=== PATIENT | female | born 1950 | race Caucasian/White ===

== ENCOUNTER 2022-05-14 13:38 | Emergency (ER) | payer MEDICARE, OTHER, SELFPAY ==
[2022-05-14 13:56] VITALS: BP 120/75; PULSE 98; RESP 18; TEMP 36.3; O2SAT 98; BMI 35.0
[2022-05-14 14:30] VITALS: BP 133/72; PULSE 81; RESP 16; O2SAT 99
[2022-05-14] MEDS: 0.9 % SODIUM CHLORIDE 1000 ml 1,000 ML IV (14:35)
--- NOTE | 2022-05-14 14:38 | ED.ARRPALP ---
HPI - Arrhythmia/Palpitations General Chief Complaint: Arrhythmia/Palpitations Stated Complaint: Possible A-Fib Time Seen by Provider: 05/14/22 14:11 History of Present Illness HPI narrative: 72-year-old woman presenting with concern of atrial fibrillation. Does have a known history of PVCs treated way back with atenolol which resulted in significant bradycardia so it was discontinued. She has been maintained on diltiazem and a month ago changed hydrochlorothiazide dosing to b.i.d.. Was feeling pretty well yesterday and this morning around 630 woke feeling generally unwell. Noted from her cellphone monitor that she was in atrial fibrillation. She has been over the course of the day been pushing fluids. Has already taken double her usual dose of diltiazem, now at 60 mg dosed twice today. She did feel woozy in the sense that if she would have turned around too fast she might have fallen down as one of the symptoms earlier this morning. No chest pain or shortness of breath. No fever, no cough or cold symptoms. She has been traveling from [facility] to visit her daughter and would have thought she was a little dehydrated though again pushing fluids today. She is not experiencing any nausea. No UTI symptoms. She is quite clear that was not in atrial fibrillation yesterday. Is a retired [employer] Related Data Home Medications Medication Instructions Recorded Confirmed blood sugar diagnostic (FreeStyle 05/14/22 05/14/22 Lite Strips) cyanocobalamin (vitamin B-12) mcg 05/14/22 1,000 mcg/mL injection solution diltiazem HCl 60 mg tablet 30 mg .Q12 05/14/22 dulaglutide 1.5 mg/0.5 mL mg subcut 05/14/22 subcutaneous pen injector (Trulicity) dulaglutide 3 mg/0.5 mL mg subcut 05/14/22 subcutaneous pen injector (Trulicity) insulin glargine 100 unit/mL unit subcut 05/14/22 subcutaneous solution (Lantus U-100 Insulin) insulin lispro 100 unit/mL subcut 05/14/22 subcutaneous pen (Humalog KwikPen (U-100) Insulin) insulin syringe-needle U-100 1 mL 05/14/22 05/14/22 30 gauge x 1/2 (BD Insulin Syringe Ultra-Fine) losartan 100 mg tablet mg 05/14/22 oxybutynin chloride 5 mg tablet mg 05/14/22 pravastatin 10 mg tablet mg 05/14/22 Previous Rx's Medication Instructions Recorded apixaban 5 mg tablet (Eliquis) 5 mg PO BID #60 tabs 05/14/22 potassium chloride 20 mEq 20 meq PO DAILY #30 tabs 05/14/22 tablet,extended release Allergies Allergy/AdvReac Type Severity Reaction Status Date / Time clarithromycin Allergy Verified 05/14/22 14:01 erythromycin base Allergy Verified 05/14/22 14:01 hydrocodone Allergy Verified 05/14/22 14:01 lisinopril Allergy Verified 05/14/22 14:01 Sulfa (Sulfonamide Allergy Verified 05/14/22 14:01 Antibiotics) Review of Systems Status of ROS: Reports: 10 or more systems reviewed and unremarkable except as noted in History and below Exam Narrative: Exam Narrative: Pleasant. Talkative. Breathing easily. Cranial nerves 2-12 intact. No apparent JVD. Lungs appear to be clear. Cardiovascular with irregularly irregular rhythm, regular to a little elevated rate, maybe a trace systolic murmur. Abdomen is soft and nontender. Overweight. Extremities are without edema. She is moving all extremities without difficulty. Well perfused. Const: Vital Signs, click to edit/add: Vital Signs - 24 hr 05/14/22 13:56 05/14/22 14:30 05/14/22 15:00 Temperature 97.3 F L Pulse Rate [Right Pulse Oximeter] 98 81 77 Respiratory Rate 18 16 14 Blood Pressure [Ri ght Upper Arm] 120/75 133/72 112/60 Pulse Oximetry 98 99 99 Oxygen Delivery Me thod Room Air Room Air Room Air 05/14/22 16:00 05/14/22 16:30 Temperature Pulse Rate [Right Pulse Oximeter] 70 73 Respiratory Rate 16 16 Blood Pressure [Ri ght Upper Arm] 114/51 L 108/53 L Pulse Oximetry 99 99 Oxygen Delivery Me thod Room Air Room Air Documenting provider has reviewed patient's vital signs: yes Course Vital Signs Vital signs: Initial Vital Signs Temperature 97.3 F L 05/14/22 13:56 Temperature Source Temporal Artery Scan 05/14/22 13:56 Pulse Rate 98 05/14/22 13:56 Respiratory Rate 18 05/14/22 13:56 Blood Pressure 120/75 05/14/22 13:56 Blood Pressure Mean 90 05/14/22 13:56 Blood Pressure Position Sitting 05/14/22 13:56 Pulse Oximetry 98 05/14/22 13:56 Oxygen Delivery Method 05/14/22 13:56 Vital Signs Temperature 97.3 F L 05/14/22 13:56 Pulse Rate 98 05/14/22 13:56 Respiratory Rate 18 05/14/22 13:56 Blood Pressure 120/75 05/14/22 13:56 Pulse Oximetry 98 05/14/22 13:56 Oxygen Delivery Method 05/14/22 13:56 Temperature 97.3 F L 05/14/22 13:56 Pulse Rate 73 05/14/22 16:30 Respiratory Rate 16 05/14/22 16:30 Blood Pressure 108/53 L 05/14/22 16:30 Pulse Oximetry 99 05/14/22 16:30 Oxygen Delivery Method 05/14/22 16:30 MDM - Arrhythmia/Palpitations MDM Narrative Medical decision making narrative: Will be placing IV and fluids. Labs pending. I would anticipate cardioversion. Do not need rate control at this time. Labs returned notable for potassium low at 3 and low-normal magnesium. Did give 50 mEq of potassium Moving to his cardioversion pending call to Anesthesia for potential assistance Ms. Crane spontaneously converted into normal sinus. She had been up ambulating to the bathroom and noted that she felt much better. I did place a call to Cardiology at [facility] in [facility]. Hoping to arrange next step in cares or any further recommendations. Understandably they are referencing Jovany scoring. However Jovany Vasc 2 scoring would suggest that Ms. Crane should be fully anticoagulated. I do discuss this with Ms. Crane and her daughter. They would like to proceed with this and cardiology followup. Prescribing Eliquis and potassium on discharge. Given dose of Eliquis prior to departure. Medical Records Attestation: I reviewed the patient's medical records. Lab Data Attestation: I reviewed the patient's lab results. Labs: Lab Results 05/14/22 05/14/22 05/14/22 Range/Units 14:50 14:50 14:50 WBC 13.88 H (4.50-11.00) K/uL RBC 4.78 (4.00-5.20) m/uL Hgb 13.1 (12.0-16.0) gm/dL Hct 40.5 (33.0-51.0) % MCV 85 (80-100) fL MCH 27 (26-34) pg MCHC 32 (32-36) gm/dL RDW Coeff of Woody 13.9 (11.5-15.5) % Plt Count 325 (140-440) K/uL Neut % (Auto) 67.2 (42.0-72.0) % Lymph % (Auto) 24.1 (20-44) % [place] % (Auto) 7.2 (0.0-11.0) % Eos % (Auto) 1.2 (0.0-7.0) % Baso % (Auto) 0.1 (0.0-3.0) % Neut # (Auto) 9.30 H (1.7-7.0) K/uL Lymph # (Auto) 3.30 H (0.90-2.90) K/uL [place] # (Auto) 1.00 H (0.00-0.90) K/UL Eos # (Auto) 0.20 (0.00-0.50) K/uL Baso # (Auto) 0.00 (0.00-0.30) K/uL Abs Immat Gran (auto) 0.00 (0.00-0.30) K/uL Imm/Tot Granulo (auto) 0.2 % Sodium 133 L (135-149) mmol/L Potassium 3.0 L (3.6-5.1) mmol/L Chloride 98 (96-114) mmol/L Carbon Dioxide 28 (20-32) mmol/L BUN 23 (7-30) mg/dL Creatinine 0.8 (0.5-1.5) mg/dL Estimated Creat Clear 43.91 Estimated GFR 78 ml/min Glucose 92 (60-115) mg/dL Calcium 10.4 (8.4-10.6) mg/dL Magnesium 1.9 (1.5-2.6) mg/dL C-Reactive Protein 1.7 H (0.5-1.0) mg/dL NT-Pro-B Natriuret Pep 128 H (0-125) PG/mL TSH 0.894 (0.270-4.20) uIU/mL ECG Data Attestation: I personally reviewed and interpreted this ECG as follows: (1. Atrial fibrillation rate of 84 2. Spontaneous conversion into normal sinus rhythm rate of 71 no ischemic changes appreciated ) Discharge Plan Discharge Clinical Impression: Paroxysmal atrial fibrillation, Hypokalemia Patient Disposition: Home w/ Parent or Adult Condition: Improved Additional Instructions: Continue to stay well hydrated. A little heart pumping exercise daily does a body good. I do not think I have heard or seen anything at least as far as your heart is concerned, for you to restrict your physical activity. My concern would be your steadiness otherwise. Please schedule follow-up within the next 2 weeks to recheck labs and I would also schedule follow-up with Cardiology as soon as possible to reestablish cares. Supplementation for low magnesium is often about 400 mg BID but you're technically not low; I leave this up to you. Prescriptions: New Eliquis 5 mg tablet 5 mg PO BID Qty: 60 2RF potassium chloride 20 mEq tablet extended release 20 meq PO DAILY Qty: 30 0RF No Action (DME) FreeStyle Lite Strips Strip MISCELLANEOUS cyanocobalamin (vitamin B-12) 1,000 mcg/mL solution diltiazem HCl 60 mg tablet 30 mg .Q12 insulin glargine [Lantus U-100 Insulin] 100 unit/mL solution SUBCUT pravastatin 10 mg tablet oxybutynin chloride 5 mg tablet (DME) insulin syringe-needle U-100 [BD Insulin Syringe Ultra-Fine] 1 mL 30 gauge x 1/2 syringe MISCELLANEOUS losartan 100 mg tablet insulin lispro [Humalog KwikPen Insulin] 100 unit/mL insulin pen SUBCUT Trulicity 1.5 mg/0.5 mL pen injector SUBCUT Trulicity 3 mg/0.5 mL pen injector SUBCUT Follow Up/Referrals: Linda Rehman MD [Staff Physician] - Stand Alone Forms: [employer] Info Instructions
[2022-05-14 15:00] VITALS: BP 112/60; PULSE 77; RESP 14; O2SAT 99
[2022-05-14 15:04] LABS: Basophils Percent Auto 0.1 % (0.0-3.0); Eosinophils Percent Auto 1.2 % (0.0-7.0); Hematocrit 40.5 % (33.0-51.0); Hemoglobin* 13.1 gm/dL (12.0-16.0); Immature Granulocytes Pct Auto 0.2 %; Lymphocytes Percent Auto 24.1 % (20-44); Mean Corpuscular HGB Conc 32 gm/dL (32-36); Mean Corpuscular Hemoglobin 27 pg (26-34); Mean Corpuscular Volume 85 fL (80-100); Monocytes Percent Auto 7.2 % (0.0-11.0); Neutrophils Percent Auto 67.2 % (42.0-72.0); Platelet Count* 325 K/uL (140-440); RDW Coefficient of Variation % 13.9 % (11.5-15.5); Red Blood Count 4.78 m/uL (4.00-5.20); White Blood Count* 13.88 K/uL (4.50-11.00)
[2022-05-14 15:10] LABS: Slide Review Reflex No
[2022-05-14 15:25] LABS: Chloride* 98 mmol/L (96-114); Sodium* 133 mmol/L (135-149)
--- OUTSIDE RECORDS SUMMARY | 2022-05-14 15:25 | XMS_ITS | Clinical Summary ---
:1950 Author Organization [facility] Address [address] [place] [address] Care Team Providers Name Role Phone Unavailable Primary Care Provider Unavailable Source Comments Patient records contain information from all sites at [facility]. For routine questions regarding patient records, call [phone] during business hours, M-F 8:00 AM - 5:00 PM Central Time. Record requests for emergency care only can be directed to [phone] at any time.[facility] Allergies Active Allergy Reactions Severity Noted Date Comments Adhesive Tape-Silicones Other (see comments) 7 Redness Aspirin, Buffered GI intolerance 01/25/2017Jan 2 022, Patient says th ey are on low-dose aspirin, taking with food. Clarithromycin Other (see comments) 01/04/2014 Metal Taste in the mouth Erythromycin Other (see comments) 01/04/2014 Metal t aste in mouth Hydrocodone Nausea Only 01/04/2014 Lisinopril Rash 01/04/2014 lip swelling Sulfa (Sulfonamide Other (see comments) 01/04/2014 F ever Antibiotics) Bottoms of feet get hard Medications Medication Sig Dispensed Refills Start Date End Date Status ALBUTEROL SULFATE INHL Inhale 2 puffs 0 12/05/2015 Active as needed. SOB diphenhydrAMINE Take 1 capsule 0 10/05/2016 Active (BENADRYL) 25 mg capsule by mouth at bedtime as needed. insomnia cyanocobalamin Inject 1,000 mcg 0 10/06/2016 Active (for_VITAMIN B12) 1,000 under the skin mcg/mL injection every 30 (thirty) days. Acceptable range for needle size is 25 to 27 gauge and 1/2 to 5/8 long dilTIAZem (for_CARDIZEM) Take 1 tablet by 0 10/08/19 17 Active 30 mg tablet mouth 2 (two) times a day. pediatric Chew 1 tablet 2 0 10/06/2016 Act sherry raedhtysftra-whrj-qtqeeln (two) times a s (FLINTSTONES COMPLETE) day. chewable tablet fluticasone propionate Inhale 2 0 10/05/2016 Active (FLOVENT HFA) 110 Inhalers as mcg/actuation inhaler needed. hydroCHLOROthiazide Take 25 mg by 0 05/24/2017 Active (for_MICROZIDE) 12.5 mg mouth 2 (two) capsule times a day. insulin glargine (LANTUS) Inject 56 Units 0 05/24/20 17 Active 100 unit/mL injection under the skin at bedtime. sennosides-docusate Take 2 tablets 0 10/06/2016 Active sodium (SENOKOT-S) 8.6-50 by mouth at mg per tablet bedtime as needed. cholecalciferol (VITAMIN Take 1 tablet by 0 10/07/19 17 Active D3) 50 mcg (2,000 Unit) mouth daily. tablet ascorbic acid, vitamin C, Take 1 tablet by 0 016 Active (VITAMIN C) 1,000 mg mouth daily. tablet seasonal oxybutynin (DITROPAN) 5 Take 1 tablet by 0 7 Active mg tablet mouth 4 (four) times a day. nystatin (MYCOSTATIN) as needed. 0 04/18/2018 Active 100,000 unit/gram cream valsartan (DIOVAN) 160 mg Take 160 mg by 0 Active tablet mouth daily. FREESTYLE LITE STRIPS 2 test 2 (two) 100 strip 11 02/20/2019 Active strips times a day. Test twice daily Comfort EZ Pen [place] 29 0 12/13/2021 Active gauge x 1/2 needle Jardiance 25 mg tablet 25 mg daily. 0 12/25/2021 Active Trulicity 3 mg/0.5 mL 0 12/25/2021 Active injection aspirin 81 mg capsule Take 1 tablet by 0 Active mouth daily. pravastatin (PRAVACHOL) Take 80 mg by 0 Active 80 mg tablet mouth at bedtime. 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 Surgery Bariatr ic Status Post; Bypass Gastric Geovanna En Y Status Post; Body Mass Index 36.0 To 36.9 Adult 03/08/2022 Clinical Admitting/Central Pre-visit Intake Communication Scheduling 02/12/2022 Clinical Admitting/Central Pre-visit Intake Communication Scheduling from Last 3 Months Immunizations Name Administration Dates Next Due H1N1 Inj 05/06/2009 HZV (ZOSTAVAX) 11/10/2010 Influenza (IM) Preservative Free 04/01/2014, 04/04/2013, 06/2011, 06/22/2011, 04/29/2010, 03/19/2009 Influenza Split 05/27/2016 Influenza, Seasonal, Injectable 05/02/2006, 05/06/2005, 11/0 08/2003 PCV13 10/16/2015 PPSV23 02/08/2020 (Deferred: Other), 10/24/2006 RZV (SHINGRIX) 02/08/2020 (Deferred: Other) Td (Adult), adsorbed 10/22/1996 Td Preservative Free (TENIVAC, 10/27/2015 DECAVAC) Tdap 11/25/2006 influenza high dose (65 years or 06/03/2016, 05/27/2016, 09/2014 older) (PF) influenza vaccine quad 04/18/2017 (FLUZONE/FLUARIX) (6 months and older)(PF) Family History Medical History Relation Name Comments Gestational diabetes Daughter Irene Allen Alcohol abuse Father Navid Michelle Arthritis Father Navid Michelle Coronary artery disease Father Navid Michelle Diabetes Father Navid Michelle Hypertension Father Navid Michelle Sleep apnea Father Navid Michelle Pancreatic cancer Father's Brother Alec Michelle Breast cancer Father's Sister Kristyn Garcia Alcohol abuse Mother Radha Michelle Arthritis Mother Radha Michelle Coronary artery disease Mother Radha Michelle Dementia Mother Radha Michelle Diabetes Mother Radha Michelle Hypertension Mother Radha Michelle Kidney disease Mother Radha Michelle Hypertension Son Anibal Crane Sleep apnea Son Anibal Crane Ovarian cancer Neg Hx Relation Name Status Comments Daughter Irene Allen Father Navid Michelle Father's Brother Alec Michelle Father's Sister Kristyn Garcia Mother Radha Michelle Son Anibal Crane Social History Tobacco Use Types Packs/Day Years Used Date Smoking Tobacco: Never Smokeless Tobacco: Never Tobacco Cessation: Counseling Given: Not Answered Alcohol Use Standard Drinks/Week Comments Yes 1 (1 standard drink = 0.6 oz pure alcoho l) Alcohol Habits Answer Date Recorded How often do you have a drink containing alcohol? Monthly or less 02/08/2020 How many drinks containing alcohol do you have on a 1 or 2 02/08/2020 typical day when you are drinking? How often do you have six or more drinks on one Never 02/08/2020 occasion? Social Isolation Answer Date Recorded In a typical week, how many times do you talk on the Once a week 02/08/2020 phone with family, friends, or neighbors? How often do you get together with friends or Not asked relatives? How often do you attend yarsani or mosque services? Patien t refused 02/08/2020 Do you belong to any clubs or organizations such as No 02/08/2020 yarsani groups, unions, fraternal or athletic groups, or school groups? How often do you attend meetings of the clubs or Never 02/08/2020 organizations you belong to? Are you now , , , , 02/08/2020 never or living with a partner? Physical Activity Answer Date Recorded On average, how many days per week do you engage in moderate 3 days 02/08/2020 to strenuous exercise (like walking fast, running, jogging, dancing, swimming, biking, or other activities that cause a light or heavy sweat)? On average, how many minutes do you engage in exercise at No t asked this level? Stress Answer Date Recorded Do you feel stress - tense, restless, nervous, or Only a lit tle 02/08/2020 anxious, or unable to sleep at night because your mind is troubled all the time - these days? Financial Resource Strain Answer Date Recorded How hard is it for you to pay for the very basics like Not h luciana at all 02/08/2020 food, housing, medical care, and heating? Food Insecurity Answer Date Recorded Within the past 12 months, you worried that your food would Not asked run out before you got money to buy more. Within the past 12 months, the food you bought just didn't N ever true 02/08/2020 last and you didn't have money to get more. Transportation Needs Answer Date Recorded In the past 12 months, has lack of transportation kept you f rom No 02/08/2020 medical appointments or from getting medications? In the past 12 months, has lack of transportation kept you f rom No 02/08/2020 meetings, work, or getting things needed for daily living? Education Answer Date Recorded What is the highest level of school Associate degree: elio lomax, 02/08/2020 you have completed or the highest technical, or vocational p joaquin degree you have received? Sex Assigned at Date Recorded Not on file Last Filed Vital Signs Vital Sign Reading Time Taken Comments Blood Pressure 126/55 03/09/2022 9:35 AM average CDT Pulse 69 03/09/2022 9:35 AM CDT Temperature - - Respiratory Rate 18 10/07/2016 12:04 Value from Blued rtplus. PM CDT Oxygen Saturation - - Inhaled Oxygen - - Concentration Weight 94.8 kg (208 lb 15.9 03/09/2022 9:35 AM oz) CDT Height 161.3 cm (5' 3.5) 03/09/2022 9:35 AM CDT Body Mass Index 36.44 03/09/2022 9:35 AM CDT Plan of Treatment Health Maintenance Due Date Last Done Comments Bone Density Scan (Osteoporosis 1950 Screen) CT Colonography 1950 Cologuard 1950 Diabetic Office Visit with Foot 1950 Exam Dilated Eye Exam 1950 FIT 1950 Hepatitis C Screening 1950 COVID-19 Vaccine (#1) 1950 Hepatitis B Vaccines (1 of 3 - 2010 Risk 3-dose series) Zoster Vaccines (2 of 3) 01/05/2011 11/10/2010 Pneumococcal vaccine (65+ years) 10/15/2016 10/16/2015, (3 - PPSV23 if available, else PCV20) Diabetes Education 12/21/2016 12/22/2015 Potassium Level 10/06/2017 10/06/2016 Sodium Level 10/06/2017 10/06/2016 Urine Albumin 04/11/2020 04/11/2019 Mammogram 02/04/2021 02/05/2020, 01/30/2020, 12/21/2018, Additional history exists Colonoscopy 06/27/2021 06/27/2011 (Performed elsewhere) Colorectal Cancer Screening 06/27/2021 Depression Screening (Annual 06/27/2021 PHQ-2) Fall Risk Screen (Annual) 06/27/2021 Influenza Vaccine (#1) 2022 05/01/2019, 04/17/2018, 04/18/2017, Additional history exists Hemoglobin A1C 08/13/2022 02/10/2022, 11/26/2020, 11/26/2019, Additional history exists Creatinine Level 02/10/2023 02/10/2022, 11/26/2020, 11/26/2019, Additional history exists Office Visit for Blood Pressure 03/09/2023 03/09/2022 Check / Re-check DTaP,Tdap,and Td Vaccines (3 - Td 10/26/2025 10/27/2015, , or Tdap) 10/22/1996 Lipid (Cholesterol) Screening 02/10/2027 02/10/2022, 2020, 11/26/2019, Additional history exists Medical Devices Implanted Type Area Stave Jointer Device Shelf Model / Identifier Expiration Serial / Date Lot Breast Other Breast Left: Other Breast Conversions - Default Historical Implant Device Mesh or Abdomen Implanted: 09/29/2016 (Quantity not on file) Patch Description: Body Location - Abdominal. Device Status Text - MeshPatch. Insurance Payer Benefit Plan Subscriber ID Effective Phone Address Typ e / Group Dates MEDICARE MEDICARE A [id number] 2015-Pres [address] [place] [address] FOR FOR [id number] 2017-Prese [phone] [address] [facility] [address] [address] [place] [address]
--- OUTSIDE RECORDS SUMMARY | 2022-05-14 15:25 | XMS_ITS | Encounter Summary ---
:1950 Author Organization [facility] Address [address] [place] [address] Care Team Providers Name Role Phone Unavailable Primary Care Provider Unavailable Encounter Details Date Type Department Care Team Description 11/19/2020 Hospital Encounter Department of Valentin Blank Laboratory Medicine Libby Ny APRN, En Y S tatus [place] in [place], C.N.PWing, D.N.PWing [place] [address] [facility] [address] [place] [phone] Social History Tobacco Use Types Packs/Day Years Used Date Smoking Tobacco: Never Smokeless Tobacco: Never Alcohol Use Standard Drinks/Week Comments Yes 1 [...] asked relatives? How often do you attend synagogue or cheondoism services? Patien t refused 02/08/2020 Do you belong to any clubs or organizations such as No 02/08/2020 synagogue groups, unions, fraternal or athletic groups, or [...] Assigned at Date Recorded Not on file documented as of this encounter Medications at Time of Discharge Medication Sig Dispensed Refills Start Date End Date ALBUTEROL SULFATE INHL Inhale 2 puffs as 0 2015 needed. SOB ascorbic acid, vitamin C, Take 1 tablet by 0 12/25 (VITAMIN C) 1,000 mg tablet mouth daily. seasonal cholecalciferol (VITAMIN Take 1 tablet by 0 10/06 D3) 50 mcg (2,000 Unit) mouth daily. tablet cyanocobalamin (for_VITAMIN Inject 1,000 mcg 0 B12) 1,000 mcg/mL injection under the skin every 30 (thirty) days. Acceptable range for needle size is 25 to 27 gauge and 1/2 to 5/8 long dilTIAZem (for_CARDIZEM) 30 Take 1 tablet by 0 mg tablet mouth 2 (two) times a day. diphenhydrAMINE (BENADRYL) Take 1 capsule by 0 25 mg capsule mouth at bedtime as needed. insomnia fluticasone propionate Inhale 2 Inhalers 0 2016 (FLOVENT HFA) 110 as needed. mcg/actuation inhaler FREESTYLE LITE STRIPS 2 test 2 (two) 100 strip 11 02/20/2019 strips times a day. Test twice daily hydroCHLOROthiazide Take 25 mg by 0 05/24/2017 (for_MICROZIDE) 12.5 mg mouth 2 (two) capsule times a day. insulin glargine (LANTUS) Inject 56 Units 0 05/24 100 unit/mL injection under the skin at bedtime. nystatin (MYCOSTATIN) as needed. 0 04/18/2018 100,000 unit/gram cream oxybutynin (DITROPAN) 5 mg Take 1 tablet by 0 11/2016 tablet mouth 4 (four) times a day. pediatric Chew 1 tablet 2 0 10/06/2016 wsenhwhaasnl-dyyj-hgpzihbr (two) times a (FLINTSTONES COMPLETE) day. chewable tablet sennosides-docusate sodium Take 2 tablets by 0 (SENOKOT-S) 8.6-50 mg per mouth at bedtime tablet as needed. valsartan (DIOVAN) 160 mg Take 160 mg by 0 tablet mouth daily. acetaminophen (for_TYLENOL) Take 2 tablets by 0 0 10/06/2016 11/26/2020 500 mg tablet mouth as needed. pain. Do not exceed 4gm per day. metFORMIN (GLUCOPHAGE) 500 Take 2 tablets 180 tablet 3 06/1311/26/2020 mg tablet (1,000 mg total) by mouth 2 (two) times a day with meals. pravastatin (for_PRAVACHOL) Take 1 tablet by 0 11/26/2020 80 mg tablet mouth at bedtime. documented as of this encounter Plan of Treatment Not on filedocumented as of this encounter Procedures Procedure Name Priority Date/Time Associated Diagnosis Comme nts SUPERSATURATION, Routine 11/25/2020 6:00 AM Bypass Gastric Rou x Results for this 24H, U CDT En Y Status Post procedure a re in the results section. documented in this encounter Results (ABNORMAL) Supersaturation, 24 Hr, Urine (11/25/2020 6:00 AM CDT) P athologist Signature Sodium, 24 HR, 232 22 - 328 11/26/2020 DTL U mmol/24 h 9:06 AM CDT Potassium, 24 52 16 - 105 11/26/2020 DTL HR, U mmol/24 h 9:06 AM CDT Calcium, 24 HR, 82 <200 mg/24 11/26/2020 DTL U h 9:06 AM CDT Magnesium, 24 137 51 - 269 11/26/2020 DTL HR, U mg/24 h 9:06 AM CDT Chloride, 24 200 <287 11/26/2020 DTL HR, U mmol/24 h 9:06 AM CDT Phosphorus, 24 1340 226 - 1797 11/26/2020 DTL HR, U mg/24 h 9:06 AM CDT Sulfate Urine 20 7 - 47 11/26/2020 SIVAN mmol/24 h 3:06 PM CDT Comment: ----ADDITIONAL INFORMATION---- This test was developed and its performa nce characteristics determined by [facility] in a manner co nsistent with CLIA requirements. This test has not bee n cleared or approved by the U.S. Food and Drug Admin istration. Citrate Excretion, U 438 mg/24 h 11/26/2020 10:05 AM CDT DTL Comment: ----REFERENCE VALUE---- Reference values have not been established for patients who are >60 years of age. ----ADDITIONAL INFORMATION---- This test was developed and its performa nce characteristics determined by [facility] in a manner co nsistent with CLIA requirements. This test has not bee n cleared or approved by the U.S. Food and Drug Admin istration. Oxalate, U (mmol/24 h) 0.22 0.11 - 0.46 mmol/24 h 11/26 12:50 PM CDT DTL Comment: ----ADDITIONAL INFORMATION---- This test was developed and its performa nce characteristics determined by [facility] in a manner co nsistent with CLIA requirements. This test has not bee n cleared or approved by the U.S. Food and Drug Admin istration. Oxalate, mg/24 h 19.4 9.7 - 40.5 mg/24 h 11/26/2020 12: 50 PM CDT DTL pH, 24 HR, U 5.0 4.5 - 8.0 11/26/2020 9:43 AM CDT DTL Uric Acid, 24 HR, U 738 250 - 750 mg/24 h 11/26/2020 9 :06 AM CDT DTL Creatinine, 24 HR, U 1258 603 - 1783 mg/24 h 11/26/2020 9:06 AM CDT DTL Osmolality, 24 HR, U 407 150 - 1150 mOsm/kg 11/26/2020 9:43 AM CDT DTL Ammonium, 24 HR, U 48 15 - 56 mmol/24 h 11/26/2020 11 :42 AM CDT DTL Comment: ----ADDITIONAL INFORMATION---- This test has been modified from the man ufacturer's instructions. Its performance characteri stics were determined by [facility] in a manner co nsistent with CLIA requirements. This test has not bee n cleared or approved by the U.S. Food and Drug Admin istration. Urea Nitrogen, 24 HR, U 13.5 7.0 - 42.0 g/24 h 11/27/19 21 9:06 AM CDT DTL Protein Catabolic Rate, 24 109 56 - 125 g/24 h 021 9:06 AM CDT DTL HR, U Height (cm) CANCELED cm 11/26/2020 8:34 AM CDT SIVAN Comment: REVISED RESULTS Weight (kg) CANCELED kg 11/26/2020 8:34 AM CDT SIVAN Comment: REVISED RESULTS Patient Surface Area SEE COMMENT 11/26/2020 8:34 A M CDT SIVAN Comment: REVISED RESULTS Not required for adults. ----PREVIOUSLY REPORTED ---- 2.12, Flagged as: Normal (Reported 11/26/2020 08:34) Calcium Oxalate -0.44 Reference Mean= 11/27/2020 11:21 D TL Crystal 1.59 DG AM CDT Brushite Crystal -4.01 Reference Mean= 11/27/2020 11:21 DTL -0.11 DG AM CDT Hydroxyapatite Crystal -2.05 Reference Mean= 11/27/2020 11:21 DTL 3.62 DG AM CDT Uric Acid Crystal 3.69 (H) Reference Mean= 11/27/2020 11:21 DTL 0.89 DG AM CDT Sodium Urate Crystal -0.18 Reference Mean= 11/27/2020 11 :21 DTL 1.76 DG AM CDT Collection Duration 24 h 11/27/2020 11:21 DTL AM CDT Volume 2735 mL 11/27/2020 11:21 DTL AM CDT Interpretation The DG is related to supersa turation. DG is negative for undersaturated 11/27/2020 11:21 DTL solutions, zero for solutions at the solubility produc t, and positive for AM CDT saturated solutions. Any value greater than the Reference Mean is considered a ri sk for the respective crystal type formation. In general, a higher calculated SS means the risk for formin g that type of stone is increased. A positive DG value indicates that the u rine is supersaturated for that crystal type. Specimen Anatomical Collection Method Collection Time Receive d Time (Source) Location / / Volume Laterality Urine (Urine, 24 11/25/2020 6:00 AM 11/26 8:01 Hours) CDT AM CDT Narrative This result has an attachment that is no t available. Libby Blank APRN C.N.P., D.N.P. LAB URINE ORDER APOLINAR Performing Organization Address City/State/ZIP Code Phon e Number [facility] - [address] [place], [place] [address] [facility] [place] [address] [facility] [address] [place] [address] [facility] [address] documented in this encounter Visit Diagnoses Diagnosis Bypass Gastric Geovanna En Y Status Post documented in this encounter
--- OUTSIDE RECORDS SUMMARY | 2022-05-14 15:25 | XMS_ITS | Encounter Summary ---
:1950 Author Organization [facility] Address [address] [place] [id number] Care Team Providers Name Role Phone Unavailable Primary Care Provider Unavailable Reason for Visit Appointment Request (Routine) - Closed Specialty Diagnoses / Procedures Referred By Contact Refer red To Contact Diagnoses Hypertension Essential Primary Diabetes Mellitus Type 2 (HCC) Obesity Body Mass Index 30-39.9 Adult Ted Ortega APRN, C.N.P., D.N.P. [address] [place] [address] Referral ID Status Reason Start Date Expiration Date Visits Requ ested Visits Authorized [id number] Closed 09/29/2020 09/29/2021 1 1 Encounter Details Date Type Department Care Team Description 12/03/2020 Clinical Support Department of Ted Ortega Last En Y Status Post (Primary Dx); Nutrition in [place], Hypertension Es sential Primary; [place], [place] C.N.P., D.N.P. Diabetes Mellitus Type 2 (HCC) [facility] [address] [place] [address] [phone] Social History Tobacco Use Types Packs/Day Years [...] asked relatives? How often do you attend yarsanism or hoahaoism services? Patien t refused 02/08/2020 Do you belong to any clubs or organizations such as No 02/08/2020 yarsanism groups, unions, fraDishable or athletic groups, or school groups? How [...] highest level of school Associate degree: elio lomax 02/08/2020 you have completed or the highest technical, or vocational [facility] degree you have received? Sex Assigned at Date Recorded Not on file documented as of this encounter Progress Notes Althea Sharma M.Ed., TITUS FRANCISCO - 12/03/2020 8:00 AM CDT Patient presents for greater than 1 year status post bariatric surgery/procedure nutrition group visit. Consult conducted via real-time audio/video technology by Althea Sharma M.Ed., TITUS FRANCISCO in [facility] to the patient in patient home. Patient will be able to identify the nutritional guidelines recommended for greater than 1 year status post bariatric surgery/procedure and adopt the habits that are needed for improved health and maintenance of weight loss. The objectives of this class are as follows: -Review healthy dietary guidelines -Consume a variety of healthy foods -Limit sugar/sweets -Consume recommended fluids -Drink and eat slowly -Eat on a regular schedule -Take the recommended supplements Patient assessment: Meals: 2-3 meals and 1-2 snacks Breakfast: 1/2 bagel or cottage cheese with fruit or nepalese yogurt with granola or oatmeal Lunch: cheese or sausage or vegetables Supper: meat and vegetable Snack: Protein shake GI Symptoms: none Fluids: 64 or more ounces from water, protein shake, fairlife milk Protein: 60-80 grams from cottage cheese, nepalese yogurt, milk, eggs, lean meats and protein shake Physical Activity: stationary bike, walking (4-5,000 steps/day) Goals: Gradual weight loss and Blood Glucose control Addressed patient directed diet related questions on a variety of topics including portion control, snacking, hunger, and self-monitoring. Follow up per protocol. Patient Census: 3 Total Group Time: 45 minutes Individual time: 25 minutes Ted Ortega APRN, C.N.P., D.N.P. - 12/03/2020 8:00 AM CDT SUBJECTIVE REASON FOR VISIT This is a brief interim post-bariatric surgery visit. Today's visit was completed via telephone call from provider's office to patient's home due to the COVID 19 pandemic. Patient consented to this service. She is being seen today for an interim follow-up visit after undergoing a last-en-Y gastric bypass by Dr. Hickey on 10/05/16. She was just recently seen by my colleague Libby Blank APRN, CNP individually last week and today reports for the group portion of follow up care. New new concerns today. She still notes fullness with her eating patterns, and is uncomfortable whenapproaching 1.5 cups at a time. In the past has done food tracking, but in the past couple weeks she was traveling quite a bit so has gotten off track with this, which will certainly help. The following portions of the patient's history were reviewed and updated as appropriate: allergies,labs, current medications, family history, medical history, social history, surgical history, and problem list. OBJECTIVE CURRENT MEDICATIONS Current Outpatient Medications Medication Sig Dispense Refill ??? ALBUTEROL SULFATE INHL Inhale 2 puffs as needed. SOB ??? ascorbic acid, vitamin C, (vitamin C) 1,000 mg tablet Take 1 tablet by mouth 2 (two) times a day. seasonal ??? cholecalciferol (VITAMIN D3) 2,000 Unit tablet Take 1 tablet by mouth daily. ??? cyanocobalamin (for_VITAMIN B12) 1,000 mcg/mL injection Inject 1,000 mcg under the skin every 30(thirty) days. Acceptable range for needle size is 25 to 27 gauge and 1/2 to 5/8 long ??? dilTIAZem (for_CARDIZEM) 30 mg tablet Take 1 tablet by mouth 2 (two) times a day. ??? diphenhydrAMINE (BENADRYL) 25 mg capsule Take 1 capsule by mouth at bedtime as needed. insomnia ??? fluticasone (FLOVENT HFA) 110 mcg/actuation inhaler Inhale 2 Inhalers as needed. ??? FREESTYLE LITE STRIPS strips 2 test 2 (two) times a day. Test twice daily 100 strip 11 ??? hydroCHLOROthiazide (for_MICROZIDE) 12.5 mg capsule Take 1 capsule by mouth daily. ??? insulin glargine (LANTUS U-100 INSULIN) 100 unit/mL injection Inject 56 Units under the skin at bedtime. ??? nystatin (MYCOSTATIN) 100,000 unit/gram cream as needed. ??? oxybutynin (DITROPAN) 5 mg tablet Take 1 tablet by mouth 2 (two) times a day. ??? pediatric vgwpeadnkele-hhws-ntfpghqq (flintstones complete) chewable tablet Chew 1 tablet 2 (two) times a day. ??? sennosides-docusate sodium (SENNA WITH DOCUSATE SODIUM) 8.6-50 mg per tablet Take 2 tablets by mouth at bedtime as needed. ??? valsartan (DIOVAN) 160 mg tablet Take 160 mg by mouth daily. No current facility-administered medications for this visit. ALLERGIES Allergies Allergen Reactions ??? Adhesive Tape-Silicones Other (see comments) Redness ??? Aspirin, Buffered GI intolerance ??? Clarithromycin Other (see comments) Metal Taste in the mouth ??? Erythromycin Other (see comments) unknown ??? Hydrocodone Nausea Only ??? Lisinopril Rash lip swelling ??? Sulfa (Sulfonamide Antibiotics) Other (see comments) Fever Bottoms of feet get hard PAST MEDICAL HISTORY Past Medical History: Diagnosis Date ??? Asthma NOS ??? Blood Transfusion No Diagnosis ??? Cataract ??? Diabetes Mellitus NOS ??? Hyperlipidemia ??? Hypertension NOS ??? Liver Disease ??? Other Injury Of Unspecified Body Region ??? Sleep Apnea PAST SURGICAL HISTORY Past Surgical History: Procedure Laterality Date ??? BREAST BIOPSY Left 1988 ??? CARPAL TUNNEL RELEASE Bilateral ??? SECTION x2 ??? EXPLORATORY LAPAROTOMY inserted mesh ??? HYSTERECTOMY ABDOMINAL WITH SALPINGO - OOPHORECTOMY ??? KNEE SURGERY Left meniscus ??? LAPAROSCOPIC ASSISTED - GASTRIC BYPASS N/A 10/05/2016 Laparoscopic assisted - Gastric bypass ??? ROTATOR CUFF REPAIR Right ??? SEPTOPLASTY ??? SINUS SURGERY ??? TENDON REPAIR tibia ??? TONSILLECTOMY ??? TRIGGER FINGER RELEASE SOCIAL HISTORY Social History Socioeconomic History ??? Marital status: Spouse name: Not on file ??? Number of children: Not on file ??? Years of education: Not on file ??? Highest education level: Associate degree: occupational, technical, or vocational program Occupational History ??? Not on file Tobacco Use ??? Smoking status: Never Smoker ??? Smokeless tobacco: Never Used Substance and Sexual Activity ??? Alcohol use: Yes Alcohol/week: 1.0 standard drinks Types: 1 Cans of beer per week ??? Drug use: No ??? Sexual activity: Yes Partners: Male Other Topics Concern ??? Not on file Social History Narrative ??? Not on file Social Determinants of Health Financial Resource Strain: Low Risk ??? Difficulty of Paying Living Expenses: Not hard at all Food Insecurity: Unknown ??? Worried About Running Out of Food in the Last Year: Not on file ??? Ran Out of Food in the Last Year: Never true Transportation Needs: No Transportation Needs ??? Lack of Transportation (Medical): No ??? Lack of Transportation (Non-Medical): No Physical Activity: Unknown ??? Days of Exercise per Week: 3 days ??? Minutes of Exercise per Session: Not on file Stress: No Stress Concern Present ??? Feeling of Stress : Only a little Social Connections: Unknown ??? Frequency of Communication with Friends and Family: Once a week ??? Frequency of Social Gatherings with Friends and Family: Not on file ??? Attends Zoroastrianism Services: Patient refused ??? Active Member of Clubs or Organizations: No ??? Attends Club or Organization Meetings: Never ??? Marital Status: Intimate Partner Violence: ??? Fear of Current or Ex-Partner: ??? Emotionally Abused: ??? Physically Abused: ??? Sexually Abused: VITAL SIGNS There were no vitals filed for this visit. ASSESSMENT / PLAN #1 Bypass Gastric Last En Y Status Post #2 Hypertension Essential Primary #3 Diabetes Mellitus Type 2 (HCC) Other orders - Nutrition - Group bariatric education visit (clinic) In the future, she is planning to touch base with our dietitians more regularly to help manage dietary habits and routines. Will plan to keep food cut up in her refrigerator to make snacking more healthy overall. She continues to get around 4-5k steps per day, noting some do not get counted. She does quilting and needlework which unfortunately involve sitting she notes. She should follow lifelong with a Primary Care Provider for chronic disease management, acute needs,and annual physicals, as well as the [facility] annually [facility]. Labs and 24 hour urine collection prior to next visit have been previously ordered, and she can follow up as previously planned last visit. She can contact us for additional appointments if needs arise in the interim. I personally spent a total of 22 minutes in gct-bqrs-ts-face time performing review of the medical record, care coordination, documentation, and discussion with the patient as described above. Navya Godoy M.A., Therese.Cassidy. - 12/03/2020 8:00 AM CDT CHIEF COMPLAINT/PURPOSE OF VISIT Clinical Health Psychology Patient attended a 60-minute health and behavior 1 year or greater post- bariatric surgery group visit. Group session conducted via real-time audio/video technology by Navya Godoy M.A., Gay in [facility] to the patient in patient's home. IMPRESSION/REPORT/PLAN Patient attended a 12-month post-bariatric surgery group today. There were 3 group members and one semiconductor processing group leader in attendance. We discussed topics relevant to post-bariatric lifestyle including, but not limited to weight loss maintenance, weight regain, sticking with it, mood, stress management, social support, body image, nutrition, physical activity, and alcohol use. Options to attend a bariatric support group or the Back on Track program were discussed. Mrs. Crane discussed weight regain in the context of behavioral drift and stress eating. She reports that increased structure and support is helpful, and has resumed keeping a food log. She shared that attending the Back on Track support group was helpful, and feels confident that she can continue tomake small behavioral changes to address behavioral drift. She discussed challenges in social eatingsituations. DIAGNOSES #1 Status Post bariatric Surgery BILLING Margin Code: HBGP Total Time: 30 minutes documented in this encounter Plan of Treatment Not on filedocumented as of this encounter Visit Diagnoses Diagnosis Bypass Gastric Last En Y Status Post - P rimary Hypertension Essential Primary Diabetes Mellitus Type 2 (HCC) documented in this encounter
--- OUTSIDE RECORDS SUMMARY | 2022-05-14 15:25 | XMS_ITS | Encounter Summary ---
:1950 Author Organization [facility] Address [address] [place] [address] Care Team Providers Name Role Phone Unavailable Primary Care Provider Unavailable Reason for Visit Reason Comments Abdominal Pain Encounter Details Date Type Department Care Team Description 11/15/2021 - Emergency [facility] Abdominal Pain (Primary 11/17/[address] [place]x) [place] [address] [facility] [phone] Social History Tobacco Use Types Packs/Day Years [...] asked relatives? How often do you attend rastafarian or nondenominational services? Patien t refused 02/08/2020 Do you belong to any clubs or organizations such as No 02/08/2020 rastafarian groups, unions, fraternal or athletic groups, or [...] mg tablet mouth daily. seasonal cholecalciferol (VITAMIN D3) Take 1 tablet by 0 0 10/06/2016 50 mcg (2,000 Unit) tablet mouth daily. cyanocobalamin (for_VITAMIN Inject 1,000 mcg 0 B12) [...] as needed. mcg/actuation inhaler FREESTYLE LITE STRIPS strips 2 test 2 (two) 100 strip 11 times a day. Test twice daily hydroCHLOROthiazide Take 25 mg by mouth 0 017 (for_MICROZIDE) 12.5 mg 2 (two) times a capsule day. insulin glargine (LANTUS) Inject 56 Units 0 05/24 100 unit/mL injection under the skin at bedtime. nystatin (MYCOSTATIN) as needed. 0 04/18/2018 100,000 unit/gram cream oxybutynin (DITROPAN) 5 mg Take 1 tablet by 0 11/2016 tablet mouth 4 (four) times a day. pediatric Chew 1 tablet 2 0 10/06/2016 jcufafcwsomv-bdki-bgxtncsa (two) times a day. (FLINTSTONES COMPLETE) chewable tablet sennosides-docusate sodium Take 2 tablets by 0 (SENOKOT-S) 8.6-50 mg per mouth at bedtime as tablet needed. valsartan (DIOVAN) 160 mg Take 160 mg by 0 tablet mouth daily. documented as of this encounter Plan of Treatment Not on filedocumented as of this encounter Visit Diagnoses Diagnosis Abdominal Pain - Primary documented in this encounter
--- OUTSIDE RECORDS SUMMARY | 2022-05-14 15:25 | XMS_ITS | Encounter Summary ---
:1950 Author Organization [facility] Address [address] [place] [address] Care Team Providers Name Role Phone Unavailable Primary Care Provider Unavailable Reason for Visit Reason Comments Pre-visit Intake Encounter Details Date Type Department Care Team Description 02/12/2022 Clinical Communication Visit Review in Pr e-visit Intake [place], [place] [address] [place], [place] [address] Social History Tobacco Use Types Packs/Day Years [...] asked relatives? How often do you attend presybeterian or congregational services? Patien t refused 02/08/2020 Do you belong to any clubs or organizations such as No 02/08/2020 presybeterian groups, unions, fraternal or athletic groups, or [...] completed or the highest technical, or vocational josé nuñez degree you have received? Sex Assigned at Date Recorded Not on file documented as of this encounter Plan of Treatment Not on filedocumented as of this encounter Visit Diagnoses Not on filedocumented in this encounter
--- OUTSIDE RECORDS SUMMARY | 2022-05-14 15:25 | XMS_ITS | Encounter Summary ---
:1950 Author Organization [facility] Address [address] [place] [address] Care Team Providers Name Role Phone Unavailable Primary Care Provider Unavailable Encounter Details Date Type Department Care Team Description 02/10/2022 Hospital Encounter Department of [place], Surgery Bariatric Status Post; Laboratory Medicine Libby Ny APRN, Diabet es Mellitus Type 2 (HCC); in Naima Fowler.N.P., D.N.P. Hyperlipidemia [place] [address] [facility] [address] [place] [phone] Social History Tobacco Use Types Packs/Day Years [...] asked relatives? How often do you attend protestant or jew services? Patien t refused 02/08/2020 Do you belong to any clubs or organizations such as No 02/08/2020 protestant groups, unions, fraternal or athletic groups, or [...] 50 mcg (2,000 Unit) tablet mouth daily. Comfort EZ Pen [place] 29 0 12/13/2021 gauge x 1/2 needle cyanocobalamin (for_VITAMIN Inject 1,000 mcg 0 B12) [...] unit/mL injection under the skin at bedtime. Jardiance 25 mg tablet 25 mg daily. 0 12/25/2021 nystatin (MYCOSTATIN) as needed. 0 04/18/2018 100,000 unit/gram cream oxybutynin (DITROPAN) 5 mg Take 1 tablet by 0 11/2016 tablet mouth 4 (four) times a day. pediatric Chew 1 tablet 2 0 10/06/2016 zzhgpqpuvvfc-tdys-[id number] (two) times a day. (FLINTSTONES COMPLETE) chewable tablet sennosides-docusate sodium Take 2 tablets by 0 (SENOKOT-S) 8.6-50 mg per mouth at bedtime as tablet needed. Trulicity 3 mg/0.5 mL 0 12/25/2021 injection valsartan (DIOVAN) 160 mg Take 160 mg by 0 tablet mouth daily. documented as of this encounter Plan of Treatment Not on filedocumented as of this encounter Procedures Procedure Name Priority Date/Time Associated Comments Diagnosis LIPID PANEL, S Routine 02/10/2022 7:05 Surgery Bariatric Resul ts for this AM CDT Status Post procedure are in Diabetes Mellitus the result s Type 2 (HCC) section. Hyperlipidemia BONE ALKALINE Routine 02/10/2022 7:05 Surgery Bariatric Result s for this PHOSPHATASE, S AM CDT Status Post procedure are in Diabetes Mellitus the result s Type 2 (HCC) section. 25-HYDROXYVITAMIN D2 AND Routine 02/10/2022 7:05 Surgery Baria tric Results for this D3, S AM CDT Status Post procedure are in Diabetes Mellitus the result s Type 2 (HCC) section. CBC WITHOUT Routine 02/10/2022 7:05 Surgery Bariatric Results for this DIFFERENTIAL, B AM CDT Status Post procedure are in Diabetes Mellitus the result s Type 2 (HCC) section. ASPARTATE Routine 02/10/2022 7:05 Surgery Bariatric Results for this AMINOTRANSFERASE (AST), AM CDT Status P ost procedure are in S/P Diabetes Mellitus the result s Type 2 (HCC) section. HEMOGLOBIN A1C, B Routine 02/10/2022 7:05 Surgery Bariatric Re sults for this AM CDT Status Post procedure are in Diabetes Mellitus the result s Type 2 (HCC) section. GLUCOSE, FASTING, S/P Routine 02/10/2022 7:05 Surgery Bariatri c Results for this AM CDT Status Post procedure are in Diabetes Mellitus the result s Type 2 (HCC) section. FERRITIN, S Routine 02/10/2022 7:05 Surgery Bariatric Results for this AM CDT Status Post procedure are in Diabetes Mellitus the result s Type 2 (HCC) section. CREATININE WITH EGFR, Routine 02/10/2022 7:05 Surgery Bariatri c Results for this S/P AM CDT Status Post procedure are in Diabetes Mellitus the result s Type 2 (HCC) section. CALCIUM, TOT, S/P Routine 02/10/2022 7:05 Surgery Bariatric Re sults for this AM CDT Status Post procedure are in Diabetes Mellitus the result s Type 2 (HCC) section. ALBUMIN, S/P Routine 02/10/2022 7:05 Surgery Bariatric Results for this AM CDT Status Post procedure are in Diabetes Mellitus the result s Type 2 (HCC) section. documented in this encounter Results (ABNORMAL) Lipid Panel (02/10/2022 7:05 AM CDT) P athologist Signature Triglycerides 149 mg/dL 02/10/2022 [facility] 8:20 AM CDT Comment: ----REFERENCE VALUE---- Normal: <150 mg/dL Borderline High: 150-199 mg/dL High: 200-499 mg/dL Very High: > or =500 mg/dL Cholesterol, Total 115 mg/dL 02/10/2022 8:20 AM CD T [facility] Comment: ----REFERENCE VALUE---- Desirable: < 200 mg/dL Borderline High: 200 - 239 mg/dL High: > or = 240 mg/dL Cholesterol, LDL, Calculated 48 mg/dL 02/10/2022 8:20 AM CDT [facility] Comment: ----REFERENCE VALUE---- Desirable: <100 mg/dL Above Desirable: 100-129 mg/dL Borderline High: 130-159 mg/dL High: 160-189 mg/dL Very High: >=190 mg/dL ----ADDITIONAL INFORMATION---- LDL cholesterol calculated using the Hernandez/NIH equation. Cholesterol, HDL 41 (L) >=50 mg/dL 02/10/2022 8:20 AM CDT [facility] Cholesterol, Non-HDL, Calculated 74 mg/dL 8:20 AM CDT [facility] Comment: ----REFERENCE VALUE---- Desirable: <130 mg/dL Above Desirable: 130-159 mg/dL Borderline High: 160-189 mg/dL High: 190-219 mg/dL Very High: > or =220 mg/dL Fasting (8 HR or more) Yes 02/10/2022 7:22 A M CDT [facility] Specimen Anatomical Collection Method Collection Time Receive d Time (Source) Location / / Volume Laterality Blood (Blood, 02/10/2022 7:05 AM 02/11/20 7:22 Venous) CDT AM CDT Libby Blank APRN, C.N.P., D.N.P. LAB BLOOD ADD-O N Performing Organization Address City/State/ZIP Code Phon e Number [facility]- [address] [place] [address] [place] [address] System in [place] [address] (ABNORMAL) Hemoglobin A1c (02/10/2022 7:05 AM CDT) P athologist Signature Hemoglobin A1c, 7.5 (H) 4.2 - 5.6 02/10/2022 [facility] B % 8:15 AM CDT Comment: Hemoglobin A1c values greater than or eq ual to 6.5 percent are diagnostic for diabetes mellitus. ?? Diagnosis should be confirmed by repeat testing. ??In diabet ic patients, HbA1c goals should be discussed with healthcar e provider. Specimen Anatomical Collection Method Collection Time Receive d Time (Source) Location / / Volume Laterality Blood (Blood, 02/10/2022 7:05 AM 02/11/20 7:22 Venous) CDT AM CDT Libby Blank APRN, C.N.P., D.N.P. LAB BLOOD ADD-O N Performing Organization Address City/State/ZIP Code Phon e Number [facility]- [address] [place] [address] [facility] [place] [address] System in [place] [address] CBC without Differential (02/10/2022 7:05 AM CDT) athologist Signature Hemoglobin 12.4 11.6 - 02/10/2022 [facility] 15.0 g/dL 7:26 AM CDT Hematocrit 39.6 35.5 - 02/10/2022 [facility] 44.9 % 7:26 AM CDT Erythrocytes 4.53 3.92 - 02/10/2022 [facility] 5.13 7:26 AM CDT x10(12)/L MCV 87.4 78.2 - 02/10/2022 [facility] 97.9 fL 7:26 AM CDT RBC Distrib Width 14.6 12.2 - 02/10/2022 [facility] 16.1 % 7:26 AM CDT Platelet Count 293 157 - 371 02/10/2022 [facility] x10(9)/L 7:26 AM CDT Leukocytes 8.7 3.4 - 9.6 02/10/2022 [facility] x10(9)/L 7:26 AM CDT Specimen Anatomical Collection Method Collection Time Receive d Time (Source) Location / / Volume Laterality Blood (Blood, 02/10/2022 7:05 AM 02/11/20 7:22 Venous) CDT AM CDT Naima Pizarro APRN.N.P., D.N.P. LAB BLOOD ADD-O N Performing Organization Address City/[facility]/ZIP Code Phon e Number [facility]- [address] [place] [address] [place] [address] System in [place] [address] Creatinine with Estimated GFR (02/10/2022 7:05 AM CDT) athologist Signature Creatinine 0.85 0.59 - 02/10/2022 [place] 1.04 mg/dL 8:20 AM CDT eGFR-Black/Afric 80 >=60 02/10/2022 [facility] an Thai mL/min/BSA 8:20 AM CDT Comment: ----ADDITIONAL INFORMATION---- Estimated GFR calculated using the 2009 CKD_EPI creatinine equation. eGFR Non-Black/ 69 >=60 mL/min/BSA 8:20 AM CDT [facility] Comment: ----ADDITIONAL INFORMATION---- Estimated GFR calculated using the 2009 CKD_EPI creatinine equation. Specimen Anatomical Collection Method Collection Time Receive d Time (Source) Location / / Volume Laterality Blood (Blood, 02/10/2022 7:05 AM 02/11/20 7:22 Venous) CDT AM CDT Naima Pizarro APRN.N.P., D.N.P. LAB BLOOD ADD-O N Performing Organization Address City/State/ZIP Code Phon e Number [facility]- [address] [place] [address] [facility] [place] [address] System in [place] [address] Ferritin (02/10/2022 7:05 AM CDT) athologist Signature Ferritin, S 18 11 - 328 02/10/2022 [facility] mcg/L 8:47 AM CDT Comment: Biotin has been identified by the mena remy as a potential interfering substance. Higher concentrations of biotin may be found in multivitamins, shelley ir/nail supplements, and workout supplements. If the result d oes not match clinical observations, repeat testing af ter patient refrains from the use of supplements for at least 12 hours. Specimen Anatomical Collection Method Collection Time Receive d Time (Source) Location / / Volume Laterality Blood (Blood, 02/10/2022 7:05 AM 02/11/20 7:22 Venous) CDT AM CDT Amaury Pizarro APRNN.Cassidy., D.N.P. LAB BLOOD ADD-O N Performing Organization Address City/[facility]/ZIP Code Phon e Number [facility]- [address] [facility] [place] [address] [place] [address] System in [place] [address] Glucose, Fasting (02/10/2022 7:05 AM CDT) P athologist Signature Glucose, P 94 70 - 100 02/10/2022 [facility] mg/dL 8:23 AM CDT Last Intake 11 hr 02/10/2022 [facility] 7:22 AM CDT Specimen Anatomical Collection Method Collection Time Receive d Time (Source) Location / / Volume Laterality Blood (Blood, 02/10/2022 7:05 AM 02/11/20 7:22 Venous) CDT AM CDT Naima Pizarro APRN.N.P., D.N.P. LAB BLOOD NON A DD-ON Performing Organization Address City/[facility]/ZIP Code Phon e Number [facility]- [address] [place] [address] [place] [address] System in [place] [address] Calcium, Total (02/10/2022 7:05 AM CDT) P athologist Signature Calcium, Total, 9.9 8.8 - 10.2 02/10/2022 [place] P mg/dL 8:20 AM CDT Specimen Anatomical Collection Method Collection Time Receive d Time (Source) Location / / Volume Laterality Blood (Blood, 02/10/2022 7:05 AM 08/17/20 22 7:22 Venous) CDT AM CDT Amaury Pizarro APRNN.Elizabeth, D.N.P. LAB BLOOD ADD-O N Performing Organization Address City/State/ZIP Code Phon e Number [facility]- [address] [place] [address] [place] [address] System in [place] [address] Bone Alkaline Phosphatase (02/10/2022 7:05 AM CDT) P athologist Signature Bone Alkaline 13 mcg/L 02/11/2022 [facility] Phosphatase, S 9:17 AM CDT Comment: ----REFERENCE VALUE---- <=14 (Premenopausal) <=22 (Postmenopausal) ----ADDITIONAL INFORMATION---- Liver-derived alkaline phosphatase (ALP) increases apparent measured bone alkaline phosphatase (BAP) in this assay by 2.5 mcg/L to 5.8 mcg/L for every 100 U/L of liver ALP. ??Accordingl y, serum specimens with significant elevations of liver ALP acti vity may yield artificially elevated results in the BAP assay. Specimen Anatomical Collection Method Collection Time Receive d Time (Source) Location / / Volume Laterality Blood (Blood, 02/10/2022 7:05 AM 02/12/20 8:26 Venous) CDT AM CDT Amaury Pizarro APRNN.PWing, D.N.P. LAB BLOOD ADD-O N Performing Organization Address City/State/ZIP Code Phon e Number [facility] [address] [place] [address] [place], [place] [address] [address] Laboratory Medicine and Pathology [address] [place] AST (Aspartate Aminotransferase) (02/10/2022 7:05 AM CDT) Patholo gist Method Time Signature Aspartate 19 8 - 43 02/10/2022 [facility] Aminotransferase U/L 8:20 AM CDT (AST), P Specimen Anatomical Collection Method Collection Time Receive d Time (Source) Location / / Volume Laterality Blood (Blood, 02/10/2022 7:05 AM 02/11/20 7:22 Venous) CDT AM CDT Naima Pizarro APRN.N.P., D.N.P. LAB BLOOD ADD-O N Performing Organization Address City/[facility]/ZIP Code Phon e Number [facility]- [address] [place] [address] [place] [address] System [address] Albumin (02/10/2022 7:05 AM CDT) athologist Signature Albumin, P 3.9 3.5 - 5.0 02/10/2022 [facility] g/dL 8:20 AM CDT Specimen Anatomical Collection Method Collection Time Receive d Time (Source) Location / / Volume Laterality Blood (Blood, 02/10/2022 7:05 AM 02/11/20 7:22 Venous) CDT AM CDT Naima Pizarro APRN.N.P., D.N.P. LAB BLOOD ADD-O N Performing Organization Address City/[facility]/ZIP Code Phon e Number [facility]- [address] [facility] [place] [address] [place] [address] [address] 25-Hydroxyvitamin D2 and D3 (02/10/2022 7:05 AM CDT) athologist Signature 25-Hydroxy D2 <4.0 ng/mL 02/18/2022 [facility] 1:19 AM CDT 25-Hydroxy D3 40 ng/mL 02/18/2022 [facility] 1:19 AM CDT 25-Hydroxy D 40 ng/mL 02/18/2022 [facility] Total 1:19 AM CDT Comment: ----REFERENCE VALUE---- 25-HYDROXY D TOTAL (D2+D3) Optimum level s in the healthy population are 20-50, patients with bone disease may benefit from higher levels within this r eddie. ----ADDITIONAL INFORMATION---- This test was developed and its performa nce characteristics determined by [facility] in a manner consistent with CLIA requirements. This test has not been cleared or approved by the [place] d and Drug Administration. Specimen Anatomical Collection Method Collection Time Receive d Time (Source) Location / / Volume Laterality Blood (Blood, 02/10/2022 7:05 AM 02/12/20 7:19 Venous) CDT AM CDT Libby Blank APRN C.N.P., D.N.P. LAB BLOOD ADD-O N Performing Organization Address City/State/ZIP Code Phon e Number [facility] [address] [place] [address] [facility] [place] [address] Laboratory Medicine and Pathology [address] [place] documented in this encounter Visit Diagnoses Diagnosis Surgery Bariatric Status Post Diabetes Mellitus Type 2 (HCC) Hyperlipidemia documented in this encounter
--- OUTSIDE RECORDS SUMMARY | 2022-05-14 15:25 | XMS_ITS | Encounter Summary ---
:1950 Author Organization [facility] Address [address] [place] [address] Care Team Providers Name Role Phone Unavailable Primary Care Provider Unavailable Reason for Referral Specialty Diagnoses / Procedures Referred By Contact Refer red To Contact Belia Bacon P. A.-C. [facility] [address] [place] [phone] Referral ID Status Reason Start Date Expiration Date Visits Requ ested Visits Authorized Scheduling Instructions Care Home Post Surgery Group Reason for Visit Outpatient (Routine) - Closed Specialty Diagnoses / Procedures Referred By Contact Refer silke To Contact Endocrinology Libby Blank APRN, [facility] C.N.P., D.N.P. [address] [place] [phone] Referral ID Status Reason Start Date Expiration Date Visits Requ ested Visits Authorized [id number] Closed 11/26/2020 11/26/2021 1 1 Encounter Details Date Type Department Care Team Description 03/09/2022 Office Visit Division of Belia Bacon Diabetes M ellitus Type 2 (HCC) (Primary Dx); Endocrinology in [place] Surgery Bariatric Status Post; [place], [place] [address] [facility] Bypass Gastric Geovanna En Y Status Post; [address] [place] [address] Body Mass Index 36.0 To 36.9 [place] [phone] Social History Tobacco Use Types Packs/Day Years [...] asked relatives? How often do you attend buddhist or lutheran services? Patien t refused 02/08/2020 Do you belong to any clubs or organizations such as No 02/08/2020 buddhist groups, unions, fraternal or athletic groups, or [...] on file documented as of this encounter Last Filed Vital Signs Vital Sign Reading Time Taken Comments Blood Pressure 126/55 03/09/2022 9:35 AM CDT average Pulse 69 03/09/2022 9:35 AM CDT Temperature - - Respiratory Rate - - Oxygen Saturation - - Inhaled Oxygen Concentration - - Weight 94.8 kg (208 lb 15.9 oz) 03/09/2022 9:35 AM CDT Height 161.3 cm (5' 3.5) 03/09/2022 9:35 AM CDT Body Mass Index 36.44 03/09/2022 9:35 AM CDT documented in this encounter Progress Notes Belia Bacon P.A.-C. 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 HISTORY OF PRESENT ILLNESS She is being seen today for a long chain quiller tender follow-up visit after undergoing a laparoscopic Geovanna-en-Y gastric bypass by Dr. Martín Hickey on 10/05/16. WEIGHT HISTORY Baseline weight in nutrition clinic: 117.2 kg Weight at time of bariatric surgery: 118.8 kg Weight one year post-bariatric surgery: 94.5 kg Weight at last post-bariatric surgery visit: 99.1 kg Weight today: 94.8 kg Responses from our post bariatric surgery questionnaire are below, which include pertinent review ofsystems, dietary habits and physical activity patterns: Karla reports that she has been doing well in the interval. Her local pathology specialist, who is managing her diabetes, placed her on Trulicity and Jardiance which has resulted in much better glycemiccontrol with her A1c coming in at 7.5%. This is the best glycemic control she has had since she had her weight darius from bariatric surgery. She reports having lost 20 lbs on this medication regimen. She states that she feels really good and that carb counting has been beneficial in weight control. Also note she was suffering from acute cholecystitis in the interval and underwent a laparoscopic gallbladder removal which has resulted in reduction of GI symptoms to include bloating, abdominal pain. The following portions of the patient's history were reviewed and updated as appropriate: visit questionnaire, allergies, labs, current medications, family history, medical history, social history, surgical history, and problem list. OBJECTIVE VITAL SIGNS Vitals: 03/09/22 0935 BP: 126/55 Pulse: 69 Height: 161.3 cm Weight: 94.8 kg ASSESSMENT / PLAN #1 Diabetes Mellitus Type 2 (HCC) #2 Surgery Bariatric Status Post #3 Bypass Gastric Geovanna En Y Status Post #4 Body Mass Index 36.0 To 36.9 Adult Other orders - Endocrinology office visit (clinic) - Nutrition - Group bariatric education visit (clinic); Future; Expected date: 03/09/2023 - 25-Hydroxyvitamin D2 and D3; Future; Expected date: 03/09/2023 - Albumin; Future; Expected date: 03/09/2023 - AST (Aspartate Aminotransferase); Future; Expected date: 03/09/2023 - Bone Alkaline Phosphatase; Future; Expected date: 03/09/2023 - Calcium, Total; Future; Expected date: 03/09/2023 - Glucose, Fasting; Future; Expected date: 03/09/2023 - Ferritin; Future; Expected date: 03/09/2023 - Creatinine with Estimated GFR; Future; Expected date: 03/09/2023 - CBC without Differential; Future; Expected date: 03/09/2023 - Hemoglobin A1c; Future; Expected date: 03/09/2023 - Lipid Panel; Future; Expected date: 03/09/2023 - Supersaturation, 24 Hr, Urine; Future; Expected date: 03/09/2023 LABS and MEDICATIONS I reviewed the labs with her today. She should make the following medication changes: Multivitamin: one multivitamin twice daily Calcium: no extra calcium supplementation. Vitamin D: 2,000 international units vitamin D3 daily. Vitamin B12: 1000 mcg injection monthly. Iron: Vitron- C 1 tablet 1 time daily. Labs and 24 hour urine collection prior to next visit mail in PHYSICAL ACTIVITY PLAN Lacking on that, sewing in shed. Will work on that in the interval DIETARY MODIFICATION PLAN Smaller portions, no bread, counting carbs so noted reduction with counting. Protein shakes twice a day with [employer]life. Meat with meals using behaviors to avoid grazing. Details will be discussed with our dietitian to review post-bariatric surgery dietary recommendations, including: daily calorie guidelines; healthy dietary and lifestyle choices; common post-surgical nutrition problems; weight plateaus; and the importance of keeping food intake and weight records. She should follow lifelong with a Primary Care Provider for chronic disease management, acute needs,and annual physicals, as well as the [facility] annually long chain quiller tender. At present, I would advise follow-up in approximately one year. She can contact us for additional appointments if needs arise in the interim. documented in this encounter Plan of Treatment Scheduled Orders Name Type Priority Associated Diagnoses Order S chedule 25-Hydroxyvitamin D2 and Lab Routine Diabetes Mellitu s Type 2 Expected: 03/09/2023 D3 ([facility]) (Approximate), Surgery Bariatric Status Exp ires: 06/08/2023 Post Bypass Gastric Geovanna En Y Status Post Body Mass Index 36.0 To 36.9 Adult Albumin Lab Routine Diabetes Mellitus Type 2 Exp ected: 03/09/2023 ([facility]) (Approximate), Surgery Bariatric Status Exp ires: 06/08/2023 Post Bypass Gastric Geovanna En Y Status Post AST (Aspartate Lab Routine Diabetes Mellitus Type 2 E xpected: 03/09/2023 Aminotransferase) ([facility]) (Approximate), Surgery Bariatric Status Exp ires: 06/08/2023 Post Bypass Gastric Geovanna En Y Status Post Bone Alkaline Phosphatase Lab Routine Diabetes Mellit us Type 2 Expected: 03/09/2023 ([facility]) (Approximate), Surgery Bariatric Status Exp ires: 06/08/2023 Post Bypass Gastric Geovanna En Y Status Post Calcium, Total Lab Routine Diabetes Mellitus Type 2 E xpected: 03/09/2023 ([facility]) (Approximate), Surgery Bariatric Status Exp ires: 06/08/2023 Post Bypass Gastric Geovanna En Y Status Post Glucose, Fasting Lab Routine Diabetes Mellitus Type 2 Expected: 03/09/2023 ([facility]) (Approximate), Surgery Bariatric Status Exp ires: 06/08/2023 Post Bypass Gastric Geovanna En Y Status Post Ferritin Lab Routine Diabetes Mellitus Type 2 Exp ected: 03/09/2023 ([facility]) (Approximate), Surgery Bariatric Status Exp ires: 06/08/2023 Post Bypass Gastric Geovanna En Y Status Post Creatinine with Estimated Lab Routine Diabetes Mellit us Type 2 Expected: 03/09/2023 GFR ([facility]) (Approximate), Surgery Bariatric Status Exp ires: 06/08/2023 Post Bypass Gastric Geovanna En Y Status Post CBC without Differential Lab Routine Diabetes Mellitu s Type 2 Expected: 03/09/2023 ([facility]) (Approximate), Surgery Bariatric Status Exp ires: 06/08/2023 Post Bypass Gastric Geovanna En Y Status Post Hemoglobin A1c Lab Routine Diabetes Mellitus Type 2 E xpected: 03/09/2023 ([facility]) (Approximate), Surgery Bariatric Status Exp ires: 06/08/2023 Post Bypass Gastric Geovanna En Y Status Post Lipid Panel Lab Routine Diabetes Mellitus Type 2 Exp ected: 03/09/2023 ([facility]) (Approximate), Surgery Bariatric Status Exp ires: 06/08/2023 Post Bypass Gastric Geovanna En Y Status Post Supersaturation, 24 Hr, Lab Routine Diabetes Mellitus Type 2 Expected: 03/09/2023 Urine ([facility]) (Approximate), Surgery Bariatric Status Exp ires: 06/08/2023 Post Bypass Gastric Geovanna En Y Status Post Scheduled Referrals Name Type Priority Associated Diagnoses Order S [facility] Nutrition - Group Outpatient Referral Routine Diabetes Mellitu s Expected: bariatric education Type 2 ([facility]) 03/09/2023 visit (clinic) Surgery Bariatric (Approxi mate), Status Post Expires: Bypass Gastric Geovanna 06/08/20 23 En Y Status Post documented as of this encounter Visit Diagnoses Diagnosis Diabetes Mellitus Type 2 ([facility]) - Primary Surgery Bariatric Status Post Bypass Gastric Geovanna En Y Status Post Body Mass Index 36.0 To 36.9 Adult documented in this encounter
--- OUTSIDE RECORDS SUMMARY | 2022-05-14 15:25 | XMS_ITS | Encounter Summary ---
:1950 Author Organization [facility] Address [address] [place] [address] Care Team Providers Name Role Phone Unavailable Primary Care Provider Unavailable Reason for Visit Reason Comments Follow-up Encounter Details Date Type Department Care Team Description 05/23/2020 Clinical Communication Division of Ted Ortega [facility] Endocrinology in [place], [place] C.N.P., D.N.P. [address] [facility] [place] [address] [place] [address] [place], [place] [phone] Social History Tobacco Use Types Packs/Day Years [...] asked relatives? How often do you attend rastafari or anglican services? Patien t refused 02/08/2020 Do you belong to any clubs or organizations such as No 02/08/2020 rastafari groups, unions, fraternal or athletic groups, or [...] on file documented as of this encounter Miscellaneous Notes Telephone Encounter - Denisse Barnhart - 05/23/2020 4:16 PM CST Otto info- patient has not responded to attempts to contact to schedule. ~KYLE 05/02/20 Left , 04/07/20 Letter/kyle// RN HOSPICE documented in this encounter Plan of Treatment Not on filedocumented as of this encounter Visit Diagnoses Not on filedocumented in this encounter
--- OUTSIDE RECORDS SUMMARY | 2022-05-14 15:25 | XMS_ITS | Encounter Summary ---
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 Obesity Body Mass Index 30-39.9 [facility], in [address] [place] [address] [address] [facility] [address] [place], [place] [phone] (Work) [phone] Social History Tobacco Use Types Packs/Day Years [...] asked relatives? How often do you attend nondenominational or mandaen services? Patien t refused 02/08/2020 Do you belong to any clubs or organizations such as No 02/08/2020 nondenominational groups, unions, fraternal or athletic groups, or [...] pediatric Chew 1 tablet 2 0 10/06/2016 iefvxdamtwmc-mcvq-tserqxhl (two) times a (FLINTSTONES COMPLETE) day. chewable [...] as of this encounter Visit Diagnoses Diagnosis Hypertension Essential Primary Diabetes Mellitus Type 2 (HCC) Obesity Body Mass Index 30-39.9 Adult documented in this encounter
--- OUTSIDE RECORDS SUMMARY | 2022-05-14 15:25 | XMS_ITS | Clinical Summary ---
:1950 Author Organization [facility] [place] [address] Care Team Providers Name Role Phone Pcp, No Primary Care Provider Unavailable Allergies Active Allergy Reactions Severity Noted Date Comments Aspirin, Buffered GI Upset 01/25/2017 Other reac tion(s): GI intolerance Clarithromycin Other - Describe In 01/04/2014 Metal Taste in the Comment Field mouth Hydrocodone Nausea Only 01/04/2014 Lisinopril *Unknown 01/25/2017 Lips swell Sulfa (Sulfonamide Fever 01/25/2017 Antibiotics) Medications Medication Sig Dispensed Refills Start Date End Date Status PROAIR HFA 90 0 12/02/2016 Activ e mcg/actuation inhaler diltiazem (CARDIZEM) 60 0 11/30/2016 Active mg tablet oxybutynin (DITROPAN) 5 0 11/30/2016 Active mg tablet pravastatin (PRAVACHOL) 0 12/02/2016 Active 80 mg tablet FREESTYLE LITE STRIPS 0 01/17/2017 Active strip cyanocobalamin (VITAMIN 0 12/02/2016 Active B12) 1,000 mcg/mL injection hydroCHLOROthiazide 12.5 0 03/31/2017 Active mg capsule valsartan (DIOVAN) 160 Take 1 tablet by 0 07/06/2017 Active mg tablet mouth once daily. insulin glargine Inject 10 mL 0 07/06/2017 Ac tive (LANTUS) 100 unit/mL subcutaneous injection before bedtime. acetaminophen (TYLENOL Take 2 tablets by 0 7 Active EXTRA STRGTH) 500 mg mouth. tablet diphenhydrAMINE Take 1 capsule by 0 10/05/2016 Active (BENADRYL) 25 mg capsule mouth. losartan (COZAAR) 100 mg Take 100 mg by 0 01/22/2018 Active tablet mouth once daily. HYDROmorphone (DILAUDID) 0 04/25/2018 Active 2 mg tablet nystatin (MYCOSTATIN) 0 04/18/2018 Active cream predniSONE (DELTASONE) Take 2 tabs once 11 tablet 0 07/27/2018 Active 20 mg tabletIndications: daily for 3 days Pain of foot, then 1 tabs once unspecified laterality daily for 3 days then 1/2 tab once daily for 4 days. 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 Diabetes mellitus, type 2 04/26/2016 Obstructive sleep apnea syndrome 02/24/2016 Psychological factors affecting medical condition 12/26 Asthma 01/12/2016 Primary hypertension 01/12/2016 Obesity with body mass index 30 or greater 12/05/2015 Immunizations Name Administration Dates Next Due Influenza A (H1N1), Inactivated (Age 1105/06/2009 >=3 Years) Influenza, High-dose Inactivated 04/17/2018, 06/03/2016, 06/2015, 05/30/2015 Influenza, IIV3 (Age 6-35 mos) 04/01/2014, 04/04/2013, 04/27, 06/22/2011, 04/29/2010, 03/19/2009 Influenza, IIV3 (Age >=3 years) 05/02/2006, 05/06/2005, 1108/2003 Influenza, IIV4 04/11/2020, 05/01/2019, 04/18/2017 Pneumococcal Poly,23-Valent 02/08/2020 (Deferred: Patient Re fused), (Pneumovax) 10/24/2006 Pneumococcal conj 13-Valent (Prevnar 10/16/2015 13) Td (Age >=7 Years) 10/22/1996 Td, Preservative Free (age >= 7 10/27/2015 Years) Tdap 11/25/2006 Zoster (Zostavax-ZVL, live) 11/10/2010 Zoster, Unspecified Formulation 02/08/2020 (Deferred: Patien t Refused) Family History Medical History Relation Name Comments Alcoholism Father Arthritis Father Coronary artery disease Father Diabetes Father Hyperlipidemia Father Hypertension Father Alcoholism Mother Arthritis Mother Coronary artery disease Mother Dementia Mother Diabetes Mother Hyperlipidemia Mother Hypertension Mother Relation Name Status Comments Father Mother Social History Tobacco Use Types Packs/Day Years Used Date Never Smoker Smokeless Tobacco: Never Used Tobacco Cessation: Counseling Given: Yes Alcohol Use Standard Drinks/Week Comments No 0 (1 standard drink = 0.6 oz pure alcoho l) Sex Assigned at Date Recorded Not on file Obstetrics History Last Filed Vital Signs Vital Sign Reading Time Taken Comments Blood Pressure 160/78 11/16/2021 12:12 AM CDT Pulse 71 11/16/2021 12:12 AM CDT Temperature 36.9 ??C (98.4 ??F) 11/15/2021 10:12 PM CDT Respiratory Rate 18 11/15/2021 10:12 PM CDT Oxygen Saturation 98% 11/16/2021 12:12 AM CDT Inhaled Oxygen Concentration - - Weight 97.5 kg (215 lb) 11/15/2021 10:12 PM CDT Height 162.6 cm (5' 4) 11/15/2021 10:12 PM CDT Body Mass Index 36.9 11/15/2021 10:12 PM CDT Plan of Treatment Health Maintenance Due Date Last Done Comments COVID-19 vaccine series (#1) 1950 Depression screening for age 12+ 1962 Hepatitis C screening for age 1004/12/1968 18-79 Colonoscopy through age 75 1995 Lipids for age 45-75 1995 Mammogram for age 45-75 1995 Zoster (shingles) series for age 0701/05/2011 11/10/2010 50+ (2 of 3) DEXA/DXA scan for age 65+ 2015 Medicare Wellness for age 65+ 2015 Pneumococcal series for age 65+ 10/15/2016 10/16/2015, 09/27 (#3) BMI (ht and wt on same day) for 07/13/2018 07/13/2017 age 18+ Influenza for age 65+ 02/25/2022 04/11/2020, 05/01/2019, 04/17/2018, Additional history exists Tetanus booster 10/26/2025 10/27/2015, 11/25/2006, 10/22/1996 Tdap Completed 11/25/2006 Results Not on filefrom Last 3 Months Insurance Payer Benefit Plan / Subscriber ID Effective Dates Phone Addre ss Type Group MEDICARE PART B MEDICARE PART B [id number] 2015-Rosana ATTN: CLAIMS - HB USE ONLY HB ONLY t [address] [place] [address] MEDICARE - PB MEDICARE PB [id number] 2015-Rosana ATT N: CLAIMS USE ONLY ONLY t [address] [place] [address] FOR [id number] 2015-Rosana [address] [place] [address] Care Teams Refrigeration Tech Relationship Specialty Start Date End Date Pcp, No PCP - General 11/15/21 .
--- OUTSIDE RECORDS SUMMARY | 2022-05-14 15:25 | XMS_ITS | Encounter Summary ---
:1950 Author Organization [facility] Address [address] [place] [address] Care Team Providers Name Role Phone Unavailable Primary Care Provider Unavailable Encounter Details Date Type Department Care Team Description 06/13/2020 Orders Only Division of Endocrinology in [place], [place], [place] CUTTER DOWN, C.N.P., D.N.P. [address] [facility] [address] [place] [address] [place], [place] [phone] (Wo rk) Social History Tobacco Use Types Packs/Day Years [...] asked relatives? How often do you attend worship or church services? Patien t refused 02/08/2020 Do you belong to any clubs or organizations such as No 02/08/2020 worship groups, unions, fraternal or athletic groups, or [...] or the highest technical, or vocational p lorneram degree you have received? Sex Assigned at Date Recorded Not on file documented as of this encounter Plan of Treatment Not on filedocumented as of this encounter Visit Diagnoses Not on filedocumented in this encounter
--- OUTSIDE RECORDS SUMMARY | 2022-05-14 15:25 | XMS_ITS | Encounter Summary ---
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 Obesity Body Mass Index 30-39.9 [facility], in [address] [place] [address] [address] [facility] [address] [place], [place] [phone] (Work) [phone] Social History Tobacco Use Types Packs/Day Years [...] asked relatives? How often do you attend mandaeism or jain services? Patien t refused 02/08/2020 Do you belong to any clubs or organizations such as No 02/08/2020 mandaeism groups, unions, fraternal or athletic groups, or [...] pediatric Chew 1 tablet 2 0 10/06/2016 zqyflpzizdxk-xtxk-dqaqtfpb (two) times a day. (FLINTSTONES COMPLETE) chewable [...] Associated Comments Diagnosis LIPID PANEL, S Routine 11/26/2020 7:25 Diabetes Mellitus Resul ts for this AM CDT Type 2 (HCC) procedure are in Hypertension the results Essential Primar y section. Obesity Body Mass Index 30-39.9 Adult BONE ALKALINE Routine 11/26/2020 7:25 Diabetes Mellitus Result s for this PHOSPHATASE, S AM CDT Type 2 (HCC) procedure are in Hypertension the results Essential Primar y section. Obesity Body Mass Index 30-39.9 Adult 25-HYDROXYVITAMIN D2 AND Routine 11/26/2020 7:25 Diabetes Araceli itus Results for this D3, S AM CDT Type 2 (HCC) procedure are in Hypertension the results Essential Primar y section. Obesity Body Mass Index 30-39.9 Adult CBC WITHOUT Routine 11/26/2020 7:25 Diabetes Mellitus Results for this DIFFERENTIAL, B AM CDT Type 2 (HCC) procedure are in Hypertension the results Essential Primar y section. Obesity Body Mass Index 30-39.9 Adult ASPARTATE Routine 11/26/2020 7:25 Diabetes Mellitus Results for this AMINOTRANSFERASE (AST), AM CDT Type 2 ( HCC) procedure are in S/P Hypertension the results Essential Primar y section. Obesity Body Mass Index 30-39.9 Adult HEMOGLOBIN A1C, B Routine 11/26/2020 7:25 Diabetes Mellitus Re sults for this AM CDT Type 2 (HCC) procedure are in Hypertension the results Essential Primar y section. Obesity Body Mass Index 30-39.9 Adult GLUCOSE, FASTING, S/P Routine 11/26/2020 7:25 Diabetes Mellitu s Results for this AM CDT Type 2 (HCC) procedure are in Hypertension the results Essential Primar y section. Obesity Body Mass Index 30-39.9 Adult FERRITIN, S Routine 11/26/2020 7:25 Diabetes Mellitus Results for this AM CDT Type 2 (HCC) procedure are in Hypertension the results Essential Primar y section. Obesity Body Mass Index 30-39.9 Adult CREATININE WITH EGFR, Routine 11/26/2020 7:25 Diabetes Mellitu s Results for this S/P AM CDT Type 2 (HCC) procedure are in Hypertension the results Essential Primar y section. Obesity Body Mass Index 30-39.9 Adult CALCIUM, TOT, S/P Routine 11/26/2020 7:25 Diabetes Mellitus Re sults for this AM CDT Type 2 (HCC) procedure are in Hypertension the results Essential Primar y section. Obesity Body Mass Index 30-39.9 Adult ALBUMIN, S/P Routine 11/26/2020 7:25 Diabetes Mellitus Results for this AM CDT Type 2 (HCC) procedure are in Hypertension the results Essential Primar y section. Obesity Body Mass Index 30-39.9 Adult documented in this encounter Results (ABNORMAL) Lipid Panel (11/26/2020 7:25 AM CDT) athologist Signature Cholesterol, 178 mg/dL 11/26/2020 DTL Total 8:30 AM CDT Comment: ----REFERENCE VALUE---- Desirable: < 200 Borderline high: 200 - 239 High: > or = 240 Triglycerides 154 (H) mg/dL 11/26/2020 8:30 AM CDT DTL Comment: ----REFERENCE VALUE---- Normal: <150 Borderline high: 150-199 High: 200-499 Very high: > or =500 Cholesterol, HDL, S 45 (L) >=50 mg/dL 11/26/2020 8:30 AM CDT DTL Calculated LDL 102 mg/dL 11/26/2020 8:30 AM CDT DT L Comment: ----REFERENCE VALUE---- Desirable: <100 Above Desirable: 100-129 Borderline high: 130-159 High: 160-189 Very high: > or =190 Cholesterol, Non-HDL, Calculated 133 mg/dL 021 8:30 AM CDT DTL Comment: ----REFERENCE VALUE---- Desirable: <130 Above Desirable: 130-159 Borderline high: 160-189 High: 190-219 Very high: > or =220 Specimen Anatomical Collection Method Collection Time Receive d Time (Source) Location / / Volume Laterality Blood (Blood, 11/26/2020 7:25 AM 11/27/19 7:51 Venous) CDT AM CDT Ted Ortega APRN, C.N.P., D.N.P. LAB BLOOD ADD-ON Performing Organization Address City/State/ZIP Code Phon e Number [facility] - [address] [place], [place] [address] [facility] [place] [address] Laboratories-[facility] [address] 25-Hydroxyvitamin D2 and D3 (11/26/2020 7:25 AM CDT) athologist Signature 25-Hydroxy D2 <4.0 ng/mL 11/28/2020 [facility] 10:53 AM CDT 25-Hydroxy D3 35 ng/mL 11/28/2020 [facility] 10:53 AM CDT 25-Hydroxy D 35 ng/mL 11/28/2020 [facility] Total 10:53 AM CDT Comment: ----REFERENCE VALUE---- 25-HYDROXY D TOTAL (D2+D3) Optimum level s in the healthy population are 20-50, patients with bone disease may benefit from higher levels within this r eddie. ----ADDITIONAL INFORMATION---- This test was developed and its performa nce characteristics determined by [facility] in a manner consistent with CLIA requirements. This test has not been cleared or approved by the [place] d and Drug Administration. Specimen Anatomical Collection Method Collection Time Receive d Time (Source) Location / / Volume Laterality Blood (Blood, 11/26/2020 7:25 AM 11/27/19 Venous) CDT 11:06 AM CDT Naima Lopez APRN.N.P., D.N.P. LAB BLOOD ADD-ON Performing Organization Address City/[facility] Code Phon e Number [facility] [address] [place], [place] [address] [facility] [place] [address] Laboratory Medicine and Pathology [address] [place] Albumin (11/26/2020 7:25 AM CDT) P athologist Signature Albumin, S 4.2 3.5 - 5.0 11/26/2020 DTL g/dL 8:30 AM CDT Specimen Anatomical Collection Method Collection Time Receive d Time (Source) Location / / Volume Laterality Blood (Blood, 11/26/2020 7:25 AM 11/27/19 7:51 Venous) CDT AM CDT Naima Lopez APRN.N.P., D.N.P. LAB BLOOD ADD-ON Performing Organization Address City/[facility] Code Phon e Number [facility] - [address] [place], [place] [address] [facility] [place] [address] [facility] [address] AST (Aspartate Aminotransferase) (11/26/2020 7:25 AM CDT) Patholo gist Method Time Signature Aspartate 21 8 - 43 11/26/2020 DTL Aminotransferase U/L 8:30 AM CDT (AST), S Specimen Anatomical Collection Method Collection Time Receive d Time (Source) Location / / Volume Laterality Blood (Blood, 11/26/2020 7:25 AM 11/27/19 7:51 Venous) CDT AM CDT Ted Ortega APRN, C.N.P., Benjamin.N.P. LAB BLOOD ADD-ON Performing Organization Address City/[facility] Code Phon e Number [facility] - [address] [place], [place] [address] [facility] [place] [address] [facility] [address] Bone Alkaline Phosphatase (11/26/2020 7:25 AM CDT) athologist Signature Bone Alkaline 11 mcg/L 11/26/2020 [facility] Phosphatase, S 11:37 AM CDT Comment: ----REFERENCE VALUE---- <=14 (Premenopausal) <=22 (Postmenopausal) Specimen Anatomical Collection Method Collection Time Receive d Time (Source) Location / / Volume Laterality Blood (Blood, 11/26/2020 7:25 AM 11/27/19 Venous) CDT 10:51 AM CDT Ted Ortega APRN, C.N.P., D.N.P. LAB BLOOD ADD-ON Performing Organization Address City/[facility] Code Phon e Number [facility] [address] [place], [place] [address] [facility] [place] [address] Laboratory Medicine and Pathology [address] [place] Calcium, Total (11/26/2020 7:25 AM CDT) athologist Signature Calcium, Total, 10.0 8.8 - 10.2 11/26/2020 DTL S mg/dL 8:30 AM CDT Specimen Anatomical Collection Method Collection Time Receive d Time (Source) Location / / Volume Laterality Blood (Blood, 11/26/2020 7:25 AM 11/27/19 7:51 Venous) CDT AM CDT Ted Ortega APRN, C.N.P., Benjamin.N.P. LAB BLOOD ADD-ON Performing Organization Address City/State/[facility] Phon e Number [facility] - [address] (ABNORMAL) Glucose, Fasting (11/26/2020 7:25 AM CDT) athologist Signature Glucose, P 159 (H) 70 - 100 11/26/2020 DTL mg/dL 8:31 AM CDT Last Intake 13 hr 11/26/2020 DTL 7:51 AM CDT Specimen Anatomical Collection Method Collection Time Receive d Time (Source) Location / / Volume Laterality Blood (Blood, 11/26/2020 7:25 AM 11/27/19 7:51 Venous) CDT AM CDT Naima Lopez APRN.N.P., D.N.P. LAB BLOOD NON ADD -ON Performing Organization Address City/[facility] Phon e Number [facility] - [address] [place], [place] [address] [place] [address] Ferritin (11/26/2020 7:25 AM CDT) athologist [facility] Ferritin, S 16 11 - 307 11/26/2020 DTL mcg/L 9:01 AM CDT Specimen Anatomical Collection Method Collection Time Receive d Time (Source) Location / / Volume Laterality Blood (Blood, 11/26/2020 7:25 AM 11/27/19 7:52 Venous) CDT AM CDT Ted Ortega APRN, Naima.N.P., D.N.P. LAB BLOOD ADD-ON Performing Organization Address City/[facility]/ZIP [facility] Phon e Number [facility] - 200 [place], [place] [address] [place] [address] Creatinine with Estimated GFR (11/26/2020 7:25 AM CDT) athologist Signature Creatinine 0.83 0.59 - 11/26/2020 DTL 1.04 mg/dL 8:30 AM CDT eGFR-Non 72 >=60 11/26/2020 DTL Black/ mL/min/BSA 8:30 AM CDT [place] African Comment: ----ADDITIONAL INFORMATION---- Estimated GFR calculated using the 2009 CKD_EPI creatinine equation. eGFR-Black/ 83 >=60 mL/min/BSA 2020 8:30 AM CDT DTL Comment: ----ADDITIONAL INFORMATION---- Estimated GFR calculated using the 2009 CKD_EPI creatinine equation. Specimen Anatomical Collection Method Collection Time Receive d Time (Source) Location / / Volume Laterality Blood (Blood, 11/26/2020 7:25 AM 11/27/19 7:51 Venous) CDT AM CDT Ted Ortega APRN, C.N.P., D.N.P. LAB BLOOD ADD-ON Performing Organization Address City/State/[facility] Code Phon e Number [facility] - [address] [place] [address] [facility] [place] [address] [facility] 200 [facility] (ABNORMAL) CBC without Differential (11/26/2020 7:25 AM CDT) [facility] gist Method Time Signature Hemoglobin 11.4 (L) 11.6 - 11/26/2020 DTL 15.0 g/dL 8:10 AM CDT Hematocrit 37.1 35.5 - 11/26/2020 DTL 44.9 % 8:10 AM CDT Erythrocytes 4.12 3.92 - 11/26/2020 DTL 5.13 8:10 AM CDT x10(12)/L MCV 90.0 78.2 - 11/26/2020 DTL 97.9 fL 8:10 AM CDT RBC Distrib Width 14.2 12.2 - 11/26/2020 DTL 16.1 % 8:10 AM CDT Platelet Count 284 157 - 371 11/26/2020 DTL x10(9)/L 8:10 AM CDT Leukocytes 8.0 3.4 - 9.6 11/26/2020 DTL x10(9)/L 8:10 AM CDT Specimen Anatomical Collection Method Collection Time Receive d Time (Source) Location / / Volume Laterality Blood (Blood, 11/26/2020 7:25 AM 11/27/19 7:51 Venous) CDT AM CDT Amaury Lopez APRNNBandar., D.N.P. LAB BLOOD ADD-ON Performing Organization Address City/[facility] Code Phon e Number [facility] - [address] [place], [place] [address] [place] [address] [facility] [address] [facility] (ABNORMAL) Hemoglobin A1c (11/26/2020 7:25 AM CDT) P athologist Signature Hemoglobin A1c, 8.4 (H) 4.0 - 5.6 11/26/2020 DT B % 8:22 AM CDT Comment: Hemoglobin A1c values greater than or eq ual to 6.5 percent are diagnostic for diabetes mellitus. ?? Diagnosis should be confirmed by repeat testing. ??In diabet ic patients, HbA1c goals should be discussed with healthcar e provider. Specimen Anatomical Collection Method Collection Time Receive d Time (Source) Location / / Volume Laterality Blood (Blood, 11/26/2020 7:25 AM 11/27/19 7:51 Venous) CDT AM CDT Ted Ortega APRN, C.N.P., D.N.P. LAB BLOOD ADD-ON Performing Organization Address City/State/[facility] Code Phon e Number [facility] - 200 [place], [place] [address] [place] [address] [facility] 200 [facility] documented in this encounter Visit Diagnoses Diagnosis Diabetes Mellitus Type 2 (HCC) Hypertension Essential Primary Obesity Body Mass Index 30-39.9 Adult documented in this encounter
--- OUTSIDE RECORDS SUMMARY | 2022-05-14 15:25 | XMS_ITS | Encounter Summary ---
:1950 Author Organization [facility] Address [address] [place] [address] Care Team Providers Name Role Phone Unavailable Primary Care Provider Unavailable Encounter Details Date Type Department Care Team Description 11/28/2020 Clinical Communication Division of Abhay, Endocrinology in [place] C.N.P., D.N.P. [address] [facility] [address] [place] [address] [place], [place] [phone] Social History Tobacco Use Types Packs/Day Years [...] asked relatives? How often do you attend restorationism or church services? Patien t refused 02/08/2020 Do you belong to any clubs or organizations such as No 02/08/2020 restorationism groups, unions, fraternal or athletic groups, or [...]
--- OUTSIDE RECORDS SUMMARY | 2022-05-14 15:25 | XMS_ITS | Encounter Summary ---
:1950 Author Organization [facility] Address [address] [place] [address] Care Team Providers Name Role Phone Unavailable Primary Care Provider Unavailable Encounter Details Date Type Department Care Team Description 02/14/2020 Virtual Visit Division of General Aleksandra Maurer, Krystal Breast Status Post (Primary Dx); Internal Medicine in M.D. Obesity Body Mass Index 30-39.9 Adult [place], [place] [address] [facility] [address] [place] [phone] [phone] Social History Tobacco Use Types Packs/Day Years [...] asked relatives? How often do you attend religious or hoahaoism services? Patien t refused 02/08/2020 Do you belong to any clubs or organizations such as No 02/08/2020 religious groups, unions, fraternal or athletic groups, or [...] documented as of this encounter Progress Notes Aleksandra Maurer M.D. - 02/14/2020 4:00 PM CDT I called Mrs. Crane and informed her about the results of her mammogram which were benign. Furthermore there were concordant according to the radiologist. I discussed with her the following recommendations. She stated she is doing well since the biopsy and is not having pain, and she expressed appreciation for the care of the team and the phone call. Diagnoses: #1 Benign left breast biopsy, pathology showed hyalinized fibroadenoma with calcifications, no further workup needed #2 Obesity Body Mass Index 30-39.9 Adult Summary of Recommendations: --annual screening 3D mammogram (due for next one January 2021) --pursue good lifestyle habits, including limiting alcohol, regular exercise, and working toward a healthy weight as beneficial for breast health and reducing risk of breast cancer --due for next clinical breast exam by a provider and evaluation January 2021 --continue breast self-awareness, seek prompt evaluation is any concerning breast symptoms or changes This represents a non-face to face care episode. I personally spent 7-8 minutes reviewing Mrs. Crane's records and engaged in a phone conversation with her. This is in conjunction with a [id number] visit between myself and the patient which took place February 08, 2020. documented in this encounter Plan of Treatment Not on filedocumented as of this encounter Visit Diagnoses Diagnosis Biopsy Breast Status Post - Primary Obesity Body Mass Index 30-39.9 Adult documented in this encounter
--- OUTSIDE RECORDS SUMMARY | 2022-05-14 15:25 | XMS_ITS | Encounter Summary ---
:1950 Author Organization [facility] Address [address] [place] [address] Care Team Providers Name Role Phone Unavailable Primary Care Provider Unavailable Reason for Visit Reason Comments Pre-visit Intake Encounter Details Date Type Department Care Team Description 03/08/2022 Clinical Communication Visit Review in Pr e-visit Intake [place], [place] [address] [place], [place] [id number] Social History Tobacco Use Types Packs/Day Years [...] asked relatives? How often do you attend sabianism or congregational services? Patien t refused 02/08/2020 Do you belong to any clubs or organizations such as No 02/08/2020 sabianism groups, unions, fraternal or athletic groups, or [...]
--- OUTSIDE RECORDS SUMMARY | 2022-05-14 15:25 | XMS_ITS | Encounter Summary ---
:1950 Author Organization [facility] Address [address] [place] [address] Care Team Providers Name Role Phone Unavailable Primary Care Provider Unavailable Reason for Referral Outpatient (Routine) - Closed Specialty Diagnoses / Procedures Referred By Contact Refer red To Contact Endocrinology Libby [place] APRN, [place] C.N.P., D.N.P. [address] [place] [address] Referral ID Status Reason Start Date Expiration Date Visits Requ ested Visits Authorized [id number] Closed 11/26/2020 11/26/2021 1 1 Reason for Visit Outpatient (Routine) - Closed Specialty Diagnoses / Procedures Referred By Contact Refer red To Contact Endocrinology Ted Ortega APRN, [place] C.N.P., D.N.P. [address] [place] [address] Referral ID Status Reason Start Date Expiration Date Visits Requ ested Visits Authorized [id number] Closed 12/27/2019 12/26/2020 1 1 Encounter Details Date Type Department Care Team Description 11/26/2020 Office Visit Division of [facility] ic Status Post (Primary Dx); Endocrinology in [place] APRN, Diabetes Mellitus Type 2 (HCC); [place], [place] C.N.P., D.N.P. Hyperlipidemia [address] [facility] [address] [place] [phone] Social History Tobacco Use Types Packs/Day Years [...] asked relatives? How often do you attend mormonism or congregation services? Patien t refused 02/08/2020 Do you belong to any clubs or organizations such as No 02/08/2020 mormonism groups, unions, fraternal or athletic groups, or [...] Sign Reading Time Taken Comments Blood Pressure 143/72 11/26/2020 1:53 PM CDT Pulse 74 11/26/2020 1:53 PM CDT Temperature - - Respiratory Rate - - Oxygen Saturation - - Inhaled Oxygen Concentration - - Weight 101 kg (222 lb 0.1 oz) 11/26/2020 1:53 PM CDT Height 161 cm (5' 3.39) 11/26/2020 1:53 PM CDT Body Mass Index 38.85 11/26/2020 1:53 PM CDT documented in this encounter Progress Notes Libby Blank APRN, C.N.P., D.N.P. 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 being seen today for a intermediate follow-up visit after undergoing a laparoscopic Geovanna-en-Y gastric bypass by Dr. Martín Hickey on 10/05/16.?? Patient was last seen by Ted Ortega APRN CARTOGRAPHY PROFESSOR. Patient concerns today related to bariatric surgery: She has had a very challenging year with a breast biopsy, lost of a dog, lose of 2 cousins, and gallbladder surgery as well. She notes that she is aware that she is a stress eater which has been an issue in the past year. Weight history: Baseline weight in nutrition clinic: 117.2 kg Weight at time of bariatric surgery: 118.8 kg Weight one year post-bariatric surgery: 94.5 kg Weight at last post-bariatric surgery visit: 99.1 kg Weight today: 101 Total weight loss since surgery: 17.8 kg Current Diet: Regular diet, 3 meals and 1 snacks. Has minimized snacking in the evening. Proteins - meats, eggs, protein shakes if she doesn't feel she is getting enough protein with other foods. She is trying to do more vegetarian meals when she is at home. Notes that she has been in [place] for the last month which means more restaurant eating as she is in a camp. Alcohol use: None. Patient understands that no alcohol consumption is recommended after bariatric surgery Presence of GI symptoms: None. Exercise / Activity program: She has been walking about 3 times a week. She has a recumbent bike at home as well but isn't using it regularly. She has resistance bands but isn't using these either. Pre-existing weight-related medical co-morbidities: Sleep apnea: No GERD: had reflux prior to surgery, but symptoms have resolved since surgery Dyslipidemia: No Hypertension: No Diabetes: Yes- Insulin Lantus Insulin 56 units at bedtime and Humalog 1:5 ratio with meals. Stopped Metformin when she started Humalog. Blood sugars when she is taking her insulin are in the low 100 mg/dl range. Genitourinary: Positive for incontinence and urgency. The following systems were negative: Constitutional, Skin, Eyes, ENT, CV, Respiratory, GI, Hematologic, Musculoskeletal, Neuro, Psych ASSESSMENT / PLAN #1 Diabetes Mellitus Type 2 (HCC) #2 Hypertension Essential Primary #3 Obesity Body Mass Index 30-39.9 Adult #4 Bypass Gastric Geovanna En Y Status Post Mrs. Crane has had some difficulty in the last year with weight gain and staying on track with dietary/exercise recommendations after bariatric surgery. She recognizes where she struggles and is readyto work on making changes. We did discuss considering going back on GLP 1 agonist for support of her diabetes however she is comfortable being on the MDI program therefore no changes were made today. She would like to use the Mosso system in the future and will have her primary prescribe this. Would recommend the Mosso 14 day for her given that this would provide her the manolo on the phone rather than having a 2nd device as she often forgets her meter when she goes out places. Recommendations for lifestyle interventions: Encouraged her to exercise at least 150 minutes per week utilizing a variety of methods such as recumbent bike, YouTube videos, resistance bands and walking. Encouraged her to follow 60 g of protein and 64 oz of fluids daily and plenty of fruits and vegetables. LABS and MEDICATIONS I reviewed the labs with her today. Based on the labs and history, she should make the following medication changes: Multivitamin: one multivitamin twice daily Calcium: no extra calcium supplementation as urine value is supersaturated. Vitamin D: 2000 international units vitamin D3 daily. Vitamin B12: 1000 mcg injection monthly. Iron: Vitron- C 1 tablet 1 time daily. Recommend labs and 24 hour urine collection prior to next visit. Discussed with patient the importance of follow-up with the [facility] lifelong.The patient was provided with my contact information. Recommend follow up in 1 year. I personally spent over half of a total 36 minutes in counseling and discussion with the patient andcoordination of care as described above. documented in this encounter Plan of Treatment Scheduled Referrals Name Type Priority Associated Order Schedule Diagnoses Endocrinology office Outpatient Referral Routine Expected: visit (clinic) 11/26/2021 (Approximate), Expires: 11/27/2023 documented as of this encounter Results (ABNORMAL) Lipid Panel (02/10/2022 [...] Organization Address City/State/ZIP Code Phon e Number [facility] [address] [place] [address] [place] [address] System in [place] [facility] (ABNORMAL) Hemoglobin A1c (02/10/2022 7:05 AM CDT) [...] Organization Address City/State/ZIP Code Phon e Number [facility]- [address] [place] [address] [place] [address] System in [place] [address] CBC without Differential (02/10/2022 7:05 AM [...] Organization Address City/State/ZIP Code Phon e Number [facility]- [address] [place] [address] [place] [address] System in [place] [address] Creatinine with Estimated GFR (02/10/2022 7:05 AM CDT) P athologist Signature Creatinine 0.85 0.59 - 02/10/2022 [place] 1.04 mg/dL 8:20 AM CDT eGFR-Black/Afric 80 >=60 02/10/2022 [place] an Peruvian mL/min/BSA 8:20 AM CDT Comment: ----ADDITIONAL INFORMATION---- [...] LAB BLOOD ADD-O N Performing Organization Address [facility] Phon e Number [facility]- [address] [place] [address] [place] [address] System in [place] [address] Ferritin (02/10/2022 7:05 AM CDT) [...] LAB BLOOD ADD-O N Performing Organization Address City/[facility] Code Phon e Number [facility]- [address] [place] [address] [facility] [place] [address] System in [place] [address] Glucose, Fasting (02/10/2022 7:05 AM CDT) athologist Signature Glucose, P 94 70 - 100 02/10/2022 [place] mg/dL 8:23 AM CDT Last Intake 11 hr 02/10/2022 [place] 7:22 AM CDT Specimen Anatomical Collection Method Collection Time Receive d Time (Source) Location / / Volume Laterality Blood (Blood, 02/10/2022 7:05 AM 02/11/20 7:22 Venous) CDT AM CDT Libby Blank APRN, C.N.P., D.N.P. LAB BLOOD NON A DD-ON Performing Organization Address City/State/ZIP Code Phon e Number [facility]- [address] [place] [address] [place] [address] System in [place] [address] Calcium, Total (02/10/2022 7:05 AM CDT) athologist [facility] Calcium, Total, 9.9 8.8 - 10.2 02/10/2022 [facility] P mg/dL 8:20 AM CDT Specimen Anatomical Collection Method Collection Time Receive d Time (Source) Location / / Volume Laterality Blood (Blood, 02/10/2022 7:05 AM 02/11/20 7:22 Venous) CDT AM CDT Libby Blank APRN, C.N.P., D.N.P. LAB BLOOD ADD-O N Performing Organization Address City/State/ZIP Code Phon e Number [facility]- [address] [place] [address] [facility] [facility] [place] [address] System in [place] [address] Bone Alkaline Phosphatase (02/10/2022 7:05 AM CDT) athologist Signature Bone Alkaline 13 mcg/L 02/11/2022 [facility] Phosphatase, S 9:17 AM CDT Comment: [...] AM 02/12/20 8:26 Venous) CDT AM CDT Libby Blank APRN, Naima.N.P., D.N.P. LAB BLOOD ADD-O N Performing Organization Address City/[facility]/ZIP Code Phon e Number [facility] [address] [place], [place] [address] [place] [address] [place] [address] Laboratory Medicine and Pathology [address] [place] AST (Aspartate Aminotransferase) (02/10/2022 7:05 AM CDT) Patholo gist Method Time Signature Aspartate 19 8 - 43 02/10/2022 [place] Aminotransferase U/L 8:20 AM CDT (AST), P Specimen Anatomical Collection Method Collection Time Receive d Time (Source) Location / / Volume Laterality Blood (Blood, 02/10/2022 7:05 AM 02/11/20 7:22 Venous) CDT AM CDT Libby Blank APRN, Naima.N.P., D.N.P. LAB BLOOD ADD-O N Performing Organization Address City/State/ZIP Code Phon e Number [facility]- [address] [place] [address] [place] [address] System in [place] [address] Albumin (02/10/2022 7:05 AM CDT) P athologist Signature Albumin, P 3.9 3.5 - 5.0 02/10/2022 [place] g/dL 8:20 AM CDT Specimen Anatomical Collection Method Collection Time Receive d Time (Source) Location / / Volume Laterality Blood (Blood, 02/10/2022 7:05 AM 02/11/20 7:22 Venous) CDT AM CDT Naima Pizarro APRN.N.PWing, D.N.P. LAB BLOOD ADD-O N Performing Organization Address City/[facility]/ZIP Code Phon e Number [facility]- [address] [place] [address] [place] [address] System in [place] [address] 25-Hydroxyvitamin D2 and D3 (02/10/2022 7:05 AM CDT) athologist Signature 25-Hydroxy D2 <4.0 ng/mL 02/18/2022 [facility] 1:19 AM CDT 25-Hydroxy D3 40 ng/mL 02/18/2022 [facility] 1:19 AM CDT 25-Hydroxy D 40 ng/mL 02/18/2022 [facility] Total 1:19 AM CDT Comment: ----REFERENCE VALUE---- 25-HYDROXY D TOTAL (D2+D3) Optimum level s in the healthy population are 20-50, patients with bone disease may benefit from higher levels within this r eddie. ----ADDITIONAL INFORMATION---- This test was developed and its performa nce characteristics determined by [facility] in a manner consistent with CLIA requirements. This test has not been cleared or approved by the [place] d and Drug Administration. Specimen Anatomical Collection Method Collection Time Receive d Time (Source) Location / / Volume Laterality Blood (Blood, 02/10/2022 7:05 AM 02/12/20 7:19 Venous) CDT AM CDT Naima Pizarro APRN.N.P., D.N.P. LAB BLOOD ADD-O N Performing Organization Address City/State/ZIP Code Phon e Number [facility] [address] [place], [place] [address] [place] [address] [place] [address] Laboratory Medicine and Pathology [address] [place] documented in this encounter Visit Diagnoses Diagnosis Surgery Bariatric Status Post - Primary Diabetes Mellitus Type 2 (HCC) Hyperlipidemia documented in this encounter
--- OUTSIDE RECORDS SUMMARY | 2022-05-14 15:25 | XMS_ITS | Encounter Summary ---
:1950 Author Organization [facility] Address [address] [place] [address] Care Team Providers Name Role Phone Unavailable Primary Care Provider Unavailable Reason for Visit Reason Comments Follow-up Encounter Details Date Type Department Care Team Description 05/23/2020 Clinical Communication Division of Ted Ortega [facility] Endocrinology in [place], [place] C.N.P., D.N.P. [address] [facility] [address] [place] [address] [place], [place] [phone] Social History Tobacco Use Types Packs/Day Years [...] asked relatives? How often do you attend voodoo or jain services? Patien t refused 02/08/2020 Do you belong to any clubs or organizations such as No 02/08/2020 voodoo groups, unions, fraternal or athletic groups, or [...] Miscellaneous Notes Telephone Encounter - Denisse Barnhart Jona - 05/23/2020 4:17 PM CST This notice is to inform you that patient has not contacted the Appointment Office to schedule theirreturn visit as ordered. Two contact attempts have been made with no response. At this time, the appointment request has been finalized. Should the patient contact us, we will restart the appointment process. ~KYLE 05/02/20 Left , 04/07/20 Letter/jh// GRADER documented in this encounter Plan of Treatment Not on filedocumented as of this encounter Visit Diagnoses Not on filedocumented in this encounter
--- OUTSIDE RECORDS SUMMARY | 2022-05-14 15:25 | XMS_ITS | Encounter Summary ---
:1950 Author Organization [facility] Address [address] [place] [address] Care Team Providers Name Role Phone Unavailable Primary Care Provider Unavailable Encounter Details Date Type Department Care Team Description 09/26/2020 Orders Only Division of Endocrinology in [place], [place], [place] MACHINE PAINT MIXER, C.N.P., D.N.P. [address] [facility] [address] [place] [address] [place], [place] [phone] (Wo rk) Social History Tobacco Use Types [...] asked relatives? How often do you attend scientology or bahai services? Iqra keller 02/08/2020 Do you belong to any clubs or organizations such as No 02/08/2020 scientology groups, unions, fraternal or athletic groups, or [...]
--- OUTSIDE RECORDS SUMMARY | 2022-05-14 15:26 | XMS_ITS | Encounter Summary ---
:1950 Author Organization [facility] Address [address] [place] [address] Care Team Providers Name Role Phone Unavailable Primary Care Provider Unavailable Reason for Referral Outpatient (Routine) - Closed Specialty Diagnoses / Procedures Referred By Contact Refer red To Contact Diagnoses Abnormal Mammogram Calcification Breast Aleksandra Maurer M.D. [facility] Procedures BI Breast Biopsy Left with Stereotactic Guidance [address] [place], [place] [phone] Referral ID Status Reason Start Date Expiration Date Visits Requ ested Visits Authorized [id number] Closed 02/08/2020 02/07/2021 1 1 Reason for Visit Outpatient (Routine) - Closed Specialty Diagnoses / Procedures Referred By Contact Refer red To Contact Diagnoses Abnormal Mammogram Calcification Breast Aleksandra Maurer M.D. [facility] Procedures BI Breast Biopsy Left with Stereotactic Guidance [address] [place], [place] [address] Referral ID Status Reason Start Date Expiration Date Visits Requ ested Visits Authorized [id number] Closed 02/08/2020 02/07/2021 1 1 Encounter Details Date Type Department Care Team Description 02/12/2020 Hospital Encounter Department of Aleksandra Maurer Abnorma l Mammogram; Radiology in M.DWing Calcification Breast [place], [place] [address] [facility] [address] [place] [id number] Social History Tobacco Use Types Packs/Day Years [...] asked relatives? How often do you attend mu-ism or baptist services? Patien t refused 02/08/2020 Do you belong to any clubs or organizations such as No 02/08/2020 mu-ism groups, unions, fraternal or athletic groups, or [...] pediatric Chew 1 tablet 2 0 10/06/2016 bursvdikszrc-uydt-dxpskkua (two) times a (FLINTSTONES COMPLETE) day. chewable tablet sennosides-docusate sodium Take 2 tablets by 0 (SENOKOT-S) 8.6-50 mg per mouth at bedtime tablet as needed. valsartan (DIOVAN) 160 mg Take 160 mg by 0 tablet mouth daily. blood-glucose meter kit Test daily twice 1 each 0 201802/20/2020 daily acetaminophen (for_TYLENOL) Take 2 tablets by 0 0 10/06/2016 11/26/2020 500 mg tablet mouth as needed. pain. Do not exceed 4gm per day. metFORMIN (GLUCOPHAGE) 500 Take 1 tablet 360 tablet 4 201806/13/2020 mg tablet (500 mg total) by mouth as directed. 1 tab daily, increase weekly. 1 tab 2x/ day then 2 tabs AM and 1 PM then 2 tabs twice daily pravastatin (for_PRAVACHOL) Take 1 tablet by 0 11/26/2020 80 mg tablet mouth at bedtime. documented as of this encounter Plan of Treatment Not on filedocumented as of this encounter Procedures Procedure Name Priority Date/Time Associated Comments Diagnosis BI BREAST BIOPSY RAD - Routine 02/12/2020 8:51 Abnormal Results for this LEFT WITH (most inpatients AM CDT Mammogram procedure are in STEREOTACTIC and all Calcification the results GUIDANCE outpatients) Breast section. SURGICAL PATHOLOGY Routine 02/12/2020 8:45 Abnormal Result s for this AM CDT Mammogram procedure are in Calcification the results Breast section. documented in this encounter Results BI Breast Biopsy Left with Stereotactic Guidance (02/12/2020 8:51 AM CDT) Anatomical Region Laterality Modality Breast, Breast Imaging RST LOS, Breast Imaging ARZ LOS, [place] st Left Mammography Imaging FLA LOS Specimen (Source) Anatomical Collection Method Collection Time Re ceived Time Location / / Volume Laterality 02/12/2020 9:21 AM CDT Addenda Addendum by Chery Merritt M.D., Ph.D. on 02/13/2020 12:56 PM CDT ADDENDUM: ??AMENDMENT TO ADD PATHOLOGY A ND CONCORDANCE RESULTS. ??PLEASE SEE SEPARATE PATHOLOGY REPORT FOR COMPLETE I NFORMATION. PATHOLOGY: ??Hyalinized fibroadenoma wit h calcifications. ?? CATEGORY: ??Benign RAD-PATH CONCORDANCE: ??Yes. ACR COMPLICATIONS: ??None. NOTIFICATION: ??N/A RECOMMENDATION: ??Annual Screening Mammo gram ASSESSMENT: ??8: Pathology Benign. Impressions 02/12/2020 9:35 AM CDT Successful image-guided needle biopsy. When final pathology results are available a revised report will be i ssued which will include radiologic/pathologic concordance and re commendations. ??Please be aware that in discordant cases, surgical consultation may be recommended even with a benign pathology result. RECOMMENDATION: ??Waiting for Pathology ASSESSMENT: ??7: Waiting for Pathology. EP Narrative 02/12/2020 9:35 AM CDT EXAM: ??BI BREAST BIOPSY LEFT WITH STEREOTACTIC GUIDANCE INDICATION: ??Suspicious left breast rekha cifications. LESION/LOCATION: ??Lower inner left [address] st middle depth. The patient underwent single site biopsy . ?? LESION SIZE (mm): ??11 MEASUREMENT MODALITY: ??Mammogram IMAGING PRESENTATION: ??Calcifications MODE OF DETECTION: ??Mammogram TECHNIQUE: ??Stereotactic guided needle biopsy. Local anesthesia, 1% lidocaine. BIOPSY DEVICE: ??9g vacuum-assisted ??ne edle. NUMBER OF PASSES: ??12 SPECIMEN RADIOGRAPH: ??Multiple represen tative calcifications in specimen. MARKING CLIP: ??Tophat-shaped clip. POST-PROCEDURE DIGITAL IMAGING: ??Please see associated mammogram report. CALCIFICATIONS REMOVED: ??50-89% COMPLICATIONS: ??None. CONSENT: ??Patient seen, evaluated, and history reviewed. Discussed risks, benefits, alternatives for procedure, an d obtained informed consent. ??Patient understands information and questions an swered. Immediately prior to starting the procedure, in the presence of the as sisting personnel, procedural pause was conducted to verify correct patient iden tity and verification of procedure to be performed, and as applicable, correct si de and site, correct patient position, availability of implants, special equipm ent, or special requirements, and all image and specimen identification data. The roles and responsibilities of care team members, residents, and fellows chidi e discussed. The medication list was reviewed and there are no changes to cur rent medications. PATIENT EDUCATION: ??Provided by a care preanalytics team lead. Ready to learn, no apparent learning barriers were identified. Post- procedure care explained; patient expressed understanding of the content. Procedure Note Chery Merritt M.D., Ph.D. - 01/25 EXAM: BI BREAST BIOPSY LEFT WITH STEREOT ACTIC GUIDANCE INDICATION: Suspicious left breast calci fications. LESION/LOCATION: Lower inner left breast middle depth. The patient underwent single site biopsy . LESION SIZE (mm): 11 MEASUREMENT MODALITY: Mammogram IMAGING PRESENTATION: Calcifications MODE OF DETECTION: Mammogram TECHNIQUE: Stereotactic guided needle bi opsy. Local anesthesia, 1% lidocaine. BIOPSY DEVICE: 9g vacuum-assisted needle . NUMBER OF PASSES: 12 SPECIMEN RADIOGRAPH: Multiple representa tive calcifications in specimen. MARKING CLIP: Tophat-shaped clip. POST-PROCEDURE DIGITAL IMAGING: Please s ee associated mammogram report. CALCIFICATIONS REMOVED: 50-89% COMPLICATIONS: None. CONSENT: Patient seen, evaluated, and hi story reviewed. Discussed risks, benefits, alternatives for procedure, an d obtained informed consent. Patient understands information and questions an swered. Immediately prior to starting the procedure, in the presence of the as sisting personnel, procedural pause was conducted to verify correct patient iden tity and verification of procedure to be performed, and as applicable, correct si de and site, correct patient position, availability of implants, special equipm ent, or special requirements, and all image and specimen identification data. The roles and responsibilities of care team members, residents, and fellows wer e discussed. The medication list was reviewed and there are no changes to cur rent medications. PATIENT EDUCATION: Provided by a care te am member. Ready to learn, no apparent learning barriers were identified. Post- procedure care explained; patient expressed understanding of the content. IMPRESSION: Successful image-guided needle biopsy. W luz maria final pathology results are available a revised report will be i ssued which will include radiologic/pathologic concordance and re commendations. Please be aware that in discordant cases, surgical consultation may be recommended even with a benign pathology result. RECOMMENDATION: Waiting for Pathology ASSESSMENT: 7: Waiting for Pathology. EP Aleksandra Maurer M.D. IMG BI PROCEDURES Surgical Pathology (02/12/2020 8:45 AM CDT) Component Value Ref Test Analysis Performed At [facility] gist Range Method Time Signature 02/13/2020 DTL 12:39 PM CDT Participated in Patricia Dunham 02/13/2020 DTL the [place], 12:39 PM Interpretation Jackie-Pathology CDT Resident Report Richard Dick M.D. [phone] DTL electronically I verify that I have examined all relevant slides/ma terials 12:39 PM signed by for the specimen(s) and rendered or confirmed the diagnosis. CDT Gross Description Received in formalin labeled with the patient's n cresencio, 02/13/2020 DTL medical record number, and breast, left is a generic 12:39 PM cassette labeled CALCS containing six ramirez-yellow CDT fibroadipose calc tissue cores and multiple fragments, ranging from minute-3.0 cm in length. ??The calc specimens are submitted entirely as follows: A1-A3: ??Two cores in each cassette A4-A6: ??Eight fragments in each cassette Additionally, received in the same container are six ramirez-yellow fibroadipose non-calc tissue cores and multiple fragments, ranging from minute-3.3 cm in length. ??The non-calc specimens are submitted entirely as follows: A7-A9: ??Two cores in each cassette A10-A11: ??Eight fragments in each cassette A12-A14: Ten fragments in each cassette Grossed by LMB. Interpretation FINAL DIAGNOSIS 02/13/2020 DTL A. ?? 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 CDT DISCLAIMER This is an image-guided biopsy. ??The pathologic findings should be correlated with radiologic and clinical findings prior to management decisions. Specimen (Source) Anatomical Collection Method Collection Time Re ceived Time Location / / Volume Laterality Biopsy (Breast, 02/12/2020 8:09 AM Left) CDT Narrative This result has an attachment that is no t available. Aleksandra Maurer M.D. LAB SURG PATH ORDERABLES Performing Organization Address City/State/ZIP Code Phon e Number [facility] - [address] [place], [place] [address] [place] [address] [facility] [address] documented in this encounter Visit Diagnoses Diagnosis Abnormal Mammogram Calcification Breast documented in this encounter Administered Medications Inactive Administered Medications - up to 3 most recent administrations Medication Order MAR Action Action Date Dose Rate Site lidocaine-sodium bicarbonate Given 02/12/2020 10:53 AM CDT 17 mL Chest (buffered) 0.9%-8.4% injection infiltration, Code/trauma/sedation medication, Starting on Tue02/12/20 at 1053 documented in this encounter
--- OUTSIDE RECORDS SUMMARY | 2022-05-14 15:26 | XMS_ITS | Encounter Summary ---
:1950 Author Organization [facility] Address [address] [place] [address] Care Team Providers Name Role Phone Unavailable Primary Care Provider Unavailable Encounter Details Date Type Department Care Team Description 02/20/2019 Hospital Encounter Department of Abhay, Diabetes Mellitus Type 2 (HCC); Laboratory Medicine Libby Ny APRN, Obesit y Body Mass Index 30-39.9 Adult and Pathology, C.N.P., D.N.P. [facility] in [address] [place], [place] [address] [facility] [address] [place], [place] [phone] (Work) [phone] Social History Tobacco Use Types Packs/Day Years Used Date Smoking Tobacco: Never Smokeless Tobacco: Never Alcohol Habits Answer Date Recorded How often [...] asked relatives? How often do you attend mosque or church services? Patien t refused 02/08/2020 Do you belong to any clubs or organizations such as No 02/08/2020 mosque groups, unions, fraternal or athletic groups, or [...] or getting things needed for daily living? Sex Assigned at Date Recorded Not on [...] pediatric Chew 1 tablet 2 0 10/06/2016 qjxquuntrxzd-xpce-txapicrg (two) times a (FLINTSTONES COMPLETE) day. chewable [...] Procedure Name Priority Date/Time Associated Comments Diagnosis HEMOGLOBIN A1C, B Routine 02/20/2019 8:28 AM Diabetes Mellitus Results for this CDT Type 2 (HCC) procedure are in Obesity Body Mass the result s Index 30-39.9 Adult section. GLUCOSE, FASTING, Routine 02/20/2019 8:28 AM Diabetes Mellitus Results for this S/P CDT Type 2 (HCC) procedure are in Obesity Body Mass the result s Index 30-39.9 Adult section. CREATININE WITH Routine 02/20/2019 8:28 AM Diabetes Mellitus R esults for this EGFR, S/P CDT Type 2 (HCC) procedure are in Obesity Body Mass the result s Index 30-39.9 Adult section. documented in this encounter Results (ABNORMAL) Glucose, Fasting (02/20/2019 8:28 AM CDT) athologist Signature Glucose, P 115 (H) 70 - 100 02/20/2019 mg/dL 10:11 AM CDT Last Intake 12 hr 02/20/2019 8:51 AM CDT Specimen Anatomical Collection Method Collection Time Receive d Time (Source) Location / / Volume Laterality Blood (Blood, 02/20/2019 8:28 AM 02/21/20 19 8:51 Venous) CDT AM CDT Libby Blank APRN, C.N.P., D.N.P. LAB BLOOD NON A DD-ON Performing Organization Address City/State/ZIP Code Phon e Number [facility] - [address] [place], [place] [address] [facility] Creatinine with Estimated GFR (02/20/2019 8:28 AM CDT) athologist Signature Creatinine 0.78 0.59 - 02/20/2019 1.04 mg/dL 9:38 AM CDT eGFR-Non 78 >=60 02/20/2019 Black/ mL/min/BSA 9:38 AM CDT Bhutanese Comment: ----ADDITIONAL INFORMATION---- Estimated GFR calculated using the 2009 CKD_EPI creatinine equation. eGFR-Black/ >90 >=60 mL/min/BSA 2018 9:38 AM CDT Comment: ----ADDITIONAL INFORMATION---- Estimated GFR calculated using the 2009 CKD_EPI creatinine equation. Specimen Anatomical Collection Method Collection Time Receive d Time (Source) Location / / Volume Laterality Blood (Blood, 02/20/2019 8:28 AM 02/21/20 19 8:50 Venous) CDT AM CDT Libby Blank APRN, C.N.P., D.N.P. LAB BLOOD ADD-O N Performing Organization Address [facility] Phon e Number [facility] - [address] (ABNORMAL) Hemoglobin A1c (02/20/2019 8:28 AM CDT) P athologist Signature Hemoglobin A1c, 8.7 (H) 4.0 - 5.6 02/20/2019 B % 9:34 AM CDT Comment: Hemoglobin A1c values greater than or eq ual to 6.5 percent are diagnostic for diabetes mellitus. ?? Diagnosis should be confirmed by repeat testing. ??In diabet ic patients, HbA1c goals should be discussed with healthcar e provider. Specimen Anatomical Collection Method Collection Time Receive d Time (Source) Location / / Volume Laterality Blood (Blood, 02/20/2019 8:28 AM 02/21/20 19 8:50 Venous) CDT AM CDT Naima Pizarro APRN.N.Cassidy., D.N.P. LAB BLOOD ADD-O N Performing Organization Address City/State/ZIP Code Phon e Number [facility] - [address] documented in this encounter Visit Diagnoses Diagnosis Diabetes Mellitus Type 2 (HCC) Obesity Body Mass Index 30-39.9 Adult documented in this encounter
--- OUTSIDE RECORDS SUMMARY | 2022-05-14 15:26 | XMS_ITS | Encounter Summary ---
:[address] [facility] Address [address] [place] [address] Care Team Providers Name Role Phone Unavailable Primary Care Provider Unavailable Encounter Details Date Type Department Care Team Description 04/09/2019 Hospital Encounter Department of Abhay, Diabetes Mellitus Laboratory Medicine Libby Ny APRN, Type 2 (HCC) and Pathology, [facility]N.P., [facility] [address] [place] [address] [place] [address] [place], [place] [phone] (Work) [phone] Social History Tobacco Use Types Packs/Day Years [...] asked relatives? How often do you attend restorationist or adventist services? Patien t refused 02/08/2020 Do you belong to any clubs or organizations such as No 02/08/2020 restorationist groups, unions, fraternal or athletic groups, or [...] pediatric Chew 1 tablet 2 0 10/06/2016 govzvdkxjinj-yotc-xxescqca (two) times a (FLINTSTONES COMPLETE) day. chewable [...] Diagnoses Diagnosis Diabetes Mellitus Type 2 (HCC) documented in this encounter
--- OUTSIDE RECORDS SUMMARY | 2022-05-14 15:26 | XMS_ITS | Encounter Summary ---
:1950 Author Organization [facility] Address [address] [place] [address] Care Team Providers Name Role Phone Unavailable Primary Care Provider Unavailable Encounter Details Date Type Department Care Team Description 04/11/2019 Hospital Encounter Department of Abhay, Diabetes Mellitus Laboratory Medicine Libby Ny APRN, Type 2 (HCC) in [place] C.N.PWing, D.N.PWing [place] [address] [address] [facility] [address] [place] [address] [phone] Social History Tobacco Use Types Packs/Day Years [...] asked relatives? How often do you attend congregational or denominational services? Patien t refused 02/08/2020 Do you belong to any clubs or organizations such as No 02/08/2020 congregational groups, unions, fraternal or athletic groups, or [...] pediatric Chew 1 tablet 2 0 10/06/2016 ndcnkqztdbvs-glyx-vhsjhbsg (two) times a (FLINTSTONES COMPLETE) day. chewable [...] Associated Comments Diagnosis HEMOGLOBIN A1C, B Routine 04/11/2019 8:41 AM Diabetes Mellitus Results for this CDT Type 2 (HCC) procedure are i n the results section. GLUCOSE, FASTING, Routine 04/11/2019 8:41 AM Diabetes Mellitus Results for this S/P CDT Type 2 (HCC) procedure are i n the results section. documented in this encounter Results (ABNORMAL) Hemoglobin A1c (04/11/2019 8:41 AM CDT) athologist Signature Hemoglobin A1c, 8.8 (H) 4.2 - 5.6 04/11/2019 [place] B % 9:42 AM CDT Comment: Hemoglobin A1c values greater than or eq ual to 6.5 percent are diagnostic for diabetes mellitus. ?? Diagnosis should be confirmed by repeat testing. ??In diabet ic patients, HbA1c goals should be discussed with healthcar e provider. Specimen Anatomical Collection Method Collection Time Receive d Time (Source) Location / / Volume Laterality Blood (Blood, 04/11/2019 8:41 AM 04/11/20 9:00 Venous) CDT AM CDT Libby Blank APRN, C.N.P., D.N.P. LAB BLOOD ADD-O N Performing Organization Address City/[facility]/ZIP Code Phon e Number [facility]- [address] [place] [address] [place] [address] System in [place] [address] Glucose, Fasting (04/11/2019 8:41 AM CDT) athologist Signature Glucose, P 96 70 - 100 04/11/2019 [place] mg/dL 9:49 AM CDT Last Intake 13 hr 04/11/2019 [place] 9:00 AM CDT Specimen Anatomical Collection Method Collection Time Receive d Time (Source) Location / / Volume Laterality Blood (Blood, 04/11/2019 8:41 AM 04/11/20 9:00 Venous) CDT AM CDT Libby Blank APRN, C.N.P., D.N.P. LAB BLOOD NON A DD-ON Performing Organization Address City/State/ZIP Code Phon e Number [facility]- [address] [place] [address] [facility] [place] [address] System in [place] [address] documented in this encounter Visit Diagnoses Diagnosis Diabetes Mellitus Type 2 (HCC) documented in this encounter
--- OUTSIDE RECORDS SUMMARY | 2022-05-14 15:26 | XMS_ITS | Encounter Summary ---
:1950 Author Organization [facility] Address [address] [place] [address] Care Team Providers Name Role Phone Unavailable Primary Care Provider Unavailable Encounter Details Date Type Department Care Team Description 04/09/2019 Clinical Communication Division of Abhay, Endocrinology in [place] C.N.P., D.N.P. [address] [facility] [address] [place] [address] [place], [place] [phone] Social History Tobacco Use Types Packs/Day Years [...] How often do you attend mosque or yazdanism services? Patien t refused 02/08/2020 Do you [...] Notes Telephone Encounter - Denisse Barnhart - 04/09/2019 2:23 PM CDT Can you order the labs also. That order was used by the mail in kit request. ~JH Telephone Encounter - Libby Blank APRN, C.N.P., D.N.P. - 04/09/2019 12:25 PM CDT Yes please schedule glucose and hba1c now. And I added microalbumin. And I will touch base with her. Libby Telephone Encounter - Bronwyn Denisse R - 04/09/2019 11:53 AM CDT 04/09/19 /I&D updated/// Injewelskvictor m to: Sravani Blank S: Caller/Dept - Patient Phone # - [phone] B: Message- Patient was scheduled to see you 04/23 and rescheduled to 06/15 as she will be closing on a winter home in [place] and leaving this week to do that. She is asking if you want any labs now to do them in [place] 04/11. She said she didn't get her mail in kit. A: Please advise if OK and if you will be sending any orders. R: Please route to [facility]: P RST END Scheduling Thank you, Denisse , [phone], [facility] PAC Office documented in this encounter Plan of Treatment Not on filedocumented as of this encounter Results (ABNORMAL) Hemoglobin A1c (04/11/2019 [...] Laterality Blood (Blood, 04/11/2019 8:41 AM 04/11/20 19 9:00 Venous) CDT AM CDT Libby Balnk APRN, C.N.P., D.N.P. LAB BLOOD ADD-O N Performing Organization Address City/State/ZIP Code Phon e Number [facility]- [address] [place] [address] [facility] [place] [address] System in [place] [address] Glucose, Fasting (04/11/2019 8:41 AM CDT) P athologist Signature Glucose, P 96 70 - 100 04/11/2019 [place] mg/dL 9:49 AM CDT Last Intake 13 hr 04/11/2019 [place] 9:00 AM CDT Specimen Anatomical Collection Method Collection Time Receive d Time (Source) Location / / Volume Laterality Blood (Blood, 04/11/2019 8:41 AM 04/11/20 19 9:00 Venous) CDT AM CDT Libby Blank APRN, C.N.P., D.N.P. LAB BLOOD NON A DD-ON Performing Organization Address City/State/ZIP Code Phon e Number [facility]- [address] [place] [address] [facility] [place] [address] System in [place] [address] [facility] documented in this encounter Visit Diagnoses Diagnosis Diabetes Mellitus Type 2 (HCC) - Primary documented in this encounter
--- OUTSIDE RECORDS SUMMARY | 2022-05-14 15:26 | XMS_ITS | Encounter Summary ---
:1950 Author Organization [facility] Address [address] [place] [address] Care Team Providers Name Role Phone Unavailable Primary Care Provider Unavailable Reason for Referral Outpatient (Routine) - Closed Specialty Diagnoses / Procedures Referred By Contact Refer red To Contact Diagnoses Biopsy Breast Status Post Breast Examination Abnormal Aleksandra Maurer M.D. [facility] Procedures BI Breast Diagnostic Left Post Procedure [address] [place], [place] [address] Referral ID Status Reason Start Date Expiration Date Visits Requ ested Visits Authorized [id number] Closed 02/11/2020 02/10/2021 1 1 Reason for Visit Outpatient (Routine) - Closed Specialty Diagnoses / Procedures Referred By Contact Refer red To Contact Diagnoses Biopsy Breast Status Post Breast Examination Abnormal Aleksandra Maurer M.D. [facility] Procedures BI Breast Diagnostic Left Post Procedure [address] [place] [address] Referral ID Status Reason Start Date Expiration Date Visits Requ ested Visits Authorized [id number] Closed 02/11/2020 02/10/2021 1 1 Encounter Details Date Type Department Care Team Description 02/12/2020 Hospital Encounter Department of Aleksandra Maurer, Biopsy Breast Status Post; Radiology in M.D. Breast Examination Abnormal [place], [place] [address] [facility] [address] [place] [phone] Social History Tobacco Use Types Packs/Day Years [...] asked relatives? How often do you attend samaritan or orthodoxy services? Patien t refused 02/08/2020 Do you belong to any clubs or organizations such as No 02/08/2020 samaritan groups, unions, fraternal or athletic groups, or [...] pediatric Chew 1 tablet 2 0 10/06/2016 [id number] (two) times a (FLINTSTONES COMPLETE) day. chewable [...] Priority Date/Time Associated Comments Diagnosis BI BREAST RAD - Routine 02/12/2020 9:14 Biopsy Breast Results fo r this DIAGNOSTIC LEFT (most inpatients AM CDT Status Post procedure are in POST PROCEDURE and all Breast Examination the [facility] ults outpatients) Abnormal section. documented in this encounter Results BI Breast Diagnostic Left Post Procedure (02/12/2020 9:14 AM CDT) Anatomical Region Laterality Modality Breast, Breast Imaging RST LOS, Breast Imaging ARZ LOS, [address] st Left Mammography Imaging FLA LOS Specimen (Source) Anatomical Collection Method Collection Time Re ceived Time Location / / Volume Laterality 02/12/2020 9:24 AM CDT Impressions 02/12/2020 9:38 AM CDT The biopsy clip is slightly displaced medially by 2.0 cm. RECOMMENDATION: ??Please See Recent Biop sy Report ASSESSMENT: ??12: Post Procedure Mammogr ams for Marker Placement Narrative 02/12/2020 9:38 AM CDT EXAM: ??BI BREAST DIAGNOSTIC LEFT POST PROCEDURE INDICATION: ??Post procedure mammogram COMPARISON: ??Prior exam(s) were availab le and reviewed for comparison. DENSITY: ??a. The breast(s) are almost e ntirely fatty. FINDINGS: ??Interval placement of a top hat shaped post biopsy clip in the lower inner left breast middle depth, which shelley s migrated approximately 2.0 cm posteromedial to the biopsy site. There are residual calcifications along the lateral margin of the biopsy site. Procedure Note Chery Merritt M.D., Ph.D. - 01/25 EXAM: BI BREAST DIAGNOSTIC LEFT POST PRO CEDURE INDICATION: Post procedure mammogram COMPARISON: Prior exam(s) were available and reviewed for comparison. DENSITY: a. The breast(s) are almost ent irely fatty. FINDINGS: Interval placement of a top shelley t shaped post biopsy clip in the lower inner left breast middle depth, which shelley s migrated approximately 2.0 cm posteromedial to the biopsy site. There are residual calcifications along the lateral margin of the biopsy site. IMPRESSION: The biopsy clip is slightly displaced me dially by 2.0 cm. RECOMMENDATION: Please See Recent Biopsy Report ASSESSMENT: 12: Post Procedure Mammogram s for Marker Placement Aleksandra MANLEY BI PROCEDURES documented in this encounter Visit Diagnoses Diagnosis Biopsy Breast Status Post Breast Examination Abnormal documented in this encounter
--- OUTSIDE RECORDS SUMMARY | 2022-05-14 15:26 | XMS_ITS | Encounter Summary ---
:1950 Author Organization [facility] Address [address] [place] [address] Care Team Providers Name Role Phone Unavailable Primary Care Provider Unavailable Encounter Details Date Type Department Care Team Description 02/05/2020 Clinical Communication Breast Diagnostic Aleksandra Maurer, Clinic in [facility] [address] [facility] [address] [place] [phone] Social History Tobacco Use Types Packs/Day Years [...] asked relatives? How often do you attend yazdanism or buddhist services? Patien t refused 02/08/2020 Do you belong to any clubs or organizations such as No 02/08/2020 yazdanism groups, unions, fraternal or athletic groups, or [...] this encounter Miscellaneous Notes Telephone Encounter - Aleksandra Maurer M.D. - 02/05/2020 6:45 PM CDT Noted. Telephone Encounter - Heena Ruby - 02/05/2020 2:55 PM CDT Received outside material from [facility] and [facility] and scanned into patient chart for your review. Images pushed and viewable in [id number]. Appointment 02/07 B[facility] NEW. documented in this encounter Plan of Treatment Not on filedocumented as of this encounter Visit Diagnoses Not on filedocumented in this encounter
--- OUTSIDE RECORDS SUMMARY | 2022-05-14 15:26 | XMS_ITS | Encounter Summary ---
:1950 Author Organization [facility] Address [address] [place] [address] Care Team Providers Name Role Phone Unavailable Primary Care Provider Unavailable Encounter Details Date Type Department Care Team Description 02/20/2019 Orders Only Division of Endocrinology in [facility] luann Carlee Therese [place], [place] [address] [place] [address] Social History Tobacco Use Types Packs/Day Years [...] How often do you attend sabianism or druze services? Patien t refused 02/08/2020 Do you [...]
--- OUTSIDE RECORDS SUMMARY | 2022-05-14 15:26 | XMS_ITS | Encounter Summary ---
:1950 Author Organization [facility] Address [address] [place] [address] Care Team Providers Name Role Phone Unavailable Primary Care Provider Unavailable Encounter Details Date Type Department Care Team Description 04/11/2019 Hospital Encounter Department of Abhay, Diabetes Mellitus Laboratory Medicine Libby Ny APRN, Type 2 (HCC) in [place] C.N.PWing, D.N.PWing [place] [address] [address] [facility] [address] [place] [phone] Social History Tobacco Use Types Packs/Day Years [...] asked relatives? How often do you attend religion or congregation services? Patien t refused 02/08/2020 Do you belong to any clubs or organizations such as No 02/08/2020 religion groups, unions, fraternal or athletic groups, or [...] pediatric Chew 1 tablet 2 0 10/06/2016 aqkvchmyuefu-wbdd-rpzthzwq (two) times a (FLINTSTONES COMPLETE) day. chewable [...] Name Priority Date/Time Associated Diagnosis Comme nts ALBUMIN, RANDOM, U Routine 04/11/2019 8:42 AM Diabetes Mellitu s Results for this CDT Type 2 (HCC) procedure are i n the results section. documented in this encounter Results Microalbumin, Random, Urine (04/11/2019 8:42 AM CDT) P athologist Signature Microalbumin <7.0 mg/L 04/11/2019 OWAT 10:42 AM CDT Creatinine 101 mg/dL 04/11/2019 OWAT 10:42 AM CDT Albumin/Creatinin <7 <25 mg/g 04/11/2019 OWAT e Ratio 10:42 AM CDT Comment: This ratio may not correspond with the r eference range because one or both of the values used t o calculate the ratio was above or below the quantificat ion limits. Specimen Anatomical Collection Method Collection Time Receive d Time (Source) Location / / Volume Laterality Urine (Urine, 04/11/2019 8:42 AM 04/11/20 8:47 Clean Catch) CDT AM CDT Libby Blank APRN, C.N.P., D.N.P. LAB URINE ORDER APOLINAR Performing Organization Address City/State/ZIP Code Phon e Number [facility] [address] [place] [address] [place] [address] System in [place] [address] documented in this encounter Visit Diagnoses Diagnosis Diabetes Mellitus Type 2 (HCC) documented in this encounter
--- OUTSIDE RECORDS SUMMARY | 2022-05-14 15:26 | XMS_ITS | Encounter Summary ---
:1950 Author Organization [facility] Address [address] [place] [address] Care Team Providers Name Role Phone Unavailable Primary Care Provider Unavailable Encounter Details Date Type Department Care Team Description 10/26/2019 Hospital Encounter Department of Jurgensen, Gastric Bypass Status Post; Laboratory Medicine Libby Ny APRN, Diabet es Mellitus Type 2 (HCC); and Pathology, C.N.P., D.N.P. Obesity Body Mass Index 30-39.9 [facility], in [address] [place], [place] [address] [facility] [address] [place], [place] [phone] (Work) [phone] Social History Tobacco Use Types Packs/Day Years [...] How often do you attend religious or scientology services? Iqra keller 02/08/2020 Do you belong [...] pediatric Chew 1 tablet 2 0 10/06/2016 [id number]-rbwu-[id number] (two) times a (FLINTSTONES COMPLETE) day. chewable [...] Name Priority Date/Time Associated Diagnosis Comme nts CALCIUM, 24 HR, U Routine 11/26/2019 6:00 AM Gastric Bypass Re sults for this CDT Status Post procedure are in Diabetes Mellitus the result s Type 2 (HCC) section. Obesity Body Mass Index 30-39.9 Adult documented in this encounter Results Calcium, 24 Hour, Urine (11/26/2019 6:00 AM CDT) P athologist Signature Calcium, 24 HR, 42 <200 mg/24 11/26/2019 SIVAN U h 11:01 AM CDT Comment: ----ADDITIONAL INFORMATION---- This test has been modified from the man ufacturer's instructions. Its performance characteri stics were determined by [facility] in a manner co nsistent with CLIA requirements. This test has not bee n cleared or approved by the U.S. Food and Drug Admin istration. Collection Duration 24 h 11/26/2019 8:09 AM C DT SIVAN Urine Volume 2103 mL 11/26/2019 8:09 AM CDT SIVAN Calcium Concentration 2 mg/dL 11/26/2019 11:01 A M CDT SIVAN Specimen Anatomical Collection Method Collection Time Receive d Time (Source) Location / / Volume Laterality Urine (Urine, 24 11/26/2019 6:00 AM 11/25 8:08 Hours) CDT AM CDT Resulting Agency Comment Mailed In Specimen Libby Blank APRN, C.N.P., D.N.P. LAB URINE ORDER APOLINAR Performing Organization Address City/State/ZIP Code Phon e Number [facility] - [address] [place], [place] [address] [facility] [place] [address] [facility] [address] documented in this encounter Visit Diagnoses Diagnosis Gastric Bypass Status Post Diabetes Mellitus Type 2 (HCC) Obesity Body Mass Index 30-39.9 Adult documented in this encounter
--- OUTSIDE RECORDS SUMMARY | 2022-05-14 15:26 | XMS_ITS | Encounter Summary ---
:1950 Author Organization [facility] Address [address] [place] [address] Care Team Providers Name Role Phone Unavailable Primary Care Provider Unavailable Reason for Referral Outpatient (Routine) - Closed Specialty Diagnoses / Procedures Referred By Contact Refer red To Contact Endocrinology Diagnoses Diabetes Mellitus Type 2 (HCC) Libby Blank [facility] [place] C.N.PWing, D.N.P. [address] [place] [phone] Referral ID Status Reason Start Date Expiration Date Visits Requ ested Visits Authorized [id number] Closed 02/20/2019 02/20/2020 1 1 Reason for Visit Reason Comments Follow-up Outpatient (Routine) - Closed Specialty Diagnoses / Procedures Referred By Contact Refer red To Contact Endocrinology Libby Blank APRN [facility] C.N.P., D.N.P. [address] [place] [phone] Referral ID Status Reason Start Date Expiration Date Visits Requ ested Visits Authorized [id number] Closed 11/22/2018 11/22/2019 1 1 Encounter Details Date Type Department Care Team Description 02/20/2019 Office Visit Division of Libby Blank [place] [facility] in [place] C.N.PWing, Type 2 (HCC) (Primary [place], [place] D.N.P. Dx) [address] [place] [address] 200 [place] [address] [place], [place] [phone] Social History Tobacco Use Types Packs/Day Years [...] asked relatives? How often do you attend taoist or synagogue services? Patien t refused 02/08/2020 Do you belong to any clubs or organizations such as No 02/08/2020 taoist groups, unions, fraternal or athletic groups, or [...] Sign Reading Time Taken Comments Blood Pressure 152/64 02/20/2019 2:54 PM CDT Pulse 69 02/20/2019 2:54 PM CDT Temperature - - Respiratory Rate - - Oxygen Saturation - - Inhaled Oxygen Concentration - - Weight 99.1 kg (218 lb 7.6 oz) 02/20/2019 2:54 PM CDT Height 160.8 cm (5' 3.31) 02/20/2019 2:54 PM CDT Body Mass Index 38.33 02/20/2019 2:54 PM CDT documented in this encounter Progress Notes Libby Blank APRN, C.N.P., D.N.P. - 02/20/2019 3:00 PM CDT Assessment Reason for Visit: Type diabetes management Patient Karla Craen is a female 68 y.o. being seen today for type 2 diabetes follow up. She also underwent bariatric surgery and is working on weight loss after regaining weight. She has struggled with diabetes management in the last three months due to selling her home, upcoming move, caring for grandchildren. She notes that the [employer] class has helped with weight loss but now she needs to focus her efforts on her diabetes management. Weight history: Baseline weight in [facility]: 117.2 kg Weight at time of bariatric surgery: 118.8 kg Weight three months ago at annual follow up: 100 kg (darius weight 91.2 kg) Weight today: 91.1 kg Total weight loss since surgery: 0.9 kg Current Diet: Regular diet, 3 meals and 2 snacks daily. Alcohol use: None. Patient understands that no alcohol consumption is recommended after bariatric surgery Presence of GI symptoms: Occasional food blockage if not chewing well. Dumping syndrome very occasional. Exercise / Activity program: Limited due to her foot surgery but she has had a lot of improvement recently and is increasing her activity slowly. Pre-existing weight-related medical co-morbidities:COMORBIDITIES: Sleep apnea: No GERD: had reflux prior to surgery, but symptoms have resolved since surgery Dyslipidemia: No Hypertension: No Diabetes: Yes- Insulin REVIEW OF SYSTEMS ASSESSMENT / PLAN #1 Surgery Bariatric Status Post #2 Type 2 Diabetes Mrs. Crane has struggled with her blood glucose control in the three months. She has had multiple stressors which have impacted her but she also recognizes that she needs to be in control of her bloodglucose values, food choices and blood glucose monitoring. We will resume Metformin in addition to her current Lantus dose of 56 units daily for the next threemonths. She will start focusing on twice daily monitoring as well as improving her food choices (cooking at home more, carbohydrate intake, ect). She also plans to be more active now that her foot is fully recovered which will also help with blood glucose control. She will send her blood glucose values in one month to me for review once she gets her online account set up. Discussed with patient the importance of follow-up with the [facility] lifelong.The patient was provided with my contact information. Recommend follow up in 3 months for diabetes management. documented in this encounter Plan of Treatment Scheduled Referrals Name Type Priority Associated Order Schedule Diagnoses Endocrinology office Outpatient Referral Routine Diabetes Araceli itus Expected: visit (clinic) Type 2 (HCC) 04/23/2019 (Approximate), Expires: 02/20/2022 documented as of this encounter Visit Diagnoses Diagnosis Diabetes Mellitus Type 2 (HCC) - Primary documented in this encounter
--- OUTSIDE RECORDS SUMMARY | 2022-05-14 15:26 | XMS_ITS | Encounter Summary ---
:1950 Author Organization [facility] Address [address] [place] [address] Care Team Providers Name Role Phone Unavailable Primary Care Provider Unavailable Encounter Details Date Type Department Care Team Description 02/08/2020 Ancillary Procedure Department of Aleksandra Maurer Abnorm al Mammogram Radiology in [place], [place] [address] [facility] [address] [place] [phone] Social History Tobacco Use Types Packs/Day Years [...] asked relatives? How often do you attend islam or worship services? Patien t refused 02/08/2020 Do you belong to any clubs or organizations such as No 02/08/2020 islam groups, unions, fraternal or athletic groups, or [...] Procedure Name Priority Date/Time Associated Comments Diagnosis INTERPRETATION OF RAD - Routine 02/08/2020 2:19 Abnormal Result s for OUTSIDE BREAST (most inpatients PM CDT Mammogram this proc edure IMAGING and all are in the outpatients) results section. documented in this encounter Results Interpretation of Outside Breast Imaging (02/08/2020 2:19 PM CDT) Anatomical Region Laterality Modality Breast, Breast Imaging RST LOS, Breast Imaging ARZ LOS, [place] st N/A Mammography Imaging FLA LOS, Other Specimen (Source) Anatomical Collection Method Collection Time Re ceived Time Location / / Volume Laterality 02/08/2020 2:49 PM CDT Impressions 02/08/2020 3:06 PM CDT Stereotactic biopsy of the indeterminate calcifications in the left breast is recommended. Findings and tonny mmendations were discussed with Dr. Maurer who will schedule the biopsy. Narrative 02/08/2020 3:06 PM CDT EXAM: ??INTERPRETATION OF OUTSIDE BREAST IMAGING HISTORY/INDICATION: ??Abnormal outside s creening mammogram. DENSITY: ??a. The breast(s) are almost e ntirely fatty. FINDINGS: ??Outside bilateral 2-D/3-D ma mmogram without IV contrast dated 01/30/2020. Comparison is made to older ou tside mammograms dated 12/21/2018, 07/05/2017 and 05/06/2016. In the lower me dial left breast middle depth there is a group of calcifications which are new si nce 2018. Remainder of the left breast is negative. No suspicious masses, calci fications or distortion in the right breast. Diagnostic left breast mammogram views w ithout IV contrast dated 02/05/2020 obtained to further evaluate the calcifi cations noted on the screening mammogram of 01/30/2020. The calcifications have a p leomorphic morphology and are over an area of 9 x 11 mm. Procedure Note Latasha Ruth M.D. - 02/08/2020For matting of this note might be different from the original. EXAM: INTERPRETATION OF OUTSIDE BREAST I MAGING HISTORY/INDICATION: Abnormal outside scr eening mammogram. DENSITY: a. The breast(s) are almost ent irely fatty. FINDINGS: Outside bilateral 2-D/3-D mamm ogram without IV contrast dated 01/30/2020. Comparison is made to older ou tside mammograms dated 12/21/2018, 07/05/2017 and 05/06/2016. In the lower me dial left breast middle depth there is a group of calcifications which are new si nce 2018. Remainder of the left breast is negative. No suspicious masses, calci fications or distortion in the right breast. Diagnostic left breast mammogram views w ithout IV contrast dated 02/05/2020 obtained to further evaluate the calcifi cations noted on the screening mammogram of 01/30/2020. The calcifications have a p leomorphic morphology and are over an area of 9 x 11 mm. IMPRESSION: Stereotactic biopsy of the indeterminate calcifications in the left breast is recommended. Findings and tonny mmendations were discussed with Dr. Maurer who will schedule the biopsy. Aleksandra MANLEY BI PROCEDURES documented in this encounter Visit Diagnoses Diagnosis Abnormal Mammogram documented in this encounter
--- OUTSIDE RECORDS SUMMARY | 2022-05-14 15:26 | XMS_ITS | Encounter Summary ---
:1950 Author Organization [facility] Address [address] [place] [address] Care Team Providers Name Role Phone Unavailable Primary Care Provider Unavailable Reason for Referral Outpatient (Routine) - Closed Specialty Diagnoses / Procedures Referred By Contact Refer red To Contact Endocrinology Ted Ortega APRN, [place] C.N.PWing, D.N.P. [address] [place] [address] [phone] Referral ID Status Reason Start Date Expiration Date Visits Requ ested Visits Authorized [id number] Closed 12/27/2019 12/26/2020 1 1 ppointment Request (Routine) - Closed Specialty Diagnoses / Procedures Referred By Contact Refer red To Contact Diagnoses Hypertension Essential Primary Diabetes Mellitus Type 2 (HCC) Obesity Body Mass Index 30-39.9 Adult Ted Ortega APRN, C.N.P., D.N.P. [address] [place] [address] [phone] Referral ID Status Reason Start Date Expiration Date Visits Requ ested Visits Authorized [id number] Closed 09/29/2020 09/29/2021 1 1 Reason for Visit Outpatient (Routine) - Closed Specialty Diagnoses / Procedures Referred By Contact Refer red To Contact Ted Ortega APRN, C.N.P., [facility] D.N.P. [address] [place] [address] Referral ID Status Reason Start Date Expiration Date Visits Requ ested Visits Authorized [id number] Closed 11/27/2019 11/26/2020 1 1 Encounter Details Date Type Department Care Team Description 12/27/2019 Virtual Visit Division of Ted Ortega Diabetes Landy litus Type 2 (HCC) (Primary Dx); Endocrinology in [place], Hypertensio n Essential Primary; [place], [place] C.N.P., D.N.P. Obesity Body Mass Index 30-39.9 Adult; [address] [facility] 200 [facility] Bypass Gastric [place] [address] [place], [place] [phone] Social History Tobacco Use Types Packs/Day Years [...] How often do you attend restorationist or gnosticism services? Patien t refused 02/08/2020 Do you [...] documented as of this encounter Progress Notes Ted Ortega, [place], C.N.P., D.N.P. 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 She also follows with us for diabetes management. Today's visit was completed via telephone call due to COVID 19 stay at home orders being in place. 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 Martín Hickey on 10/05/16. She was most recently seen for bariatric surgery-related care on 06/15/19 by Libby Blank APRN, MIKE. She has also been involved with our [employer] program. She is mainly focusing on purchasing food that she needs instead of food she desires. WEIGHT HISTORY Baseline weight in nutrition clinic: 117.2 kg Weight at time of bariatric surgery: 118.8 kg Weight one year post-bariatric surgery: 94.5 kg Weight at last post-bariatric surgery visit: 98.4 kg Weight today, self reported: 99.1 kg She is taking metformin XR 1000 mg twice daily. Also takes 56 units of Lantus at bedtime, sometime will take a little bit less if running. Blood sugars in the AMs have been 75-100 mg/dL. Later in the day are 150s, higher is she has a dessert, even up to 400 mg/dL. No report of low blood sugars. In the past, she has attempted glyburide but got low blood sugars while on this. PERTINENT REVIEW OF SYSTEMS Gastrointestinal symptoms include: Nausea: Denies Vomiting: Occasionally Reflux: Denies Diarrhea: Occasionally Food Blockage: Occasionally Abdominal Pain: Denies Dumping Syndrome: Denies Constipation: Denies Gas and Bloating: Denies Reasons for gastrointestinal symptoms: not chewing thoroughly enough and metformin CURRENT DIET Diet focuses on vegetables, protein, and oatmeal in the mornings. She states she has been continuing to put some mild effort into her daily diet, but notes she could improve on her dietary indiscretions. Fluid intake is greater than 10 cups per day and urine output is adequate. ALCOHOL USE 2-3 drinks of alcohol on special occasions, and the patient reports no issues with tolerance, dependence, or exaggerated effects. The patient is aware we recommend no alcohol use after bariatric surgery. EXERCISE/ACTIVITY PROGRAM Walks for about 1/2 hour total each day, can't do more due to foot pain. 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 PREEXISTING WEIGHT-RELATED MEDICAL COMORBIDITIES Sleep apnea: No GERD: had reflux prior to surgery, but symptoms have resolved since surgery Dyslipidemia: No Hypertension: No Diabetes: Yes- Insulin and Metformin The following portions of the patient's history were reviewed and updated as appropriate: allergies,labs, current medications, family history, medical history, social history, surgical history, and problem list. OBJECTIVE CURRENT MEDICATIONS Current Outpatient Medications Medication Sig Dispense Refill ??? acetaminophen (for_TYLENOL) 500 mg tablet Take 2 tablets by mouth as needed. pain. Do not [id number] per day. ??? ALBUTEROL SULFATE INHL Inhale 2 puffs as needed. SOB ??? ascorbic acid, vitamin C, (vitamin C) 1,000 mg tablet Take 1 tablet by mouth as needed. seasonal ??? blood-glucose meter kit Test daily twice daily 1 each 0 ??? cholecalciferol (VITAMIN D3) 2,000 Unit tablet [...] Units under the skin at bedtime. ??? metFORMIN (GLUCOPHAGE) 500 mg tablet Take 1 tablet (500 mg total) by mouth as directed. 1 tab daily, increase weekly. 1 tab 2x/ day then 2 tabs AM and 1 PM then 2 tabs twice daily 360 tablet 4 ??? nystatin (MYCOSTATIN) 100,000 unit/gram cream as needed. ??? oxybutynin (DITROPAN) 5 mg tablet Take 1 tablet by mouth 2 (two) times a day. ??? pediatric dmskzyuvbhji-yscr-grgwmbqo (flintstones complete) chewable tablet Chew 1 tablet 2 (two) times a day. ??? pravastatin (for_PRAVACHOL) 80 mg tablet Take 1 tablet by mouth at bedtime. ??? sennosides-docusate sodium (SENNA WITH DOCUSATE SODIUM) [...] of feet get hard PAST MEDICAL HISTORY History reviewed. No pertinent past medical history. PAST SURGICAL HISTORY Past Surgical History: Procedure Laterality Date ??? LAPAROSCOPIC ASSISTED - GASTRIC BYPASS N/A 10/05/2016 Laparoscopic assisted - Gastric bypass SOCIAL HISTORY Social History Socioeconomic History ??? Marital status: Spouse name: Not on file ??? Number of children: Not on file ??? Years of education: Not on file ??? Highest education level: Not on file Occupational History ??? Not on file Social Needs ??? Financial resource strain: Not on file ??? Food insecurity Worry: Not on file Inability: Not on file ??? Transportation needs Medical: Not on file Non-medical: Not on file Tobacco Use ??? Smoking status: Never Smoker ??? Smokeless tobacco: Never Used Substance and Sexual Activity ??? Alcohol use: Not on file ??? Drug use: Not on file ??? Sexual activity: Not on file Lifestyle ??? Physical activity Days per week: Not on file Minutes per session: Not on file ??? Stress: Not on file Relationships ??? Social connections Talks on phone: Not on file Gets together: Not on file Attends gnosticism service: Not on file Active member of club or organization: Not on file Attends meetings of clubs or organizations: Not on file Relationship status: Not on file ??? Intimate partner violence Fear of current or ex partner: Not on file Emotionally abused: Not on file Physically abused: Not on file Forced sexual activity: Not on file Other Topics Concern ??? Not on file Social History Narrative ??? Not on file VITAL SIGNS There were no vitals filed for this visit. ASSESSMENT / PLAN #1 Diabetes Mellitus Type 2 (HCC) #2 Hypertension Essential Primary #3 Obesity Body Mass Index 30-39.9 Adult #4 Bypass Gastric Geovanna En Y Status Post Other orders - NonF2F phone visit - 25-Hydroxyvitamin D2 and D3; Future; Expected date: 12/26/2020 - Albumin; Future; Expected date: 12/26/2020 - AST (Aspartate Aminotransferase); Future; Expected date: 12/26/2020 - Bone Alkaline Phosphatase; Future; Expected date: 12/26/2020 - Calcium, Total; Future; Expected date: 12/26/2020 - Glucose, Fasting; Future; Expected date: 12/26/2020 - Ferritin; Future; Expected date: 12/26/2020 - Creatinine with Estimated GFR; Future; Expected date: 12/26/2020 - CBC without Differential; Future; Expected date: 12/26/2020 - Hemoglobin A1c; Future; Expected date: 12/26/2020 - Lipid Panel; Future; Expected date: 12/26/2020 - Nutrition - Group bariatric education visit (clinic); Future; Expected date: 12/26/2020 - Supersaturation Profile, 24 Hour, Urine; Future; Expected date: 12/26/2020 - Endocrinology office visit (clinic); Future; Expected date: 06/28/2020 LABS and MEDICATIONS I reviewed the labs with her today. She should make the following medication changes: Multivitamin: one multivitamin twice daily Calcium: no extra calcium supplementation at this time, but could benefit from supplemental based onurin collection. However, blood calcium still high normal. This is being managed outside of [facility].' Vitamin D: 2000 IU vitamin D3 daily. Vitamin B12: 1000 mcg injection monthly. Iron: no extra iron supplementation, apart from iron present in multivitamins. Labs and 24 hour urine collection prior to next visit will be mailed to her home and brought to a lab with results faxed back to us. Discussed the option to change metformin to an alternative therapy for daytime blood sugars, which Ithink is her main source of hyperglycemia. She is having abdominal symptoms with metformin but she would like to stay on it regardless. No need for surgical intervention for abdominal symptoms at this time. PHYSICAL ACTIVITY PLAN Foot pain is slowly subsiding as she has had issues since surgery 2 years ago. She hopes to slowly increase her step count each day in the upcoming year. She has a sewing room in her outdoor shed and has to walk there a few times each day. DIETARY MODIFICATION PLAN She is overall doing well with the post- bariatric surgery diet. She is still working on figuring out when she gets abdominal symptoms- sometimes is from metformin, sometimes is from eating too quicklyor not chewing thoroughly enough. Briefly reviewed post-bariatric surgery dietary recommendations, including: daily calorie guidelines; healthy dietary and lifestyle choices; common post- surgical nutrition problems; weight plateaus; and the importance of keeping food intake and weight records. Discussed the importance of follow-up with the [facility] as well as lifelong with a primary health care provider for chronic disease management. At present, I would advise follow-up in approximately 6 months with Libby for regular follow up. She can contact us for additional appointments if needs arise in the interim. I personally spent a total of 44 minutes in qbh-sjsp-ha-face time performing a review of the record and/or discussion with the patient/caregiver as described above. documented in this encounter Plan of Treatment Scheduled Referrals Name Type Priority Associated Diagnoses Order S chedule Nutrition - Group Outpatient Routine Hypertension Expected: bariatric education Referral Essential Pr imary 12/26/2020 visit (clinic) Diabetes Mellitus (Approxi mate), Type 2 (HCC) Expires: Obesity Body Mass 12/26/2022 Index 30-39.9 Adult Endocrinology office Outpatient Routine Expecte d: visit (clinic) Referral 06/28/2020 (Approximate), Expires: 12/26/2022 documented as of this encounter Visit Diagnoses Diagnosis Diabetes Mellitus Type 2 (HCC) - Primary Hypertension Essential Primary Obesity Body Mass Index 30-39.9 Adult Bypass Gastric Geovanna En Y Status Post documented in this encounter
--- OUTSIDE RECORDS SUMMARY | 2022-05-14 15:26 | XMS_ITS | Encounter Summary ---
:1950 Author Organization [facility] Address [address] [place] [address] Care Team Providers Name Role Phone Unavailable Primary Care Provider Unavailable Reason for Visit Reason Comments COVID Nurse Line Encounter Details Date Type Department Care Team Description 02/05/2020 Clinical Communication Breast Diagnostic Aleksandra Maurer COVID Nurse Line Clinic in [facility] [address] [facility] [address] [place] [phone] Social History Tobacco Use Types Packs/Day Years [...] asked relatives? How often do you attend jew or evangelical services? Patien t refused 02/08/2020 Do you belong to any clubs or organizations such as No 02/08/2020 jew groups, unions, fraternal or athletic groups, or [...] this encounter Miscellaneous Notes Telephone Encounter - Rachelle Montanez - 02/05/2020 11:28 AM CDT ([facility] and [facility] locations only: If the patient is not having symptoms and is requesting COVID-19 Nasal Swab testing only, use the process listed in the COVID-19 Patient Requesting COVID PCR Test OTG COVID-19 [place] Patient Requesting COVID PCR Test). In the past 30 days have you had a swab for COVID that tested positive? no Route reply to: Scheduling Contact Number: documented in this encounter Plan of Treatment Not on filedocumented as of this encounter Visit Diagnoses Not on filedocumented in this encounter
--- OUTSIDE RECORDS SUMMARY | 2022-05-14 15:26 | XMS_ITS | Encounter Summary ---
:1950 Author Organization [facility] Address [address] [place] [address] Care Team Providers Name Role Phone Unavailable Primary Care Provider Unavailable Encounter Details Date Type Department Care Team Description 02/11/2020 Clinical Communication Breast Diagnostic Aleksandra Maurer, Clinic in [facility] [address] [facility] [address] [place] [phone] Social History Tobacco Use Types Packs/Day Years [...] How often do you attend presybeterian or taoism services? Patisandrine t refused 02/08/2020 Do you belong to [...] Telephone Encounter - Aleksandra Maurer M.D. - 02/11/2020 4:09 PM CDT Yes, phone return on Tuesday should be fine. Please let the patient know she will be called or Tuesday with results once available. (Plan will be to move the phone return to if available early, Thanks.) Telephone Encounter - Aleah Madrid - 02/11/2020 8:02 AM CDT Pt is scheduled for biopsy on 02/11. Do you want a rtn with results... phone rtn? documented in this encounter Plan of Treatment Not on filedocumented as of this encounter Visit Diagnoses Not on filedocumented in this encounter
--- OUTSIDE RECORDS SUMMARY | 2022-05-14 15:26 | XMS_ITS | Encounter Summary ---
:1950 Author Organization [facility] Address [address] [place] [address] Care Team Providers Name Role Phone Unavailable Primary Care Provider Unavailable Encounter Details Date Type Department Care Team Description 04/09/2019 Hospital Encounter Department of Abhay, Diabetes Mellitus Laboratory Medicine Libby Ny APRN, Type 2 (HCC) and Pathology, C.N.P., D.N.PFormerly [facility] in [address] [place] [address] [place] [phone] [place], [place] [phone] (Work) [phone] Social History Tobacco Use Types Packs/Day Years [...] How often do you attend worship or synagogue services? Patien t refused 02/08/2020 [...] pediatric Chew 1 tablet 2 0 10/06/2016 [id number]-[id number] (two) times a ([employer]) day. chewable [...]
--- OUTSIDE RECORDS SUMMARY | 2022-05-14 15:26 | XMS_ITS | Encounter Summary ---
:1950 Author Organization [facility] Address [address] [place] [id number] Care Team Providers Name Role Phone Unavailable Primary Care Provider Unavailable Encounter Details Date Type Department Care Team Description 11/26/2019 Hospital Encounter Department of [place], Gastric Bypass Status Post; Laboratory Medicine Libby Ny APRN, Diabet es Mellitus Type 2 (HCC); and Pathology, C.N.P., D.N.P. Obesity Body Mass Index 30-39.9 [facility], in [address] [place], [place] [address] [facility] [address] [place], [place] [phone] (Work) [phone] Social History Tobacco Use Types Packs/Day Years [...] asked relatives? How often do you attend hindu or oriental orthodox services? Iqra keller 02/08/2020 Do you belong to any clubs or organizations such as No 02/08/2020 hindu groups, unions, fraternal or athletic groups, or [...] pediatric Chew 1 tablet 2 0 10/06/2016 [id number] (two) times a (FLINTSTONES COMPLETE) day. chewable [...] Associated Comments Diagnosis LIPID PANEL, S Routine 11/26/2019 7:38 Gastric Bypass Results for this AM CDT Status Post procedure are in Diabetes Mellitus the result s Type 2 (HCC) section. Obesity Body Mass Index 30-39.9 Adult BONE ALKALINE Routine 11/26/2019 7:38 Gastric Bypass Results f or this PHOSPHATASE, S AM CDT Status Post procedure are in Diabetes Mellitus the result s Type 2 (HCC) section. Obesity Body Mass Index 30-39.9 Adult CBC WITHOUT Routine 11/26/2019 7:38 Gastric Bypass Results fo r this DIFFERENTIAL, B AM CDT Status Post procedure are in Diabetes Mellitus the result s Type 2 (HCC) section. Obesity Body Mass Index 30-39.9 Adult ASPARTATE Routine 11/26/2019 7:38 Gastric Bypass Results fo r this AMINOTRANSFERASE (AST), AM CDT Status P ost procedure are in S/P Diabetes Mellitus the result s Type 2 (HCC) section. Obesity Body Mass Index 30-39.9 Adult HEMOGLOBIN A1C, B Routine 11/26/2019 7:38 Gastric Bypass Resul ts for this AM CDT Status Post procedure are in Diabetes Mellitus the result s Type 2 (HCC) section. Obesity Body Mass Index 30-39.9 Adult GLUCOSE, FASTING, S/P Routine 11/26/2019 7:38 Gastric Bypass R esults for this AM CDT Status Post procedure are in Diabetes Mellitus the result s Type 2 (HCC) section. Obesity Body Mass Index 30-39.9 Adult FERRITIN, S Routine 11/26/2019 7:38 Gastric Bypass Results fo r this AM CDT Status Post procedure are in Diabetes Mellitus the result s Type 2 (HCC) section. Obesity Body Mass Index 30-39.9 Adult CREATININE WITH EGFR, Routine 11/26/2019 7:38 Gastric Bypass R esults for this S/P AM CDT Status Post procedure are in Diabetes Mellitus the result s Type 2 (HCC) section. Obesity Body Mass Index 30-39.9 Adult CALCIUM, TOT, S/P Routine 11/26/2019 7:38 Gastric Bypass Resul ts for this AM CDT Status Post procedure are in Diabetes Mellitus the result s Type 2 (HCC) section. Obesity Body Mass Index 30-39.9 Adult ALBUMIN, S/P Routine 11/26/2019 7:38 Gastric Bypass Results fo r this AM CDT Status Post procedure are in Diabetes Mellitus the result s Type 2 (HCC) section. Obesity Body Mass Index 30-39.9 Adult documented in this encounter Results Albumin (11/26/2019 7:38 AM CDT) athologist Signature Albumin, S 4.3 3.5 - 5.0 11/26/2019 DTL g/dL 9:30 AM CDT Specimen Anatomical Collection Method Collection Time Receive d Time (Source) Location / / Volume Laterality Blood (Blood, 11/26/2019 7:38 AM 11/26/19 20 9:12 Venous) CDT AM CDT Libby Blank APRN, C.N.P., D.N.P. LAB BLOOD ADD-O N Performing Organization Address [facility] Phon e Number [facility] - [address] AST (Aspartate Aminotransferase) (11/26/2019 7:38 AM CDT) [facility] gist Method Time Signature Aspartate 18 8 - 43 11/26/2019 DTL Aminotransferase U/L 9:30 AM CDT (AST), S Specimen Anatomical Collection Method Collection Time Receive d Time (Source) Location / / Volume Laterality Blood (Blood, 11/26/2019 7:38 AM 11/26/19 20 9:12 Venous) CDT AM CDT Libby Blank APRN, C.N.P., D.N.P. LAB BLOOD ADD-O N Performing Organization Address City/[facility] Phon e Number [facility] - [address] Bone Alkaline Phosphatase (11/26/2019 7:38 AM CDT) athologist Signature Bone Alkaline 11 mcg/L 11/26/2019 SDSC Phosphatase, S 2:18 PM CDT Comment: ----REFERENCE VALUE---- <=14 (Premenopausal) <=22 (Postmenopausal) Specimen Anatomical Collection Method Collection Time Receive d Time (Source) Location / / Volume Laterality Blood (Blood, 11/26/2019 7:38 AM 11/26/19 20 Venous) CDT 12:15 PM CDT Libby Blank APRN, C.N.P., Benjamin.N.P. LAB BLOOD ADD-O N Performing Organization Address City/[facility]/ZIP Code Phon e Number [facility] [address] [place], [place] [address] [facility] [place] [address] Laboratory Medicine and Pathology [address] [place] Calcium, Total (11/26/2019 7:38 AM CDT) P athologist Signature Calcium, Total, 10.1 8.8 - 10.2 11/26/2019 DTL S mg/dL 9:30 AM CDT Specimen Anatomical Collection Method Collection Time Receive d Time (Source) Location / / Volume Laterality Blood (Blood, 11/26/2019 7:38 AM 11/26/19 20 9:12 Venous) CDT AM CDT Libby Blank APRN, AmauryN.P., D.N.P. LAB BLOOD ADD-O N Performing Organization Address City/[facility] Phon e Number [facility] - [address] [place] [phone] [facility] [place] [address] Laboratories-[facility] 200 [facility] (ABNORMAL) CBC without Differential (11/26/2019 7:38 AM CDT) Patholo gist Method Time Signature Hemoglobin 12.2 11.6 - 11/26/2019 DTL 15.0 g/dL 8:31 AM CDT Hematocrit 38.6 35.5 - 11/26/2019 DTL 44.9 % 8:31 AM CDT Erythrocytes 4.29 3.92 - 11/26/2019 DTL 5.13 8:31 AM CDT x10(12)/L MCV 90.0 78.2 - 11/26/2019 DTL 97.9 fL 8:31 AM CDT RBC Distrib Width 14.0 12.2 - 11/26/2019 DTL 16.1 % 8:31 AM CDT Platelet Count 268 157 - 371 11/26/2019 DTL x10(9)/L 8:31 AM CDT Leukocytes 9.8 (H) 3.4 - 9.6 11/26/2019 DTL x10(9)/L 8:31 AM CDT Specimen Anatomical Collection Method Collection Time Receive d Time (Source) Location / / Volume Laterality Blood (Blood, 11/26/2019 7:38 AM 11/26/19 20 8:22 Venous) CDT AM CDT Libby Blank APRN, C.N.P., D.N.P. LAB BLOOD ADD-O N Performing Organization Address City/State/ZIP Code Phon e Number [facility] - 200 [place], [place] [address] [facility] [place] [address] Laboratories-[facility] 200 [facility] (ABNORMAL) Lipid Panel (11/26/2019 7:38 AM CDT) P athologist Signature Cholesterol, 138 mg/dL 11/26/2019 DTL Total 9:30 AM CDT Comment: ----REFERENCE VALUE---- Desirable: < 200 Borderline high: 200 - 239 High: > or = 240 Triglycerides 119 mg/dL 11/26/2019 9:30 AM CDT DTL Comment: ----REFERENCE VALUE---- Normal: <150 Borderline high: 150-199 High: 200-499 Very high: > or =500 Cholesterol, HDL, S 43 (L) >=50 mg/dL 11/26/2019 9:30 AM CDT DTL Calculated LDL 71 mg/dL 11/26/2019 9:30 AM CDT DT L Comment: ----REFERENCE VALUE---- Desirable: <100 Above Desirable: 100-129 Borderline high: 130-159 High: 160-189 Very high: > or =190 Cholesterol, Non-HDL, Calculated 95 mg/dL 020 9:30 AM CDT DTL Comment: ----REFERENCE VALUE---- Desirable: <130 Above Desirable: 130-159 Borderline high: 160-189 High: 190-219 Very high: > or =220 Specimen Anatomical Collection Method Collection Time Receive d Time (Source) Location / / Volume Laterality Blood (Blood, 11/26/2019 7:38 AM 11/26/19 20 9:12 Venous) CDT AM CDT Amaury Pizarro APRNN.P., D.N.P. LAB BLOOD ADD-O N Performing Organization Address City/[facility]/ZIP Code Phon e Number [facility] - [address] (ABNORMAL) Hemoglobin A1c (11/26/2019 7:38 AM CDT) athologist Signature Hemoglobin A1c, 7.6 (H) 4.0 - 5.6 11/26/2019 DTL B % 8:44 AM CDT Comment: Hemoglobin A1c values greater than or eq ual to 6.5 percent are diagnostic for diabetes mellitus. ?? Diagnosis should be confirmed by repeat testing. ??In diabet ic patients, HbA1c goals should be discussed with healthcar e provider. Specimen Anatomical Collection Method Collection Time Receive d Time (Source) Location / / Volume Laterality Blood (Blood, 11/26/2019 7:38 AM 11/26/19 20 8:22 Venous) CDT AM CDT Naima Pizarro APRN.N.P., D.N.P. LAB BLOOD ADD-O N Performing Organization Address City/[facility]/ZIP Code Phon e Number [facility] - [address] Glucose, Fasting (11/26/2019 7:38 AM CDT) athologist Signature Glucose, P 97 70 - 100 11/26/2019 DTL mg/dL 9:17 AM CDT Last Intake 14 hr 11/26/2019 DTL 9:03 AM CDT Specimen Anatomical Collection Method Collection Time Receive d Time (Source) Location / / Volume Laterality Blood (Blood, 11/26/2019 7:38 AM 11/26/19 20 9:03 Venous) CDT AM CDT Naima Pizarro APRN.N.P., D.N.P. LAB BLOOD NON A DD-ON Performing Organization Address City/[facility]/ZIP Code Phon e Number [facility] - [address] [place] 200 [facility] Ferritin (11/26/2019 7:38 AM CDT) athologist Signature Ferritin, S 30 11 - 307 11/26/2019 DTL mcg/L 9:49 AM CDT Specimen Anatomical Collection Method Collection Time Receive d Time (Source) Location / / Volume Laterality Blood (Blood, 11/26/2019 7:38 AM 11/26/19 9:04 Venous) CDT AM CDT Naima Pizarro APRN.N.P., D.N.P. LAB BLOOD ADD-O N Performing Organization Address City/[facility] Phon e Number [facility] [address] Creatinine with Estimated GFR (11/26/2019 7:38 AM CDT) athologist Signature Creatinine 0.80 0.59 - 11/26/2019 DTL 1.04 mg/dL 9:30 AM CDT eGFR-Non 75 >=60 11/26/2019 DTL Black/ mL/min/BSA 9:30 AM CDT Slovenian Comment: ----ADDITIONAL INFORMATION---- Estimated GFR calculated using the 2009 CKD_EPI creatinine equation. eGFR-Black/ 87 >=60 mL/min/BSA 2019 9:30 AM CDT DTL Comment: ----ADDITIONAL INFORMATION---- Estimated GFR calculated using the 2009 CKD_EPI creatinine equation. Specimen Anatomical Collection Method Collection Time Receive d Time (Source) Location / / Volume Laterality Blood (Blood, 11/26/2019 7:38 AM 11/26/19 20 9:12 Venous) CDT AM CDT Libby Blank APRN, Naima.N.P., D.N.P. LAB BLOOD ADD-O N Performing Organization Address City/State/[facility] Code Phon e Number [facility] - [address] [place], [place] [address] [facility] [address] documented in this encounter Visit Diagnoses Diagnosis Gastric Bypass Status Post Diabetes Mellitus Type 2 (HCC) Obesity Body Mass Index 30-39.9 Adult documented in this encounter
--- OUTSIDE RECORDS SUMMARY | 2022-05-14 15:26 | XMS_ITS | Encounter Summary ---
:1950 Author Organization [facility] Address [address] [place] [address] Care Team Providers Name Role Phone Unavailable Primary Care Provider Unavailable Reason for Referral Outpatient (Routine) - Closed Specialty Diagnoses / Procedures Referred By Contact Refer red To Contact Diagnoses Abnormal Mammogram Calcification Breast Aleksandra Maurer M.D. [facility] Procedures BI Breast Biopsy Left with Stereotactic Guidance [place], [place] [phone] Referral ID Status Reason Start Date Expiration Date Visits Requ ested Visits Authorized [id number] Closed 02/08/2020 02/07/2021 1 1 Reason for Visit Reason Comments Consult Appointment Request (Routine) - Closed Specialty Diagnoses / Procedures Referred By Contact Refer red To Contact Breast Clinic Diagnoses Mass Breast Linda Rehman M.D. [address] [place] [address] Referral ID Status Reason Start Date Expiration Date Visits Requ ested Visits Authorized [id number] Closed 02/05/2020 02/04/2021 1 1 Encounter Details Date Type Department Care Team Description 02/08/2020 Comprehensive Visit Breast Diagnostic Aleksandra Maurer Ab normal Mammogram (Primary Dx); Clinic in [place] Obesity Body Mass Index 30-39.9 Adult; [place], [facility] [address] [facility] Calcification Breast [place], [place] [address] [facility] [address] [place], [place] [phone] (Work) [phone] Social History Tobacco Use Types Packs/Day Years [...] asked relatives? How often do you attend bahai or sikh services? Patien t refused 02/08/2020 Do you belong to any clubs or organizations such as No 02/08/2020 bahai groups, unions, fraternal or athletic groups, or [...] Sign Reading Time Taken Comments Blood Pressure 134/69 02/08/2020 1:04 PM CDT Pulse 71 02/08/2020 1:04 PM CDT Temperature - - Respiratory Rate - - Oxygen Saturation - - Inhaled Oxygen Concentration - - Weight 100 kg (220 lb 12.7 oz) 02/08/2020 1:04 PM CDT Height 163.5 cm (5' 4.37) 02/08/2020 1:04 PM CDT Body Mass Index 37.46 02/08/2020 1:04 PM CDT documented in this encounter Consult Notes Aleksandra Maurer M.D. - 02/08/2020 1:30 PM CDT SUBJECTIVE Referring Provider: Linda Rehman M.D. CHIEF COMPLAINT / REASON FOR VISIT Abnormal breast imaging HISTORY OF PRESENT ILLNESS Ms. Crane is a very pleasant 69 y.o. year old woman who presents today for further evaluation and recommendations in regards to recent abnormal breast imaging. Mrs. Crane indicates that she has always had some intermittent right breast tenderness and the right nipple tends to be sensitive, but this is been going on for years and is not new and has not changed. Otherwise she does not have significant other areas of breast pain, and denies any masses, lumps, or nodules that she has noted. She is not having any nipple discharge and has not noted skin changes over the breast. She has a remote history of a benign breast biopsy. It seems at one point she also had a cyst in the left breast that started to drain internally and she had the packet and that was located more near her breast bone. She wonders if this could have anything to do with the changes or theradiology findings. Mrs. Crane when in her screening mammogram and an area of concern was noted in the left breast. Diagnostic imaging was completed and a mammogram guided biopsy was recommended. The patient indicates that this is the first year that she got a screening mammogram with 3D so she is wondering if she actually needs a biopsy and there is a concerning area or if it might be some feature of the fact that she got a 3D mammogram this time. Mrs. Crane indicates a fairly recent history of gastric bypass about three years ago. She initiallylost 60 lb and has gained back about 15. She has been thinking she needs to refocus on eating healthy and exercise. Her paternal aunt had breast cancer. BREAST CANCER RISK PROFILE Number of pregnancies: 2 Number of live births: 2 Number of miscarriages or abortions or tubal pregnancies: 0 Age of first child: 28 Breast fed children? Yes, < one year Age of menstruation: 13 Current menstrual periods: 42 Hysterectomy? Yes, endometriosis, yes both ovaries were removed control? Yes, but not currently, 3-5 years, some before 1974 History of menopause hormone therapy: Yes, but not currently, 3-5 years History of fertility medications: No History of PATTY exposure in utero: no Breast pain? no History of needle or surgical breast biopsy: Yes, one biopsy Previous breast diagnoses: Normal breast biopsy between the ages of 26 and 35 Previous breast surgeries: no History of chest wall radiation: no History of smoking: no History of secondhand smoke: Yes, 11 years or more, not currently Number of alcoholic beverages per week: Monthly or less, 1-2 drinks Exercise 30 min or more for at least three days per week? no Current weight: 220 lb Weight one year ago: 218 lb Height: 5 ft 4 in Race: White Adopted: no See below for family history. FAMILY HISTORY Family History Problem Relation Age of Onset ??? Alcohol abuse Mother ??? Kidney disease Mother ??? Diabetes Mother ??? Hypertension Mother ??? Dementia Mother ??? Coronary artery disease Mother ??? Arthritis Mother ??? Alcohol abuse Father ??? Diabetes Father ??? Hypertension Father ??? Coronary artery disease Father ??? Arthritis Father ??? Sleep apnea Father ??? Hypertension Son ??? Sleep apnea Son ??? Gestational diabetes Daughter ??? Breast cancer Father's Sister ??? Pancreatic cancer Father's Brother ??? Ovarian cancer Neg Hx The following portions of the patient's history were reviewed and updated as appropriate: allergies,past surgical history, past medical history, social history, current medications, and problem list. REVIEW OF SYSTEMS See HPI for pertinent positives and negatives. OBJECTIVE PHYSICAL EXAM BP 134/69 (BP Location: Left arm, Patient Position: Sitting, Cuff Size: Large) Pulse 71 Ht 163.5cm Wt 100 kg BMI 37.46 kg/m?? Constitutional: She appears well. No distress. Pulmonary/Chest: No respiratory distress. Breathing comfortably. Wearing a mask. Breast/Skin: Breasts are symmetrical. No overlying skin changes such as rashes, dimpling, or puckering noted. Nipples everted bilaterally without nipple discharge. Some fibroglandular lobular tissue palpable bilaterally without discrete masses, lumps, or nodules noted. Lymphadenopathy: No supraclavicular or cervical lymphadenopathy. No axillary lymphadenopathy. Psychiatric: She has a normal mood and affect. Neuro: Alert, answering questions appropriately, ambulating without difficulty. ASSESSMENT / PLAN #1 Abnormal Mammogram #2 Obesity Body Mass Index 30-39.9 Adult We reviewed that the outside images have been uploaded into our system and we have asked our radiologist to provide their interpretation of the outside imaging. We discussed the possible radiologic recommendations with this kind of finding, including no furtherworkup needed, additional imaging needed, follow-up with additional imaging in the future such as six months from now, verses biopsy. We discussed that the finding may have been identified this here because of the 3D but either way it needs to be investigated. I doubt that this has anything to do withher prior history of a left cyst. I do not feel anything concerning on the patient's breast exam today. We discussed that given the fact that it is a Tuesday afternoon it is unlikely we will be able to get any additional testing done this afternoon. Initially I requested that the patient wait in the lobby as the radiologist was actively working on reading her images, but after half an hour the report was not available so I indicated to the patient that I would call her with the results and hopefully we would get her next step taking care of next week. In the meantime, I did encourage the patient to work on healthy eating and exercising more. She already limit alcohol which is beneficial for her overall health, her weight, and her breast health. Depending on the results of her workup, I will plan on seeing the patient back in person if needed. PATIENT EDUCATION Ready to learn, no apparent learning barriers were identified; learning preferences include listening. Explained diagnosis and treatment plan; patient expressed understanding of the content. Total visit time greater than 30 minutes, with over 50% spent counseling with the patient and coordination of care activities described above. documented in this encounter Miscellaneous Notes Addendum Note - Aleksandra Maurer M.D. - 02/08/2020 1:30 PM CDT Addended by: ALEKSANDRA MAURER on: 02/08/2020 06:04 PM Modules accepted: Orders documented in this encounter Plan of Treatment Not on filedocumented as of this encounter Results BI Breast Biopsy Left with Stereotactic Guidance (02/12/2020 8:51 AM CDT) Anatomical Region Laterality Modality Breast, Breast Imaging [facility] LOS, Breast Imaging [facility], [address] [address] Left Mammography Imaging [facility] LOS Specimen [...] medications. PATIENT EDUCATION: ??Provided by a care paper steamer. Ready to learn, no apparent learning barriers [...] care team members, residents, and fellows chidi de jesus discussed. The medication list was reviewed and [...] EP Aleksandra Maurer M.D. IMG BI PROCEDURES Interpretation of Outside Breast Imaging (02/08/2020 2:19 PM CDT) Anatomical Region Laterality Modality Breast, Breast Imaging [facility] LOS, Breast [facility], [address] N/A Mammography Imaging [facility] LOS, Other [...] of calcifications which are new si nce 2019. Remainder of the left breast is negative. [...] of calcifications which are new si nce 2019. Remainder of the left breast is negative. [...] Maurer who will schedule the biopsy. Aleksandra ARCEG BI PROCEDURES documented in this encounter Visit Diagnoses Diagnosis Abnormal Mammogram - Primary Obesity Body Mass Index 30-39.9 Adult Calcification Breast Abnormal Mammogram Abnormal Mammogram Calcification Breast documented in this encounter
--- OUTSIDE RECORDS SUMMARY | 2022-05-14 15:26 | XMS_ITS | Encounter Summary ---
:1950 Author Organization [facility] Address [address] [place] [address] Care Team Providers Name Role Phone Unavailable Primary Care Provider Unavailable Reason for Visit Reason Comments Follow-up Outpatient (Routine) - Closed Specialty Diagnoses / Procedures Referred By Contact Refer red To Contact Endocrinology Diagnoses Diabetes Mellitus Type 2 (HCC) [facility] [place] D.N.P. [address] [place] [phone] Referral ID Status Reason Start Date Expiration Date Visits Requ ested Visits Authorized [id number] Closed 02/20/2019 02/20/2020 1 1 Encounter Details Date Type Department Care Team Description 06/15/2019 Office [facility] [place], C.N.PWing, Type 2 (HCC) [place], [place] D.N.P. 200 [facility] [address] [place] [phone] [place], [place] [phone] Social History Tobacco Use Types Packs/Day Years [...] How often do you attend protestant or synagogue services? Patien t refused 02/08/2020 [...] Sign Reading Time Taken Comments Blood Pressure 137/62 06/15/2019 7:57 AM RECEPTIONIST SCHEDULER Pulse 59 06/15/2019 7:57 AM RECEPTIONIST SCHEDULER Temperature - - Respiratory Rate - - Oxygen Saturation - - Inhaled Oxygen Concentration - - Weight 98.4 kg (216 lb 14.9 oz) 06/15/2019 7:57 AM RECEPTIONIST SCHEDULER Height 161.1 cm (5' 3.43) 06/15/2019 7:57 AM RECEPTIONIST SCHEDULER Body Mass Index 37.91 06/15/2019 7:57 AM RECEPTIONIST SCHEDULER documented in this encounter Progress Notes Libby Blank APRN, C.N.P., D.N.P. - 06/15/2019 8:00 AM CST Assessment Reason for Visit: Type diabetes management Patient Karla Crane is a female 69 y.o. being seen today for type 2 diabetes follow up. She also underwent bariatric surgery and is working on weight loss after regaining weight. Since her last visit she moved into her new home and is settling into home which she believes will help her stay on track. She notes that the lessons she learned in back on track program have been veryhelpful and she feels she is moving forward into a healthier lifestyle. Diabetes Blood glucose values have been running 70-120 mg/dL in the mornings with some hypoglycemia overnightbetween 55-64 mg/dL. She has been taking 50 units of Lantus daily and stopped her Metformin over [address] scan and has not resumed use yet due to concern about diarrhea with Metformin use. She notes that Metformin if more than 500 mg daily usually causes diarrhea but is willing to try it again if needed. Weight history: Baseline weight in [facility] Clinic: 117.2 kg Weight at time of bariatric surgery: 118.8 kg Weight three months ago at annual follow up: 99.1 kg Weight today: 98.4 kg Total weight loss since surgery: 20.4 kg Current Diet: Regular diet, 3 meals and 2 snacks daily. She is starting to work on making better choices. Noting that her eating habits are already much better than they were in the past. Notes that snacking is an issue for her but she is hopeful that once she gets her sewing moved out to a shed away from the home this will no longer be a concern. She also notes that she is snacking at bedtime somedays to avoid hypoglycemia. Alcohol use: None. Patient understands that no alcohol consumption is recommended after bariatric surgery Exercise / Activity program: She has been busy with moving into a new home and now plans to walk allwinter (now that she is living in a warmer climate). Pre-existing weight-related medical co-morbidities:COMORBIDITIES: Sleep apnea: No GERD: had reflux prior to surgery, but symptoms have resolved since surgery Dyslipidemia: No Hypertension: No Diabetes: Yes- Insulin REVIEW OF SYSTEMS ASSESSMENT / PLAN #1 Surgery Bariatric Status Post #2 Type 2 Diabetes Mrs. Crane has been working on improving dietary habits and blood glucose control. We have made progress from an HbA1c of 8.8% to 8.1%. Recommended continuation of Lantus 50 units and adding [id number] mg back in. She will focus the next three months on lifestyle changes and if possible add an ryan tional 500 mg of Metformin for a total of 1000 mg daily. Discussed use of a GLP- 1 in the future if we are not able to gain control in the next six months which she was willing to consider. Encouraged her to focus on walking, decreasing snacking and tracking overall calories, carbohydrates and protein intake. No changes made to her dietary supplements today. Discussed with patient the importance of follow-up with the [facility] lifelong.The patient was provided with my contact information. Recommend follow up in 6 months for s/p bariatric surgery visit and diabetes management. PTIONIST SCHEDULER documented in this encounter Plan of Treatment Not on filedocumented as of this encounter Visit Diagnoses Diagnosis Diabetes Mellitus Type 2 (HCC) documented in this encounter
--- OUTSIDE RECORDS SUMMARY | 2022-05-14 15:27 | XMS_ITS | Encounter Summary ---
:1950 Author Organization [facility] Address [address] [place] [address] Care Team Providers Name Role Phone Unavailable Primary Care Provider Unavailable Encounter Details Date Type Department Care Team Description 08/09/2016 Hospital Encounter HX NO MAPPING Social History Tobacco Use Types Packs/Day Years Used Date Smoking Tobacco: Never Alcohol Habits Answer Date Recorded [...] asked relatives? How often do you attend congregation or pentecostal services? Patien t refused 02/08/2020 Do you belong to any clubs or organizations such as No 02/08/2020 congregation groups, unions, fraternal or athletic groups, or [...] acid, vitamin C, Take 1 tablet by mouth 0 01/08/2016 (VITAMIN C) 1,000 mg daily. seasonal tablet documented as of this encounter Plan of Treatment Not on filedocumented as of this encounter Visit Diagnoses Not on filedocumented in this encounter
--- OUTSIDE RECORDS SUMMARY | 2022-05-14 15:27 | XMS_ITS | Encounter Summary ---
:1950 Author Organization [facility] Address [address] [place] [address] Care Team Providers Name Role Phone Unavailable [...] asked relatives? How often do you attend anabaptist or anabaptist services? Patien t refused 02/08/2020 Do you belong to any clubs or organizations such as No 02/08/2020 anabaptist groups, unions, fraternal or athletic groups, or [...]
--- OUTSIDE RECORDS SUMMARY | 2022-05-14 15:27 | XMS_ITS | Encounter Summary ---
:1950 Author Organization [facility] Address [address] [place] [address] Care Team Providers Name Role Phone Unavailable Primary Care Provider Unavailable Reason for Referral Outpatient (Routine) - Closed Specialty Diagnoses / Procedures Referred By Contact Refer red To Contact Endocrinology Libby Blank APRN, [facility] C.N.P., D.N.P. [address] [place] [phone] Referral ID Status Reason Start Date Expiration Date Visits Requ ested Visits Authorized [id number] Closed 11/22/2018 11/22/2019 1 1 Reason for Visit Reason Comments Other Bariatric surgery s/p Encounter Details Date Type Department Care Team Description 11/22/2018 Clinical Support Department of Eduardo Lo APRN, C.N.P. [address] [place] [address] [phone] Diabetes Mellitus Type 2 (HCC) (Primary Dx); Nutrition in Libby Blank APRN C.N.PWing, D.N.P. [address] [place] [address] [phone] Surgery Bariatric Status Post; Marvin, Obesity Body Ma ss Index 30-39.9 Adult [place] [address] [place] [phone] Social History Tobacco Use Types Packs/Day Years [...] asked relatives? How often do you attend judaism or sabianism services? Patien t refused 02/08/2020 Do you belong to any clubs or organizations such as No 02/08/2020 judaism groups, unions, fraternal or athletic groups, or [...] Sign Reading Time Taken Comments Blood Pressure 140/64 11/22/2018 7:23 AM CDT Pulse 64 11/22/2018 7:23 AM CDT Temperature - - Respiratory Rate - - Oxygen Saturation - - Inhaled Oxygen Concentration - - Weight 100 kg (220 lb 7.4 oz) 11/22/2018 7:23 AM CDT Height 161.2 cm (5' 3.47) 11/22/2018 7:23 AM CDT Body Mass Index 38.48 11/22/2018 7:23 AM CDT documented in this encounter Progress Notes Heather Mckeon, MARYAM, LD - 11/22/2018 8:00 AM CDT Patient presents for greater than 1 year status post bariatric surgery/procedure nutrition group visit. Patient will be able to identify the [...] -Take the recommended supplements Patient assessment: Meals: 3 meals and 3 snacks. Shares that portions get larger as the day goes on. Snack choices: cheese or sausage (sometimes with crackers) or almonds, though admits snacks are more from habit than a need. GI Symptoms: N/A Fluids: 6-8 cups per day. Nothing with calories or carbonation. Protein: FairLife milk, meat, eggs, protein powder drinks when needed Physical Activity: limited due to foot surgery March 2018. Likes to swim and knows she needs to domore walking. Goals: Evening snack planned and portioned and eat at table versus in front of tv (string cheese, measured nuts, or fruit). Walk, bike, or swim 3 days per week for 20 minutes at a time. Addressed patient directed diet related questions on a variety of topics including portion control, snacking, hunger, and self-monitoring. Follow up per protocol. Patient Census: 4. Total Group Time: 60 minutes Libby Blank APRN, C.N.P., D.N.P. - 11/22/2018 8:00 AM CDT Assessment Reason for Visit: [facility] s/p post-bariatric surgery visit Patient Karla Crane is a female 68 y.o. being seen today for a fpc follow-up visit after undergoing a laproscopic last-en-Y gastric bypass Patient was last seen by Irene Lo APRN, CNP. Patient has attended group based nutrition and physical education classes: Yes Patient concerns related to bariatric surgery: She is struggling with weight regain and blood glucose management. Recognizes several areas of improvement she can make. Weight history: Baseline weight in Nutrition Clinic: 117.2 kg Weight at time of bariatric surgery: 118.8 kg Weight at approximately 1 year ago: 94.5 kg (darius weight 91.2 kg) Weight today: 100 kg Total weight loss since surgery: 18.8 kg Current Diet: Regular diet, 3 meals and 2 snacks daily. Consumes 6-8 cups of fluids daily (coffee, water, and diet juice). She also drinks to 2 cups of fairlife milk daily. Protein sources include meat, egg, and protein powder. She admits to eating more carbohydrates in the last year. Alcohol use: None. Patient understands that no alcohol consumption is recommended after bariatric surgery Presence of GI symptoms: Occasional food blockage if not chewing well. Dumping syndrome very occasional. Exercise / Activity program: Getting back into walking - foot surgery in March 2018 limited her activity. She recently purchased a bike. Pre-existing weight-related medical co-morbidities:COMORBIDITIES: Sleep apnea: No GERD: had reflux prior to surgery, but symptoms have resolved since surgery Dyslipidemia: No Hypertension: No Diabetes: Yes- Insulin REVIEW OF SYSTEMS ASSESSMENT / PLAN #1 Surgery Bariatric Status Post #2 Type 2 Diabetes Overall patient is doing well, she has been gaining weight in the last few years. She is ready to get back on track. She also wants to get back on track with her diabetes. Assessment for complications: None Recommendations for lifestyle interventions: She will start tracking calories (1200 daily). She willstart exercising (walking, biking or swimming) 150 minutes per week. Recommendations for supplementation regimen: Twice daily multivitamins, monthly Vitamin B12, and daily Vitamin D. Reviewed labs from 11/09/18, all within normal limits with the exception of HbA1c of 8.1%. She will continue to take Lantus 56 units once daily and implement lifestyle changes for the next three months to improve her HbA1c. If this does not come close to or within goal, will add additional agent. May consider Victoza in the future if needed. She will start documenting blood glucose values twice daily. Discussed with patient the importance of follow-up with the [facility] lifelong.The patient was provided with my contact information. Recommend follow up in 3 months for diabetes management. Navya Godoy M.A., L.P. - 11/22/2018 8:00 AM CDT CHIEF COMPLAINT/PURPOSE OF VISIT Clinical Health Psychology Patient attended a 30-minute health and behavior 2 years or greater post- bariatric surgery group visit. IMPRESSION/REPORT/PLAN Patient attended a 2 years or greater post-bariatric surgery group today. There were 4 group membersand one group activities aide in attendance. We discussed topics relevant to post-bariatric lifestyle including, but not limited to weight loss maintenance, weight regain, sticking with it, mood, stress management, social support, body image, self-talk, problem solving barriers to physical activity, and alcohol use. Options to attend a bariatric support group or the Back on Track program were discussed. The patient is 2 years status post bariatric surgery. She discussed challenges to establishing a consistent and dependable physical activity routine. She states she tends to think about food all the time, and has ???no excuse?? or reason not to follow a healthy diet. DIAGNOSES #1 Status Post bariatric Surgery BILLING Margin Code: HBGP Total Time: 30 minutes documented in this encounter Plan of Treatment Scheduled Referrals Name Type Priority Associated Order Schedule Diagnoses Endocrinology office Outpatient Referral Routine Expected: visit (clinic) 02/22/2019 (Approximate), Expires: 11/22/2021 documented as of this encounter Results (ABNORMAL) Glucose, Fasting (02/20/2019 [...] Libby Blank APRN, Naima.N.P., D.N.P. LAB BLOOD NON A DD-ON Performing Organization Address [facility] [place] Phon e Number [facility] - [address] Creatinine with Estimated GFR (02/20/2019 8:28 AM CDT) athologist Signature Creatinine 0.78 0.59 - 02/20/2019 1.04 mg/dL 9:38 AM CDT eGFR-Non 78 >=60 02/20/2019 Black/ mL/min/BSA 9:38 AM CDT [place] Comment: ----ADDITIONAL INFORMATION---- Estimated GFR calculated using [...] LAB BLOOD ADD-O N Performing Organization Address [facility] [place] Phon e Number [facility] - 200 [place] [phone] [facility] (ABNORMAL) Hemoglobin A1c (02/20/2019 8:28 AM CDT) [...] Organization Address City/State/ZIP Code Phon e Number [facility] - [address] [place], [place] [address] [facility] documented in this encounter Visit Diagnoses Diagnosis Diabetes Mellitus Type 2 (HCC) - Primary Surgery Bariatric Status Post Obesity Body Mass Index 30-39.9 Adult documented in this encounter
--- OUTSIDE RECORDS SUMMARY | 2022-05-14 15:27 | XMS_ITS | Encounter Summary ---
:1950 Author Organization [facility] Address [address] [place] [address] Care Team Providers Name Role Phone Unavailable Primary Care Provider Unavailable Encounter Details Date Type Department Care Team Description 11/03/2017 Hospital Encounter Department of Sita Blank Bypass And Anastomosis Status; Laboratory Medicine Libby Ny APRN, Diabet es Mellitus Type 2 Hyperglycemia (HCC) and Pathology, C.N.P., D.N.P. [place], in [address] [place] [phone] [address] [facility] [phone] [place], [place] (Work) [phone] Social History Tobacco Use Types Packs/Day Years [...] asked relatives? How often do you attend baptism or yazdanism services? Patien t refused 02/08/2020 Do you belong to any clubs or organizations such as No 02/08/2020 baptism groups, unions, fraternal or athletic groups, or [...] (FLOVENT HFA) 110 as needed. mcg/actuation inhaler hydroCHLOROthiazide Take 25 mg by 0 05/24/2017 (for_MICROZIDE) 12.5 mg mouth 2 (two) capsule times a day. insulin glargine (LANTUS) Inject 56 Units 0 05/24 100 unit/mL injection under the skin at bedtime. oxybutynin (DITROPAN) 5 mg Take 1 tablet by 0 11/2016 tablet mouth 4 (four) times a day. pediatric Chew 1 tablet 2 0 10/06/2016 kwonzexyocbg-vrho-xusupovc (two) times a day. (FLINTSTONES COMPLETE) chewable tablet sennosides-docusate sodium Take 2 tablets by 0 (SENOKOT-S) 8.6-50 mg per mouth at bedtime tablet as needed. acetaminophen (for_TYLENOL) Take 2 tablets by 0 0 10/06/2016 11/26/2020 500 mg tablet mouth as needed. pain. Do not exceed 4gm per day. calcium carbonate 400 mg Chew 1 tablet 2 0 201611/16/2017 (160 mg calcium) (two) times a day. tablet,chewable oxybutynin Take 1 tablet by 0 09/29/2016 11/17/19 18 (for_DITROPAN-XL) 10 mg 24 mouth daily. hr tablet pravastatin (for_PRAVACHOL) Take 1 tablet by 0 11/26/2020 80 mg tablet mouth at bedtime. valsartan (for_DIOVAN) 320 Take 0.5 tablets 0 11/22/2018 mg tablet by mouth daily. documented as of this encounter Plan of Treatment Not on filedocumented as of this encounter Visit Diagnoses Diagnosis Intestinal Bypass And Anastomosis Status Diabetes Mellitus Type 2 Hyperglycemia ( HCC) documented in this encounter
--- OUTSIDE RECORDS SUMMARY | 2022-05-14 15:27 | XMS_ITS | Encounter Summary ---
:1950 Author Organization [facility] Address [address] [place] [address] Care Team Providers Name Role Phone Unavailable Primary Care Provider Unavailable Encounter Details Date Type Department Care Team Description 09/02/2017 Abstract DATA ABSTRACTION Provider, Historical Social History Tobacco Use Types Packs/Day Years [...] asked relatives? How often do you attend jewish or anabaptist services? Patien t refused 02/08/2020 Do you belong to any clubs or organizations such as No 02/08/2020 jewish groups, unions, fraternal or athletic groups, or [...]
--- OUTSIDE RECORDS SUMMARY | 2022-05-14 15:27 | XMS_ITS | Encounter Summary ---
:1950 Author Organization [facility] Address [address] [place] [address] Care Team Providers Name Role Phone Unavailable Primary Care Provider Unavailable Reason for Referral Specialty Diagnoses / Procedures Referred By Contact Refer red To Contact Irene Lo APRN, [facility] C.N.P. [address] [place] [address] [phone] Referral ID Status Reason Start Date Expiration Date Visits Requ ested Visits Authorized LRY FACER Encounter Details Date Type Department Care Team Description 05/19/2018 Clinical Communication Division of Wally, Endocrinology in Irene Miramontes [place], [place] C.N.P. [address] [place] [address] [address] [place] [phone] Social History Tobacco Use Types Packs/Day Years [...] How often do you attend jewish or church services? Patien t refused 02/08/2020 [...] Telephone Encounter - Denisse Barnhart Jona - 05/19/2018 2:11 PM CST 05/19/18 Phillip Lo. I see your orders from 11/16/17 due 11/16/18 for diet, psych, and labs, Did you want this patient scheduled in the Long group October 2018? Also the labs should be ordered as mail in or [facility] if long group. In the past the patient has done the bloods a week before at 10:00, Mail in ua by patient for day of bloods. ~JH LRY FACER documented in this encounter Plan of Treatment Scheduled Referrals Name Type Priority Associated Diagnoses Order S chedule Nutrition - Group Outpatient Referral Routine Surgery Shailesh kapadia Expected: bariatric education Status Post 11/17/19 19 visit (clinic) (Approximate) , Expires: 05/21/2019 documented as of this encounter Results Calcium, 24 Hour, Urine (11/09/2018 6:30 AM CDT) athologist Signature Calcium, 24 93 <200 mg/24 11/09/2018 [facility] HR, U h 12:22 PM CDT [facility] Comment: ----ADDITIONAL INFORMATION---- This test has been modified from the amy jimenez's instructions. Its performance characteri stics were determined by [facility] in a manner co nsistent with CLIA requirements. This test has not bee n cleared or approved by the U.S. Food and Drug Admin istration. Collection Duration 24 h 11/09/2018 8:38 AM C DT [facility] PUS Urine Volume 2326 mL 11/09/2018 8:38 AM CDT [facility] PUS Calcium Concentration 4 mg/dL 11/09/2018 12:22 P M CDT [facility] PUS Specimen Anatomical Collection Method Collection Time Receive d Time (Source) Location / / Volume Laterality Urine (Urine, 24 11/09/2018 6:30 AM 11/09 8:37 Hours) CDT AM CDT Resulting Agency Comment Mailed In Specimen Amaury Segovia APRNN.P. LAB URINE ORDERABL ES Performing Organization Address City/State/ZIP Code Phon e Number [facility] - [address] [place], [place] [address] [facility] documented in this encounter Visit Diagnoses Diagnosis Surgery Bariatric Status Post - Primary Diabetes Mellitus Type 2 (HCC) documented in this encounter
--- OUTSIDE RECORDS SUMMARY | 2022-05-14 15:27 | XMS_ITS | Encounter Summary ---
:1950 Author Organization [facility] Address [address] [place] [address] Care Team Providers Name Role Phone Unavailable Primary Care Provider Unavailable Encounter Details Date Type Department Care Team Description 12/22/2015 Hospital Encounter HX [facility] Vaishali Garrison, R.N. [address] [place] [address] Social History Tobacco Use Types Packs/Day Years Used Date Smoking Tobacco: Never Assessed Alcohol Habits Answer Date Recorded How often [...] How often do you attend judaism or temple services? Iqra keller 02/08/2020 Do you belong [...] Sign Reading Time Taken Comments Blood Pressure - - Pulse - - Temperature - - Respiratory Rate - - Oxygen Saturation - - Inhaled Oxygen Concentration - - Weight - - Height 161 cm (5' 3.39) 12/22/2015 1:32 PM CDT Body Mass Index - - documented in this encounter Medications at Time of Discharge Medication Sig Dispensed Refills Start Date End Date ALBUTEROL SULFATE INHL Inhale 2 puffs as 0 2015 needed. SOB documented as of this encounter Nursing Notes Lorena Garrison - 12/22/2015 2:15 PM CDT Instructional Coordinator Intake (Adult) Instructional Coordinator Intake (Adult) Entered On: 12/22/2015 14:15 CDT Performed On: 12/22/2015 14:15 CDT by LORENA GARRISON hatchery supervisor Program Type : Comprehensive Program Diabetes Referring Provider : HEIDI GARRISON CHB Special needs : None Method Used for DSME : Individual Last Educator Visit Date : 12/22/2015 CDT Diabetes Type : Type 2 19 years and older Ethnicity : White/ Diabetes Onset : 1991 Time Spent With Patient : 30 Minutes LORENA GARRISON RN - 12/22/2015 14:15 CDT Comprehensive Program Evaluation Diabetes Comprehensive Program Eval grid A1C < 7 Weight/weight loss BP < 130/80 Start of diabetes ed. program : 9.8 116.6 130/50 LORENA GARRISON RN - 12/22/2015 14:15 CDT LORENA GARRISON RN - 12/22/2015 14:15 CDT GARRISON LORENA MRN - 12/22/2015 14:15 CDT [facility] Document Id: [id number]!19 Lorena Garrison - 12/22/2015 12:00 AM CDT [id number] CHIEF COMPLAINT/REASON FOR VISIT Referral is completed by Catie for this , 65-year-old with uncontrolled type 2 diabetes on insulin therapy. HISTORY OF PRESENT ILLNESS DATE OF DIAGNOSIS: 1991. CURRENT DIABETES TREATMENT: Diet, exercise, oral and insulin. SELF BLOOD GLUCOSE MONITORING: She does not have a meter or log book with her. She said she is checking 2 times a day and they range from 180 to 230. PHYSICAL ACTIVITY: She describes herself as sedentary but she leads a fairly active lifestyle. PRESENT DIET: General diet. MEDICATIONS Reviewed EMR 12/22/2015. Recommend NovoLog insulin 1 unit per 5 g of carbs at all meals and snacks. PAST MEDICAL/SURGICAL HISTORY Reviewed EMR 12/22/2015. No changes made. 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 MARITAL STATUS: . TOBACCO USE: None. ALCOHOL USE: 1 to 2 mixed drinks 4 times a month. FAMILY HISTORY Diabetes in paternal grandmother, her parents and her siblings. VITAL SIGNS Weight is 116.6 kg. Pulse 65, blood pressure 130/50. DIAGNOSTICS Per patient history her A1c in September 2015 was 9.8%. IMPRESSION/REPORT/PLAN Patient with uncontrolled type 2 diabetes with A1c at 9.8%. She is on Lantus and NovoLog insulin. She is not counting carbs at this time and she states that is what she needs to learn how to do. I did give her printed handouts on carb counting. I reviewed carb counting with her. She calculates to be 1unit per 5 g of carbs. I did recommend that she take insulin with all her meals and snacks. She doesstate that approximately a year ago an gaming cashier had told her to go carb free. She was able todo that for a while but it was not sustainable. I did review with her that this is not recommended diet for a patient with diabetes and that she needs to have some carb intake, we just have to cover it with the proper amount of insulin. When she is over 200 she states that she is taking 30 to 40 unitsof NovoLog insulin. I do feel this is a fairly high dose of NovoLog insulin and that she probably needs more Lantus insulin. However she did not have a log book with her and I do not feel comfortable making a change in her Lantus dose at this time without seeing her blood glucose levels. She is askingabout keeping a food diary. She states this really helps her focus on what she is doing right and wrong in her eating and I did encourage her to do to keep a food diary if this helps her. PLAN OF CARE: 1. Recommend NovoLog insulin 1 unit per 5 g of carbs at all meals and snacks. 2. Requested that she check her blood glucose levels at least 3 times a day fasting, prior to her midday meal and at bedtime. 3. Return in 2 weeks. Total time with the patient was 40 minutes. Greater than 75% of that time was spent in counseling. Lorena Garrison A.P.R.N., B.C.-A.SeanM.,C/aos cc: Forrest Stoen, Ch.B. [address] [address] Electronically Signed By: LORENA GARRISON RN On: 12/23/2015 01:04 PM Source: [facility] MHSDOLBEYNONRADSYS Document Id: [id number] documented in this encounter Miscellaneous Notes Miscellaneous - Lorena Garrison - 12/22/2015 2:14 PM CDT Ambulatory Patient Summary [facility] [address] [place], [place] [id number] Visit Information Name: KARLA CRANE [facility] Number: [id number] Current Date: 12/22/2015 14:14:51 Physicians Attending Provider: LORENA GARRISON RN Primary Care Provider: PCP, KARLA NICHOLAS has been given the following list of follow-up instructions, medication list, and patient education materials: Follow-up Instructions Your Medications Here is a list of your medications. It is important to take your medications as directed. Use a pillbox or chart to help remind you to take your medications. Please let your doctor or nurse know if you have problems taking your medications. Medication/Strength How to Take Indications/Special Instructions/Comments/Notes for Patient Medication Changes/Routing albuterol (albuterol) as needed ascorbic acid (Vitamin C) 2000, once a day aspirin (aspirin 325 mg oral tablet) 1 Tablet(s), Oral, once a day atenolol (atenolol 25 mg oral tablet) 1 Tablet(s), Oral, once a day cholecalciferol (Vitamin D3 2000 intl units oral tablet) 1 Tablet(s), Oral, once a day cranberry (cranberry) once a day diltiazem (diltiazem) fluticasone (Flovent HFA) Inhalation, two times a day hydrochlorothiazide (hydrochlorothiazide) 25 mg, Oral, once a day insulin aspart (NovoLOG FlexPen 100 units/mL subcutaneous solution) 20 units, Subcutaneous, three times a day before meals before eating- / Give within 5-10 minutes before a meal. insulin glargine (Lantus) 68 units, Subcutaneous, once a day metFORMIN (metFORMIN 500 mg oral tablet, extended release) 4 Tablet(s), Oral, once a day omeprazole (PriLOSEC 20 mg oral delayed release capsule) 1 cap, Oral, once a day oxybutynin (oxybutynin 5 mg oral tablet) 1 Tablet(s), Oral, once a day pravastatin (pravastatin) Oral, once a day (at bedtime) spironolactone (spironolactone 25 mg oral tablet) 1 Tablet(s), Oral, once a day valsartan (Diovan) 320, Oral, once a day Stop Taking the Following Medications: Medication list as of 12-22-15 14:14 Attention: If you have any medications at home that are not on this list, DO NOT take them until youcontact your provider for clarification. Give a copy of your medication list to your primary care provider. Update your medication list any time medications or doses are changed and carry your medication list at all times in case of emergency. Electronically Signed By: Signed On: Your Allergies & Intolerances Substance Reaction Symptoms Category Comments lisinopril swelling Drug sulfa drugs fevers Drug Your Problem List Problem Status Onset Comments Diabetes Mellitus Type 2 Uncontrolled Active Your Upcoming Appointments Date Time Location Provider 12/31/2015 13:30 [facility] InternMed [address] 02/02/2016 09:20 [facility] Lab [facility] 02/06/2016 11:25 [facility] Attention: Contact your local Clinic if further appointment detail needed. Consider Using Patient Online Services Patient Online Services is a secure online and Mobile application that lets you: ?? View lab and test results ?? View portions of your medical record including clinical notes, immunizations and discharge summaries ?? Request an appointment or medication refill ?? Review your appointment schedule ?? Send secure messages to your care team Its easy to create an account if you dont have one. Go to [email or web address] and click on Create Your Account. Then, follow the directions to complete the online form. Youll be asked for your [facility] number which you can find at the top of this document. Your Goals/Additional instructions: Source: [facility] POWER[facility]ART Document Id: [id number] Miscellaneous - Lorena Garrison - 12/22/2015 2:14 PM CDT Ambulatory Discharge Medication List [facility] [address] [place] [id number] Visit Information Name: KARLA CRANE [facility] Number: [id number] Visit Date: 12/22/2015 14:14:51 Attending Provider: LORENA GARRISON RN Primary Care Provider: PCP, KARLA NICHOLAS has been given the following list of medications: Your Medications It is important to take your medications as directed. Use a pill box or chart to help remind you to take your medications. Please let your doctor or nurse know if you have problems taking your medications. Medication/Strength How to Take Indications/Special Instructions/Comments/Notes for Patient Medication Changes/Routing albuterol (albuterol) as needed ascorbic acid (Vitamin C) 2000, once a day aspirin (aspirin 325 mg oral tablet) 1 Tablet(s), Oral, once a day atenolol (atenolol 25 mg oral tablet) 1 Tablet(s), Oral, once a day cholecalciferol (Vitamin D3 2000 intl units oral tablet) 1 Tablet(s), Oral, once a day cranberry (cranberry) once a day diltiazem (diltiazem) fluticasone (Flovent HFA) Inhalation, two times a day hydrochlorothiazide (hydrochlorothiazide) 25 mg, Oral, once a day insulin aspart (NovoLOG FlexPen 100 units/mL subcutaneous solution) 20 units, Subcutaneous, three times a day before meals before eating- / Give within 5-10 minutes before a meal. insulin glargine (Lantus) 68 units, Subcutaneous, once a day metFORMIN (metFORMIN 500 mg oral tablet, extended release) 4 Tablet(s), Oral, once a day omeprazole (PriLOSEC 20 mg oral delayed release capsule) 1 cap, Oral, once a day oxybutynin (oxybutynin 5 mg oral tablet) 1 Tablet(s), Oral, once a day pravastatin (pravastatin) Oral, once a day (at bedtime) spironolactone (spironolactone 25 mg oral tablet) 1 Tablet(s), Oral, once a day valsartan (Diovan) 320, Oral, once a day Stop Taking the Following Medications: Medication list as of 12-22-15 14:14 Attention: If you have any medications at home that are not on this list, DO NOT take them until youcontact your provider for clarification. Give a copy of your medication list to your primary care provider. Update your medication list any time medications or doses are changed and carry your medication list at all times in case of emergency. Electronically Signed By: Signed On: Additional Information: Source: [facility] POWERCHART Document Id: [id number] documented in this encounter Plan of Treatment Not on filedocumented as of this encounter Visit Diagnoses Not on filedocumented in this encounter
--- OUTSIDE RECORDS SUMMARY | 2022-05-14 15:27 | XMS_ITS | Encounter Summary ---
:1950 Author Organization [facility] Address [address] [place] [address] Care Team Providers Name Role Phone Unavailable Primary Care Provider Unavailable Encounter Details Date Type Department Care Team Description 10/11/2018 Hospital Encounter Department of [facility], Surgery Bariatric Laboratory Medicine Irene Miramontes APRN, [facility], [place], [place] [address] [place] [id number] [place] [address] [place], [place] (Work) [phone] Social History Tobacco Use Types Packs/Day Years [...] asked relatives? How often do you attend cheondoism or sikhism services? Patien t refused 02/08/2020 Do you belong to any clubs or organizations such as No 02/08/2020 cheondoism groups, unions, fraternal or athletic groups, or [...] pediatric Chew 1 tablet 2 0 10/06/2016 kxahyfxnhecb-titk-dwtwgrau (two) times a day. (FLINTSTONES COMPLETE) chewable tablet sennosides-docusate sodium Take 2 tablets by 0 (SENOKOT-S) 8.6-50 mg per mouth at bedtime tablet as needed. acetaminophen (for_TYLENOL) Take 2 tablets by 0 0 10/06/2016 11/26/2020 500 mg tablet mouth as needed. pain. Do not exceed 4gm per day. pravastatin (for_PRAVACHOL) Take 1 tablet by 0 11/26/2020 80 mg tablet mouth at bedtime. valsartan (for_DIOVAN) 320 Take 0.5 tablets 0 11/22/2018 mg tablet by mouth daily. documented as of this encounter Plan of Treatment Not on filedocumented as of this encounter Procedures Procedure Name Priority Date/Time Associated Diagnosis Comme nts CALCIUM, 24 HR, U Routine 11/09/2018 6:30 AM Surgery Bariatric Results for this CDT Status Post procedure are i n the results section. documented in this encounter Results Calcium, 24 Hour, Urine (11/09/2018 6:30 AM CDT) P athologist Signature Calcium, 24 93 <200 mg/24 11/09/2018 [facility] HR, U h 12:22 PM CDT [facility] Comment: ----ADDITIONAL INFORMATION---- This test has been modified from the man ufacturer's instructions. Its performance characteri stics were determined by [facility] in a manner co nsistent with CLIA requirements. This test has not bee n cleared or approved by the U.S. Food and Drug Admin istration. Collection Duration 24 h 11/09/2018 8:38 AM C DT [facility] Urine Volume 2326 mL 11/09/2018 8:38 AM CDT [facility] Calcium Concentration 4 mg/dL 11/09/2018 12:22 P M CDT [facility] Specimen Anatomical Collection Method Collection Time Receive d Time (Source) Location / / Volume Laterality Urine (Urine, 24 11/09/2018 6:30 AM 11/09 8:37 Hours) CDT AM CDT Resulting Agency Comment Mailed In Specimen Irene Lo APRN C.N.P. LAB URINE ORDERABL ES Performing Organization Address City/State/ZIP Code Phon e Number [facility] - [address] [place], [place] [address] [facility] documented in this encounter Visit Diagnoses Diagnosis Surgery Bariatric Status Post documented in this encounter
--- OUTSIDE RECORDS SUMMARY | 2022-05-14 15:27 | XMS_ITS | Encounter Summary ---
:1950 Author Organization [facility] Address [address] [place] [address] Care Team Providers Name Role Phone Unavailable Primary Care Provider Unavailable Encounter Details Date Type Department Care Team Description 09/20/2017 Hospital Encounter HX NO MAPPING Social History [...] How often do you attend anabaptist or advent services? Patien t refused 02/08/2020 Do you [...] pediatric Chew 1 tablet 2 0 10/06/2016 tvdkzpreihbo-yeht-ovmjenoz (two) times a day. (FLINTSTONES COMPLETE) chewable [...]
--- OUTSIDE RECORDS SUMMARY | 2022-05-14 15:27 | XMS_ITS | Encounter Summary ---
:1950 Author Organization [facility] Address [address] [place] [address] Care Team Providers Name Role Phone Unavailable Primary Care Provider Unavailable Encounter Details Date Type Department Care Team Description 10/05/2016 - 10/07/2016 Hospital Encounter HX RST MARLY 2C Social History Tobacco Use Types Packs/Day Years [...] How often do you attend yazdanism or alevism services? Patien t refused 02/08/2020 Do you [...] Sign Reading Time Taken Comments Blood Pressure 112/45 10/07/2016 12:06 NIBP - Value fr om PM CDT Chart[facility]. Pulse 53 10/07/2016 12:06 Value from [facility] tplus. PM CDT Temperature - - Respiratory Rate 18 10/07/2016 12:04 Value from [facility] rtplus. PM CDT Oxygen Saturation - - Inhaled Oxygen - - Concentration Weight 119 kg (262 lb 2 oz) 10/06/2016 11:11 Vital s ign result AM CDT from CD. Height 164 cm (5' 4.57) 10/06/2016 11:11 Vital sign result AM CDT from CDM. Body Mass Index 44.21 10/06/2016 11:11 AM CDT documented in this encounter Medications at Time of Discharge Medication Sig Dispensed Refills Start Date End Date ALBUTEROL SULFATE INHL Inhale 2 puffs as 0 2015 needed. SOB ascorbic acid, vitamin C, Take 1 tablet by 0 12/25 (VITAMIN C) 1,000 mg mouth daily. tablet seasonal cholecalciferol (VITAMIN Take 1 tablet by 0 10/06 D3) 50 mcg (2,000 Unit) mouth daily. tablet cyanocobalamin Inject 1,000 mcg 0 10/06/2016 (for_VITAMIN B12) 1,000 under the skin every mcg/mL injection 30 (thirty) days. Acceptable range for needle size is 25 to 27 gauge and 1/2 to 5/8 long dilTIAZem (for_CARDIZEM) Take 1 tablet by 0 10/07 30 mg tablet mouth 2 (two) times a day. diphenhydrAMINE Take 1 capsule by 0 10/05/2016 (BENADRYL) 25 mg capsule mouth at bedtime as needed. insomnia fluticasone propionate Inhale 2 Inhalers as 0 04/2017 (FLOVENT HFA) 110 needed. mcg/actuation inhaler pediatric Chew 1 tablet 2 0 10/06/2016 rdwkitjdhmts-ilck-xiqqtae (two) times a day. s (FLINTSTONES COMPLETE) chewable tablet sennosides-docusate Take 2 tablets by 0 7 sodium (SENOKOT-S) 8.6-50 mouth at bedtime as mg per tablet needed. acetaminophen Take 2 tablets by 0 10/06/2016 06/0 07/2020 (for_TYLENOL) 500 mg mouth as needed. tablet pain. Do not exceed 4gm per day. oxybutynin Take 1 tablet by 0 09/29/2016 11/17/19 18 (for_DITROPAN-XL) 10 mg mouth daily. 24 hr tablet pravastatin Take 1 tablet by 0 09/29/2016 021 (for_PRAVACHOL) 80 mg mouth at bedtime. tablet documented as of this encounter Plan of Treatment Not on filedocumented as of this encounter Procedures Procedure Name Priority Date/Time Associated Comments Diagnosis GLUCOSE POCT, B Routine 10/07/2016 12:23 Results for this PM CDT procedure are i n the results section. GLUCOSE POCT, B Routine 10/07/2016 6:01 AM Result s for this CDT procedure are i n the results section. GLUCOSE POCT, B Routine 10/06/2016 10:55 Results for this PM CDT procedure are i n the results section. GLUCOSE POCT, B Routine 10/06/2016 5:20 PM Result s for this CDT procedure are i n the results section. GLUCOSE POCT, B Routine 10/06/2016 11:59 Results for this AM CDT procedure are i n the results section. GLUCOSE POCT, B Routine 10/06/2016 5:54 AM Result s for this CDT procedure are i n the results section. ELECTROLYTE (CHEM 4) Routine 10/06/2016 3:11 AM R esults for this PANEL, S/P CDT procedure are i n the results section. CBC WITH Routine 10/06/2016 3:11 AM Results f or this DIFFERENTIAL, B CDT procedure ar e in the results section. GLUCOSE POCT, B Routine 10/05/2016 10:34 Results for this PM CDT procedure are i n the results section. GLUCOSE POCT, B Routine 10/05/2016 7:01 PM Result s for this CDT procedure are i n the results section. GLUCOSE POCT, B Routine 10/05/2016 4:52 PM Result s for this CDT procedure are i n the results section. HXGENERAL PATHOLOGY Routine 10/05/2016 2:24 PM Re sults for this REPORT CDT procedure are i n the results section. GLUCOSE POCT, B Routine 10/05/2016 1:25 PM Result s for this CDT procedure are i n the results section. GLUCOSE POCT, B Routine 10/05/2016 10:38 Results for this AM CDT procedure are i n the results section. GLUCOSE POCT, B Routine 10/05/2016 8:31 AM Result s for this CDT procedure are i n the results section. GLUCOSE POCT, B Routine 10/05/2016 6:30 AM Result s for this CDT procedure are i n the results section. documented in this encounter Results Glucose, POCT (10/07/2016 12:23 PM CDT) [facility] gist Method Time Signature Glucose, 133 70 - 140 [facility] POCT, B MG/DL LABORATORIES - [facility] Sample Site, Capillary [facility] Blood Gas, LABORATORIES - POCT [facility] Last Intake 1-2 hours [facility] - [facility] Specimen Anatomical Collection Method Collection Time Receive d Time (Source) Location / / Volume Laterality 10/07/2016 12:23 10/07/2016 PM CDT 12:23 PM CDT Historical Provider LAB POCT ORDERABLES-MANUAL Performing Organization Address City/State/ZIP Code Phon e Number [facility] LABORATORIES - [address] [facility] [place] [address] [facility] Glucose, POCT (10/07/2016 6:01 AM CDT) [facility] Method Time Signature Last Intake 2-3 hours [facility] Glucose, 112 70 - 140 [facility] POCT, B MG/DL LABORATORIES - [facility] Sample Site, Capillary [facility] Blood Gas, LABORATORIES - POCT [facility] Specimen Anatomical Collection Method Collection Time Receive d Time (Source) Location / / Volume Laterality 10/07/2016 6:01 AM 7 6:01 CDT AM CDT Historical Provider LAB POCT ORDERABLES-MANUAL Performing Organization Address City/State/ZIP Code Phon e Number [facility] [address] [place], [place] [address] [facility] (ABNORMAL) Glucose, POCT (10/06/2016 10:55 PM CDT) [facility] Method Time Signature Glucose, 153 (H) 70 - 140 [facility] POCT, B MG/DL LABORATORIES - [facility] Sample Site, Capillary [facility] Blood Gas, LABORATORIES - POCT [facility] Last Intake 1-2 hours [facility] Specimen Anatomical Collection Method Collection Time Receive d Time (Source) Location / / Volume Laterality 10/06/2016 10:55 10/06/2016 PM CDT 10:55 PM CDT Historical Provider LAB POCT ORDERABLES-MANUAL Performing Organization Address City/State/ZIP Code Phon e Number [facility] - [address] [place], [place] [address] [facility] (ABNORMAL) Glucose, POCT (10/06/2016 5:20 PM CDT) [facility] Method Time Signature Last Intake 2-3 hours [facility] Glucose, 167 (H) 70 - 140 [facility] POCT, B MG/DL LABORATORIES - [facility] Sample Site, Capillary [facility] Blood Gas, LABORATORIES - POCT [facility] Specimen Anatomical Collection Method Collection Time Receive d Time (Source) Location / / Volume Laterality 10/06/2016 5:20 PM 7 5:20 CDT PM CDT Historical Provider LAB POCT ORDERABLES-MANUAL Performing Organization Address City/State/ZIP Code Phon e Number [facility] - [address] [place], [place] [address] [facility] (ABNORMAL) Glucose, POCT (10/06/2016 11:59 AM CDT) [facility] Method Time Signature Glucose, 169 (H) 70 - 140 [facility] POCT, B MG/DL LABORATORIES - [facility] Sample Site, Capillary [facility] Blood Gas, LABORATORIES - POCT [facility] Last Intake 2-3 hours [facility] - [facility] Specimen Anatomical Collection Method Collection Time Receive d Time (Source) Location / / Volume Laterality 10/06/2016 11:59 10/06/2016 AM CDT 11:59 AM CDT Historical Provider LAB POCT ORDERABLES-MANUAL Performing Organization Address City/State/ZIP Code Phon e Number [facility] LABORATORIES - [address] [place], [place] [address] [facility] (ABNORMAL) Glucose, POCT (10/06/2016 5:54 AM CDT) [facility] Method Time Signature Last Intake > 4 hours [facility] - [facility] Glucose, 194 (H) 70 - 140 [facility] POCT, B MG/DL LABORATORIES - [facility] Sample Site, Capillary [facility] Blood Gas, LABORATORIES - POCT [facility] Specimen Anatomical Collection Method Collection Time Receive d Time (Source) Location / / Volume Laterality 10/06/2016 5:54 AM 7 5:54 CDT AM CDT Historical Provider LAB POCT ORDERABLES-MANUAL Performing Organization Address City/State/ZIP Code Phon e Number [facility] LABORATORIES - [address] [place], [place] [address] [facility] (ABNORMAL) CBC with Differential (10/06/2016 3:11 AM CDT) [facility] Method Time Signature Hemoglobin 10.1 (L) 12.0 - [facility] 15.5 G/DL [facility] - [facility] Hematocrit 31.7 (L) 34.9 - [facility] 44.5 % [facility] - [facility] Erythrocytes 3.72 (L) 3.90 - [facility] 5.03 LABORATORIES - X10(12)/L [facility] MCV 85.2 81.6 - [facility] 98.3 [place] RBC Distrib 15.1 11.9 - [facility] Width 15.5 % [facility] - [facility] Platelet Count 232 150 - 450 [facility] X10(9)/L LABORATORIES - [facility] Leukocytes 13.4 (H) 3.5 - [facility] 10.5 LABORATORIES - X10(9)/L [facility] Neutrophils 11.39 (H) 1.70 - [facility] 7.00 LABORATORIES - X10(9)/L [facility] Lymphocytes 1.13 0.90 - [facility] 2.90 LABORATORIES - X10(9)/L [facility] Monocytes 0.87 0.30 - [facility] 0.90 LABORATORIES - X10(9)/L [facility] Eosinophils 0.00 (L) 0.05 - [facility] 0.50 LABORATORIES - X10(9)/L [facility] Basophils 0.01 0.00 - [facility] 0.30 LABORATORIES - X10(9)/L [facility] Specimen Anatomical Collection Method Collection Time Receive d Time (Source) Location / / Volume Laterality 10/06/2016 3:11 AM 7 3:11 CDT AM CDT Historical Provider LAB BLOOD ADD-ON Performing Organization Address City/State/ZIP Code Phon e Number [facility] LABORATORIES - [address] [place], [place] [address] [facility] (ABNORMAL) Electrolyte (Chem 4) Panel (10/06/2016 3:11 AM CDT) [facility] gist Method Time Signature Sodium, S 135 135 - 145 [facility] MMOL/L [place] Potassium, S 4.9 3.6 - 5.2 [facility] MMOL/L [place] Creatinine 0.9 0.6 - 1.1 [facility] MG/DL [place] eGFR >60 >60 [facility] Non-Black/Afric ML/MIN/BS LABORATORIES - Citizen Of [place] A [facility] eGFR-Black/Afri >60 >60 [facility] can Citizen Of [place] ML/MIN/BS LABORATORIES - [facility] BUN (Blood Urea 17 6 - 21 [facility] Nitrogen), S MG/DL [place] Anion Gap 15 7 - 15 [facility] Glucose, S 198 (H) 70 - 140 [facility] MG/DL LABORATORIES - [facility] Chloride, S 97 (L) 98 - 107 [facility] MMOL/L LABORATORIES - [facility] HX Bicarbonate, 23 22 - 29 [facility] P/S MMOL/L LABORATORIES [facility] Specimen Anatomical Collection Method Collection Time Receive d Time (Source) Location / / Volume Laterality 10/06/2016 3:11 AM 7 3:11 CDT AM CDT Historical Provider LAB BLOOD ADD-ON Performing Organization Address City/[facility]/ZIP Code Phon e Number [facility] LABORATORIES - [address] [place], [place] [address] [facility] (ABNORMAL) Glucose, POCT (10/05/2016 10:34 PM CDT) [facility] gist Method Time Signature Glucose, POCT, 233 (H) 70 - 140 [facility] B MG/DL LABORATORIES - [facility] Specimen Anatomical Collection Method Collection Time Receive d Time (Source) Location / / Volume Laterality 10/05/2016 10:34 10/05/2016 PM CDT 10:34 PM CDT Historical Provider LAB POCT ORDERABLES-MANUAL Performing Organization Address City/[facility] Phon e Number [facility] LABORATORIES - [address] [place], [place] [address] [facility] (ABNORMAL) Glucose, POCT (10/05/2016 7:01 PM CDT) [facility] Method Time Signature Glucose, 257 (H) 70 - 140 [facility] POCT, B MG/DL LABORATORIES - [facility] Sample Site, Capillary [facility] Blood Gas, LABORATORIES - POCT [facility] Last Intake > 4 hours [facility] Specimen Anatomical Collection Method Collection Time Receive d Time (Source) Location / / Volume Laterality 10/05/2016 7:01 PM 7 7:01 CDT PM CDT Historical Provider LAB POCT ORDERABLES-MANUAL Performing Organization Address City/[facility] Phon e Number [facility] LABORATORIES - [address] [place], [place] [address] [facility] (ABNORMAL) Glucose, POCT (10/05/2016 4:52 PM CDT) [facility] Method Time Signature Last Intake > 4 hours [facility] Glucose, 247 (H) 70 - 140 [facility] POCT, B MG/DL LABORATORIES - [facility] Sample Site, Capillary [facility] Blood Gas, LABORATORIES - POCT [facility] Specimen Anatomical Collection Method Collection Time Receive d Time (Source) Location / / Volume Laterality 10/05/2016 4:52 PM 7 4:52 CDT PM CDT Historical Provider LAB POCT ORDERABLES-MANUAL Performing Organization Address City/State/ZIP Code Phon e Number [facility] [email or web address] - [address] [place], [place] [address] [facility] Hx general Pathology Report (10/05/2016 2:24 PM CDT) Specimen Anatomical Collection Method Collection Time Receive d Time (Source) Location / / Volume Laterality 10/05/2016 2:24 PM 7 2:24 CDT PM CDT Narrative [facility] - 10/05/2016 2:24 PM CDT ??10/05/2016 General Biopsy ? ([id number]) ??REVISED REPORT (Addendum/Procedure in cluded) ?? Requested By: Martín Hickey M.D. ??[phone] ? SLIDE DISPOSITION: ? DIAGNOSIS: ?? Liver, right lobe, needle biopsy: ?? 1. ??Minimal steatohepatitis with focal zone 3 perisinusoidal fibrosis and mild focal periportal fibr osis (stage 1-2 of 4). ?? 2. ??Single small portal non-caseating granuloma. ??Results of GMS and AFB stain will be issued in an addendum . ??(See comment.) ?? Comment: ??The liver needle biopsy cont ains six portal tracts. ??The portal tracts show mild focal chronic i nflammation and a single focus of small non-caseating granulomas . ??No evidence of florid bile duct lesion is identified. ??The hepati c artery and portal vein branches appear to be intact. ??The stephanie er parenchyma shows mild (approximately 25% of liver parenchyma) macrovesicular steatosis, minimal focal hepatocyte ballooning, fo cus of neutrophilic infiltrate and minute focus of epitheli oid granuloma. ??No Pat bodies are identified. ??Trichrome stai n demonstrates focal zone 3 perisinusoidal fibrosis and mild focal periportal fibrosis. ??No hemosiderosis is present on the iron st ain. ??No cytoplasmic globules are present on the PAS-D stain. ? This is a 66-year-old female with histo ry of type 2 diabetes, hypertension and obesity with BMI 44. ? The liver biopsy shows minimal steatohe patitis with focal zone 3 perisinusoidal fibrosis and mild focal periportal fibrosis. ?? Distinction between alcoholic versus no n-alcoholic steatohepatitis due to metabolic disorders or adverse d rug reaction requires clinical correlation. ??The possible et iology for the single portal non-caseating granuloma present on this biopsy includes adverse drug reaction, infection, and less likely sa rcoidosis or primary biliary cirrhosis. ??Clinical correlation is re quired. ? 10/06/2016 12:38 Interpreted by: Nathnaiel Su M.D., Ph.D. [phone] Report electronically signed by Nathaniel Su M.D., Ph.D. Transcribed by: alt 10/06/2016 12:19:09 ?ADDENDUM: GMS and AFB stains are negative for michelle roorganisms. ? Transcribed by: ??alt ??10/07/2016 16:09 :15 ? Signed by Tono Su M.D., Ph.D. 09/25 16:50:48 ? TISSUE DESCRIPTION: [id number] A1 ?A. ??Received in formalin label ed with the patient's name and and la beled as right lobe liver is a ramirez-red soft tissue core, 1.9 cm i n length. ??The specimen is bisected and submitted entirely in valeriy ette A1. ? Part A: ??Right lobe Liver Routine Biop sy ?1 Rt lobe liver Bx ?? LB1 Pathologist ? Procedure Note 09/17/2017 10/05/2016 General Biopsy ([id number]) REVISED REPORT (Addendum/Procedure incl uded) Requested By: Martín Hickey M.D. 02-02 025 SLIDE DISPOSITION: DIAGNOSIS: Liver, right lobe, needle biopsy: 1. Minimal steatohepatitis with focal z one 3 perisinusoidal fibrosis and mild focal periportal fibr osis (stage 1-2 of 4). 2. Single small portal non-caseating gr anuloma. Results of GMS and AFB stain will be issued in an addendum . (See comment.) Comment: The liver needle biopsy contai ns six portal tracts. The portal tracts show mild focal chronic i nflammation and a single focus of small non-caseating granulomas . No evidence of florid bile duct lesion is identified. The hepatic artery and portal vein branches appear to be intact. The liver parenchyma shows mild (approximately 25% of liver parenchyma) macrovesicular steatosis, minimal focal hepatocyte ballooning, fo cus of neutrophilic infiltrate and minute focus of epitheli oid granuloma. No Pat bodies are identified. Trichrome stain demonstrates focal zone 3 perisinusoidal fibrosis and mild focal periportal fibrosis. No hemosiderosis is present on the iron st ain. No cytoplasmic globules are present on the PAS-D stain. This is a 66-year-old female with histo ry of type 2 diabetes, hypertension and obesity with BMI 44. The liver biopsy shows minimal steatohe patitis with focal zone 3 perisinusoidal fibrosis and mild focal periportal fibrosis. Distinction between alcoholic versus no n-alcoholic steatohepatitis due to metabolic disorders or adverse d rug reaction requires clinical correlation. The possible etio logy for the single portal non-caseating granuloma present on this biopsy includes adverse drug reaction, infection, and less likely sa rcoidosis or primary biliary cirrhosis. Clinical correlation is requ ired. 10/06/2016 12:38 Interpreted by: Nathaniel Su M.D., Ph.D. [phone] Report electronically signed by Nathaniel Su M.D., Ph.D. Transcribed by: sravani 10/06/2016 12:19:09 ADDENDUM: GMS and AFB stains are negative for michelle roorganisms. Transcribed by: sravani 10/07/2016 16:09:15 Signed by Tono Su M.D., Ph.D. 09/25 16:50:48 TISSUE DESCRIPTION: [id number] A1 A. Received in formalin labeled with th e patient's name and and la beled as right lobe liver is a ramirez-red soft tissue core, 1.9 cm i n length. The specimen is bisected and submitted entirely in valeriy ette A1. Part A: Right lobe Liver Routine Biopsy 1 Rt lobe liver Bx LB1 Pathologist Martín Hickey M.D. LAB PATHOLOGY/CYTOLOGY ORDER APOLINAR Performing Organization Address City/[facility]/ZIP [facility] Phon e Number [facility] LABORATORIES - [address] (ABNORMAL) Glucose, POCT (10/05/2016 1:25 PM CDT) [facility] Method Time Signature Glucose, 291 (H) 70 - 140 [facility] POCT, B MG/DL LABORATORIES - [facility] Sample Site, Capillary [facility] Blood Gas, LABORATORIES - POCT [facility] Specimen Anatomical Collection Method Collection Time Receive d Time (Source) Location / / Volume Laterality 10/05/2016 1:25 PM 7 1:25 CDT PM CDT Historical Provider LAB POCT ORDERABLES-MANUAL Performing Organization Address City/[facility] Phon e Number [facility] LABORATORIES - [address] [place] [address] [facility] (ABNORMAL) Glucose, POCT (10/05/2016 10:38 AM CDT) [facility] Method Time Signature Glucose, 235 (H) 70 - 140 [facility] POCT, B MG/DL LABORATORIES - [facility] Sample Site, Capillary [facility] Blood Gas, LABORATORIES - POCT [facility] Specimen Anatomical Collection Method Collection Time Receive d Time (Source) Location / / Volume Laterality 10/05/2016 10:38 10/05/2016 AM CDT 10:38 AM CDT Siva Winston M.D. LAB POCT ORDERABLES-MANUAL Performing Organization Address City/[facility] Phon e Number [facility] LABORATORIES - [address] [place] [address] [facility] (ABNORMAL) Glucose, POCT (10/05/2016 8:31 AM CDT) [facility] Method Time Signature Glucose, 142 (H) 70 - 140 [facility] POCT, B MG/DL LABORATORIES - [facility] Sample Site, Capillary [facility] Blood Gas, LABORATORIES - POCT [facility] Specimen Anatomical Collection Method Collection Time Receive d Time (Source) Location / / Volume Laterality 10/05/2016 8:31 AM 7 8:31 CDT AM CDT Siva Winston M.D. LAB POCT ORDERABLES-MANUAL Performing Organization Address City/[facility]/ZIP Code Phon e Number [facility] LABORATORIES - [address] [place] [address] [facility] (ABNORMAL) Glucose, POCT (10/05/2016 6:30 AM CDT) [facility] gist Method Time Signature Glucose, 152 (H) 70 - 140 [facility] POCT, B MG/DL LABORATORIES - [facility] Sample Site, Capillary [facility] Blood Gas, LABORATORIES - POCT [facility] Specimen Anatomical Collection Method Collection Time Receive d Time (Source) Location / / Volume Laterality 10/05/2016 6:30 AM 7 6:30 CDT AM CDT Historical Provider LAB POCT ORDERABLES-MANUAL Performing Organization Address City/State/ZIP Code Phon e Number [facility] - [address] [phone] [facility] documented in this encounter Visit Diagnoses Not on filedocumented in this encounter
--- OUTSIDE RECORDS SUMMARY | 2022-05-14 15:27 | XMS_ITS | Encounter Summary ---
:1950 Author Organization [facility] Address [address] [place] [id number] Care Team Providers Name Role Phone Unavailable Primary Care Provider Unavailable Reason for Referral Behavioral Health (Routine) - Closed Specialty Diagnoses / Procedures Referred By Contact Refer red To Contact Psychiatry / Diagnoses Diabetes Mellitus Type 2 Hyperglycemia (HCC) Intestinal Bypass And Anastomosis Status [facility] Psychiatry and SANJAY, C.N.P., Psychology D.N.P. [address] [place] [phone] Referral ID Status Reason Start Date Expiration Date Visits Requ ested Visits Authorized [id number] Closed 10/13/2017 04/11/2018 1 1 Encounter Details Date Type Department Care Team Description 10/13/2017 Orders Only Division of Patrick Blank Type 2 Hyperglycemia (HCC); Endocrinology in [place] APRN, Intestina l Bypass And Anastomosis Status [place], [place] C.N.P., D.N.P. [address] [facility] [address] [place] [address] [place], [place] [phone] Social History Tobacco Use Types Packs/Day Years [...] do you attend scientology or bahai services? Patien t refused 02/08/2020 Do you belong to any clubs or organizations such as No 02/08/2020 scientology groups, Andre Phillipes, [employer] or athletic groups, or school groups? How [...] as of this encounter Plan of Treatment Scheduled Referrals Name Type Priority Associated Diagnoses Order S chedule Psychiatry and Outpatient Referral Routine Diabetes Mellitus T ype Expected: Psychology - 2 Hyperglycemia (HCC) 11/16/2017 Obesity consult Intestinal Bypass And (Ap proximate), (clinic) Anastomosis Status Expires: 10/13/2020 documented as of this encounter Results (ABNORMAL) Glucose, Fasting (11/09/2017 10:17 AM CDT) athologist Signature Glucose, P 120 (H) 70 - 100 11/09/2017 [facility] mg/dL 11:36 AM CDT LABORATORIES - [facility] Last Intake 16 hr 11/09/2017 [facility] 10:39 AM CDT [facility] Specimen Anatomical Collection Method Collection Time Receive d Time (Source) Location / / Volume Laterality Blood 11/09/2017 10:17 11/09/2017 AM CDT 10:39 AM CDT Libby Blank APRN, Naima.N.P., D.N.P. LAB BLOOD NON A DD-ON Performing Organization Address City/[facility]/ZIP [facility] [place] [place] Phon e Number [facility] [address] [phone] [facility] Bone Alkaline Phosphatase (11/09/2017 10:16 AM CDT) athologist Signature Bone Alkaline 16 mcg/L 11/09/2017 [facility] Phosphatase, S 3:46 PM CDT [facility] Comment: ----REFERENCE VALUE---- <=14 (Premenopausal) <=22 (Postmenopausal) Specimen Anatomical Collection Method Collection Time Receive d Time (Source) Location / / Volume Laterality Blood 11/09/2017 10:16 11/09/2017 2:47 AM CDT PM CDT [facility] Blank APRN, C.N.P., D.N.P. LAB BLOOD ADD-O N Performing Organization Address City/[facility]/ZIP [facility] [place] [place] Phon e Number [facility] [address] [phone] 05 [facility] (ABNORMAL) Vitamin B12 Assay (11/09/2017 10:16 AM CDT) [facility] gist Method Time Signature Vitamin B12 >1400 (H) 180 - 914 11/09/2017 [facility] Assay, S ng/L 11:56 AM CDT [facility] Specimen Anatomical Collection Method Collection Time Receive d Time (Source) Location / / Volume Laterality Blood 11/09/2017 10:16 11/09/2017 AM CDT 10:39 AM CDT Libby Blank APRN, C.N.P., D.N.P. LAB BLOOD ADD-O N Performing Organization Address City/[facility]/ZIP Code Phon e Number [facility]IES - [address] [place], [place] [address] [facility] Lipid Panel (11/09/2017 10:16 AM CDT) P athologist Signature Cholesterol, 140 mg/dL 11/09/2017 [facility] Total 11:24 AM CDT [facility] Comment: ----REFERENCE VALUE---- Desirable: < 200 Borderline high: 200 - 239 High: > or = 240 Triglycerides 146 mg/dL 11/09/2017 11:24 AM CDT [facility] Comment: ----REFERENCE VALUE---- Normal: <150 Borderline high: 150-199 High: 200-499 Very high: > or =500 Cholesterol, HDL, S 53 >=50 mg/dL 11/09/2017 11:[address] [facility] Calculated LDL 58 mg/dL 11/09/2017 11:24 AM CDT [facility] Comment: ----REFERENCE VALUE---- Desirable: <100 Above Desirable: 100-129 Borderline high: 130-159 High: 160-189 Very high: > or =190 Cholesterol, Non-HDL, 87 mg/dL 11/09/2017 11: 24 AM CDT [facility] Comment: ----REFERENCE VALUE---- Desirable: <130 Above Desirable: 130-159 Borderline high: 160-189 High: 190-219 Very high: > or =220 Specimen Anatomical Collection Method Collection Time Receive d Time (Source) Location / / Volume Laterality Blood 11/09/2017 10:16 11/09/2017 AM CDT 10:39 AM CDT Libby Blank APRN, C.N.P., D.N.P. LAB BLOOD ADD-O N Performing Organization Address City/[facility]/ZIP Code Phon e Number [facility]IES - [address] [address] [facility] (ABNORMAL) Hemoglobin A1c (11/09/2017 10:16 AM CDT) Patholo gist Method Time Signature Hemoglobin A1c, 8.3 (H) 4.0 - 5.6 11/09/2017 [facility] B % 11:14 AM CDT [facility]ATORIES - [facility] Comment: Hemoglobin A1c values greater than or eq ual to 6.5 percent are diagnostic for diabetes mellitus. ?? Diagnosis should be confirmed by repeat testing. ??In diabet ic patients, HbA1c goals should be discussed with healthcar e provider. Specimen Anatomical Collection Method Collection Time Receive d Time (Source) Location / / Volume Laterality Blood 11/09/2017 10:16 11/09/2017 AM CDT 10:39 AM CDT [facility] Blank APRN, Naima.N.P., D.N.P. LAB BLOOD ADD-O N Performing Organization Address City/State/ZIP Code Phon e Number [facility]IES - [address] [address] [facility] Ferritin (11/09/2017 10:16 AM CDT) P athologist Signature Ferritin, S 31 11 - 307 11/09/2017 [facility] mcg/L 11:51 AM CDT [facility]ATOR[facility] - [facility] Specimen Anatomical Collection Method Collection Time Receive d Time (Source) Location / / Volume Laterality Blood 11/09/2017 10:16 11/09/2017 AM CDT 10:39 AM CDT [facility]by Blank APRN, C.N.P., D.N.P. LAB BLOOD ADD-O N Performing Organization Address City/State/ZIP Code Phon e Number [facility]IES - [address] Creatinine with Estimated GFR (MDRD) (11/09/2017 10:16 AM CDT) Analysis Performed At Patho logist Time Signature Creatinine 0.79 0.59 - 11/09/2017 [facility] 1.04 mg/dL 11:24 AM CDT LABORATORIES - [facility] eGFR-Non 78 >=60 11/09/2017 [facility] Black/ mL/min/BSA 11:24 AM CDT LABORATORIES - [facility] Comment: ----ADDITIONAL INFORMATION---- Estimated GFR calculated using the 2009 CKD_EPI creatinine equation. eGFR-Black/ 90 >=60 mL/min/BSA 11/09/2017 11:2 4 [facility] [place]i AM CDT LABORATORIES [facility] Comment: ----ADDITIONAL INFORMATION---- Estimated GFR calculated using the 2009 CKD_EPI creatinine equation. Specimen Anatomical Collection Method Collection Time Receive d Time (Source) Location / / Volume Laterality Blood 11/09/2017 10:16 11/09/2017 AM CDT 10:39 AM CDT [facility]by lBank APRN, C.N.P., D.N.P. LAB BLOOD ADD-O N Performing Organization Address City/State/ZIP Code Phon e Number [facility]ATORIES - [address] [address] [facility] CBC without Differential (11/09/2017 10:16 AM CDT) [facility] gist Method Time Signature Hemoglobin 12.3 11.6 - 11/09/2017 [facility] 15.0 g/dL 10:46 AM CDT LABORATORIES [facility] Hematocrit 37.3 35.5 - 11/09/2017 [facility] 44.9 % 10:46 AM CDT LABORATORIES [facility] Erythrocytes 4.28 3.92 - 11/09/2017 [facility] 5.13 10:46 AM CDT LABORATORIES - x10(12)/L [facility] MCV 87.1 78.2 - 11/09/2017 [facility] 97.9 fL 10:46 AM CDT [facility] RBC Distrib Width 13.8 12.2 - 11/09/2017 [facility] 16.1 % 10:46 AM CDT LABORATORIES [facility] Platelet Count 225 157 - 371 11/09/2017 [facility] x10(9)/L 10:46 AM CDT LABORATORIES - [facility] Leukocytes 9.2 3.4 - 9.6 11/09/2017 [facility] x10(9)/L 10:46 AM CDT [facility] Specimen Anatomical Collection Method Collection Time Receive d Time (Source) Location / / Volume Laterality Blood 11/09/2017 10:16 11/09/2017 AM CDT 10:39 AM CDT [facility]by Blank APRN, C.N.P., D.N.P. LAB BLOOD ADD-O N Performing Organization Address City/[facility]/ZIP Code Phon e Number [facility] LABORATORIES - [address] [address] [facility] Calcium, Total (11/09/2017 10:16 AM CDT) P athologist Signature Calcium, 10.1 8.8 - 10.2 11/09/2017 [facility] Total, S mg/dL 11:24 AM CDT LABORATORIES - [facility] Specimen Anatomical Collection Method Collection Time Receive d Time (Source) Location / / Volume Laterality Blood 11/09/2017 10:16 11/09/2017 AM CDT 10:39 AM CDT Naima Pizarro APRN.N.P., D.N.P. LAB BLOOD ADD-O N Performing Organization Address City/[facility]/ZIP Code Phon e Number [facility] [address] [address] [facility] Bilirubin, Total (11/09/2017 10:16 AM CDT) P athologist Signature Bilirubin, 0.4 <=1.2 11/09/2017 [facility] Total, S mg/dL 11:24 AM CDT LABORATORIES - [facility] Specimen Anatomical Collection Method Collection Time Receive d Time (Source) Location / / Volume Laterality Blood 11/09/2017 10:16 11/09/2017 AM CDT 10:39 AM CDT [facility]by Blank APRN, Naima.N.P., D.N.P. LAB BLOOD ADD-O N Performing Organization Address City/[facility]/ZIP Code Phon e Number [facility]IES [address] [address] [facility] AST (Aspartate Aminotransferase) (11/09/2017 10:16 AM CDT) Patholo gist Method Time Signature Aspartate 23 8 - 43 11/09/2017 [facility] Aminotransferase U/L 11:24 AM LABORATORIES - (AST), S CDT [facility] Specimen Anatomical Collection Method Collection Time Receive d Time (Source) Location / / Volume Laterality Blood 11/09/2017 10:16 11/09/2017 AM CDT 10:39 AM CDT Libby Blank APRN, C.N.P., D.N.P. LAB BLOOD ADD-O N Performing Organization Address City/[facility]/ZIP [facility] [place] [place] Phon e Number [facility]ATORIES - [address] [address] [facility] Albumin (11/09/2017 10:16 AM CDT) athologist Signature Albumin, S 4.0 3.5 - 5.0 11/09/2017 [facility] g/dL 11:24 AM CDT [facility] Specimen Anatomical Collection Method Collection Time Receive d Time (Source) Location / / Volume Laterality Blood 11/09/2017 10:16 11/09/2017 AM CDT 10:39 AM CDT Amaury Pizarro APRNNCarrie, Benjamin.N.P. LAB BLOOD ADD-O N Performing Organization Address [facility] Code Phon e Number [facility] LAB[facility]ATORIES - [address] [address] [facility] 25-Hydroxyvitamin D2 and D3 (11/09/2017 10:16 AM CDT) athologist Signature 25-Hydroxy D2 <4.0 ng/mL 11/10/2017 [facility] 10:[address] [facility] 25-Hydroxy D3 40 ng/mL 11/10/2017 [facility] 10:[address] [facility] 25-Hydroxy D 40 ng/mL 11/10/2017 [facility] Total 10:36 AM CDT [facility] Comment: ----REFERENCE VALUE---- 25-HYDROXY D TOTAL (D2+D3) Optimum level s in the healthy population are 20-50, patients with bone disease may benefit from higher levels within this r eddie. ----ADDITIONAL INFORMATION---- This test was developed and its performa nce characteristics determined by [facility] in a manner consistent with CLIA requirements. This test has not been cleared or approved by the [place] d and Drug Administration. Specimen Anatomical Collection Method Collection Time Receive d Time (Source) Location / / Volume Laterality Blood 11/09/2017 10:16 11/09/2017 1:35 AM CDT PM CDT Amaury Pizarro APRNN.PWing, Benjamin.N.P. LAB BLOOD ADD-O N Performing Organization Address City/State/ZIP Code Phon e Number [facility] [address] [place] [phone] [facility] documented in this encounter Visit Diagnoses Diagnosis Diabetes Mellitus Type 2 Hyperglycemia ( HCC) Intestinal Bypass And Anastomosis Status documented in this encounter
--- OUTSIDE RECORDS SUMMARY | 2022-05-14 15:27 | XMS_ITS | Encounter Summary ---
:1950 Author Organization [facility] Address [address] [place] [address] Care Team Providers Name Role Phone Unavailable Primary Care Provider Unavailable Encounter Details Date Type Department Care Team Description 11/09/2017 Hospital Encounter Department of Diabetes Mellitus Type 2 Hyperglycemia (HCC); Laboratory Medicine Intestin al Bypass And Anastomosis Status and Pathology, [facility] in [place], [place] [address] [place] [address] Social History Tobacco Use Types Packs/Day Years [...] How often do you attend voodoo or anabaptist services? Patien t refused 02/08/2020 [...] pediatric Chew 1 tablet 2 0 10/06/2016 [id number] (two) times a day. ([employer] COMPLETE) chewable [...] Name Priority Date/Time Associated Diagnosis Comme nts GLUCOSE, FASTING, S/P Routine 11/09/2017 10:17 Diabetes Mellit us Results for this AM CDT Type 2 Hyperglycemia procedu re are in (HCC) the results Intestinal Bypass section. And Anastomosis Status LIPID PANEL, S Routine 11/09/2017 10:16 Intestinal Bypass Resu lts for this AM CDT And Anastomosis procedure ar e in Status the results Diabetes Mellitus section. Type 2 Hyperglycemia (HCC) BONE ALKALINE Routine 11/09/2017 10:16 Intestinal Bypass Resul ts for this PHOSPHATASE, S AM CDT And Anastomosis procedure are in Status the results Diabetes Mellitus section. Type 2 Hyperglycemia (HCC) 25-HYDROXYVITAMIN D2 AND Routine 11/09/2017 10:16 Diabetes Landy litus Results for this D3, S AM CDT Type 2 Hyperglycemia procedu re are in (HCC) the results Intestinal Bypass section. And Anastomosis Status CBC WITHOUT Routine 11/09/2017 10:16 Intestinal Bypass Result s for this DIFFERENTIAL, B AM CDT And Anastomosis procedure are in Status the results Diabetes Mellitus section. Type 2 Hyperglycemia (HCC) ASPARTATE Routine 11/09/2017 10:16 Diabetes Mellitus Result s for this AMINOTRANSFERASE (AST), AM CDT Type 2 Hyperglyce aysha procedure are in S/P (HCC) the results Intestinal Bypass section. And Anastomosis Status HEMOGLOBIN A1C, B Routine 11/09/2017 10:16 Diabetes Mellitus R esults for this AM CDT Type 2 Hyperglycemia procedu re are in (HCC) the results Intestinal Bypass section. And Anastomosis Status FERRITIN, S Routine 11/09/2017 10:16 Diabetes Mellitus Result s for this AM CDT Type 2 Hyperglycemia procedu re are in (HCC) the results Intestinal Bypass section. And Anastomosis Status VITAMIN B12 ASSAY, S Routine 11/09/2017 10:16 Diabetes Mellitu s Results for this AM CDT Type 2 Hyperglycemia procedu re are in (HCC) the results Intestinal Bypass section. And Anastomosis Status CREATININE WITH EGFR, Routine 11/09/2017 10:16 Diabetes Mellit us Results for this S/P AM CDT Type 2 Hyperglycemia procedu re are in (HCC) the results Intestinal Bypass section. And Anastomosis Status CALCIUM, TOT, S/P Routine 11/09/2017 10:16 Diabetes Mellitus R esults for this AM CDT Type 2 Hyperglycemia procedu re are in (HCC) the results Intestinal Bypass section. And Anastomosis Status BILIRUBIN, TOT, S/P Routine 11/09/2017 10:16 Diabetes Mellitus Results for this AM CDT Type 2 Hyperglycemia procedu re are in (HCC) the results Intestinal Bypass section. And Anastomosis Status ALBUMIN, S/P Routine 11/09/2017 10:16 Diabetes Mellitus Result s for this AM CDT Type 2 Hyperglycemia procedu re are in (HCC) the results Intestinal Bypass section. And Anastomosis Status documented in this encounter Results (ABNORMAL) Glucose, Fasting (11/09/2017 10:17 AM CDT) P athologist Signature Glucose, P 120 (H) 70 - 100 11/09/2017 [facility] mg/dL 11:36 AM CDT [facility] Last Intake 16 hr 11/09/2017 [facility] 10:39 AM CDT [facility] Specimen Anatomical Collection Method Collection Time Receive d Time (Source) Location / / Volume Laterality Blood 11/09/2017 10:17 11/09/2017 AM CDT 10:39 AM CDT Libby Blank APRN, Naima.N.P., D.N.P. LAB BLOOD NON A DD-ON Performing Organization Address City/[facility] Phon e Number [facility] [address] [place], [place] [address] [facility] Bone Alkaline Phosphatase (11/09/2017 10:16 AM CDT) athologist Signature Bone Alkaline 16 mcg/L 11/09/2017 [facility] Phosphatase, S 3:46 PM CDT [facility] Comment: ----REFERENCE VALUE---- <=14 (Premenopausal) <=22 (Postmenopausal) Specimen Anatomical Collection Method Collection Time Receive d Time (Source) Location / / Volume Laterality Blood 11/09/2017 10:16 11/09/2017 2:47 AM CDT PM CDT Libby Blank APRN, C.N.P., D.N.P. LAB BLOOD ADD-O N Performing Organization Address City/[facility]/ZIP [facility] Phon e Number [facility] [address] [place], [place] [address] [facility] (ABNORMAL) Vitamin B12 Assay (11/09/2017 10:16 AM CDT) Patholo gist Method Time Signature Vitamin B12 >1400 (H) 180 - 914 11/09/2017 [facility] Assay, S ng/L 11:56 AM CDT [facility] Specimen Anatomical Collection Method Collection Time Receive d Time (Source) Location / / Volume Laterality Blood 11/09/2017 10:16 11/09/2017 AM CDT 10:39 AM CDT Libby Blank APRN, C.N.P., D.N.P. LAB BLOOD ADD-O N Performing Organization Address City/[facility]/ZIP Code Phon e Number [facility] LABORATORIES - [address] [place], [place] [address] [facility] Lipid Panel (11/09/2017 10:16 AM CDT) P athologist Signature Cholesterol, 140 mg/dL 11/09/2017 [facility] Total 11:24 AM CDT [facility] Comment: ----REFERENCE VALUE---- Desirable: < 200 Borderline high: 200 - 239 High: > or = 240 Triglycerides 146 mg/dL 11/09/2017 11:24 AM CDT [place] [facility] Comment: ----REFERENCE VALUE---- Normal: <150 Borderline high: 150-199 High: 200-499 Very high: > or =500 Cholesterol, HDL, S 53 >=50 mg/dL 11/09/2017 11:[address] [facility] P[facility] Calculated LDL 58 mg/dL 11/09/2017 11:24 AM CDT [facility] Comment: ----REFERENCE VALUE---- Desirable: <100 Above Desirable: 100-129 Borderline high: 130-159 High: 160-189 Very high: > or =190 Cholesterol, Non-HDL, 87 mg/dL 11/09/2017 11: 24 AM CDT [facility] Comment: ----REFERENCE VALUE---- Desirable: <130 Above Desirable: 130-159 Borderline high: 160-189 High: 190-219 Very high: > or =220 Specimen Anatomical Collection Method Collection Time Receive d Time (Source) Location / / Volume Laterality Blood 11/09/2017 10:16 11/09/2017 AM CDT 10:39 AM CDT Libby Blank APRN C.N.P., D.N.P. LAB BLOOD ADD-O N Performing Organization Address City/State/[facility] Code Phon e Number [facility] LAB[facility]ATORIES - [address] [place], [place] [address] [facility] (ABNORMAL) Hemoglobin A1c (11/09/2017 10:16 AM CDT) Patholo gist Method Time Signature Hemoglobin A1c, 8.3 (H) 4.0 - 5.6 11/09/2017 [facility] B % 11:14 AM CDT LABORATORIES [facility] Comment: Hemoglobin A1c values greater than or [...] LAB BLOOD ADD-O N Performing Organization Address City/[facility]/ZIP Code Phon e Number [facility] LABORATORIES - [address] [place] [phone] [facility] Ferritin (11/09/2017 10:16 AM CDT) P athologist Signature Ferritin, S 31 11 - 307 11/09/2017 [facility] mcg/L 11:51 AM CDT LABORATORIES [facility] Specimen Anatomical Collection Method Collection Time Receive d Time (Source) Location / / Volume Laterality Blood 11/09/2017 10:16 11/09/2017 AM CDT 10:39 AM CDT Libby Blank APRN, Naima.N.P., D.N.P. LAB BLOOD ADD-O N Performing Organization Address City/[facility] Code Phon e Number [facility] LAB[facility]ATORIES - [address] Creatinine with Estimated GFR (MDRD) (11/09/2017 10:16 AM CDT) Analysis Performed At Patho logist Time Signature Creatinine 0.79 0.59 - 11/09/2017 [facility] 1.04 mg/dL 11:24 AM CDT LABORATORIES [facility] eGFR-Non 78 >=60 11/09/2017 [facility] Black/ mL/min/BSA 11:24 AM CDT LABORATORIES [facility] Comment: ----ADDITIONAL INFORMATION---- Estimated GFR calculated using the 2009 CKD_EPI creatinine equation. eGFR-Black/ 90 >=60 mL/min/BSA 11/09/2017 11:[address] [facility] Somali AM CDT LABORATORIES [facility] Comment: ----ADDITIONAL INFORMATION---- Estimated GFR calculated using the 2009 CKD_EPI creatinine equation. Specimen Anatomical Collection Method Collection Time Receive d Time (Source) Location / / Volume Laterality Blood 11/09/2017 10:16 11/09/2017 AM CDT 10:39 AM CDT Naima Pizarro APRN.N.P., D.N.P. LAB BLOOD ADD-O N Performing Organization Address City/[facility] Phon e Number [facility] LABORATORIES - [address] [place], [place] [address] [facility] CBC without Differential (11/09/2017 10:16 AM CDT) Patholo gist Method Time Signature Hemoglobin 12.3 11.6 - 11/09/2017 [facility] 15.0 g/dL 10:46 AM CDT LABORATORIES [facility] Hematocrit 37.3 35.5 - 11/09/2017 [facility] 44.9 % 10:46 AM CDT [facility] Erythrocytes 4.28 3.92 - 11/09/2017 [facility] 5.13 10:46 AM CDT LABORATORIES - x10(12)/L [facility] MCV 87.1 78.2 - 11/09/2017 [facility] 97.9 fL 10:46 AM CDT [facility] RBC Distrib Width 13.8 12.2 - 11/09/2017 [facility] 16.1 % 10:46 AM CDT [facility] Platelet Count 225 157 - 371 11/09/2017 [facility] x10(9)/L 10:46 AM CDT [facility] - [facility] Leukocytes 9.2 3.4 - 9.6 11/09/2017 [facility] x10(9)/L 10:46 AM CDT LABORATORIES [facility] Specimen Anatomical Collection Method Collection Time Receive d Time (Source) Location / / Volume Laterality Blood 11/09/2017 10:16 11/09/2017 AM CDT 10:39 AM CDT Libby Blank APRN, Naima.N.P., D.N.P. LAB BLOOD ADD-O N Performing Organization Address City/[facility] Code Phon e Number [facility] LABORATORIES - [address] [place], [place] [address] [facility] Calcium, Total (11/09/2017 10:16 AM CDT) P athologist Signature Calcium, 10.1 8.8 - 10.2 11/09/2017 [facility] Total, S mg/dL 11:24 AM CDT LABORATORIES - [facility] Specimen Anatomical Collection Method Collection Time Receive d Time (Source) Location / / Volume Laterality Blood 11/09/2017 10:16 11/09/2017 AM CDT 10:39 AM CDT Naima Pizarro APRN.N.P., D.N.P. LAB BLOOD ADD-O N Performing Organization Address City/[facility]/ZIP Code Phon e Number [facility] LABORATORIES - [address] [place] [phone] [facility] Bilirubin, Total (11/09/2017 10:16 AM CDT) athologist Signature Bilirubin, 0.4 <=1.2 11/09/2017 [facility] Total, S mg/dL 11:24 AM CDT LABORATORIES - [facility] Specimen Anatomical Collection Method Collection Time Receive d Time (Source) Location / / Volume Laterality Blood 11/09/2017 10:16 11/09/2017 AM CDT 10:39 AM CDT Naima Pizarro APRN.N.P., D.N.P. LAB BLOOD ADD-O N Performing Organization Address City/[facility]/ZIP Code Phon e Number [facility] LABORATORIES - [address] AST (Aspartate Aminotransferase) (11/09/2017 10:16 AM CDT) [facility] gist Method Time Signature Aspartate 23 8 - 43 11/09/2017 [facility] Aminotransferase U/L 11:24 AM LABORATORIES - (AST), S CDT [facility] Specimen Anatomical Collection Method Collection Time Receive d Time (Source) Location / / Volume Laterality Blood 11/09/2017 10:16 11/09/2017 AM CDT 10:39 AM CDT Libby Blank APRN, C.N.P., D.N.P. LAB BLOOD ADD-O N Performing Organization Address City/[facility]/ZIP Code Phon e Number [facility] LABORATORIES - [address] [place] [phone] [facility] Albumin (11/09/2017 10:16 AM CDT) P athologist Signature Albumin, S 4.0 3.5 - 5.0 11/09/2017 [facility] g/dL 11:24 AM CDT [facility] Specimen Anatomical Collection Method Collection Time Receive d Time (Source) Location / / Volume Laterality Blood 11/09/2017 10:16 11/09/2017 AM CDT 10:39 AM CDT Naima Pizarro APRN.N.P., D.N.P. LAB BLOOD ADD-O N Performing Organization Address City/[facility] Code Phon e Number [facility] - [address] [place] [phone] [facility] 25-Hydroxyvitamin D2 and D3 (11/09/2017 10:16 AM CDT) P athologist Signature 25-Hydroxy D2 <4.0 ng/mL 11/10/2017 [facility] 10:36 AM CDT [facility] 25-Hydroxy D3 40 ng/mL 11/10/2017 [facility] 10:36 AM CDT [facility] 25-Hydroxy D 40 ng/mL 11/10/2017 [facility] Total 10:36 AM CDT [facility] Comment: ----REFERENCE VALUE---- 25-HYDROXY D TOTAL (D2+D3) Optimum level s in the healthy population are 20-50, patients with bone disease may benefit from higher levels within this r eddie. ----ADDITIONAL INFORMATION---- This test was developed and its performa nce characteristics determined by [facility] in a manner consistent with CLIA requirements. This test has not been cleared or approved by the [place] d and Drug Administration. Specimen Anatomical Collection Method Collection Time Receive d Time (Source) Location / / Volume Laterality Blood 11/09/2017 10:16 11/09/2017 1:35 AM CDT PM CDT Naima Pizarro APRN.N.P., D.N.P. LAB BLOOD ADD-O N Performing Organization Address City/State/[facility] Code Phon e Number [facility] [address] [place] [phone] [facility] documented in this encounter Visit Diagnoses Diagnosis Diabetes Mellitus Type 2 Hyperglycemia ( HCC) Intestinal Bypass And Anastomosis Status documented in this encounter
--- OUTSIDE RECORDS SUMMARY | 2022-05-14 15:27 | XMS_ITS | Encounter Summary ---
:1950 Author Organization [facility] Address [address] [place] [id number] Care Team Providers Name Role Phone Unavailable Primary Care Provider Unavailable Reason for Visit Reason Comments Obesity 12 month post Bariatric Outpatient (Routine) - Closed Specialty Diagnoses / Procedures Referred By Referred To Contact Contact Reproductive Diagnoses Bypass Gastric Geovanna En Y Status Post Diabetes Mellitus Type 2 Hyperglycemia (HCC) Libby Blank [facility] Endocrinology and ASANJAY, C.N.P., Infertility / D.N.P. Endocrinology [address] [place] [phone] Referral ID Status Reason Start Date Expiration Date Visits Requ ested Visits Authorized [id number] Closed 10/15/2017 04/13/2018 1 1 Encounter Details Date Type Department Care Team Description 11/16/2017 Clinical Support Department of Odalis Blank APRN, C.N.P., D.N.P. [address] [place] [phone] Bypass Gastric Geovanna En Y Status Post (Pr imary Dx); [facility] [address] [place] [phone] Diabetes Mellitus Type 2 Hyperglycemia ( HCC); [facility] Diabetes [facility] Drug Or Chemical Induced Without Complication (HCC) ; [place] Diabetes Mellitus Drug Or Ch emical Induced With Hyperglycemia (HCC) [address] [place] [phone] Social History Tobacco Use Types Packs/Day Years [...] How often do you attend anabaptist or samaritan services? Patien t refused 02/08/2020 Do you [...] Sign Reading Time Taken Comments Blood Pressure 102/56 11/16/2017 7:39 AM CDT Pulse 67 11/16/2017 7:39 AM CDT Temperature - - Respiratory Rate - - Oxygen Saturation - - Inhaled Oxygen Concentration - - Weight 94.5 kg (208 lb 5.4 oz) 11/16/2017 7:39 AM CDT Height 161.1 cm (5' 3.43) 11/16/2017 7:39 AM CDT Body Mass Index 36.41 11/16/2017 7:39 AM CDT documented in this encounter Progress Notes Heather Mckeon, MARYAM, LD - 11/16/2017 8:00 AM CDT Patient referred for 1 year status post bariatric surgery nutrition group visit. Patient will be able to identify the nutritional guidelines recommended for 1 year status post bariatric surgery and adopt the habits that are needed for improved health and maintenance of weight loss. The objectives of this class are as follows: -Review healthy dietary guidelines including the following: -Consume a variety of healthy foods -Limit sugar/sweets -Consume recommended fluids -Drink and eat slowly -Eat on a regular schedule -Take the recommended supplements -Discuss weight changes -Identify strategies for preventing weight regain -Reinforce healthy lifestyle including self-monitoring dietary and exercise habits Patient assessment: Meals: 3 meals a day and may snack on almonds or veggies or fruit. Reports that if she has too heavya carb meal she will feel sick to her stomach (example she shared was Raisin bran cereal). Also notes tough meats don't go well or raw veggies. Able to eat meats if moist and if veggies are steamed. Reports this winter she was noticing weight regain and started tracking ans saw she was consuming 1500 calories per day. GI Symptoms: Shares she will get dumping if consumes something to concentrated in sugar. Fluids: Finds she does well most days unless she is very busy. Trying to carry fluids with her at all times. Decaf coffee, water, sugar free popsicles, Fairlife Milk. Reports she likes her beverages very cold. Protein: Makes her own protein shake with Fairlife milk and protein powder (twice a day for 30 gramseach time). Chicken, eggs, cheese. Physical Activity: Reports that she has sore ankles by the end of the day but she needs to follow-upto get more assistance with this. Still stays active with gardening and being active around the [facility]. Goals: Plans to follow-up on her foot to help her increase her level of activity. Continue to track her intake aiming for 1200 calories a day. Follow up per bariatric surgery protocol. Patient Census: 6. Total Group Time: 60 minutes Irene Lo APRN, C.N.P. - 11/16/2017 8:00 AM CDT CHIEF COMPLAINT This is a 1 year post-bariatric surgery visit HISTORY OF PRESENT ILLNESS Karla Crane is a 67 y.o. female being seen today for a follow-up visit after undergoing a laparoscopic Geovanna-en-Y gastric bypass by Dr. Martín Hickey on 10/05/16. Karla Crane has attended group based nutrition and physical education classes: Yes Current patient concerns: None. Weight history: Baseline weight in nutrition clinic: 117.2 kg. Weight at time of bariatric surgery: 118.8 kg. Weight at approximately three months post-bariatric surgery: 96.5 kg. Weight at approximately six months post-bariatric surgery: 91.2 kg. Weight at approximately 1 year post-bariatric surgery (today): 94.5 kg Current Diet: Regular diet, consumes 3 meals per day. She does not snack. Protein sources include protein supplements, meat, and milk. She consumes 8 cups of fluid per day consisting of water and milk. Alcohol use: Very rare. She reports consuming 2 small glasses of wine within the past year. She is aware the recommendation of no alcohol use post bariatric surgery. Presence of GI symptoms: She occasionally experiences vomiting, diarrhea, food blockage, abdominal pain, dumping syndrome, constipation, and gas or bloating. She reports that symptoms are dependent on her diet but overall doesquite well. She denies nausea and acid reflux. Exercise / Activity program: Exercises as often as she tends but activity is limited given issues with her foot. She tries to exercise for 30 min most days of the week in 15 min sessions. She typically walks or Gardens. Pre-existing weight-related medical co-morbidities: GERD Hypertension Diabetes Mellitus, Type 2 REVIEW OF SYSTEMS Pertinent items are noted in HPI; all other review of systems was negative. ASSESSMENT / PLAN Laboratory values: Fasting glucose 120, bilirubin 0.4, total cholesterol 140, total vitamin-D 40, vitamin B12 >1400, bone alk-phos 16, 24 hr urine calcium 65, total urine volume 2179 mL. Lab Results Component Value Date HGB 12.3 11/09/2017 FERRITIN 31 11/09/2017 ALBUMIN 4.0 11/09/2017 AST 23 11/09/2017 CREATININE 0.79 11/09/2017 GLUCOSE 133 10/07/2016 HGBA1C 8.3 (H) 11/09/2017 TRIG 146 11/09/2017 HDL 53 11/09/2017 LDLCALC 58 11/09/2017 CALCIUM 10.1 11/09/2017 #1 Status post laparoscopic Geovanna-en-Y gastric bypass, September 2016 #2 Diabetes mellitus type 2, uncontrolled, A1c 8.3%, on insulin therapy Mrs. Crane is to be congratulated on her 53 lb weight loss since bariatric surgery. She reports that her weight has been stable since February 2017. I reviewed the laboratory work obtained for today's visit with her. All labs are satisfactory besides for an elevated A1c 8.3% and a low urine calcium level at 65. She notes that she has been working closely with her local primary care provider in regard to diabetes management. Her Lantus insulin was increased to 50 units at bedtime approximately 3 months ago. She will continue to work with her primary care provider for dose adjustment and diabetes management. The 24 hr urine calcium level is low at65. The serum calcium level is normal at 10.1. She does not take a calcium supplement as she reportsthat the serum calcium level is always on the higher end of normal. She obtains some calcium throughher diet and plans to increase dietary calcium by 1 more serving per day to help improve this lab value. She will continue with a twice daily multivitamin, daily vitamin-D supplement, and a monthly [id number] injection. At present I recommend follow-up in 1 year with laboratory work. Patient attended group based nutrition and physical education class. Discussed the importance of follow-up with the [facility] initially and then lifelong with a primary health careprovider. The patient was provided with my contact information. documented in this encounter Plan of Treatment Not on filedocumented as of this encounter Results (ABNORMAL) Lipid Panel (11/09/2018 8:30 AM CDT) P athologist Signature Cholesterol, 156 mg/dL 11/09/2018 [facility] Total 9:34 AM CDT [facility] Comment: ----REFERENCE VALUE---- Desirable: < 200 Borderline high: 200 - 239 High: > or = 240 Triglycerides 175 (H) mg/dL 11/09/2018 9:34 AM CDT [facility] Comment: ----REFERENCE VALUE---- Normal: <150 Borderline high: 150-199 High: 200-499 Very high: > or =500 Cholesterol, HDL, S 62 >=50 mg/dL 11/09/2018 9:34 AM CDT [facility] Calculated LDL 59 mg/dL 11/09/2018 9:34 AM CDT [facility] Comment: ----REFERENCE VALUE---- Desirable: <100 Above Desirable: 100-129 Borderline high: 130-159 High: 160-189 Very high: > or =190 Cholesterol, Non-HDL, 94 mg/dL 11/09/2018 9:34 AM CDT [facility] Comment: ----REFERENCE VALUE---- Desirable: <130 Above Desirable: 130-159 Borderline high: 160-189 High: 190-219 Very high: > or =220 Specimen Anatomical Collection Method Collection Time Receive d Time (Source) Location / / Volume Laterality Blood (Blood, 11/09/2018 8:30 AM 11/10/19 8:50 Venous) CDT AM CDT Irene Lo APRN, C.N.P. LAB BLOOD ADD-ON Performing Organization Address City/State/ZIP Code Phon e Number [facility]IES - [address] [place], [place] [address] [facility] (ABNORMAL) Hemoglobin A1c (11/09/2018 8:30 AM CDT) [facility] gist Method Time Signature Hemoglobin A1c, 8.1 (H) 4.0 - 5.6 11/09/2018 [facility] B % 9:34 AM CDT [facility] Comment: Hemoglobin A1c values greater than or eq ual to 6.5 percent are diagnostic for diabetes mellitus. ?? Diagnosis should be confirmed by repeat testing. ??In diabet ic patients, HbA1c goals should be discussed with healthcar e provider. Specimen Anatomical Collection Method Collection Time Receive d Time (Source) Location / / Volume Laterality Blood (Blood, 11/09/2018 8:30 AM 11/10/19 19 8:51 Venous) CDT AM CDT Irene Lo APRN, C.N.P. LAB BLOOD ADD-ON Performing Organization Address City/[facility]/ZIP Code Phon e Number [facility] - [address] [place] [address] [facility] Glucose, Fasting (11/09/2018 8:30 AM CDT) P athologist Signature Glucose, P 94 70 - 100 11/09/2018 [facility] mg/dL 9:32 AM CDT [facility] Last Intake 15 hr 11/09/2018 [facility] 8:50 AM CDT [facility] Specimen Anatomical Collection Method Collection Time Receive d Time (Source) Location / / Volume Laterality Blood (Blood, 11/09/2018 8:30 AM 11/10/19 19 8:50 Venous) CDT AM CDT Irene Lo APRN, C.N.P. LAB BLOOD NON ADD- ON Performing Organization Address City/[facility]/ZIP Code Phon e Number [facility]IES - [address] [place] [address] [facility] Ferritin (11/09/2018 8:30 AM CDT) P athologist Signature Ferritin, S 23 11 - 307 11/09/2018 [facility] mcg/L 10:14 AM CDT [facility] Specimen Anatomical Collection Method Collection Time Receive d Time (Source) Location / / Volume Laterality Blood (Blood, 11/09/2018 8:30 AM 11/10/19 19 8:50 Venous) CDT AM CDT Amaury Segovia APRNNWingP. LAB BLOOD ADD-ON Performing Organization Address City/[facility] Code Phon e Number [facility] - [address] [place], [place] [address] [facility] Creatinine with Estimated GFR (11/09/2018 8:30 AM CDT) Analysis Performed At [facility] logist Time Signature Creatinine 0.85 0.59 - 11/09/2018 [facility] 1.04 mg/dL 9:34 AM CDT LABORATORIES - [facility] eGFR-Non 71 >=60 11/09/2018 [facility] Black/ mL/min/BSA 9:34 AM CDT LABORATORIES - [facility] Comment: ----ADDITIONAL INFORMATION---- Estimated GFR calculated using the 2009 CKD_EPI creatinine equation. eGFR-Black/ 81 >=60 mL/min/BSA 11/09/2018 9:34 [facility] Finnish CDT [facility] Comment: ----ADDITIONAL INFORMATION---- Estimated GFR calculated using the 2009 CKD_EPI creatinine equation. Specimen Anatomical Collection Method Collection Time Receive d Time (Source) Location / / Volume Laterality Blood (Blood, 11/09/2018 8:30 AM 11/10/19 19 8:50 Venous) CDT AM CDT Amaury Segovia APRNN.P. LAB BLOOD ADD-ON Performing Organization Address City/[facility] Code Phon e Number [facility]IES - [address] [place], [place] [address] [facility] (ABNORMAL) CBC without Differential (11/09/2018 8:30 AM CDT) [facility] gist Method Time Signature Hemoglobin 12.8 11.6 - 11/09/2018 [facility] 15.0 g/dL 9:09 AM CDT LABORATORIES - [facility] Hematocrit 39.8 35.5 - 11/09/2018 [facility] 44.9 % 9:09 AM CDT LABORATORIES - [facility] Erythrocytes 4.46 3.92 - 11/09/2018 [facility] 5.13 9:09 AM CDT LABORATORIES - x10(12)/L [facility] MCV 89.2 78.2 - 11/09/2018 [facility] 97.9 fL 9:09 AM CDT [facility] RBC Distrib 14.0 12.2 - 11/09/2018 [facility] Width 16.1 % 9:09 AM CDT [facility] Platelet Count 261 157 - 371 11/09/2018 [facility] x10(9)/L 9:09 AM CDT [facility] Leukocytes 12.2 (H) 3.4 - 9.6 11/09/2018 [facility] x10(9)/L 9:09 AM CDT [facility] Specimen Anatomical Collection Method Collection Time Receive d Time (Source) Location / / Volume Laterality Blood (Blood, 11/09/2018 8:30 AM 11/10/19 19 8:51 Venous) CDT AM CDT Irene Lo APRN, Naima.N.P. LAB BLOOD ADD-ON Performing Organization Address City/[facility] Phon e Number [facility] - [address] [place] [phone] [facility] Calcium, Total (11/09/2018 8:30 AM CDT) P athologist Signature Calcium, 10.2 8.8 - 10.2 11/09/2018 [facility] Total, S mg/dL 9:34 AM CDT [facility] Specimen Anatomical Collection Method Collection Time Receive d Time (Source) Location / / Volume Laterality Blood (Blood, 11/09/2018 8:30 AM 11/10/19 19 8:50 Venous) CDT AM CDT Irene Lo APRN, C.N.P. LAB BLOOD ADD-ON Performing Organization Address City/State/[facility] Code Phon e Number [facility]IES - [address] [place], [place] [address] [facility] Bone Alkaline Phosphatase (11/09/2018 8:30 AM CDT) P athologist Signature Bone Alkaline 16 mcg/L 11/09/2018 [facility] Phosphatase, S 1:33 PM CDT [facility] Comment: ----REFERENCE VALUE---- <=14 (Premenopausal) <=22 (Postmenopausal) Specimen Anatomical Collection Method Collection Time Receive d Time (Source) Location / / Volume Laterality Blood (Blood, 11/09/2018 8:30 AM 11/10/19 19 Venous) CDT 12:37 PM CDT Amaury Segovia APRNNWingPWing LAB BLOOD ADD-ON Performing Organization Address City/[facility]/ZIP Code Phon e Number [facility] [address] [place] [address], [place] [address] [facility] AST (Aspartate Aminotransferase) (11/09/2018 8:30 AM CDT) Patholo gist Method Time Signature Aspartate 15 8 - 43 11/09/2018 [facility] Aminotransferase U/L 9:34 AM CDT LABORATORIE S - (AST), S [facility] Specimen Anatomical Collection Method Collection Time Receive d Time (Source) Location / / Volume Laterality Blood (Blood, 11/09/2018 8:30 AM 11/10/19 19 8:50 Venous) CDT AM CDT Amaury Segovia APRNN.P. LAB BLOOD ADD-ON Performing Organization Address City/[facility]/ZIP Code Phon e Number [facility]IES - [address] [place] [phone] [facility] Albumin (11/09/2018 8:30 AM CDT) P athologist Signature Albumin, S 4.1 3.5 - 5.0 11/09/2018 [facility] g/dL 9:34 AM CDT LABORATORIES - [facility] Specimen Anatomical Collection Method Collection Time Receive d Time (Source) Location / / Volume Laterality Blood (Blood, 11/09/2018 8:30 AM 11/10/19 19 8:50 Venous) CDT AM CDT Irene Lo APRN, Naima.N.P. LAB BLOOD ADD-ON Performing Organization Address City/State/ZIP Code Phon e Number [facility] - [address] [place], [place] [address] [facility] 25-Hydroxyvitamin D2 and D3 (11/09/2018 8:30 AM CDT) P athologist Signature 25-Hydroxy D2 <4.0 ng/mL 11/13/2018 [facility] 2:31 PM CDT [facility] 25-Hydroxy D3 33 ng/mL 11/13/2018 [facility] 2:31 PM CDT [facility] 25-Hydroxy D 33 ng/mL 11/13/2018 [facility] Total 2:31 PM CDT [facility] Comment: ----REFERENCE VALUE---- 25-HYDROXY D TOTAL (D2+D3) Optimum level s in the healthy population are 20-50, patients with bone disease may benefit from higher levels within this r eddie. ----ADDITIONAL INFORMATION---- This test was developed and its performa nce characteristics determined by [facility] in a manner consistent with CLIA requirements. This test has not been cleared or approved by the [place] d and Drug Administration. Specimen Anatomical Collection Method Collection Time Receive d Time (Source) Location / / Volume Laterality Blood (Blood, 11/09/2018 8:30 AM 11/10/19 19 Venous) CDT 12:32 PM CDT Irene Lo APRN C.N.P. LAB BLOOD ADD-ON Performing Organization Address City/State/ZIP Code Phon e Number [facility] [address] [place] [phone] [facility] documented in this encounter Visit Diagnoses Diagnosis Bypass Gastric Geovanna En Y Status Post - P rimary Diabetes Mellitus Type 2 Hyperglycemia ( HCC) Diabetes Mellitus Drug Or Chemical Induc ed Without Complication (HCC) Diabetes Mellitus Drug Or Chemical Induc ed With Hyperglycemia (HCC) documented in this encounter
--- OUTSIDE RECORDS SUMMARY | 2022-05-14 15:27 | XMS_ITS | Encounter Summary ---
:1950 Author Organization [facility] Address [address] [place] [id number] Care Team Providers Name Role Phone Unavailable Primary Care Provider Unavailable Encounter Details Date Type Department Care Team Description 11/09/2018 Hospital Encounter Department of Vanderboom, Valentin G stephanie Geovanna En Y Status [place]; Laboratory Irene Miramontes, Diabetes Mellit us Drug Or Chemical Induced Without Complication (HCC) ; Medicine and PACKAGE COLLECTOR, C.N.P. Diabetes Mellitus Drug Or Chemical Induc ed With Hyperglycemia (HCC) ; Pathology, [address] Diabetes Mellitus Type 2 Hyperglycemia ( HCC) [facility], in [place] [id number] [place] [phone] [place] [address] (Work) [place], [place] [phone] (Fax) [phone] Social History Tobacco Use Types Packs/Day Years [...] asked relatives? How often do you attend zoroastrianism or sikh services? Patien t refused 02/08/2020 Do you belong to any clubs or organizations such as No 02/08/2020 zoroastrianism groups, unions, fraternal or athletic groups, or [...] pediatric Chew 1 tablet 2 0 10/06/2016 yosiiimzskjo-lyzf-igazjqxf (two) times a day. (FLINTSTONES COMPLETE) chewable [...] Name Priority Date/Time Associated Diagnosis Comme nts LIPID PANEL, S Routine 11/09/2018 8:30 Diabetes Mellitus Resul ts for this AM CDT Drug Or Chemical procedure a re in Induced With the results Hyperglycemia (H CC) section. Bypass Gastric Geovanna En Y Status [place] BONE ALKALINE Routine 11/09/2018 8:30 Bypass Gastric Geovanna Resu lts for this PHOSPHATASE, S AM CDT En Y Status [place] procedure are in the results section. 25-HYDROXYVITAMIN D2 AND Routine 11/09/2018 8:30 Bypass Gastri c Geovanna Results for this D3, S AM CDT En Y Status [place] procedure a re in the results section. CBC WITHOUT Routine 11/09/2018 8:30 Diabetes Mellitus Results for this DIFFERENTIAL, B AM CDT Drug Or Chemical procedur e are in Induced Without the results Complication (HC C) section. Bypass Gastric Geovanna En Y Status [place] ASPARTATE Routine 11/09/2018 8:30 Bypass Gastric Geovanna Resul ts for this AMINOTRANSFERASE (AST), AM CDT En Y Status [place] procedure are in S/P the results section. HEMOGLOBIN A1C, B Routine 11/09/2018 8:30 Bypass Gastric Geovanna Results for this AM CDT En Y Status [place] procedure are in Diabetes Mellitus the result s Type 2 Hyperglycemia section . (HCC) GLUCOSE, FASTING, S/P Routine 11/09/2018 8:30 Bypass Gastric R oux Results for this AM CDT En Y Status [place] procedure are in Diabetes Mellitus the result s Type 2 Hyperglycemia section . (HCC) FERRITIN, S Routine 11/09/2018 8:30 Diabetes Mellitus Results for this AM CDT Drug Or Chemical procedure a re in Induced With the results Hyperglycemia (H CC) section. Bypass Gastric Geovanna En Y Status [place] CREATININE WITH EGFR, Routine 11/09/2018 8:30 Bypass Gastric R oux Results for this S/P AM CDT En Y Status [place] procedure a re in the results section. CALCIUM, TOT, S/P Routine 11/09/2018 8:30 Bypass Gastric Geovanna Results for this AM CDT En Y Status [place] procedure a re in the results section. ALBUMIN, S/P Routine 11/09/2018 8:30 Bypass Gastric Geovanna Resul ts for this AM CDT En Y Status [place] procedure a re in the results section. documented in this encounter Results (ABNORMAL) Lipid Panel (11/09/2018 8:30 AM CDT) athologist Signature Cholesterol, 156 mg/dL 11/09/2018 [facility] Total 9:34 AM CDT LABORATORIES - [facility] Comment: ----REFERENCE VALUE---- Desirable: < 200 Borderline high: 200 - 239 High: > or = 240 Triglycerides 175 (H) mg/dL 11/09/2018 9:34 AM CDT [facility] Comment: ----REFERENCE VALUE---- Normal: <150 Borderline high: 150-199 High: 200-499 Very high: > or =500 Cholesterol, HDL, S 62 >=50 mg/dL 11/09/2018 9:34 AM CDT [facility] Calculated LDL 59 mg/dL 11/09/2018 9:34 AM CDT [facility] Comment: ----REFERENCE VALUE---- Desirable: <100 Above Desirable: 100-129 Borderline high: 130-159 High: 160-189 Very high: > or =190 Cholesterol, Non-HDL, 94 mg/dL 11/09/2018 9:34 AM CDT [facility] Comment: ----REFERENCE VALUE---- Desirable: <130 Above Desirable: 130-159 Borderline high: 160-189 High: 190-219 Very high: > or =220 Specimen Anatomical Collection Method Collection Time Receive d Time (Source) Location / / Volume Laterality Blood (Blood, 11/09/2018 8:30 AM 11/10/19 19 8:50 Venous) CDT AM CDT Amaury Segovia APRNNWingPWing LAB BLOOD ADD-ON Performing Organization Address City/State/ZIP Code Phon e Number [facility] - [address] [place], [place] [address] [facility] (ABNORMAL) Hemoglobin A1c (11/09/2018 8:30 AM CDT) [facility] gist Method Time Signature Hemoglobin A1c, 8.1 (H) 4.0 - 5.6 11/09/2018 [facility] B % 9:34 AM CDT [facility] Comment: Hemoglobin A1c values greater than [...] 11/10/19 19 8:51 Venous) CDT AM CDT Amaury Segovia APRNNWingPWing LAB BLOOD ADD-ON Performing Organization Address City/[facility]/ZIP Code Phon e Number [facility] - [address] [place] [address] [facility] Glucose, Fasting (11/09/2018 8:30 AM CDT) P athologist Signature Glucose, P 94 70 - 100 11/09/2018 [facility] mg/dL 9:32 AM CDT LABORATORIES [facility] Last Intake 15 hr 11/09/2018 [facility] 8:50 AM CDT [facility] Specimen Anatomical Collection Method Collection Time Receive d Time (Source) Location / / Volume Laterality Blood (Blood, 11/09/2018 8:30 AM 11/10/19 19 8:50 Venous) CDT AM CDT Amaury Segovia APRNN.P. LAB BLOOD NON ADD- ON Performing Organization Address City/[facility]/ZIP Code Phon e Number [facility] - [address] [place] [address] [facility] Ferritin (11/09/2018 8:30 AM CDT) P athologist Signature Ferritin, S 23 11 - 307 11/09/2018 [facility] mcg/L 10:14 AM CDT [facility] Specimen Anatomical Collection Method Collection Time Receive d Time (Source) Location / / Volume Laterality Blood (Blood, 11/09/2018 8:30 AM 11/10/19 19 8:50 Venous) CDT AM CDT Amaury Segovia APRNN.P. LAB BLOOD ADD-ON Performing Organization Address City/[facility]/ZIP Code Phon e Number [facility] - [address] [place] [address] [facility] Creatinine with Estimated GFR (11/09/2018 8:30 AM CDT) Analysis Performed At Patho logist Time Signature Creatinine 0.85 0.59 - 11/09/2018 [facility] 1.04 mg/dL 9:34 AM CDT LAB[facility]ATORIES [facility] eGFR-Non 71 >=60 11/09/2018 [facility] Black/ mL/min/BSA 9:34 AM CDT LABORATORIES - [facility] Comment: ----ADDITIONAL INFORMATION---- Estimated GFR calculated using the 2009 CKD_EPI creatinine equation. eGFR-Black/ 81 >=60 mL/min/BSA 11/09/2018 9:34 [facility] Brazilian AM CDT LABORATORIES [facility] Comment: ----ADDITIONAL INFORMATION---- Estimated GFR calculated using the 2009 CKD_EPI creatinine equation. Specimen Anatomical Collection Method Collection Time Receive d Time (Source) Location / / Volume Laterality Blood (Blood, 11/09/2018 8:30 AM 11/10/19 19 8:50 Venous) CDT AM CDT Irene Lo APRN C.N.P. LAB BLOOD ADD-ON Performing Organization Address City/State/ZIP Code Phon e Number [facility] - [address] [place], [place] [address] [facility] (ABNORMAL) CBC without Differential (11/09/2018 8:30 AM CDT) [facility] gist Method Time Signature Hemoglobin 12.8 11.6 - 11/09/2018 [facility] 15.0 g/dL 9:09 AM CDT [employer] [facility] Hematocrit 39.8 35.5 - 11/09/2018 [facility] 44.9 % 9:09 AM CDT [facility] Erythrocytes 4.46 3.92 - 11/09/2018 [facility] 5.13 9:09 AM CDT LABORATORIES - x10(12)/L [facility] MCV 89.2 78.2 - 11/09/2018 [facility] 97.9 fL 9:09 AM CDT [facility] RBC Distrib 14.0 12.2 - 11/09/2018 [facility] Width 16.1 % 9:09 AM CDT [facility] Platelet Count 261 157 - 371 11/09/2018 [facility] x10(9)/L 9:09 AM CDT [employer] [facility] Leukocytes 12.2 (H) 3.4 - 9.6 11/09/2018 [facility] x10(9)/L 9:09 AM CDT [facility] Specimen Anatomical Collection Method Collection Time Receive d Time (Source) Location / / Volume Laterality Blood (Blood, 11/09/2018 8:30 AM 11/10/19 19 8:51 Venous) CDT AM CDT Irene Lo APRN C.N.P. LAB BLOOD ADD-ON Performing Organization Address City/[facility]/ZIP Code Phon e Number [facility] - [address] [place], [place] [address] [facility] Calcium, Total (11/09/2018 8:30 AM CDT) athologist Signature Calcium, 10.2 8.8 - 10.2 11/09/2018 [facility] Total, S mg/dL 9:34 AM CDT LABORATORIES - [facility] Specimen Anatomical Collection Method Collection Time Receive d Time (Source) Location / / Volume Laterality Blood (Blood, 11/09/2018 8:30 AM 11/10/19 19 8:50 Venous) CDT AM CDT Irene Lo APRN, C.N.P. LAB BLOOD ADD-ON Performing Organization Address City/[facility]/ZIP Code Phon e Number [facility] - [address] [place] [address] [facility] Bone Alkaline Phosphatase (11/09/2018 8:30 AM CDT) athologist Signature Bone Alkaline 16 mcg/L 11/09/2018 [facility] Phosphatase, S 1:33 PM CDT [facility] Comment: ----REFERENCE VALUE---- <=14 (Premenopausal) <=22 (Postmenopausal) Specimen Anatomical Collection Method Collection Time Receive d Time (Source) Location / / Volume Laterality Blood (Blood, 11/09/2018 8:30 AM 11/10/19 19 Venous) CDT 12:37 PM CDT Amaury Segovia APRNNWingPWing LAB BLOOD ADD-ON Performing Organization Address City/[facility]/ZIP Code Phon e Number [facility] [address] [place] [address] [facility] AST (Aspartate Aminotransferase) (11/09/2018 8:30 AM CDT) Patholo gist Method Time Signature Aspartate 15 8 - 43 11/09/2018 [facility] Aminotransferase U/L 9:34 AM CDT LABORATORIE S - (AST), S [facility] Specimen Anatomical Collection Method Collection Time Receive d Time (Source) Location / / Volume Laterality Blood (Blood, 11/09/2018 8:30 AM 11/10/19 19 8:50 Venous) CDT AM CDT Naima Segovia APRN.N.P. LAB BLOOD ADD-ON Performing Organization Address City/[facility] Phon e Number [facility] - [address] [place], [place] [address] [facility] Albumin (11/09/2018 8:30 AM CDT) athologist Signature Albumin, S 4.1 3.5 - 5.0 11/09/2018 [facility] g/dL 9:34 AM CDT LAB[facility]ATORIES [facility] Specimen Anatomical Collection Method Collection Time Receive d Time (Source) Location / / Volume Laterality Blood (Blood, 11/09/2018 8:30 AM 11/10/19 8:50 Venous) CDT AM CDT Naima Segovia APRN.N.P. LAB BLOOD ADD-ON Performing Organization Address [facility] Phon e Number [facility] - [address] [place], [place] [address] [facility] 25-Hydroxyvitamin D2 and D3 (11/09/2018 8:30 AM CDT) athologist Signature 25-Hydroxy D2 <4.0 ng/mL 11/13/2018 [facility] 2:[address] [facility] 25-Hydroxy D3 33 ng/mL 11/13/2018 [facility] 2:31 PM CDT [facility] 25-Hydroxy D 33 ng/mL 11/13/2018 [facility] Total 2:31 PM CDT [facility] Comment: ----REFERENCE VALUE---- 25-HYDROXY D TOTAL (D2+D3) Optimum level s in the healthy population are 20-50, patients with bone disease may benefit from higher levels within this r eddie. ----ADDITIONAL INFORMATION---- This test was developed and its performa nce characteristics determined by [facility] in a manner consistent with CLIA requirements. This test has not been cleared or approved by the [place] d and Drug Administration. Specimen Anatomical Collection Method Collection Time Receive d Time (Source) Location / / Volume Laterality Blood (Blood, 11/09/2018 8:30 AM 11/10/19 19 Venous) CDT 12:32 PM CDT Naima Segovia APRN.N.P. LAB BLOOD ADD-ON Performing Organization Address City/State/ZIP Code Phon e Number [facility] [address] [place], [place] [address] [facility] documented in this encounter Visit Diagnoses Diagnosis Bypass Gastric Geovanna En Y Status [place] Diabetes Mellitus Drug Or Chemical Induc ed Without Complication (HCC) Diabetes Mellitus Drug Or Chemical Induc ed With Hyperglycemia (HCC) Diabetes Mellitus Type 2 Hyperglycemia ( HCC) documented in this encounter
--- OUTSIDE RECORDS SUMMARY | 2022-05-14 15:27 | XMS_ITS | Encounter Summary ---
:1950 Author Organization [facility] Address [address] [place] [address] Care Team Providers Name Role Phone Unavailable Primary Care Provider Unavailable Encounter Details Date Type Department Care Team Description 02/06/2016 Hospital Encounter HX [facility] Heidi Santana M.B., B.Ch. [address] [place] [address] (Wo rk) Social History Tobacco Use Types [...] asked relatives? How often do you attend alevism or confucianism services? Patien t refused 02/08/2020 Do you belong to any clubs or organizations such as No 02/08/2020 alevism groups, unions, fraternal or athletic groups, or [...] Sign Reading Time Taken Comments Blood Pressure 136/62 02/06/2016 11:38 AM CDT Pulse 60 02/06/2016 11:38 AM CDT Temperature - - Respiratory Rate - - Oxygen Saturation - - Inhaled Oxygen Concentration - - Weight 113 kg (250 lb 3.6 oz) 02/06/2016 11:38 AM CDT Height 161 cm (5' 3.39) 02/06/2016 11:38 AM CDT Body Mass Index 43.79 02/06/2016 11:38 AM CDT documented in this encounter Medications at Time of Discharge Medication Sig Dispensed Refills Start Date End Date ALBUTEROL SULFATE INHL Inhale 2 puffs as 0 2015 needed. SOB ascorbic acid, vitamin C, Take 1 tablet by mouth 0 01/08/2016 (VITAMIN C) 1,000 mg daily. seasonal tablet documented as of this encounter Progress Notes Heidi Spaulding M.B., Ch.B. - 02/06/2016 11:14 AM CDT ENDOSVOS IMPRESSION/REPORT/PLAN 1. Type 2 diabetes, uncontrolled. 2. Hypertension. 3. Dyslipidemia. 4. Class III obesity. 5. Abnormal overnight oximetry test. Mrs. Crane returns today. At our last visit, I had referred her to our [facility] in [place] and she saw Dr. Martínez mid-December. She had a very good experience and will be planning to undergo the gastric sleeve hopefully towards the end of the year. She continues to go to the 12-week psychology course and is enjoying this thoroughly. From a diabetes management standpoint, she started togain weight on NovoLog again and so Dr. Martínez switched her to Victoza 1.8 mg daily and discontinuedthe NovoLog.. She continues on metformin 2000 mg daily as well as Lantus 70 units daily. Her A1c hasreduced from 9.8% to 8.7%. She continues to have some struggles with her diet and loses motivation. S he is quite sedentary due to some low back pain. She is checking her glucose once in the morning andthis ranges between 115 and 130 mg/dL most days; however, can increase up to 200 mg/dL. She has tried to reduce eating at night and reduce the caloric intake of her meals the night before. We also ordered an overnight oximetry which was abnormal and she will be seeing Sleep Medicine soon. She is planning to see Dr. Martínez again in 2 months at which time, she can have another A1c. At thispoint, I would recommend ongoing efforts to improve her diet and this will likely improve her A1c significantly. Considering her recent medication changes, we will leave her on the current regimen for now but I would recommend that she intermittently check through the day so that we can get a sense ofher glucose readings other than morning time only. I will be on maternity leave when she sees Dr. Martínez; however, if Dr. Martínez would like me to follow up with her subsequently I would be happy to seeher again. Forrest Stone, Ch.BWing/robby Electronically Signed By: HEIDI SPAULDING [facility] On: 02/13/2016 09:59 AM Source: [facility] [id number] Document Id: [id number] documented in this encounter Miscellaneous Notes Miscellaneous - Subhash Murray L.PWingNWing - 02/06/2016 11:38 AM CDT Adult Arabic Linguist Intake/History Adult Arabic Linguist Intake/History Entered On: 02/06/2016 11:40 CDT Performed On: 02/06/2016 11:38 CDT by SUBHASH MURRAY Intake Peripheral Pulse Rate : 60 /min Systolic Blood Pressure : 136 mmHg Diastolic Blood Pressure : 62 mmHg NIBP Mean : 87 mmHg BP Location : Right upper extremity Blood Pressure Cuff Size : Large SUBHASH MURRAY - 02/06/2016 11:40 CDT Chief Complaint : DM 2 Height : 161 cm(Converted to: 5 ft 3 inch(es), 63 inch(es)) Actual Weight : 113.5 kg(Converted to: 250 lb 4 oz) Weight Source : Standing scale Dosing Weight Clinic : 113.5 kg Clinic BSA : 2.25 Body Mass Index : 43.79 kg/m2 SUBHASH MURRAY - 02/06/2016 11:38 CDT General Info Information Given By : Patient Languages : Northern Irish Is Patient Female and 13-50 no hysterectomy : SUBHASH Orozco - 02/06/2016 11:38 CDT Subjective Pain Symptoms : SUBHASH Orozco - 02/06/2016 11:38 CDT Dependent Habits Exposure to Tobacco Smoke : Other: never Smoking Status : Never smoker Tobacco 2A : No Tobacco Use/Currently Using : No Tobacco Use/Last 30 Days : No Tobacco Use/Last 12 months : SUBHASH Orozco - 02/06/2016 11:38 CDT Source: [facility] POWERCHART Document Id: [id number] CDT!8 Telephone Encounter - Kemal Jhaveri L.P.N. - 12/15/2015 2:57 PM CDT *Phone Message From: KEMAL JHAVERI LPN ( Endocrinology Nurse) Sent: 12/15/2015 14:57:16 CDT Subject: *Phone Message Caller is: ( ) Patient ( ) Mother ( ) Father ( ) Spouse ( ) Daughter ( ) Son ( ) Pharmacy ( ) Other: Physician: Patient MRN #: Reason for Call: Message: Left message for pt to call back regarding Metformin prescription that needs to be signed by Dr. Spaulding and mailed to her. Dr. Cox is out of the office for a month and wondering ifthis can wait until she gets back. Pt's primary is not here. Advice/Action: Source used: ( ) Verbalizes understanding of instructions ( ) Instructed to call back if symptoms worsen or do not resolve ( ) Refused to see provider ( ) Appointment Scheduled ( ) OK to leave message on voice mail ( ) Patient told to expect return call: ( ) today ( ) tomorrow ( ) next work day ( ) Patient's email ( ) Patient told physician out of office, will call upon return call on ( ) ( ) Patient told physician out of office, routed to other physician ( ) Other ( ) Call back telephone number ( ) Call back cell phone number ( ) Source: [facility] POWERCHART Document Id: [id number] Electronically signed by Conversion, [facility] Media Marketing Manager [id number] at 11/21/2016 3:12 AM CDT documented in this encounter Plan of Treatment Not on filedocumented as of this encounter Visit Diagnoses Not on filedocumented in this encounter Additional Health Concerns Assessment Noted Time PHQ-9 Depression Total Score: 2 01/19/2016 2:42 PM CDT documented as of this encounter
--- OUTSIDE RECORDS SUMMARY | 2022-05-14 15:27 | XMS_ITS | Encounter Summary ---
:1950 Author Organization [facility] Address [address] [place] [address] Care Team Providers Name Role Phone Unavailable Primary Care Provider Unavailable Encounter Details Date Type Department Care Team Description 02/02/2016 Hospital Encounter HX [facility] Kevin Haddad M.B., B.Ch. [address] [place], [place] [phone] (Wo rk) Social History Tobacco Use Types [...] How often do you attend religion or hoahaoism services? Patien t refused 02/08/2020 [...] - - Height 161 cm (5' 3.39) 02/02/2016 9:34 AM CDT Body Mass Index - - documented [...] Name Priority Date/Time Associated Diagnosis Comme nts HEMOGLOBIN A1C, B Routine 02/02/2016 9:51 AM Resu lts for this CDT procedure are i n the results section. documented in this encounter Results (ABNORMAL) Hemoglobin A1c (02/02/2016 9:51 AM CDT) P athologist Signature Hemoglobin A1c, 8.7 (H) <=5.6 A1C POWERCHART B Specimen (Source) Anatomical Collection Method Collection Time Re ceived Time Location / / Volume Laterality Blood 02/02/2016 9:51 AM CDT Heidi Clayton, B.Ch. LAB BLOOD ADD-ON Performing Organization Address City/State/ZIP Code Phon e Number POWERCHART documented in this encounter Visit Diagnoses Not on filedocumented in this encounter Additional Health Concerns Assessment Noted Time PHQ-9 Depression Total Score: 2 01/19/2016 2:42 PM CDT documented as of this encounter
[2022-05-14 15:28] LABS: Blood Urea Nitrogen* 23 mg/dL (7-30); Carbon Dioxide* 28 mmol/L (20-32); Creatinine* 0.8 mg/dL (0.5-1.5); Est. Creatinine Clearance* 43.91; Estimated Glomerular Filt Rate 78 ml/min
--- OUTSIDE RECORDS SUMMARY | 2022-05-14 15:28 | XMS_ITS | Continuity of Care Document ---
:1950 Author Organization [facility] Address [address] [place] [address]- Care Team Providers Name Role Phone Oneyda Duran DO Primary Care Physician Encounter 04/03/21 - 04/04/[address] [address]- Encounter Diagnosis Body mass index [BMI] 38.0-38.9, adult (Discharge Diagnosis) - 04/03/21 Diabetes mellitus type 2 in obese (Discharge Diagnosis) - 04/03/21 Obesity, unspecified (Discharge Diagnosis) - 04/03/21 Elevated transaminase level (Discharge Diagnosis) - 04/03/21 Essential hypertension (Discharge Diagnosis) - 04/03/21 Intermittent asthma without complication (Discharge Diagnosis) - 04/03/21 Nonalcoholic fatty liver disease without nonalcoholic steatohepatitis (SANTIAGO) (Discharge Diagnosis) - 04/03/21 Attending Physician: Oneyda Duran DO Allergies, Adverse Reactions, Alerts Substance Reaction Severity Status sulfa drugs Active erythromycin Active lisinopril Active acetaminophen-hydrocodone Active Assessment and Plan Future AppointmentsAppointment Date:09/28/2021 07:30:00 AM Scheduled Provider: Location:[facility] Appointment Type:Lab Appointment Date:10/02/2021 11:00:00 AM Scheduled Provider:Oneyda Duran DO Location:[facility] Appointment Type:Established Patient Future Scheduled TestsRadiologyUS Kidney Bilateral 07/22/20US Abdomen Limited w Liver Elastography 07/22/20 Immunizations Given and Recorded Vaccine Date Status Refusal Reason influenza virus vaccine 04/11/20 Recorded Td - tetanus-diphtheria toxoids 10/27/15 Recorded Prevnar 13 pneumococcal 13-valent 10/16/15 Recorded Zoster Vaccine Live 5/17/11 Recorded Tdap-ADULT/ADOL tetanus/diphth/pertuss,a 11/25/06 Recorde d Pneumovax 23 pneumococcal 23-valent 10/24/06 Recorded Medications aspirin 81 mg oral tablet, chewable 81 mg = 1 tab, By mouth, Daily, Refill(s) 0, CHEW TAB Start Date: 09/24/20 Status: OrderedBD SYR UF 1ML 10'S 816172 30G 1/2 BD SYR UF 1ML 10'S 085602 30G 1/2, See Instructions, USE 1 DAILY DIRECTED, # 200 EA, Refills(s) 3, Route to Pharmacy Electronically, Pharmacy: [facility], USE 1 DAILY DIRECTED,100.91, 12/17/20 7:31:00 CDT, kg, Weight Start Date: 01/08/21 Status: Orderedcomfort pen needle 12MM 100 29G 1/2 comfort pen needle 12MM 100 29G 1/2, See Instructions, Comfort Pen Needle 12MM 100 29G 1/2 use to inject insulin TID-QID daily DX E11.9, # 400 EA, Refills(s) 3, Route to Pharmacy Electronically, Pharmacy: [facility], Comfort Pen Nee... Start Date: 04/03/21 Status: Orderedcranberry Refill(s) 0 Start Date: 07/22/20 Status: Orderedcyanocobalamin 1000 mcg/mL injectable solution 1,000 mcg = 1 mL, IM, QMonth, # 3 mL, Refill(s) 3, Pharmacy: [facility], [id number], INJ, 1 mL IM QMonth, 100.91, 12/17/20 7:31:00 CDT, kg, Weight Start Date: 01/16/21 Status: OrdereddilTIAZem 60 mg oral tablet 30 mg = 0.5 tab, By mouth, BID, # 90 tab, Refill(s) 1, Pharmacy: [facility], [id number], TAB, 0.5 tab By mouth BID, 100.91, 12/17/20 7:31:00 CDT, kg, Weight Start Date: 04/03/21 Status: OrderedFlovent HFA 110 mcg/inh inhalation aerosol 2 puff, Inhalation, BID, # 12 g, Refill(s) 0 Start Date: 07/22/20 Status: Orderedfreestyle lite strips 100s freestyle lite strips 100s, See Instructions, use to check blood sugar 5 times/day DX E11.9, # 450 EA, Refills(s) 3, Route to Pharmacy Electronically, Pharmacy: [facility], 10/28/20 3:41pm THIS IS A CHANGE FROM THE ONE SENT EARLIER. P... Start Date: 10/28/20 Status: OrderedHumaLOG KwikPen 100 units/mL injectable solution See Instructions, INJECT 15 UNITS UNDER THE SKIN WITH MEALS , MAY INCREASE DOSE AT DIRECTION OF PHYSICIAN UP TO 30 UNITS, # 15 EA, Refill(s) 1, Pharmacy: [facility], [id number], Instructions Replace Require... Start Date: 04/03/21 Status: OrderedhydroCHLOROthiazide 25 mg oral tablet 25 mg = 1 tab, By mouth, BID, # 180 tab, Refill(s) 1, Pharmacy: [facility], [id number], 1 tab By mouth BID,x90 Days, 100.91, 12/17/20 7:31:00 CDT, kg, Weight Start Date: 04/03/21 Stop Date: 09/30/21 Status: OrderedLanTUS 100 units/mL subcutaneous solution See Instructions, 56 units SubQ Daily, Refill(s) 0, Instructions Replace Required Details Start Date: 07/22/20 Status: Orderedlosartan 100 mg oral tablet 100 mg = 1 tab, By mouth, Daily, # 90 tab, Refill(s) 0 Start Date: 07/22/20 Status: OrderedMiraLax 17 = g, By mouth, Daily, Refill(s) 0 Start Date: 07/22/20 Status: Orderedoxybutynin 5 mg oral tablet = 1 tab, By mouth, TID, # 270 tab, Refill(s) 3, Pharmacy: [facility], [id number], 1 tab By mouth TID, 100.91, 12/17/20 7:31:00 CDT, kg, Weight Start Date: 03/20/21 Status: Orderedpen needles to go with Humalog kwikPen pen needles to go with Humalog kwikPen, See Instructions, use to inject insulin TID DX E11.9, # 270 EA, Refills(s) 1, Route to Pharmacy Electronically, Pharmacy: [facility], RX for humalog kwikpen sent earlier today 07/23/20, use to... Start Date: 07/23/20 Status: OrderedPepcid Refill(s) 0 Start Date: 10/03/20 Status: OrderedProAir HFA 108 (90 mcg base)/inh inhalation aerosol 2 puff, Inhalation, Q4H, for wheezing, # 8.5 g, Refill(s) 0 Start Date: 07/22/20 Status: Orderedsenna 8.6 mg oral tablet 17.2 mg = 2 tab, By mouth, at bedtime, PRN for constipation, # 20 tab, Refill(s) 0 Start Date: 07/22/20 Status: OrderedVitamin C By mouth, Daily, Refill(s) 0 Start Date: 07/22/20 Status: OrderedVitamin D with Minerals oral tablet 1 tab, By mouth, Daily, Refill(s) 0 Start Date: 07/22/20 Status: Ordered Problem List Condition Effective Dates Status Health Status Informant B12 nutritional deficiency(Confirmed) Active diabetes mellitus(Confirmed) Active Elevated transaminase level(Confirmed) Active Essential hypertension(Confirmed) Active Urine incontinence(Confirmed) Active hyperlipidemia(Confirmed) Active hypertension(Confirmed) Active Intermittent asthma without Active complication(Confirmed) Mixed hyperlipidemia(Confirmed) Active Nonalcoholic fatty liver disease Active without nonalcoholic steatohepatitis (SANTIAGO)(Confirmed) Obesity, unspecified(Confirmed) Active OAB (overactive bladder)(Confirmed) Active Drug therapy(Confirmed) Active Left kidney mass(Confirmed) Active Diabetes mellitus type 2 in Active obese(Confirmed) Procedures Procedure Date Related Diagnosis Body Site Status Laparoscopic cholecystectomy 08/05/20 Completed L tibia tendon repair with graft from 06/27/18 Completed small toe tendon rou n y gastric bypass 10/05/16 Compl eted L knee meniscus repair 06/27/14 Compl eted R rotator cuff repair and removal of 06/27/08 Completed bone spurs and tendon repair ventral hernia repair 06/27/92 Comple vanita hysterectomy and bi lateral ophrectomy 06/27/91 Completed turbinet reduction and spetoplasty 06/27/91 Completed L breast bx (negative) 06/27/84 Compl eted c sections x 2 06/27/77 Completed bi lateral carpal tunnel Com pleted tonsilectomy Completed triger finger repairs L middle and R Completed thumb Vital Signs Most recent to oldest [Reference Range]: 1 Blood Pressure 135/72 (04/03/21 11:08 AM) Height (inches) (Clinical) 64 in (04/03/21 11:08 AM) Weight (kg) (Clinical) 102.27 kg (04/03/21 11:08 AM) BMI (Clinical) 38.6 kg/m2 (04/03/21 11:08 AM) Social History Social History Type Response Smoking Status Never smoker; 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 No entered on: 04/03/21 Sex Female
--- OUTSIDE RECORDS SUMMARY | 2022-05-14 15:28 | XMS_ITS | Continuity of Care Document ---
:1950 Author Organization [facility] Address [address] [place] [address]- Care Team Providers Name Role Phone Oneyda Duran DO Primary Care Physician Encounter 08/27/20 - 08/29/20 [facility] [address] [place] [address]- Attending Physician: Rigoberto Benedict MD Allergies, Adverse Reactions, Alerts Substance Reaction Severity Status sulfa drugs Active erythromycin Active lisinopril Active acetaminophen-hydrocodone Active Assessment and Plan Future AppointmentsAppointment Date:10/14/2020 01:00:00 PM Scheduled Provider: Location:[facility] Appointment Type:Lab Appointment Date:10/21/2020 09:00:00 AM Scheduled Provider:Oneyda Duran DO Location:[facility] Appointment Type:Established Patient Future Scheduled TestsLaboratoryHgb A1C 10/22/20RadiologyUS Kidney Bilateral 07/22/20US Abdomen Limited w Liver Elastography 07/22/20 Immunizations Given and Recorded Vaccine Date Status Refusal Reason influenza virus vaccine 04/11/20 Recorded Td - tetanus-diphtheria toxoids 10/27/15 Recorded Prevnar 13 pneumococcal 13-valent 10/16/15 Recorded Zoster Vaccine Live 11/10/10 Recorded Tdap-ADULT/ADOL tetanus/diphth/pertuss,a 11/25/06 Recorde d Pneumovax 23 pneumococcal 23-valent 10/24/06 Recorded Medications cranberry Refill(s) 0 Start Date: 07/22/20 Status: Orderedcyanocobalamin 1000 mcg/mL injectable solution 1,000 mcg = 1 mL, IM, QMonth, # 10 mL, Refill(s) 0 Start Date: 07/22/20 Status: OrdereddilTIAZem 60 mg oral tablet 60 mg = 1 tab, By mouth, BID, Refill(s) 0 Start Date: 07/22/20 Status: OrderedFlovent HFA 110 mcg/inh inhalation aerosol 2 puff, Inhalation, BID, # 12 g, Refill(s) 0 Start Date: 07/22/20 Status: OrderedHumaLOG KwikPen 100 units/mL injectable solution 3 Units, SubQ, with meals, may increase dose at direction of physician, # 3 mL, Refill(s) 0, Pharmacy: [id number], [id number], Novolog may be substituted for insurance reasons or cost. prison RX sent to ma... Start Date: 07/23/20 Status: OrderedhydroCHLOROthiazide 12.5 mg oral tablet 12.5 mg = 1 tab, By mouth, Daily, # 90 tab, Refill(s) 0 Start Date: 07/22/20 Status: OrderedLanTUS 100 units/mL subcutaneous solution See Instructions, 50 units SubQ Daily, Refill(s) 0, Instructions Replace Required Details Start Date: 07/22/20 Status: Orderedlosartan 100 mg oral tablet 100 mg = 1 tab, By mouth, Daily, # 90 tab, Refill(s) 0 Start Date: 07/22/20 Status: OrderedMiraLax 17 = g, By mouth, Daily, Refill(s) 0 Start Date: 07/22/20 Status: Orderedoxybutynin 5 mg oral tablet 5 mg = 1 tab, By mouth, TID, # 90 tab, Refill(s) 0, Pharmacy: [facility], [id number], TAB, fill at client request, 1 tab By mouth TID,x30 Days, 64, 218:30:00 SEWER HEAD, in, 101.36, 07/22/20 8:30:00 SEWER HEAD, kg... Start Date: 07/22/20 Stop Date: 08/21/20 Status: Orderedpen needles to go with Humalog kwikPen pen needles to go with Humalog kwikPen, See Instructions, use to inject insulin TID DX E11.9, # 270 EA, Refills(s) 1, Route to Pharmacy Electronically, Pharmacy: [facility], RX for humalog ezio sent earlier today 07/23/20, use to... Start Date: 07/23/20 Status: OrderedPercocet 5/325 oral tablet 1 tab, By mouth, Q4H, PRN Pain Moderate, 20 tab, 0, 0, Substitution Permitted, [facility] [place], 64, Height, 07/22/20 8:30:00 SEWER HEAD, in, 99, Weight, 08/05/20 5:15:00 SEWER HEAD, kg Start Date: 08/05/20 Status: Orderedpravastatin 80 mg oral tablet 80 mg = 1 tab, By mouth, Daily, # 90 tab, Refill(s) 0 Start Date: 07/22/20 Status: OrderedProAir HFA 108 (90 mcg base)/inh [...] Health Status Informant B12 nutritional deficiency(Confirmed) Active Essential hypertension(Confirmed) Active Urine incontinence(Confirmed) Active Intermittent asthma without Active complication(Confirmed) Mixed hyperlipidemia(Confirmed) Active Nonalcoholic fatty liver disease Active without nonalcoholic steatohepatitis (SANTIAGO)(Confirmed) OAB (overactive bladder)(Confirmed) Active Drug therapy(Confirmed) Active [...] Most recent to oldest [Reference Range]: 1 Height (inches) (Clinical) 64 in (08/27/20 9:50 AM) BMI (Clinical) 0 kg/m2 (08/27/20 9:50 AM) Social History Social History Type Response Smoking Status Never smoker; Smokeless 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 No entered on: 07/13/19 Sex Female
--- OUTSIDE RECORDS SUMMARY | 2022-05-14 15:28 | XMS_ITS | Continuity of Care Document ---
:1950 Author Organization [facility] Address [address] [place] [address]- Care Team Providers Name Role Phone Oneyda Duran DO Primary Care Physician Encounter 10/02/21 - 10/03/[address] [address]- Encounter Diagnosis Body mass index [BMI] 38.0-38.9, adult (Discharge Diagnosis) - 10/02/21 Essential hypertension (Discharge Diagnosis) - 10/02/21 Drug therapy (Discharge Diagnosis) - 10/02/21 Type 2 diabetes mellitus with hyperglycemia (Discharge Diagnosis) - 10/02/21 Mixed hyperlipidemia (Discharge Diagnosis) - 10/02/21 Elevated transaminase level (Discharge Diagnosis) - 10/02/21 OAB (overactive bladder) (Discharge Diagnosis) - 10/02/21 Attending Physician: Oneyda Duran DO Allergies, Adverse Reactions, Alerts Substance Reaction Severity Status sulfa drugs Active erythromycin Active acetaminophen-hydrocodone Active lisinopril Active Assessment and Plan Future AppointmentsAppointment Date:01/14/2022 09:00:00 AM Scheduled Provider: Location:[facility] Appointment Type:Lab Appointment Date:01/21/2022 09:00:00 AM Scheduled Provider:Ariela Leigh NP Location:[facility] Appointment Type:Established Patient Appointment Date:01/21/2022 09:15:00 AM Scheduled Provider: Location:[facility] Appointment Type:Diabetic Education (Established) Appointment Date:04/20/2022 09:30:00 AM Scheduled Provider:Alexandrea Cervantes Location:[facility] Appointment Type:Established Patient Future Scheduled TestsLaboratoryHepatic Function Panel 01/01/22Hgb A1C 01/01/22Hgb A1C 10/18/21T3 Free 01/01/22T4 Free 01/01/22TSH 01/01/22Creatinine 01/01/22CMP 10/18/21 Immunizations Given and Recorded Vaccine Date Status Refusal Reason influenza virus vaccine1 05/14/21 Recorded influenza virus vaccine 04/11/20 Recorded influenza virus vaccine 05/21/19 Recorded COVID-19 SARS-CoV-2 mRNA-1273 Moderna 04/21/21 Recorded COVID-19 SARS-CoV-2 mRNA-1273 Moderna 09/05/20 Recorded COVID-19 SARS-CoV-2 mRNA-1273 Moderna 08/08/20 Recorded tetanus-diphth toxoids (Td) adult/adol 10/27/15 Recorded Prevnar 13 pneumococcal 13-valent 10/16/15 Recorded Zoster Vaccine Live 11/10/10 Recorded Tdap-ADULT/ADOL tetanus/diphth/pertuss,a 11/25/06 Recorde d Pneumovax 23 pneumococcal 23-valent 10/24/06 Recorded 1Result Comment: [05/19/2021] High dose Medications aspirin 81 mg oral tablet, chewable 81 mg = 1 tab, By mouth, Daily, Refill(s) 0, CHEW TAB Start Date: 09/24/20 Status: Orderedbaclofen 10 mg oral tablet 10 mg = 1 tab, By mouth, TID, PRN as needed for muscle spasm, # 90 tab, Refill(s) 0, Pharmacy: [facility] #[id number], [id number], 1 tab By mouth TID,PRN:as needed for mus colin spasm, 102.18, 05/29/21 14:00:00 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, kg, Weight Start Date: 05/29/21 Status: Orderedcranberry Refill(s) 0 Start Date: 07/22/20 Status: Orderedcyanocobalamin 1000 mcg/mL injectable solution 1,000 mcg = 1 mL, IM, QMonth, # 3 mL, Refill(s) 3, Pharmacy: [facility], [id number], INJ, 1 mL IM QMonth, 100.91, 12/17/20 7:31:00 CDT, kg, Weight Start Date: 01/16/21 Status: OrdereddilTIAZem 60 mg oral tablet 30 mg = 0.5 tab, By mouth, BID, # 90 tab, Refill(s) 1, Pharmacy: [facility], [id number], TAB, 0.5 tab By mouth BID, 100.91, 12/17/20 7:31:00 CDT, kg, Weight Start Date: 04/03/21 Status: Orderedempagliflozin 25 mg oral tablet 25 mg = 1 tab, By mouth, Daily, Take 1 tab by mouth daily. E11.65, # 90 tab, Refill(s) 3, Pharmacy: [facility], [id number], 1 tab By mouth Daily,Instr:Take 1 tab by mouth daily. E11.65, 101.82, 10/02/21 8:5... Start Date: 10/02/21 Status: OrderedFlovent HFA 110 mcg/inh inhalation aerosol 2 puff, Inhalation, BID, # 12 g, Refill(s) 0 Start Date: 07/22/20 Status: OrderedHumaLOG KwikPen 100 units/mL injectable solution 15 Units, SUBQ, TIDAC (three times a day before meals), Inject 15 units subQ 3xD with meals. Max daily dose 50 units. 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 E11.65, # 300 EA, Refills(s) 11,Route to Pharmacy Electronically, Pharmacy: [facility], For insulin administration 4xD. E11.65, Supply, 101.82, 10/02/21 8:53:00 CD... Start Date: 10/02/21 Status: OrderedLanTUS 100 units/mL subcutaneous solution 56 Units, SUBQ, at bedtime, Inject 56 units subQ at bedtime. Max daily dose 100 units. E11.65, # 30 mL, Refill(s) 11, other, STEVE, 101.82, 10/02/21 8:53:00 CDT, kg, Weight Start Date: 10/02/21 Status: Orderedlosartan 100 mg oral tablet 100 mg = 1 tab, By mouth, Daily, # 90 tab, Refill(s) 0 Start Date: 07/22/20 Status: OrderedMiraLax 17 = g, By mouth, Daily, Refill(s) 0 Start Date: 07/22/20 Status: Orderedoxybutynin 5 mg oral tablet = 1 tab, By mouth, QID, # 360 tab, Refill(s) 3, Pharmacy: [facility], [id number], 1 tab By mouth QID,x90 Days, 101.82, 10/02/21 11:12:00 CDT, kg, Weight Start Date: 10/02/21 Stop Date: 09/27/22 Status: OrderedPepcid Refill(s) 0 Start Date: 10/03/20 Status: Orderedpravastatin 10 mg oral tablet See Instructions, 1 tab By mouth Daily, not sure of dose, # 90 EA, Refill(s) 0, other, Instructions Replace Required Details Start Date: 06/08/21 Status: OrderedProAir HFA 108 (90 mcg base)/inh inhalation aerosol 2 puff, Inhalation, Q4H, for wheezing, # 8.5 g, Refill(s) 0 Start Date: 07/22/20 Status: Orderedsenna 8.6 mg oral tablet 17.2 mg = 2 tab, By mouth, at bedtime, PRN for constipation, # 20 tab, Refill(s) 0 Start Date: 07/22/20 Status: OrderedTrulicity Pen 3 mg/0.5 mL subcutaneous solution 3 mg, SubQ, QW (once a week), Inject 3mg subQ once WEEKLY. E11.65, # 3 EA, Refill(s) 4, Pharmacy: [facility], [id number], 3 mg SUBQ QW (once a week),Instr:Inject 3mg subQ once WEEKLY. E11.65, 101.82, 10/02/... Start Date: 10/02/21 Status: OrderedVitamin C By mouth, Daily, Refill(s) 0 Start Date: 07/22/20 Status: OrderedVitamin D with Minerals oral tablet 1 tab, By mouth, Daily, Refill(s) 0 Start Date: 07/22/20 Status: Ordered Problem List Condition Effective Dates Status Health Status Informant B12 nutritional deficiency(Confirmed) Active diabetes mellitus(Confirmed) Active Essential hypertension(Confirmed) Active Urine incontinence(Confirmed) Active Type 2 diabetes mellitus with Active hyperglycemia(Confirmed) hyperlipidemia(Confirmed) Active hypertension(Confirmed) Active Intermittent asthma without Active complication(Confirmed) Mixed hyperlipidemia(Confirmed) Active Neck pain on left side(Confirmed) Active Nonalcoholic fatty liver disease Active without nonalcoholic steatohepatitis (SANTIAGO)(Confirmed) Obesity, unspecified(Confirmed) Active OAB (overactive bladder)(Confirmed) Active Drug therapy(Confirmed) Active Left kidney mass(Confirmed) Active Procedures Procedure Date Related Diagnosis Body Site [...] to oldest [Reference Range]: 1 Blood Pressure 118/70 (10/02/21 11:08 AM) Height (inches) (Clinical) 64 in (10/02/21 11:08 AM) Weight (kg) (Clinical) 101.82 kg (10/02/21 11:08 AM) BMI (Clinical) 38.4 kg/m2 (10/02/21 11:08 AM) Social History Social History Type Response Smoking Status Never smoker; 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 No entered on: 10/02/21 Sex Female Goals Lose some weight and get it undercontrol. Start Date: 1 End Date: Status:Met Progression:Not Met
--- OUTSIDE RECORDS SUMMARY | 2022-05-14 15:28 | XMS_ITS | Encounter Summary ---
:1950 Author Organization [facility] Address [address] [place] [address] Care Team Providers Name Role Phone Unavailable Primary Care Provider Unavailable Encounter Details Date Type Department Care Team Description 12/05/2015 Hospital Encounter HX [facility] Heidi Santana M.B., B.Ch. [address] [place] [address] (Wo rk) Social History Tobacco Use Types [...] asked relatives? How often do you attend pentecostal or hindu services? Patien t refused 02/08/2020 Do you belong to any clubs or organizations such as No 02/08/2020 pentecostal groups, unions, fraternal or athletic groups, or [...] Sign Reading Time Taken Comments Blood Pressure 120/60 12/05/2015 1:52 PM CDT Pulse 66 12/05/2015 1:52 PM CDT Temperature - - Respiratory Rate - - Oxygen Saturation - - Inhaled Oxygen Concentration - - Weight 114 kg (251 lb 5.2 oz) 12/05/2015 1:52 PM CDT Height 161.4 cm (5' 3.54) 12/05/2015 1:52 PM CDT Body Mass Index 43.76 12/05/2015 1:52 PM CDT documented in this encounter Medications at Time of Discharge Medication Sig Dispensed Refills Start Date End Date ALBUTEROL SULFATE INHL Inhale 2 puffs as 0 2015 needed. SOB documented as of this encounter Consult Notes Heidi Spaulding M.B., Ch.B. - 12/05/2015 1:24 PM CDT ENDOCONOS CHIEF COMPLAINT/REASON FOR VISIT Uncontrolled diabetes. HISTORY OF PRESENT ILLNESS Mrs. 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 She was diagnosed in 1991 at the age of 42. At that time she was having nasal surgery and had poor healing. She was initiated on oral medications and around that time, started Fen-Phen for weight loss and was able to come off her medications completely. Unfortunately she developed subsequent weight gain and eventually began insulin about 18 years ago. In June of 2014 she started to pursue bariatricsurgery, and underwent a fairly strict regimen with psychological counseling as weekly nutrition visits. She also saw an upholstery technician around October of 2014 and eventually was able to lose 30 pounds and reduce her A1c to 6.4%. She was told by the upholstery technician that she could not eat any carbs at all and she feels that this substantially improved her diabetes, but was not sustainable. She restarted eating carbohydrates again and has since noted an increase in her A1c, most recently to 9.8% in September of 2015. This has been associated with an increase in weight again. Her current regimen includes Lantus 68 units in the morning, NovoLog after meals usually only once or 2 times per day ranging between 15 and 30 units at a time and metformin 1 g 2 times daily which she frequently will to forget the second dose. In 2014 she was also on Victoza for some time but with the weight gain, this was discontinued and she was restarted on NovoLog. She only tests about 2 times per day and this will frequently beafter the meal. She will also often only give NovoLog after the meal as her food intake can be quitevariable. She does admit to significant stress eating as well as excessive portions. She eats out about 3 times per night and will snack if it's there. She will have minimal soda but does enjoy herbal ice tea which is unsweetened. Her main meals are 3 times per day. At 7 a.m. usually eggs, phillips, and sausage; lunch with a sandwich, veggie smoothie, or salad; and supper with a meat and vegetable. She feels that her is supportive. She has minimal exercise but feels that she is generally on the go. She retired from her job 6 to 7 years ago and does not currently use a pedometer. COMPLICATIONS EYE: She denies retinopathy. She is due for an eye exam this year. RENAL: She is on an ARB. She had a negative microalbumin screen in 2016. NEUROLOGIC: No tingling. MACROVASCULAR: She has dyslipidemia with a total cholesterol 86, triglycerides, 203 HDL 44, and LDL of 101. She has recently started on pravastatin but is unclear of the dose. She is hypertensive and admits to lower limb edema as well as heart fluttering for which she takes hydrochlorothiazide, spironolactone, diltiazem, and atenolol. She also takes a daily aspirin. She notes previous stress tests being normal. FEET: Denies any foot sores. OTHER COMORBIDITIES: Include reactive bronchitis, gastroesophageal reflux disease and previous rightshoulder surgery for osteoarthritis. She does admit to snoring but has never been checked for obstructive sleep apnea. Denies depression. She has normal liver function. She notes previous thyroid appears to be normal. Denies fatigue. She has never smoked and only occasionally drinks alcohol. PAST MEDICAL/SURGICAL HISTORY 1. Type 2 diabetes. 2. Dyslipidemia. 3. Hypertension. 4. Reactive bronchitis. 5. Gastroesophageal reflux disease. 6. Osteoarthritis of the right shoulder status post surgery. 7. Cardiac PVCs. FAMILY HISTORY Mother of chronic kidney disease. She was hypertensive and diabetic. She also had heart diseasewithout myocardial infarctions. Father had a coronary artery bypass grafting in his 60s. Brother hastype 2 diabetes, and obesity. Sister had PA at a young age, 56. She is a smoker and diabetic. She has 2 children, her son is obese. PHYSICAL EXAMINATION GENERAL: Miss Crane is pleasant in no acute distress. Obese in a non-cushingoid distribution. HEENT: Oropharynx is normal. No supraclavicular fat pads. THYROID: No discrete nodules. LUNGS: Clear to auscultation bilaterally. CARDIOVASCULAR: Regular rate and rhythm. ABDOMEN: Obese, soft, and nontender. No hepatosplenomegaly. EXTREMITIES: No peripheral edema. Foot exam monofilament is intact bilaterally. Vibration sense is intact. IMPRESSION/REPORT/PLAN 1. Type 2 diabetes, uncontrolled. 2. Hypertension, well controlled. 3. Dyslipidemia. 4. Class 3 obesity. 5. Rule out obstructive sleep apnea. Mrs. Crane certainly has the knowledge available to gain control of her diabetes but she admits to losing motivation over the last few years. In addition, she is finding it very difficult to find a consistent diet or lifestyle regimen that will maintain adequate weight loss. She is very interested inmeeting with our weight loss colleagues in [place] and I have scheduled this today. She would liketo consider some medical management before bariatric surgery. She is concerned about healing and some other complications. She is also interested in some of the newer endoscopic procedures. In the inter im, we did discuss ways to improve her diabetes and I have scheduled her to see our client coordinator as well as ict educator. She does have variability in her diet, I asked her if she prefer to dose her NovoLog through carbohydrate counting. She will discuss this further with our client coordinator and make a decision at that point. I do think that she needs to test more, 4 times per day prior to meals. She should write these down in a log book which I provided to her. In addition, she has not been using a correction scale which I think needs to be added as well. I agree that a carbohydrate-free diet is not sustainable and I think we need to focus on portion size and a more balanced diet. She is also forgetting her metformin frequently and I have therefore given her the extended release portion which she can take altogether in the morning. I do think it would be important for her to have her sleep checked and she will pursue this with her physician at home. I will see Mrs. Crane again in 6 weeks. Forrest Stone, Ch.B./robby Electronically Signed By: HEIDI SPAULDING [facility] On: 01/06/2016 10:49 AM Source: [facility] MHSDOLBEYNONRADSYS Document Id: [id number] documented in this encounter Miscellaneous Notes Miscellaneous - Kemal Jhaveri L.P.N. 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 Peripheral Pulse Rate : 66 /min Systolic Blood Pressure : 120 mmHg Diastolic Blood Pressure : 60 mmHg NIBP Mean : 80 mmHg Height : 161.4 cm(Converted to: 5 ft 4 inch(es), 64 inch(es)) Actual Weight : 114 kg(Converted to: 251 lb 5 oz) Dosing Weight Clinic : 114 kg Clinic BSA : 2.26 Body Mass Index : 43.76 kg/m2 KEMAL JHAVERI LPN - 12/05/2015 13:52 CDT General Info Information Given By : Patient Languages : Bengali Is Patient Female and 13-50 no hysterectomy : No KEMAL JHAVERI LPN - 12/05/2015 13:52 CDT Subjective Pain Symptoms : No KEMAL JHAVERI LPN - 12/05/2015 13:52 CDT Dependent Habits Exposure to Tobacco Smoke : Other: never Smoking Status : Never smoker Tobacco 2A : No Tobacco Use/Currently Using : No Tobacco Use/Last 30 Days : No Tobacco Use/Last 12 months : No KEMAL JHAVERI LPN - 12/05/2015 13:52 CDT Source: [facility] [employer] Document Id: [id number] CDT!25 documented in this encounter Plan of Treatment Not on filedocumented as of this encounter Visit Diagnoses Not on filedocumented in this encounter
--- OUTSIDE RECORDS SUMMARY | 2022-05-14 15:28 | XMS_ITS | Continuity of Care Document ---
:1950 Author Organization [facility] Address [address] [address]- Care Team Providers Name Role Phone Oneyda Duran DO Primary Care Physician Encounter 04/20/22 - 04/21/22 [place] [phone] [facility] [address] [place] [address]- Encounter Diagnosis Body mass index [BMI] 35.0-35.9, adult (Discharge Diagnosis) - 04/20/22 Mixed hyperlipidemia (Discharge Diagnosis) - 04/20/22 Essential hypertension (Discharge Diagnosis) - 04/20/22 B12 nutritional deficiency (Discharge Diagnosis) - 04/20/22 Drug therapy (Discharge Diagnosis) - 04/20/22 Type 2 diabetes mellitus with hyperglycemia (Discharge Diagnosis) - 04/20/22 MAYDA (obstructive sleep apnea) (Discharge Diagnosis) - 04/20/22 History of Geovanna-en-Y gastric bypass (Discharge Diagnosis) - 04/20/22 Intermittent asthma without complication (Discharge Diagnosis) - 04/20/22 Left kidney mass (Discharge Diagnosis) - 04/20/22 Encounter for screening for other disorder (Discharge Diagnosis) - 04/20/22 Other specified health status (Discharge Diagnosis) - 04/20/22 Attending Physician: Alexandrea Cervantes Allergies, Adverse Reactions, Alerts Substance Reaction Severity Status sulfa drugs Active erythromycin Active lisinopril Active acetaminophen-hydrocodone Active Assessment and Plan Extracted from: Title: Chronic health labs review Author: Alexandrea Cervantes Date: 04/20/22 B12 nutritional deficiency(Deficiency o f other specified B group vitamins: E53.8) On B12??replacement??since??her Geovanna-en -Y she has gotten back??on it she??was off of it??for about 2 months Body mass index [BMI] 35.0-35.9, adult( Body mass index [BMI] 35.0-35.9, adult: Z68.35) - BMI (Body Mass Index) is an inexpensi ve and easy way to evaluate for weight health. A result less than 18.5 is classified as underweight, a result of 18.6 to 24.9 is classified as normal weight, a re sult of 25 to 30 is classified as overwe ight, and a result of greater than 30 is classified as obese. - Eat a healthy diet with 5 serving of fruits and vegetables and 3 servings of lean protein a day. - Avoid sugary or sweetened drinks. - Get 30 minutes of moderate-intensity aerobic activity for 30 minutes 5 days a week. ?has lost about 60# from max wt Drug therapy(Other custodial (current) drug therapy: Z79.899) stable Essential hypertension(Essential (prima ry) hypertension: I10) Blood pressure 125/71.?? Stable Labs??were done issues [place]??in January. Creatinine??0.85, GFR??80 Remains on diltiazem, hydrochlorothiazi de, losartan.?? Continue current medication ? 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 Followed??she says is been??stable??for number of years.?? Last CT??was??in . Would like??to do the next CT in??2022 Mixed hyperlipidemia(Mixed hyperlipidem ia: E78.2) On pravastatin.?? No myalgias.?? Last l iver enzymes??in January??AST 19??alkaline phosphatase 13 Cholesterol level From [place] LDL 48 MAYDA (obstructive sleep apnea)(Obstructi ve sleep apnea (adult) (pediatric): G47.33) Reports??is not be??followed??on Male originally??provide??the CPAP.?? H e has??not??been using it Type 2 diabetes mellitus with hyperglyc emia(Type 2 diabetes mellitus with hyperglycemia: E11.65) A1c removed [facility]??in January was? ?7.5.?? Remains??on Humalog with??meals??Lantus??Trulicity and Jardiance Follows??with Endocrinology will see th em??in the week Orders: pravastatin, See Instructions, 1 tab By mouth Daily, not sure of dose, # 90 EA, Refill(s) 3, Pharmacy: [facility], [id number], Instructions Replace Required Details, 1 tab By mouth Daily, not sure of dose, 93.82, 04/20/... Flu shot today will see in 6 months before she returns to [place] for the summer. pt agrees call i f problems ? Future AppointmentsAppointment Date:04/22/2022 09:30:00 AM Scheduled Provider: Location:[facility] Appointment Type:Lab Appointment Date:04/29/2022 09:30:00 AM Scheduled Provider:Dorothy Alcala Location:[facility] Appointment Type:Established Patient Appointment Date:04/29/2022 10:00:00 AM Scheduled Provider: Location:[facility] Appointment Type:Diabetic Education (Established) Appointment Date:10/14/2022 08:30:00 AM Scheduled Provider:Alexandrea Cervantes Location:[facility] Appointment Type:Established Patient Future Scheduled TestsLaboratoryHgb A1C 04/09/22Hgb A1C 10/18/21LDL Direct 04/09/22Creatinine 04/09/22CMP 10/18/21 Immunizations Given and Recorded Vaccine Date Status Refusal Reason influenza virus vaccine 04/20/22 Given influenza virus vaccine1 05/14/21 Recorded influenza virus [...] spasm, # 90 tab, Refill(s) 0, Pharmacy: [id number], [id number], 1 tab By mouth TID,PRN:as needed for mus colin spasm, 102.18, 05/29/21 14:00:00 HOSPITAL DIRECTOR, kg, Weight Start Date: 05/29/21 Status: Orderedcranberry Refill(s) 0 Start Date: 07/22/20 Status: Orderedcyanocobalamin 1000 mcg/mL injectable solution See Instructions, INJECT 1 ML INTO THE MUSCLE EVERY MONTH, # 3 mL, Refill(s) 3, Pharmacy: [facility], [id number], Instructions Replace Required Details, INJECT 1 ML INTO THE MUSCLE EVERY MONTH, 97, 01/07/22... Start Date: 03/29/22 Status: OrdereddilTIAZem 60 mg oral tablet = 0.5 tab, By mouth, BID, # 90 tab, Refill(s) 3, Pharmacy: [facility], [id number], TAKE ONE-HALF (1/2) TABLET TWICE A DAY, 97, 01/07/22 9:08:00 CDT, kg, Weight Start Date: 03/29/22 Status: Orderedempagliflozin 25 mg oral tablet 25 mg = 1 tab, By mouth, Daily, Take 1 tab by mouth daily. E11.65, # 90 tab, Refill(s) 3, Pharmacy: [facility], [id number], 1 tab By mouth Daily,Instr:Take 1 tab [...] 10/02/21 Status: OrderedhydroCHLOROthiazide 25 mg oral tablet = 1 tab, By mouth, BID, # 180 tab, Refill(s) 3, Pharmacy: [facility], [id number], TAKE 1 TABLET TWICE A DAY, 97, 01/07/22 9:08:00 CDT, kg, Weight Start Date: 03/29/22 Status: OrderedInsulin syringes Insulin syringes, See Instructions, For insulin administration 4xD. E11.65, # 300 EA, Refills(s) 11,Route to Pharmacy Electronically, Pharmacy: [facility], For insulin administration 4xD. E11.65, Supply, 101.82, 10/02/21 8:53:00 CD... Start Date: 10/02/21 Status: OrderedLanTUS 100 units/mL subcutaneous solution 50 Units, SUBQ, at bedtime, Inject 50 units subQ at bedtime. Max daily dose 75 units. E11.65, # 30 mL, Refill(s) 17, Pharmacy: [facility], [id number], 101.82, 10/02/21 11:12:00 CDT, kg, Weight Start Date: 10/10/21 Status: Orderedlosartan 100 mg oral tablet = 1 tab, By mouth, Daily, # 90 tab, Refill(s) 3, Pharmacy: [facility], [id number], 1 tab By mouth Daily, 97, 01/07/22 9:08:00 CDT, kg, Weight Start Date: 03/29/22 Status: OrderedMiraLax 17 = g, By mouth, Daily, Refill(s) 0 Start Date: 07/22/20 Status: Orderedoxybutynin 5 mg oral tablet = 1 tab, By mouth, QID, # 360 tab, Refill(s) 3, Pharmacy: [facility], [id number], 1 tab By mouth QID,x90 Days, 101.82, 10/02/21 11:12:00 CDT, kg, Weight Start Date: 10/02/21 Stop Date: 09/27/22 Status: OrderedPepcid Refill(s) 0 Start Date: 10/03/20 Status: Orderedpravastatin 10 mg oral tablet See Instructions, 1 tab By mouth Daily, not sure of dose, # 90 EA, Refill(s) 3, Pharmacy: [facility], [id number], Instructions Replace Required Details, 1 tab By mouth Daily, not sure of dose, 93.82, 04/20/... Start Date: 04/20/22 Status: OrderedProAir HFA 108 (90 mcg base)/inh [...] E11.65, # 3 EA, Refill(s) 4, Pharmacy: [facility], [id number], 3 mg SUBQ QW (once a week),Instr:Inject 3mg subQ once WEEKLY. E11.65, 101.82, 10/02/... Start Date: 10/02/21 Status: OrderedVitamin C By mouth, Daily, Refill(s) 0 Start Date: 07/22/20 Status: OrderedVitamin D with Minerals oral tablet 1 tab, By mouth, Daily, Refill(s) 0 Start Date: 07/22/20 Status: Ordered Problem List Condition Confirmation Course Effective Dates Status Health I nformant Status B12 nutritional Confirmed Active deficiency diabetes mellitus Confirmed Active Essential Confirmed Active hypertension Urine incontinence Confirmed Active History of Geovanna-en-Y Confirmed Active gastric bypass Type 2 diabetes Confirmed Active mellitus with hyperglycemia hyperlipidemia Confirmed Active hypertension Confirmed Active Intermittent asthma Confirmed Active without complication Mixed hyperlipidemia Confirmed Active Neck pain on left Confirmed Active side Nonalcoholic fatty Confirmed Active liver disease without nonalcoholic steatohepatitis ([place]) Obesity, unspecified Confirmed Active MAYDA (obstructive Confirmed Active sleep apnea) OAB (overactive Confirmed Active bladder) Drug therapy Confirmed Active Left kidney mass Confirmed Active Procedures Procedure Date Related Diagnosis Body [...] to oldest [Reference Range]: 1 Blood Pressure 125/71 (04/20/22 9:44 AM) Height (inches) (Clinical) 64 in (04/20/22 9:44 AM) Weight (kg) (Clinical) 93.82 kg (04/20/22 9:44 AM) BMI (Clinical) 35.4 kg/m2 (04/20/22 9:44 AM) Social History Social History Type Response Smoking Status Never smoker; 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 No entered on: 10/02/21 Sex Female Goals Lose some weight and get it undercontrol. Start Date: 1 End Date: Status:Met Progression:Not Met Patient Care team information PersonnelName: Oneyda Duran DO Address: Address: [address] [place] [address] [place]
--- OUTSIDE RECORDS SUMMARY | 2022-05-14 15:28 | XMS_ITS | Continuity of Care Document ---
:1950 Author Organization [facility] Address [address] [address]- Care Team Providers Name Role Phone Oneyda Duran DO Fly Primary Care Physician Encounter 12/17/20 - 12/19/[address] [address]- Encounter Diagnosis Body mass index [BMI] 38.0-38.9, adult (Discharge Diagnosis) - 12/17/20 Cervical pain (neck) (Discharge Diagnosis) - 12/17/20 Attending Physician: Kalpana Esquivel Allergies, Adverse Reactions, Alerts Substance Reaction Severity Status sulfa drugs Active erythromycin Active lisinopril Active acetaminophen-hydrocodone Active Assessment and Plan Extracted from: Title: Neck pain Author: Kalpana Esquivel Date: 11/26 09/14 Impression and Plan Plan: You will be treated with Flexeril and prednisone for neck pain. We also reviewed other supportive care including exercises as provided. I recommend avoiding any heavy lifting, excessive bending or twisting, or other aggravating activiti es. Please call or return if your symptoms worsen, any neurological changes, or with any other concerns.Precautions given, Discussed risks and benefits of new med ication, Educated on typical course of i llness. If pain continues or increases go to the UC or F/U with PCP for further workup. Pt understands the above and agrees with plan of care. Patient instructed on indications for use of new medication , proper administration and potential side effects. Patient Instructions: Neck Exercises. Counseled: Patient, Regarding diagnosis , Regarding treatment, Regarding medications, Activity, Verbalized understanding. Orders Orders (Selected) Prescriptions Prescribed cyclobenzaprine 10 mg oral tablet: 10 mg = 1 tab, By mouth, TID, PRN for spasm, # 30 tab, Refill(s) 0, Pharmacy: [facility] #[id number], [id number], 1 tab By mouth TID,PRN :for spasm, 100.91, 12/17/20 7:31:00 CDT , kg, Weight predniSONE 10 mg oral tablet: See Instru ctions, 3 tabs once a day for 3 days, 2 tabs once a day for 3 days, 1 tab once a day for 3 days, 1/2 tab once a day for 4 days., # 20 tab, Refill(s) 0, Pharmacy: [facility] #[id number], [id number], Instructions.... Future AppointmentsAppointment Date:03/30/2021 11:45:00 AM Scheduled Provider: Location:[facility] Appointment Type:Lab Appointment Date:04/03/2021 11:00:00 AM Scheduled Provider:Oneyda Duran DO Location:[facility] Appointment Type:Established Patient Future Scheduled TestsRadiologyUS Kidney [...] 0, CHEW TAB Start Date: 09/24/20 Status: Orderedcranberry Refill(s) 0 Start Date: 07/22/20 Status: Orderedcyanocobalamin 1000 mcg/mL injectable solution 1,000 mcg = 1 mL, IM, QMonth, # 10 mL, Refill(s) 0 Start Date: 07/22/20 Status: Orderedcyclobenzaprine 10 mg oral tablet 10 mg = 1 tab, By mouth, TID, PRN for spasm, # 30 tab, Refill(s) 0, Pharmacy: [facility] #[id number], [id number], 1 tab By mouth TID,PRN:for spasm, 100.91, 12/17/20 7:31:00 CDT, kg, Weight Start Date: 12/17/20 Status: OrdereddilTIAZem 60 mg oral tablet 30 mg = 0.5 tab, By mouth, BID, Refill(s) 0 Start Date: 07/22/20 Status: OrderedFlovent HFA 110 mcg/inh inhalation aerosol 2 puff, Inhalation, BID, # 12 g, Refill(s) 0 Start Date: 07/22/20 Status: Orderedfreestyle lite strips 100s freestyle lite strips 100s, See Instructions, use to check blood sugar 5 times/day DX E11.9, # 450 EA, Refills(s) 3, Route to Pharmacy Electronically, Pharmacy: [facility], 10/28/20 3:41pm THIS IS A CHANGE FROM THE ONE SENT EARLIER. P... Start Date: 10/28/20 Status: OrderedHumaLOG KwikPen 100 units/mL injectable solution 15 Units, SubQ, with meals, may increase dose at direction of physician, # 15 mL, Refill(s) 1, Pharmacy: [facility], [id number], Novolog may be substituted for insurance reasons or cost. This is a new dose... 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 Start Date: 07/22/20 Stop Date: 08/21/20 Status: Orderedpen needles to go with Humalog kwikPen pen needles to go with Humalog kwikPen, See Instructions, use to inject insulin TID DX E11.9, # 270 EA, Refills(s) 1, Route to Pharmacy Electronically, Pharmacy: [facility], RX for humalog kwikpen sent earlier today 07/23/20, use to... Start Date: 07/23/20 Status: OrderedPepcid Refill(s) 0 Start Date: 10/03/20 Status: OrderedpredniSONE 10 mg oral tablet See Instructions, 3 tabs once a day for 3 days, 2 tabs once a day for 3 days, 1 tab once a day for 3days, 1/2 tab once a day for 4 days., # 20 tab, Refill(s) 0, Pharmacy: [facility] #[id number], [id number], Instructions... 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 No entered on: 12/17/20 Sex Female Hospital Discharge Instructions Patient Bvvuhqigu20/23/2021 07:55:05Neck ExercisesNeck Exercises Ask your health care provider which exercises are safe for you. Do exercises exactly as told by yourhealth care provider and adjust them as directed. It is normal to feel mild stretching, pulling, tightness, or discomfort as you do these exercises. Stop right away if you feel sudden pain or your paingets worse. Do not begin these exercises until told by your health care provider. Neck exercises can be important for many reasons. They can improve strength and maintain flexibilityin your neck, which will help your upper back and prevent neck pain. Stretching exercises Rotation neck stretching 1. Sit in a chair or stand up. 2. Place your feet flat on the floor, shoulder width apart. 3. Slowly turn your head (rotate) to the right until a slight stretch is felt. Turn it all the way to the right so you can look over your right shoulder. Do not tilt or tip your head. 4. Hold this position for 10???30 seconds. 5. Slowly turn your head (rotate) to the left until a slight stretch is felt. Turn it all the way tothe left so you can look over your left shoulder. Do not tilt or tip your head. 6. Hold this position for 10???30 seconds. Repeat times. Complete this exercise times a day. Neck retraction 1. Sit in a sturdy chair or stand up. 2. Look straight ahead. Do not bend your neck. 3. Use your fingers to push your chin backward (retraction). Do not bend your neck for this movement. Continue to face straight ahead. If you are doing the exercise properly, you will feel a slight sensation in your throat and a stretch at the back of your neck. 4. Hold the stretch for 1???2 seconds. Repeat times. Complete this exercise times a day. Strengthening exercises Neck press 1. Lie on your back on a firm bed or on the floor with a pillow under your head. 2. Use your neck muscles to push your head down on the pillow and straighten your spine. 3. Hold the position as well as you can. Keep your head facing up (in a neutral position) and your chin tucked. 4. Slowly count to 5 while holding this position. Repeat times. Complete this exercise times a day. Isometrics These are exercises in which you strengthen the muscles in your neck while keeping your neck still (isometrics). 1. Sit in a supportive chair and place your hand on your forehead. 2. Keep your head and face facing straight ahead. Do not flex or extend your neck while doing isometrics. 3. Push forward with your head and neck while pushing back with your hand. Hold for 10 seconds. 4. Do the sequence again, this time putting your hand against the back of your head. Use your head and neck to push backward against the hand pressure. 5. Finally, do the same exercise on either side of your head, pushing sideways against the pressure of your hand. Repeat times. Complete this exercise times a day. Prone head lifts 1. Lie face-down (prone position), resting on your elbows so that your chest and upper back are raised. 2. Start with your head facing downward, near your chest. Position your chin either on or near your chest. 3. Slowly lift your head upward. Lift until you are looking straight ahead. Then continue lifting your head as far back as you can comfortably stretch. 4. Hold your head up for 5 seconds. Then slowly lower it to your starting position. Repeat times. Complete this exercise times a day. Supine head lifts 1. Lie on your back (supine position), bending your knees to point to the ceiling and keeping your feet flat on the floor. 2. Lift your head slowly off the floor, raising your chin toward your chest. 3. Hold for 5 seconds. Repeat times. Complete this exercise times a day. Scapular retraction 1. Stand with your arms at your sides. Look straight ahead. 2. Slowly pull both shoulders (scapulae) backward and downward (retraction) until you feel a stretchbetween your shoulder blades in your upper back. 3. Hold for 10???30 seconds. 4. Relax and repeat. Repeat times. Complete this exercise times a day. Contact a health care provider if: ??? Your neck pain or discomfort gets much worse when you do an exercise. ??? Your neck pain or discomfort does not improve within 2 hours after you exercise. If you have any of these problems, stop exercising right away. Do not do the exercises again unless your health care provider says that you can. Get help right away if: ??? You develop sudden, severe neck pain. If this happens, stop exercising right away. Do not do the exercises again unless your health care provider says that you can. This information is not intended to replace advice given to you by your health care provider. Make sure you discuss any questions you have with your health care provider. Document Revised: 04/11/2019 Document Reviewed: 04/11/2019 Elsevier Patient Education ?? 2020 [employer] Inc[employer]
[2022-05-14 15:29] LABS: Calcium* 10.4 mg/dL (8.4-10.6); Glucose* 92 mg/dL (60-115); Magnesium* 1.9 mg/dL (1.5-2.6)
--- OUTSIDE RECORDS SUMMARY | 2022-05-14 15:29 | XMS_ITS | Continuity of Care Document ---
:1950 Author Organization [facility] Address [address] [place] [address]- Care Team Providers Name Role Phone Oneyda Duran DO Primary Care Physician Encounter Minor Financial Number [id number] Date(s): 04/22/22 - 04/24/22 [facility] [address] [place], [place] [address] [phone] Attending Physician: Dorothy Alcala Allergies, Adverse Reactions, Alerts Substance Reaction Severity Status sulfa drugs Active erythromycin Active acetaminophen-hydrocodone Active lisinopril Active Assessment and Plan Future AppointmentsAppointment Date:04/29/2022 09:30:00 AM Scheduled Provider:Dorothy Alcala [facility]ablished Patient Appointment Date:04/29/2022 10:00:00 AM Scheduled Provider: Location: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 Start Date: 03/29/22 Status: OrdereddilTIAZem 60 mg oral tablet = 0.5 tab, By mouth, BID, # 90 tab, Refill(s) 3, Pharmacy: [facility], [id number], TAKE ONE-HALF (1/2) TABLET TWICE A DAY, 97, 01/07/22 9:08:00 CDT, kg, Weight Start Date: 03/29/22 Status: Orderedempagliflozin 25 mg oral tablet 25 mg = 1 tab, By mouth, Daily, Take 1 tab by mouth daily. E11.65, # 90 tab, Refill(s) 3, Pharmacy: [facility], [id number], 1 tab By mouth Daily,Instr:Take 1 tab [...] BID, # 180 tab, Refill(s) 3, Pharmacy: [facility], [id number], TAKE 1 TABLET TWICE A DAY, 97, 01/07/22 9:08:00 CDT, kg, Weight Start Date: 03/29/22 Status: OrderedInsulin syringes Insulin syringes, See Instructions, For insulin administration 4xD. E11.65, # 300 EA, Refills(s) 11,Route to Pharmacy Electronically, Pharmacy: [facility], For insulin administration 4xD. E11.65, Supply, 101.82, 10/02/21 8:53:00 CD... Start Date: 10/02/21 Status: OrderedLanTUS 100 units/mL subcutaneous solution 50 Units, SUBQ, at bedtime, Inject 50 units subQ at bedtime. Max daily dose 75 units. E11.65, # 30 mL, Refill(s) 17, Pharmacy: [facility], [id number], 101.82, 10/02/21 11:12:00 CDT, kg, Weight Start Date: 10/10/21 Status: Orderedlosartan 100 mg oral tablet = 1 tab, By mouth, Daily, # 90 tab, Refill(s) 3, Pharmacy: [facility], [id number], 1 tab By mouth Daily, 97, 01/07/22 9:08:00 CDT, kg, Weight Start Date: 03/29/22 Status: OrderedMiraLax 17 = g, By mouth, Daily, Refill(s) 0 Start Date: 07/22/20 Status: Orderedoxybutynin 5 mg oral tablet = 1 tab, By mouth, QID, # 360 tab, Refill(s) 3, Pharmacy: [facility], [id number], 1 tab By mouth QID,x90 Days, 101.82, 10/02/21 11:12:00 CDT, kg, Weight Start Date: 10/02/21 Stop Date: 09/27/22 Status: OrderedPepcid Refill(s) 0 Start Date: 10/03/20 Status: Orderedpravastatin 10 mg oral tablet 10 mg = 1 tab, By mouth, at bedtime, # 90 tab, Refill(s) 3, Pharmacy: [facility],[id number], 1 tab By mouth at bedtime, 93.82, 04/20/22 9:47:00 CDT, kg, Weight Start Date: 04/22/22 Status: OrderedProAir HFA 108 (90 mcg base)/inh [...] E11.65, # 3 EA, Refill(s) 4, Pharmacy: [facility], [id number], 3 mg SUBQ QW (once a week),Instr:Inject [...] repairs L middle and R Completed thumb Social History Social History Type Response Smoking Status Never smoker; 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 No entered on: 10/02/21 Sex Female Goals Lose some weight and get it undercontrol. Start Date: End Date: Status:Met Progression:Not Met Patient Care team information PersonnelName: Oneyda Duran DO Address: Address: [address] [place] [id number] [place]
--- OUTSIDE RECORDS SUMMARY | 2022-05-14 15:29 | XMS_ITS | Continuity of Care Document ---
:1950 Author Organization [facility] Address [address] [address]- Care Team Providers Name Role Phone Oneyda Duran DO Primary Care Physician Encounter 09/28/21 - 09/29/[address] [address] Attending Physician: NO REF PHYS, NO REF PHYS Allergies, Adverse Reactions, Alerts Substance Reaction Severity Status sulfa drugs Active erythromycin Active acetaminophen-hydrocodone Active lisinopril Active Assessment and Plan Future AppointmentsAppointment Date:10/02/2021 09:00:00 AM Scheduled Provider:Ariela Leigh NP Location:[facility] Appointment Type:Established Patient Appointment Date:10/02/2021 11:00:00 AM Scheduled Provider:Oneyda Duran DO Location:[facility] Appointment Type:Established Patient Future Scheduled TestsLaboratoryHgb A1C 10/18/21CMP 10/18/21 Immunizations Given and Recorded Vaccine Date Status Refusal Reason influenza virus vaccine1 05/14/21 Recorded influenza virus vaccine 04/11/20 Recorded tetanus-diphth toxoids (Td) adult/adol 10/27/15 Recorded [...] spasm, # 90 tab, Refill(s) 0, Pharmacy: [facility] #[id number], [id number], 1 tab By mouth TID,PRN:as needed for mus colin spasm, 102.18, 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, kg, 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 Start Date: 05/29/21 Status: OrderedBD SYR UF 1ML 10'S 904561 30G 1/2 BD SYR UF 1ML 10'S 397695 30G 1/2, See Instructions, USE 1 DAILY DIRECTED, # 200 EA, Refills(s) 3, Route to Pharmacy Electronically, Pharmacy: [facility], USE 1 DAILY DIRECTED,100.91, 12/17/20 7:31:00 CDT, kg, Weight Start Date: 01/08/21 Status: Orderedcomfort pen needle 12MM 100 29G 1/2 comfort pen needle 12MM 100 29G 1/2, See Instructions, Comfort Pen Needle 12MM 100 29G 1/2 use to inject insulin TID-QID daily DX E11.9, # 400 EA, Refills(s) 3, Route to Pharmacy Electronically, Pharmacy: [facility], Comfort Pen Nee... Start Date: 07/20/21 Status: Orderedcranberry Refill(s) 0 Start Date: 07/22/20 Status: Orderedcyanocobalamin 1000 mcg/mL injectable solution 1,000 mcg = 1 mL, IM, QMonth, # 3 mL, Refill(s) 3, Pharmacy: [facility], [id number], INJ, 1 mL IM QMonth, 100.91, 12/17/20 7:31:00 CDT, kg, Weight Start Date: 01/16/21 Status: OrdereddilTIAZem 60 mg oral tablet 30 mg = 0.5 tab, By mouth, BID, # 90 tab, Refill(s) 1, Pharmacy: [facility], [id number], TAB, 0.5 tab By mouth BID, 100.91, 12/17/20 7:31:00 CDT, kg, Weight Start Date: 04/03/21 Status: OrderedFlovent HFA 110 mcg/inh inhalation aerosol 2 puff, Inhalation, BID, # 12 g, Refill(s) 0 Start Date: 07/22/20 Status: OrderedFreestyle Lambert 2 reader Freestyle Lambert 2 reader, See Instructions, test BG 4 times daily, ICD E11.65, takes insulin., # 1 EA, Refills(s) 1, Route to Pharmacy Electronically, Pharmacy: [facility], test BG 4times daily, ICD E11.65, takes insulin., Supply,... Start Date: 07/20/21 Status: OrderedFreestyle Lambert 2 sensors Freestyle Labmert 2 sensors, See Instructions, test BG 4 times daily, ICD E11.649, taks insulin, # 6 EA, Refills(s) 3, Route to Pharmacy Electronically, Pharmacy: [facility], test BG 4times daily, ICD E11.649, taks insulin, Supply, 1... Start Date: 07/20/21 Status: Orderedfreestyle lite strips 100s freestyle lite strips 100s, See Instructions, use to check blood sugar 5 times/day DX E11.9, # 450 EA, Refills(s) 3, Route to Pharmacy Electronically, Pharmacy: [facility], 10/28/20 3:41pm THIS IS A CHANGE FROM THE ONE SENT EARLIER. P... Start Date: 10/28/20 Status: OrderedHumaLOG KwikPen 100 units/mL injectable solution See Instructions, INJECT 15 UNITS UNDER THE SKIN WITH MEALS , MAY INCREASE DOSE AT DIRECTION OF PHYSICIAN UP TO 30 UNITS, # 15 EA, Refill(s) 1, Pharmacy: [facility], [id number], Instructions Replace Require... 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 Daily max dose 62 units. E11.65, # 10 mL, Refill(s) 11, Pharmacy: [facility], [id number], Instructions Replace Required Details, STEVE, 12 units QA... 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 No entered on: 06/03/21 Sex Female Goals Lose some weight and get it undercontrol. Start Date: End Date: Status:Met Progression:Not Met
--- OUTSIDE RECORDS SUMMARY | 2022-05-14 15:29 | XMS_ITS | Continuity of Care Document ---
:1950 Author Organization Address [address] [place] [address]- Care Team Providers Name Role Phone Oneyda Duran DO Primary Care Physician Encounter Minor Financial Number [id number] Date(s): 12/31/21 - 01/02/[address] [place], [place] [address] [phone] Encounter Diagnosis Type 2 diabetes mellitus with hyperglycemia (Discharge Diagnosis) - 12/31/21 Essential hypertension (Discharge Diagnosis) - 12/31/21 Mixed hyperlipidemia (Discharge Diagnosis) - 12/31/21 Discharge Disposition: .Discharge to Home (Routine) Attending Physician: Ariela Leigh NP Allergies, Adverse Reactions, Alerts Substance Reaction Severity Status sulfa drugs Active erythromycin Active lisinopril Active acetaminophen-hydrocodone Active Assessment and Plan Future AppointmentsAppointment Date:01/07/2022 09:00:00 AM Scheduled Provider:Ariela Leigh NP Location:[facility] Appointment Type:Established Patient Appointment Date:01/07/2022 09:15:00 AM Scheduled Provider: Location:[facility] Appointment Type:Diabetic Education (Established) Appointment Date:04/20/2022 09:30:00 AM Scheduled Provider:Alexandrea Cervantes Location:[facility] Appointment Type:Established Patient Future Scheduled TestsLaboratoryHgb A1C [...] spasm, # 90 tab, Refill(s) 0, Pharmacy: [facility] #[id number], [id number], 1 tab By mouth TID,PRN:as needed for mus colin spasm, 102.18, 05/29/21 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 Start Date: 12/24/21 Status: OrdereddilTIAZem 60 mg oral tablet 30 mg = 0.5 tab, By mouth, BID, # 14 tab, Refill(s) 0, Pharmacy: [facility] #[id number], [id number], TAB, 0.5 tab By mouth BID, 101.82, 10/02/21 11:12:00 CDT, kg, Weight Start Date: 12/24/21 Status: Orderedempagliflozin 25 mg oral tablet 25 mg = 1 tab, By mouth, Daily, Take 1 tab by mouth daily. 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 E11.65, # 300 EA, Refills(s) 11,Route to Pharmacy Electronically, Pharmacy: [facility], For insulin administration 4xD. E11.65, Supply, 101.82, 10/02/21 8:53:00 CD... Start Date: 10/02/21 Status: OrderedLanTUS 100 units/mL subcutaneous solution 56 Units, SUBQ, at bedtime, Inject 56 units subQ at bedtime. Max daily dose 75 units. E11.65, # 30 mL, Refill(s) 17, Pharmacy: [facility], [id number], 56 Units SUBQ at bedtime,Instr:Inject 56 units subQ at... Start Date: 10/10/21 Status: Orderedlosartan 100 mg oral tablet 100 mg = 1 tab, By mouth, Daily, # 90 tab, Refill(s) 0 Start Date: 07/22/20 Status: OrderedMiraLax 17 = g, By mouth, Daily, Refill(s) 0 Start Date: 07/22/20 Status: Orderedoxybutynin 5 mg oral tablet = 1 tab, By mouth, QID, # 360 tab, Refill(s) 3, Pharmacy: [facility], [id number], 1 tab By mouth QID,x90 Days, 101.82, [...] E11.65, # 3 EA, Refill(s) 4, Pharmacy: [facility], [id number], 3 mg SUBQ QW (once a week),Instr:Inject [...] repairs L middle and R Completed thumb Results Laboratory List Name Date Creatinine 12/31/21 Hepatic Function Panel (Liver function Panel) 12/31/21 Hgb A1C (Glyc Hgb) 12/31/21 T3 Free 12/31/21 T4 Free 12/31/21 TSH 12/31/21 Most recent to oldest [Reference Range]: [address] Glucose 166 mg/dL *NA* (12/31/21 9:17 AM) Creatinine [0.51-0.95 mg/dL] 0.79 mg/dL (12/31/21 9:17 AM) Bilirubin, Total [0.2-1.0 mg/dL] 0.4 mg/dL (12/31/21 9:17 AM) Bilirubin, Direct [<=0.2 mg/dL] 0.2 mg/dL (12/31/21 9:17 AM) Bilirubin, Indirect [0.0-0.7 mg/dL] 0.2 mg/dL (12/31/21 9:17 AM) Protein Total [6.4-8.5 g/dL] 6.7 g/dL (12/31/21 9:17 AM) Albumin [3.4-5.0 g/dL] 3.3 g/dL *LOW* (12/31/21 9:17 AM) AST [15-37 U/L] 20 U/L (12/31/21 9:17 AM) Alk Phos [45-117 U/L] 112 U/L (12/31/21 9:17 AM) T3 Free Serum pg/mL [2.30-4.20 pg/mL] 3.05 pg/mL (12/31/21 9:17 AM) ALT [10-49 U/L] 15 U/L (12/31/21 9:17 AM) HgbA1c [4.20-6.40 %] 7.40 % *HI* (12/31/21 9:17 AM) T4 Free [0.89-1.76 ng/dL] 1.14 ng/dL (12/31/21 9:17 AM) TSH [0.358-3.740 uIU/mL] 2.574 uIU/mL (12/31/21 9:17 AM) eGFR [>=60 mL/min/1.73 m2] 72 mL/min/1.73 m2 (12/31/21 9:17 AM) eGFR if [>=60 mL/min/1.73 m2] 87 mL/m in/1.73 m2 (12/31/21 9:17 AM) Social History Social History Type Response Smoking Status Never smoker; 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 No entered on: 10/02/21 Sex Female Goals Lose some weight and get it undercontrol. Start Date: 1 End Date: Status:Met Progression:Not Met
--- OUTSIDE RECORDS SUMMARY | 2022-05-14 15:29 | XMS_ITS | Continuity of Care Document ---
:1950 Author Organization [facility] Address [address] [place] [address]- Care Team Providers Name Role Phone Oneyda Duran DO Primary Care Physician Encounter 03/30/21 - 03/31/[address] [address] Attending Physician: Oneyda Duran DO Allergies, Adverse Reactions, Alerts Substance Reaction Severity Status sulfa drugs Active erythromycin Active lisinopril Active acetaminophen-hydrocodone Active Assessment and Plan Future AppointmentsAppointment Date:04/03/2021 11:00:00 AM Scheduled Provider:Oneyda Duran DO Location:[facility] Appointment Type:Established Patient Future Scheduled TestsRadiologyUS Kidney [...] 09/24/20 Status: OrderedBD SYR UF 1ML 10'S 071032 30G /2 BD SYR UF 1ML 10'S 669499 30G 1/2, See Instructions, USE 1 DAILY DIRECTED, # 200 EA, Refills(s) 3, Route to Pharmacy Electronically, Pharmacy: [facility], USE 1 DAILY DIRECTED,100.91, 12/17/20 7:31:00 CDT, kg, Weight Start Date: 01/08/21 Status: Orderedcranberry Refill(s) 0 Start Date: 07/22/20 Status: Orderedcyanocobalamin 1000 mcg/mL injectable solution 1,000 mcg = 1 mL, IM, QMonth, # 3 mL, Refill(s) 3, Pharmacy: [facility], [id number], INJ, 1 mL IM QMonth, 100.91, 12/17/20 7:31:00 CDT, kg, Weight Start Date: 01/16/21 Status: Orderedcyclobenzaprine 10 mg oral tablet 10 mg = 1 tab, By mouth, TID, PRN for spasm, # 30 tab, Refill(s) 0, Pharmacy: [facility] #[id number], [id number], 1 tab By mouth TID,PRN:for spasm, 100.91, [...] Refills(s) 3, Route to Pharmacy Electronically, Pharmacy: [facility], 10/28/20 3:41pm THIS IS A CHANGE FROM THE ONE SENT EARLIER. P... Start Date: 10/28/20 Status: OrderedHumaLOG KwikPen 100 units/mL injectable solution See Instructions, INJECT 15 UNITS UNDER THE SKIN WITH MEALS , MAY INCREASE DOSE AT DIRECTION OF PHYSICIAN UP TO 30 UNITS, # 15 mL, Refill(s) 2, Pharmacy: [facility], [id number], Instructions Replace Require... Start Date: 03/27/21 Status: OrderedhydroCHLOROthiazide 25 mg oral tablet 25 mg = 1 tab, By mouth, BID, # 180 tab, Refill(s) 1, Pharmacy: [facility], [id number], 1 tab By mouth BID,x90 Days, 100.91, 12/17/20 7:31:00 CDT, kg, Weight Start Date: 03/27/21 Stop Date: 09/23/21 Status: OrderedLanTUS 100 units/mL subcutaneous solution See [...] TID, # 270 tab, Refill(s) 3, Pharmacy: [facility], [id number], 1 tab By mouth TID, 100.91, 12/17/20 7:31:00 CDT, kg, Weight Start Date: 03/20/21 Status: Orderedpen needles to go with Humalog kwikPen pen needles to go with Humalog kwikPen, See Instructions, use to inject insulin TID DX E11.9, # 270 EA, Refills(s) 1, Route to Pharmacy Electronically, Pharmacy: [facility], RX for humalog kwikpen sent [...] days., # 20 tab, Refill(s) 0, Pharmacy: [facility] #[id number], [id number], Instructions... Start Date: 12/17/20 Status: OrderedProAir HFA 108 (90 mcg base)/inh inhalation aerosol 2 puff, Inhalation, Q4H, for wheezing, # 8.5 g, Refill(s) 0 Start Date: 07/22/20 Status: Orderedsenna 8.6 mg oral tablet 17.2 mg = 2 tab, By mouth, at bedtime, PRN for constipation, # 20 tab, Refill(s) 0 Start Date: 07/22/20 Status: OrderedSURE COMFORT PEN UMA 12MM 100 29G 1/2 SURE COMFORT PEN UMA 12MM 100 29G 06/28, See Instructions, USE TO INJECT INSULIN 3 TIMES A DAY, # 300 EA, Refills(s) 3, Route to Pharmacy Electronically, Pharmacy: [facility], USE TO INJECT INSULIN 3 TIMES A DAY, 100.91, 12/17/20 7:31... 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 No entered on: 12/17/20 Sex Female
--- OUTSIDE RECORDS SUMMARY | 2022-05-14 15:29 | XMS_ITS | Continuity of Care Document ---
:1950 Author Organization [facility] Address [address] [place] [address]- Care Team Providers Name Role Phone Oneyda Duran DO Primary Care Physician Encounter 10/03/20 - 10/05/[address] [address]- Encounter Diagnosis Body mass index [BMI] 37.0-37.9, adult (Discharge Diagnosis) - 10/03/20 Elevated transaminase level (Discharge Diagnosis) - 10/03/20 Nonalcoholic fatty liver disease without nonalcoholic steatohepatitis (SANTIAGO) (Discharge Diagnosis) - 10/03/20 Diabetes mellitus type 2 in obese (Discharge Diagnosis) - 10/03/20 Essential hypertension (Discharge Diagnosis) - 10/03/20 Drug therapy (Discharge Diagnosis) - 10/03/20 Equivalent angina (Discharge Diagnosis) - 10/03/20 Attending Physician: Oneyda Duran DO Allergies, Adverse Reactions, Alerts Substance Reaction Severity Status sulfa drugs Active erythromycin Active lisinopril Active acetaminophen-hydrocodone Active Assessment and Plan Future AppointmentsAppointment Date:12/10/2020 03:30:00 PM Scheduled Provider:Oneyda Duran DO Location:[facility] Appointment Type:Established Patient Future Scheduled [...] physician, # 15 mL, Refill(s) 1, Pharmacy: [facility], [id number], Novolog may be substituted for insurance reasons [...] TID, # 90 tab, Refill(s) 0, Pharmacy: [facility], [id number], TAB, fill at client request, 1 tab By mouth TID,x30 Days, 64, 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 Start Date: 07/22/20 Stop Date: 08/21/20 Status: Orderedpen needles to go with Humalog kwikPen pen needles to go with Humalog kwikPen, See Instructions, use to inject insulin TID DX E11.9, # 270 EA, Refills(s) 1, Route to Pharmacy Electronically, Pharmacy: [facility], RX for humalog kwikpen sent earlier today 07/23/20, use to... Start Date: 07/23/20 Status: OrderedPepcid Refill(s) 0 Start Date: 10/03/20 Status: Orderedpravastatin 80 mg oral tablet 80 mg = 1 tab, By mouth, Daily, # 90 tab, Refill(s) 0 Start Date: 07/22/20 Status: SuspendedProAir HFA 108 (90 mcg base)/inh inhalation aerosol [...] Procedure Date Related Diagnosis Body Site Status COLLECTION VENOUS BLOOD VENIPUNCTURE 10/03/20 Completed Laparoscopic cholecystectomy 08/05/20 Completed L tibia tendon [...] to oldest [Reference Range]: 1 Blood Pressure 148/68 (10/03/20 1:08 PM) Height (inches) (Clinical) 64 in (10/03/20 1:08 PM) Weight (kg) (Clinical) 100.18 kg (10/03/20 1:08 PM) BMI (Clinical) 37.8 kg/m2 (10/03/20 1:08 PM) Social History Social History Type Response Smoking Status Never smoker; 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 No entered on: 10/03/20 Sex Female
--- OUTSIDE RECORDS SUMMARY | 2022-05-14 15:29 | XMS_ITS | Encounter Summary ---
:[address] [facility] [employer] Address [address] [place] [address] Care Team Providers Name Role Phone Unavailable Primary Care Provider Unavailable Encounter Details Date Type Department Care Team Description 08/05/[address] [facility], [facility] [address] [place] [id number] [phone] Social History Tobacco Use Types Packs/Day Years Used Date Smoking Tobacco: Never Assessed Sex Assigned at Date Recorded Not on file documented as of this encounter Plan of Treatment Not on filedocumented as of this encounter Visit Diagnoses Not on filedocumented in this encounter
--- OUTSIDE RECORDS SUMMARY | 2022-05-14 15:29 | XMS_ITS | Clinical Summary ---
:1950 Author Organization [facility] Address [address] [place] [address] Phone Care Team Providers Name Role Phone Unavailable Primary Care Provider Unavailable Social History Tobacco Use Types Packs/Day Years Used Date Smoking Tobacco: Never Assessed Sex Assigned at Date Recorded Not on file Plan of Treatment Health Maintenance Due Date Last Done Comments DIABETES ANNUAL FOOT EXAM 1968 DIABETES ANNUAL RETINAL EXAM 1968 DIABETES HBA1C Q 6 MONTHS 1968 DIABETES MICROALBUMIN ANNUAL SCREEN 1968 LDL CHOLESTEROL ANNUAL 1968 BREAST CANCER SCREENING 1990 COLORECTAL SCREENING 2000 Colorectal Cancer Screening 2000 FIT-DNA Q 3 years 2000 FIT/FOBT Q 1 year 2000 Flex Sig/CT Colonography Q 5 years 2000 ZOSTER VACCINE (1 of 2) 2000 OSTEOPOROSIS SCREENING 2015 PNEUMOCOCCAL VACCINE 65+ YEARS (3 - PPSV23 10/15/201610/15, 10/24/2006 if available, else PCV20) INFLUENZA VACCINE (#1) 2022 04/11/2020 DTAP/TDAP/TD VACCINES (3 - Td or Tdap) 10/26/2025 6, 11/25/2006 Insurance Payer Benefit Plan Subscriber ID Effective Phone Address Typ e / Group Dates MEDICARE MEDICARE PART [id number] 2015-Pres [phone] Medicare A AND B ent 27 FOR [id number] 2020-[place]ane [address] [place], [place] Insuranc e [address]
--- OUTSIDE RECORDS SUMMARY | 2022-05-14 15:29 | XMS_ITS | Continuity of Care Document ---
:1950 Author Organization [facility] Care Team Providers Name Role Phone [facility] Unavailable Unavailable Medications Combined list of outpatient medications from Department of Defense and Veterans Affairs facilities. Medications provided include 1) outpatient medications from the last 15 months, and 2) patient-reported medications. Medication Details Route Status Patient Prescription Prescription Last Ordering Order Source Instructions Expires Number Dispense Provider Date Date ANUCORT-HC Active 171060 JIM, Pharmac (HYDROCORTI 1 2020 y Data SONE Transac ACETATE), tion 25MG, Service SUPP.RECT, Facilit RECTAL, G & y W LABS., 24 ea. BOX AZITHROMYCI Active [id number] BRIDGES, 05/19 / Pharmac N 1 2020 y Data (azithromyc Transac in), 500 tion MG, TABLET, Service ORAL, TAGI Facilit PHARMA, 100 y ea. BOTTLE BACLOFEN Active [id number] JIM, 05/31/ P harmac (baclofen), 1 2020 y Data 10 MG, Transac TABLET, tion ORAL, Service TRUPHARMA, Facilit LLC., 100 y ea. BOTTLE COMFORT EZ Active [id number] JIM,D 03/27 3/ Pharmac PEN NEEDLE 1 EBORAH 2020 y Data (pen Transac needle, tion diabetic), Service 29 G X1/2, Facilit DIS NEEDLE, y MISCELL, SIMPLE DIAGNOST, 100 ea. BOX COMFORT EZ Active [id number] JIM,D 06/27 2/ Pharmac PEN NEEDLE 2 EBORAH 2021 y Data (pen Transac needle, tion diabetic), Service 29 G X1/2, Facilit DIS NEEDLE, y MISCELL, SIMPLE DIAGNOST, 100 ea. BOX COMFORT EZ Active [id number] JIM,D 11/26 3/ Pharmac PEN NEEDLE 2 EBORAH 2021 y Data (pen Transac needle, tion diabetic), Service 29 G X1/2, Facilit DIS NEEDLE, y MISCELL, SIMPLE DIAGNOST, 100 ea. BOX CYANOCOBALA Active [id number] JIM,D / Pharmac MIN 2 EBORA2021 y Data INJECTION Transac (cyanocobal tion norman Service (vitamin Facilit B-12)), y 1000MCG/ML, VIAL, INJECTION, SOMERSET THERAP, 1 ml VIAL DILTIAZEM Active [id number] JIM,D 04/08 / Pharmac HCL 1 EBORA2020 y Data (diltiazem Transac HCl), 60 tion MG, TABLET, Service ORAL, Facilit OCEANSIDE y PHARM, 100 ea. BOTTLE DILTIAZEM Active [id number] JIM,D 12/27 / Pharmac HCL 2 EBORA2021 y Data (diltiazem Transac HCl), 60 tion MG, TABLET, Service ORAL, Facilit OCEANSIDE y PHARM, 100 ea. BOTTLE DILTIAZEM Active [id number] JIM, 12/28/ Pharmac HCL 2 2021 y Data (DILTIAZEM Transac HCL), 60MG, tion TABLET, Service ORAL, TEVA Facilit USA, 100 y ea. BOTTLE FLUAD QUAD Active [id number] BOURBON, 05/19/ Pharmac 5036-1604 1 2020 y Data (influenza Transac vaccine tion quadrivalen Service t 2020- Facilit (65 yr y up)/MF59C.1 /PF), 60MCG/.5ML, SYRINGE, INTRAMUSC, [employer] INC[employer] .5 ml SYRINGE HUMALOG Active [id number] RICHARDSO 07/21/ Pharmac (INSULIN 2 N,BLAZE 2021 y Data LISPRO), Transac 100 U/ML, tion INSULN PEN, Service SUB-Q, KAMRAN Facilit AMALIA & y CO., 3 ml SYRINGE HUMALOG Active [id number] JIM,D 04/08/ Pharmac (INSULIN 1 EBORA2020 y Data LISPRO), Transac 100 U/ML, tion INSULN PEN, Service SUB-Q, KAMRAN Facilit AMALIA & y CO., 3 ml SYRINGE HUMALOG Active [id number] JIM,D 03/29/ Pharmac ([facility] y Data LISPRO), Transac 100 U/ML, tion INSULN PEN, Service SUB-Q, KAMRAN Facilit AMALIA & y CO., 3 ml SYRINGE HYDROCHLORO Active [id number] JIM,D / Pharmac THIAZIDE 2 [facility] 2021 y Data (hydrochlor Transac othiazide), tion 25 MG, Service TABLET, Facilit ORAL, GSMS, y INC., 1000 ea. BOTTLE HYDROCHLORO Active [id number] JIM,D / Pharmac THIAZIDE 2 [facility] 2021 y Data (hydrochlor Transac othiazide), tion 25 MG, Service TABLET, Facilit ORAL, GSMS, y INC., 1000 ea. BOTTLE HYDROCHLORO Active [id number] JIM,D / Pharmac THIAZIDE 2 [facility] 2021 y Data (hydrochlor Transac othiazide), tion 25 MG, Service TABLET, Facilit ORAL, GSMS, y INC., 1000 ea. BOTTLE HYDROCHLORO Active [id number] JIM,D / Pharmac THIAZIDE 1 [facility] 2020 y Data (hydrochlor Transac othiazide), tion 25 MG, Service TABLET, Facilit ORAL, GSMS, y INC., 1000 ea. BOTTLE HYDROCHLORO Active [id number] JIM,D / Pharmac THIAZIDE 1 [facility] 2020 y Data (hydrochlor Transac othiazide), tion 25 MG, Service TABLET, Facilit ORAL, GSMS, y INC., 1000 ea. BOTTLE HYDROCHLORO Active [id number] JIM,D / Pharmac THIAZIDE 2 [facility] 2021 y Data (hydrochlor Transac othiazide), tion 25 MG, Service TABLET, Facilit ORAL, GSMS, y INC., 1000 ea. BOTTLE INSULIN Active [id number] RICHARDSO 10/07/ Pharmac SYRINGE 2 N,BLAZE 2021 y Data (syringe Transac with tion needle,disp Service osable,insu Facilit tony 1 mL), y 30GX1/2, DISP SYRIN, MISCELL, BD DIABETES, 100 ea. BOX JARDIANCE Active [id number] RICHARDSO 10/07 / Pharmac (EMPAGLIFLO 2 N,BLAZE 2021 y Data ZIN), 25 Transac MG, TABLET, tion ORAL, Service BOEHRINGER Facilit ING., 30 y ea. BOTTLE JARDIANCE Active [id number] RICHARDSO 12/17 / Pharmac (EMPAGLIFLO 2 N,BLAZE 2021 y Data ZIN), 25 Transac MG, TABLET, tion ORAL, Service BOEHRINGER Facilit ING., 30 y ea. BOTTLE JARDIANCE Active [id number] RICHARDSO 12/28 / Pharmac (EMPAGLIFLO 2 N,BLAZE 2021 y Data ZIN), 25 Transac MG, TABLET, tion ORAL, Service BOEHRINGER Facilit ING., 30 y ea. BOTTLE LANTUS Active [id number] RICHARDSO rmac (INSULIN 2 N,2021 y Data GLARGINE,HU Transac M.REC.ANLOG tion ), 100 Service U/ML, VIAL, Facilit SUB-Q, y [facility] PHARM, 10 ml VIAL LANTUS Active [id number] RICHARDSO 12/29/ P harmac (INSULIN 2 N,2021 y Data GLARGINE,HU Transac M.REC.ANLOG tion ), 100 Service U/ML, VIAL, Facilit SUB-Q, y [facility] PHARM, 10 ml VIAL LANTUS Active [id number] RICHARDSO P harmac (INSULIN 2 N,BLAZE 2021 y Data GLARGINE,HU Transac M.REC.ANLOG tion ), 100 Service U/ML, VIAL, Facilit SUB-Q, y [facility] PHARM, 10 ml VIAL LANTUS Active [id number] RICHARDSO 08/05/ P harmac (INSULIN 2 N,BLAZE 2021 y Data GLARGINE,HU Transac M.REC.ANLOG tion ), 100 Service U/ML, VIAL, Facilit SUB-Q, y [facility] PHARM, 10 ml VIAL LANTUS Active [id number] RICHARDSO 08/04/ P harmac (INSULIN 2 N,BLAZE 2021 y Data GLARGINE,HU Transac M.REC.ANLOG tion ), 100 Service U/ML, VIAL, Facilit SUB-Q, y [facility] PHARM, 10 ml VIAL LANTUS Active [id number] [facility] 07/08/ P harmac (INSULIN 2 THERINE 2021 y Data GLARGINE,HU Transac M.REC.ANLOG tion ), 100 Service U/ML, VIAL, Facilit SUB-Q, y [facility] PHARM, 10 ml VIAL LOSARTAN Active [id number] HELGEN,07/08/ Pharmac POTASSIUM 2 THERINE 2021 y Data (losartan Transac potassium), tion 100 MG, Service TABLET, Facilit ORAL, y XLCARE PHARMACE, 1000 ea. BOTTLE LOSARTAN Active [id number] HELGEN,KA 10/15/ Pharmac POTASSIUM 2 THERINE 2021 y Data (losartan Transac potassium), tion 100 MG, Service TABLET, Facilit ORAL, y XLCARE PHARMACE, 1000 ea. BOTTLE MYRBETRIQ Active [id number] JIM,D 08/17 / Pharmac (MIRABEGRON 2 EBORAH 2021 y Data ), 25 MG, Transac TAB ER 24H, tion ORAL, Service ASTELLAS Novalys PHARMA, 30 y ea. BOTTLE MYRBETRIQ Active [id number] BELLEROSE, Ph armac (MIRABEGRON 2 2021 y Data ), 25 MG, Transac TAB ER 24H, tion ORAL, Service ASTELLAS Facilit PHARMA, 30 y ea. BOTTLE OXYBUTYNIN Active [id number] JIMD 09/25 3/ Pharmac CHLORIDE 2 EBORA2021 y Data (oxybutynin Transac chloride), tion 5 MG, Service TABLET, Facilit ORAL, y [employer] 1000 ea. BOTTLE Oxybutynin Active [id number] JIM,D 02/26 6/ Pharmac Chloride 1 EBORA2020 y Data ([employer]) 500 tion TABLET in 1 Service BOTTLE, Facilit PLASTIC y PAXLOVID Active [id number] BELL, 02/19/ Pharmac (EUA) 2 2021 y Data (nirmatrelv Transac ir/ritonavi tion r), Service 150(2)-100, Facilit TABLET, y ORAL, PFIZER US PHARM, 30 ea. BLIST PACK TRULICITY Active [id number] VILLALTA,AN 06/18 Pharmac (DULAGLUTID 1 JU 2020 y Data E), Transac 0.75MG/0.5, tion PEN INJCTR, Service SUB-Q, KAMRAN Facilit AMALIA & y CO., 0.5 ml SYRINGE TRULICITY Active [id number] VILLALTA, 06/09/ Pharmac (DULAGLUTID 1 2020 y Data E), Transac 0.75MG/0.5, tion PEN INJCTR, Service SUB-Q, KAMRAN Facilit AMALIA & y CO., 0.5 ml SYRINGE TRULICITY Active [id number] RICHARDSO 07/21 / Pharmac (DULAGLUTID 2 N,BLAZE 2021 y Data E), 1.5 Transac MG/0.5, PEN tion INJCTR, Service SUB-Q, KAMRAN Facilit AMALIA & y CO., 0.5 ml SYRINGE TRULICITY Active [id number] RICHARDSO 10/07 / Pharmac (dulaglutid 2 N,BLAZE 2021 y Data e), 3 Transac MG/0.5ML, tion PEN INJCTR, Service SUBCUT, KAMRAN Facilit [employer]ALIA [employer] y CO., .5 ml SYRINGE TRULICITY Active [id number] RICHARDSO 12/28 / Pharmac (dulaglutid 2 N,BLAZE 2021 y Data e), 3 Transac MG/0.5ML, tion PEN INJCTR, Service SUBCUT, KAMRAN Facilit AMALIA & y CO., .5 ml SYRINGE Immunizations Combined list of available immunizations from the Department of Defense and Veterans Affairs facilities. Immunization Series Date Administered Site Reaction Lot CVX Drug St atus Comments Source Given By Number Code Sky Cap Influenza 05/14/ STEPHAN, () Not Influe nza DoD vaccine, 2020 Given vaccine, quadrivalent, wesley robby adjuvanted ent, adjuvante d Influenza 04/11/ ADRIANA, () Not Influ lucía DoD vaccine, 2019 Given vaccine, quadrivalent, wesley robby adjuvanted ent, adjuvante d influenza, 05/21/ DONNA, () Not infl uenza DoD trivalent, 2019 Given , adjuvanted trivalent , adjuvante d zoster live 08/15/ KIND, () Not zoster DoD 2016 Given live Social History Combined list of available smoking, tobacco, and other social history from Department of Defense andVeterans Affairs facilities. Social History Type Response Date Comment Source This section is an empty social history section. DoD
--- OUTSIDE RECORDS SUMMARY | 2022-05-14 15:29 | XMS_ITS | Continuity of Care Document ---
:1950 Author Organization [facility], later [facility] Address [address] [place] [address] [place] [address]- Care Team Providers Name Role Phone Oneyda Duran DO Primary Care Physician Encounter 06/03/21 - 06/04/[address] [place] [address]- Encounter Diagnosis Neck pain on left side (Discharge Diagnosis) - 06/03/21 OAB (overactive bladder) (Discharge Diagnosis) - 06/03/21 Attending Physician: Oneyda Duran DO Allergies, Adverse Reactions, Alerts Substance Reaction Severity Status sulfa drugs Active erythromycin Active lisinopril Active acetaminophen-hydrocodone Active Assessment and Plan Future AppointmentsAppointment Date:06/08/2021 08:30:00 AM Scheduled Provider:Chucky BRADY, Carole Jose Location:[facility] Appointment Type:New Patient Appointment Date:09/28/2021 07:30:00 AM Scheduled Provider: Location:[facility] Appointment Type:Lab Appointment Date:10/02/2021 11:00:00 AM Scheduled Provider:Oneyda Duran DO Location:[facility] Appointment Type:Established Patient Future Scheduled TestsLaboratoryMicroalbumin Creatinine Ratio Random Urine 10/05/21Hgb A1C 10/05/21Lipid Panel with Reflex Direct LDL 10/05/21CMP 10/05/21 RadiologyUS Kidney Bilateral 07/22/20US Abdomen Limited w Liver [...] spasm, # 90 tab, Refill(s) 0, Pharmacy: [facility] #[id number], [id number], 1 tab By mouth TID,PRN:as needed for mus colin spasm, 102.18, 05/29/21 14:00:00 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, kg, Weight Start Date: 05/29/21 Status: OrderedBD SYR UF 1ML 10'S 303464 30G 1/2 BD SYR UF 1ML 10'S 814702 30G 1/2, See Instructions, USE 1 DAILY DIRECTED, # 200 EA, Refills(s) 3, Route to Pharmacy Electronically, Pharmacy: [facility], USE 1 DAILY DIRECTED,100.91, 12/17/20 7:31:00 CDT, kg, Weight Start Date: 01/08/21 Status: Orderedcomfort pen needle 12MM 100 29G 1/2 comfort pen needle 12MM 100 29G 1/2, See Instructions, Comfort Pen Needle 12MM 100 29G 1/2 use to inject insulin TID-QID daily DX E11.9, # 400 EA, Refills(s) 3, Route to Pharmacy Electronically, Pharmacy: [facility], Comfort Pen Nee... Start Date: 04/03/21 Status: Orderedcranberry Refill(s) 0 Start Date: 07/22/20 Status: Orderedcyanocobalamin 1000 mcg/mL injectable solution 1,000 mcg = 1 mL, IM, QMonth, # 3 mL, Refill(s) 3, Pharmacy: [facility], [id number], INJ, 1 mL IM QMonth, 100.91, 12/17/20 7:31:00 CDT, kg, Weight Start Date: 01/16/21 Status: OrdereddilTIAZem 60 mg oral tablet 30 mg = 0.5 tab, By mouth, BID, # 90 tab, Refill(s) 1, Pharmacy: [facility], [id number], TAB, 0.5 tab By mouth BID, 100.91, [...] Refills(s) 3, Route to Pharmacy Electronically, Pharmacy: [facility], 10/28/20 3:41pm THIS IS A CHANGE FROM THE ONE SENT EARLIER. P... Start Date: 10/28/20 Status: OrderedHumaLOG KwikPen 100 units/mL injectable solution See Instructions, INJECT 15 UNITS UNDER THE SKIN WITH MEALS , MAY INCREASE DOSE AT DIRECTION OF PHYSICIAN UP TO 30 UNITS, # 15 EA, Refill(s) 1, Pharmacy: [facility], [id number], Instructions Replace Require... Start Date: 04/03/21 Status: OrderedhydroCHLOROthiazide 25 mg oral tablet 25 mg = 1 tab, By mouth, BID, # 180 tab, Refill(s) 1, Pharmacy: [facility], [id number], 1 tab By mouth BID,x90 Days, 100.91, 12/17/20 7:31:00 CDT, kg, Weight Start Date: 04/03/21 Stop Date: 09/30/21 Status: Orderedhydrocortisone 25 mg rectal suppository 25 = mg 1 supp, Rectally, BID, X 7 Days, # 14 supp, Refill(s) 0, Route to Pharmacy Electronically, Pharmacy: [facility] #[id number], [id number], 1 supp Rectally BID,x7 Days, 102.18, 05/29/21 14:00:00 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, kg, Weight Start Date: 05/29/21 Stop Date: 06/05/21 Status: OrderedLanTUS 100 units/mL subcutaneous solution See [...] = 1 tab, By mouth, Daily, # 30 tab, Refill(s) 0, Pharmacy: [facility][id number], [id number], 1 tab By mouth Daily,x30 Days, 102.18, 05/29/21 14:00:00 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, kg, Weight Start Date: 05/29/21 Stop Date: 06/28/21 Status: Orderedoxybutynin 5 mg oral tablet = 1 tab, By mouth, TID, # 270 tab, Refill(s) 3, Pharmacy: [facility], [id number], 1 tab By mouth TID, 100.91, 12/17/20 7:31:00 CDT, kg, Weight Start Date: 03/20/21 Status: Orderedpen needles to go with Humalog kwikPen pen needles to go with Humalog kwikPen, See Instructions, use to inject insulin TID DX E11.9, # 270 EA, Refills(s) 1, Route to Pharmacy Electronically, Pharmacy: [facility], RX for humalog ezio sent [...] to oldest [Reference Range]: 1 Blood Pressure 148/84 (06/03/21 1:32 PM) Height (inches) (Clinical) 64 in (06/03/21 1:32 PM) Weight (kg) (Clinical) 104.64 kg (06/03/21 1:32 PM) BMI (Clinical) 39.5 kg/m2 (06/03/21 1:32 PM) Social History Social History Type Response Smoking Status Never smoker; Smokeless toba account leader use: Never; Has the patient smoked in the last 365 days, even once? No entered on: 06/03/21 Sex Female
--- OUTSIDE RECORDS SUMMARY | 2022-05-14 15:29 | XMS_ITS | Continuity of Care Document ---
:1950 Author Organization [facility] Address [address] [place] [address]- Care Team Providers Name Role Phone Oneyda Duran DO Primary Care Physician Encounter 05/29/21 - 05/30/[address] [address] Encounter Diagnosis Body mass index [BMI] 38.0-38.9, adult (Discharge Diagnosis) - 05/29/21 Mixed incontinence (Discharge Diagnosis) - 05/29/21 Urine incontinence (Discharge Diagnosis) - 05/29/21 OAB (overactive bladder) (Discharge Diagnosis) - 05/29/21 Essential hypertension (Discharge Diagnosis) - 05/29/21 Diabetes mellitus type 2 in obese (Discharge Diagnosis) - 05/29/21 Obesity, unspecified (Discharge Diagnosis) - 05/29/21 Campylobacter diarrhea (Discharge Diagnosis) - 05/29/21 Strain of left trapezius muscle (Discharge Diagnosis) - 05/29/21 Attending Physician: Oneyda Duran DO Allergies, Adverse Reactions, Alerts Substance Reaction Severity Status sulfa drugs Active erythromycin Active lisinopril Active acetaminophen-hydrocodone Active Assessment and Plan Future AppointmentsAppointment Date:06/03/2021 01:30:00 PM Scheduled Provider:Oneyda Duran DO Location:[facility] Appointment Type:Established Patient Appointment Date:09/28/2021 07:30:00 AM Scheduled Provider: Location:[facility] Appointment Type:Lab Appointment Date:10/02/2021 11:00:00 AM Scheduled Provider:Oneyda Duran DO Location:[facility] Appointment Type:Established Patient Future Scheduled TestsLaboratoryMicroalbumin Creatinine [...] spasm, # 90 tab, Refill(s) 0, Pharmacy: [facility] #[id number], [id number], 1 tab By mouth TID,PRN:as needed for mus colin spasm, 102.18, 05/29/21 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, kg, Weight Start Date: 05/29/21 Status: OrderedBD SYR UF 1ML 10'S 863489 30G 1/2 BD SYR UF 1ML 10'S 358094 30G 1/2, See Instructions, USE 1 DAILY DIRECTED, # 200 EA, Refills(s) 3, Route to Pharmacy Electronically, Pharmacy: [facility], USE 1 DAILY DIRECTED,100.91, 12/17/20 7:31:00 CDT, kg, Weight Start Date: 01/08/21 Status: Orderedcomfort pen needle 12MM 100 29G 1/2 comfort pen needle 12MM 100 29G 1/2, See Instructions, Comfort Pen Needle 12MM 100 29G 1/2 use to inject insulin TID-QID daily DX E11.9, # 400 EA, Refills(s) 3, Route to Pharmacy Electronically, Pharmacy: [facility], Comfort Pen Nee... Start Date: 04/03/21 Status: Orderedcranberry Refill(s) 0 Start Date: 07/22/20 Status: Orderedcyanocobalamin 1000 mcg/mL injectable solution 1,000 mcg = 1 mL, IM, QMonth, # 3 mL, Refill(s) 3, Pharmacy: [facility], [id number], INJ, 1 mL IM QMonth, 100.91, 12/17/20 7:31:00 CDT, kg, Weight Start Date: 01/16/21 Status: OrdereddilTIAZem 60 mg oral tablet 30 mg = 0.5 tab, By mouth, BID, # 90 tab, Refill(s) 1, Pharmacy: [facility], [id number], TAB, 0.5 tab By mouth BID, 100.91, [...] Refills(s) 3, Route to Pharmacy Electronically, Pharmacy: [facility], 10/28/20 3:41pm THIS IS A CHANGE FROM THE ONE SENT EARLIER. P... Start Date: 10/28/20 Status: OrderedHumaLOG KwikPen 100 units/mL injectable solution See Instructions, INJECT 15 UNITS UNDER THE SKIN WITH MEALS , MAY INCREASE DOSE AT DIRECTION OF PHYSICIAN UP TO 30 UNITS, # 15 EA, Refill(s) 1, Pharmacy: [facility], [id number], Instructions Replace Require... 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, kg, Weight Start Date: 05/29/21 Stop Date: [...] Daily, # 30 tab, Refill(s) 0, Pharmacy: [facility] #[id number], [id number], 1 tab By mouth Daily,x30 Days, 102.18, 05/29/21 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, kg, Weight Start Date: 05/29/21 Stop Date: 06/28/21 Status: Orderedoxybutynin 5 mg oral tablet = 1 tab, By mouth, TID, # 270 tab, Refill(s) 3, Pharmacy: [facility], [id number], 1 tab By mouth TID, 100.91, 12/17/20 [...] to oldest [Reference Range]: 1 Blood Pressure 125/63 (05/29/21 1:54 PM) Height (inches) (Clinical) 64 in (05/29/21 1:54 PM) Weight (kg) (Clinical) 102.18 kg (05/29/21 1:54 PM) BMI (Clinical) 38.6 kg/m2 (05/29/21 1:54 PM) Social History Social History Type Response Smoking Status Never smoker; Smokeless toba supervisor accounting clerks use: Never; Has the patient smoked in the last 365 days, even once? No entered on: 05/29/21 Sex Female
--- OUTSIDE RECORDS SUMMARY | 2022-05-14 15:29 | XMS_ITS | Continuity of Care Document ---
:1950 Author Organization [facility] Address [address] [place] [address]- Care Team Providers Name Role Phone Oneyda Duran DO Primary Care Physician Encounter 07/22/20 - 07/24/[address] [address]- Encounter Diagnosis Body mass index [BMI] 38.0-38.9, adult (Discharge Diagnosis) - 07/22/20 Essential hypertension (Discharge Diagnosis) - 07/22/20 Diabetes mellitus type 2 in obese (Discharge Diagnosis) - 07/22/20 OAB (overactive bladder) (Discharge Diagnosis) - 07/22/20 B12 nutritional deficiency (Discharge Diagnosis) - 07/22/20 Mixed hyperlipidemia (Discharge Diagnosis) - 07/22/20 Intermittent asthma without complication (Discharge Diagnosis) - 07/22/20 Nonalcoholic fatty liver disease without nonalcoholic steatohepatitis (SANTIAGO) (Discharge Diagnosis) - 07/22/20 Left kidney mass (Discharge Diagnosis) - 07/22/20 Drug therapy (Discharge Diagnosis) - 07/22/20 Functional urinary incontinence (Discharge Diagnosis) - 07/22/20 Other specified health status (Discharge Diagnosis) - 07/24/20 Encounter for screening for depression (Discharge Diagnosis) - 07/24/20 Encounter for screening for other disorder (Discharge Diagnosis) - 07/24/20 Attending Physician: Oneyda Duran DO Allergies, Adverse Reactions, Alerts Substance Reaction Severity Status sulfa drugs Active erythromycin Active lisinopril Active acetaminophen-hydrocodone Active Assessment and Plan Extracted from: Title: Office Visit - Comprehensive Author: Margaret Duran DO Date: 07/22/20 B12 nutritional deficiency(Deficiency o f other specified B group vitamins: E53.8) ?? status unknown, no change in therapy , investigating with?? laboratory testing Ordered: Office Visit Level 4 Established 38982 Venipuncture Ambulatory Medicare Vitamin B12 Assay ?? Body mass index [BMI] 38.0-38.9, adult( Body mass index [BMI] 38.0-38.9, adult: Z68.38) ?? Diabetes mellitus type 2 in obese(Type 2 diabetes mellitus with other specified complication: E11.69) ??status unknown, no change in therapy, investigating with??laboratory testing Ordered: CMP Hgb A1C Office Visit Level 4 Established 19592 Return to Clinic, Return in 3 months Venipuncture Ambulatory Medicare ?? Drug therapy(Other salvage determiner (current) drug therapy: Z79.899) Ordered: CBC-d [facility] Hgb A1C Lipid Panel with Reflex Direct LDL Office Visit Level 4 Established 00851 Venipuncture Ambulatory Medicare Vitamin B12 Assay ?? Essential hypertension(Essential (prima ry) hypertension: I10) elevated today without morning medicati ons, no change in therapy, encouraged to take her medications regularly Ordered: CMP Office Visit Level 4 Established 81562 Return to Clinic, Return in 3 months Venipuncture Ambulatory Medicare ?? Functional urinary incontinence(Functio nal urinary incontinence: R39.81) ?? stable, no change in therapy??or new recommendations Ordered: Office Visit Level 4 Established 62748 ?? Intermittent asthma without complicatio n(Mild intermittent asthma, uncomplicated: J45.20) ?? stable/controlled, no change in ther apy?? Ordered: Office Visit Level 4 Established 60965 ?? Left kidney mass(Other specified disord ers of kidney and ureter: N28.89) ??status unknown, no change in therapy, investigating with??ultrasound initially Ordered: Office Visit Level 4 Established 71323 US Kidney Bilateral ?? Mixed hyperlipidemia(Mixed hyperlipidem ia: E78.2) ?? status unknown, no change in therapy , investigating with?? laboratory testing Ordered: [facility] Lipid Panel with Reflex Direct LDL Office Visit Level 4 Established 68879 Venipuncture Ambulatory Medicare ?? Nonalcoholic fatty liver disease withou t nonalcoholic steatohepatitis (SANTIAGO)(Fatty (change of) liver, not elsewhere classified: K76.0) ??status unknown, no change in therapy, investigating with??laboratory testing and ultrasound Ordered: CBC-d CMP Office Visit Level 4 Established 73816 PT/INR US Abdomen Limited w Liver Elastography Venipuncture Ambulatory Medicare ?? OAB (overactive bladder)(Overactive yanci dder: N32.81) ?? uncontrolled, modifying therapy??by adding an additional 5 mg oxybutynin daily ?? 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 ?? Follow up in 3 months for diabetes and hypertension with nonfasting lab and as needed. ?? Precautions given. Discussed typical course of problem(s)/diagnosis(es).?Discussed the risks and benefits of prescription or ixjx-ccd-zkiafwk medications recommended. Patient was given the opport unity to ask questions and stated unders tanding of the plan and when to seek further care. ? Today? s evaluation included review of current medications/supplements, chronic disease/problem list, and??available assessments/recommendations from specialists since last clinic chronic disease management evaluation. ?? This note was created using an EMR that incorporates voice recognition and data murphy that are auto-imported. Because of this, despite review, it may still contain homonyms, grammar errors, sound-a-li ke words, empty murphy, or other idiosyn crasies that do not convey or communicate my full intent. Feel free to contact me for any clarifications or questions. Future AppointmentsAppointment Date:10/14/2020 01:00:00 PM Scheduled Provider: Location:[facility] Appointment Type:Lab Appointment Date:10/21/2020 09:00:00 AM Scheduled Provider:Oneyda Duran DO Location:[facility] Appointment Type:Established Patient Future Scheduled [...] physician, # 3 mL, Refill(s) 0, Pharmacy: [facility] #[id number], [id number], Novolog may be substituted for insurance reasons or cost. shelter RX sent to ma... 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 Start Date: 07/22/20 Stop Date: 08/21/20 Status: Orderedpen needles to go with Humalog kwikPen pen needles to go with Humalog kwikPen, See Instructions, use to inject insulin TID DX E11.9, # 270 EA, Refills(s) 1, Route to Pharmacy Electronically, Pharmacy: [email or web address], RX for humalog kwikpen sent earlier today 07/23/20, use to... Start Date: 07/23/20 Status: Orderedpravastatin 80 mg oral tablet 80 [...] Body Site Status COLLECTION VENOUS BLOOD VENIPUNCTURE 07/22/20 Completed L tibia tendon repair with graft [...] to oldest [Reference Range]: 1 Blood Pressure 152/79 (07/22/20 8:27 AM) Height (inches) (Clinical) 64 in (07/22/20 8:27 AM) Weight (kg) (Clinical) 101.36 kg (07/22/20 8:27 AM) BMI (Clinical) 38.3 kg/m2 (07/22/20 8:27 AM) Social History Social History Type Response Smoking Status Never smoker; Smokeless toba patient account representative use: Never; Has the patient smoked in the last 365 days, even once? No entered on: 07/13/19 Sex Female
--- OUTSIDE RECORDS SUMMARY | 2022-05-14 15:29 | XMS_ITS | Continuity of Care Document ---
:1950 Author Organization [facility] Address [address] [place] [address]- Care Team Providers Name Role Phone Oneyda Duran DO Primary Care Physician Encounter 12/10/20 - 12/12/[address] [address]- Encounter Diagnosis Body mass index [BMI] 38.0-38.9, adult (Discharge Diagnosis) - 12/10/20 Diabetes mellitus type 2 in obese (Discharge Diagnosis) - 12/10/20 Elevated transaminase level (Discharge Diagnosis) - 12/10/20 Essential hypertension (Discharge Diagnosis) - 12/10/20 Mixed hyperlipidemia (Discharge Diagnosis) - 12/10/20 Nonalcoholic fatty liver disease without nonalcoholic steatohepatitis (SANTIAGO) (Discharge Diagnosis) - 12/10/20 Attending Physician: Oneyda Duran DO Allergies, Adverse Reactions, Alerts Substance Reaction Severity Status sulfa drugs Active erythromycin Active lisinopril Active acetaminophen-hydrocodone Active Assessment and Plan Future AppointmentsAppointment Date:03/30/2021 11:45:00 AM Scheduled Provider: Location:[facility] Appointment Type:Lab Appointment Date:04/03/2021 11:00:00 AM Scheduled Provider:Oneyda Duran DO Location:[facility] Appointment Type:Established Patient Future Scheduled TestsRadiologyUS [...] 07/22/20 Status: OrdereddilTIAZem 60 mg oral tablet 30 [...] Refills(s) 3, Route to Pharmacy Electronically, Pharmacy: [facility], 10/28/20 3:41pm THIS IS A CHANGE FROM THE ONE SENT EARLIER. P... 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 Start Date: 07/22/20 Stop Date: 08/21/20 Status: Orderedpen needles to go with Humalog kwikPen pen needles to go with Humalog kwikPen, See Instructions, use to inject insulin TID DX E11.9, # 270 EA, Refills(s) 1, Route to Pharmacy Electronically, Pharmacy: [facility], RX for humalog kwikpen sent [...] to oldest [Reference Range]: 1 Blood Pressure 153/77 (12/10/20 3:33 PM) Height (inches) (Clinical) 64 in (12/10/20 3:33 PM) Weight (kg) (Clinical) 101.82 kg (12/10/20 3:33 PM) BMI (Clinical) 38.4 kg/m2 (12/10/20 3:33 PM) Social History Social History Type Response Smoking Status Never smoker; Smokeless toba portfolio accountant use: Never; Has the patient smoked in the last 365 days, even once? No entered on: 12/10/20 Sex Female
--- OUTSIDE RECORDS SUMMARY | 2022-05-14 15:29 | XMS_ITS | Encounter Summary ---
:1950 Author Organization [facility] Address [address] [place] [address] Care Team Providers Name Role Phone Unavailable Primary Care Provider Unavailable Encounter Details Date Type Department Care Team Description 09/22/2020 Hospital Encounter [facility], [facility] [address] [place] [id number] [phone] Social History Tobacco Use Types Packs/Day Years Used Date Smoking Tobacco: Never Assessed Sex Assigned at Date Recorded Not on file documented as of this encounter Plan of Treatment Not on filedocumented as of this encounter Visit Diagnoses Not on filedocumented in this encounter
--- OUTSIDE RECORDS SUMMARY | 2022-05-14 15:29 | XMS_ITS | Continuity of Care Document ---
:1950 Author Organization [facility] Address [address] [place] [address]- Care Team Providers Name Role Phone PCP, NOT ON FILE Primary Care Physician Unavailable Encounter Minor Financial Number [id number] Date(s): 04/21/20 - 04/22/20 [facility] [address] [place] [phone] Attending Physician: Kalpana Esquivel Allergies, Adverse Reactions, Alerts Substance Reaction Severity Status sulfa drugs Active erythromycin Active lisinopril Active acetaminophen-hydrocodone Active Assessment and Plan Future AppointmentsAppointment Date:07/22/2020 08:30:00 AM Scheduled Provider:Oneyda Duran DO Location:[facility] Appointment Type:New Patient Medications cyanocobalamin Refill(s) 0 Start Date: 07/13/19 Status: OrdereddilTIAZem 30 mg oral tablet mg tab, By mouth, QID, Refill(s) 0 Start Date: 07/13/19 Status: OrderedhydroCHLOROthiazide By mouth, Daily, Refill(s) 0 Start Date: 07/13/19 Status: OrderedLanTUS SubQ, Daily, Refill(s) 0 Start Date: 07/13/19 Status: Orderedlosartan By mouth, Daily, Refill(s) 0 Start Date: 07/13/19 Status: OrderedMacrobid 100 mg oral capsule 100 mg, = 1 cap, By mouth, BID, with food, 5 Days, 10 cap, 0, 0, 04/26/20 9:15:00 CDT, Substitution Permitted, [facility] #[id number], 64, Height, 04/21/20 8:52:00 CDT, in, 102.27, Weight, 04/21/20 8:52:00 CDT, kg Start Date: 04/21/20 Stop Date: 04/26/20 Status: Orderedmetformin 500 mg oral tablet Refill(s) 0 Start Date: 04/21/20 Status: Orderedoxybutynin Refill(s) 0 Start Date: 07/13/19 Status: Orderedpravastatin By mouth, Daily, Refill(s) 0 Start Date: 07/13/19 Status: Ordered Social History Social History Type Response Smoking Status Never smoker; Smokeless toba senior patient account representative use: Never; Has the patient smoked in the last 365 days, even once? No entered on: 07/13/19 Sex Female
--- OUTSIDE RECORDS SUMMARY | 2022-05-14 15:29 | XMS_ITS | Continuity of Care Document ---
:1950 Author Organization [facility] Address [id number] [address] [place] [address]- Care Team Providers Name Role Phone PCP, NOT ON FILE Primary Care Physician Unavailable Encounter 04/21/20 - 04/23/20 [place] [phone] [address] [place] [address]- Encounter Diagnosis Body mass index [BMI] 38.0-38.9, adult (Discharge Diagnosis) - 04/21/20 UTI (urinary tract infection) (Discharge Diagnosis) - 04/21/20 Attending Physician: Kalpana Esquivel Allergies, Adverse Reactions, Alerts Substance Reaction Severity Status sulfa drugs Active erythromycin Active lisinopril Active acetaminophen-hydrocodone Active Assessment and Plan Extracted from: Title: UTI Author: Kalpana Esquivel Date: Impression and Plan Plan: Macrobid BID for 5 days with food. OTC Azo as directed (may turn urine orange). Rest,increase fluids. Urine for culture RTC with increasing symptoms or concerns . . Will call if needing to change antibiot ic based on culture. Patient to find new PCP for f/u. Pt understands the above and agrees with plan of care Lab View 04/21/2020 9:02 CDT POINT OF CARE POC GLU norm POC ELOISE Negative POC KET Negative POC SG 1.015 POC BLD Negative POC pH * 5.0 POC PRO (A) TR POC URO norm POC NIT Negative POC BEBETO (A) TR. Patient Instructions: Counseled: Patient , Regarding diagnosis, Regarding treatment, Regarding medications, Activity, Verbalized understanding. Orders Orders (Selected) Outpatient Orders Ordered Office Visit Level 3 New [id number]: 04/21/20 9:37:00 CDT, UTI (urinary tract infection), 1 Completed Urinalysis POC - Interface: Urine, Colle cted, RT, 10/26/20 9:02:00 CDT, Routine Prescriptions Prescribed Macrobid 100 mg oral capsule: 100 mg, = 1 cap, By mouth, BID, with food, 5 Days, 10 cap, 0, 0, 04/26/20 9:15:00 CDT, Substitution Permitted, [id number], 64, Height, 04/21/20 8:52:00 CDT, in, 102.27, Weight, 04/21/20 8:52:00 CDT, kg. Future AppointmentsAppointment Date:07/22/2020 08:30:00 AM Scheduled Provider:Oneyda Duran DO Location:[facility] Appointment Type:New Patient Medications cyanocobalamin Refill(s) 0 [...] 0, 0, 04/26/20 9:15:00 CDT, Substitution Permitted, [facility][id number], 64, Height, 04/21/20 8:52:00 CDT, in, 102.27, Weight, 04/21/20 8:52:00 CDT, kg Start Date: 04/21/20 Stop Date: 04/26/20 Status: Orderedmetformin 500 mg oral tablet Refill(s) 0 Start Date: 04/21/20 Status: Orderedoxybutynin Refill(s) 0 Start Date: 07/13/19 Status: Orderedpravastatin By mouth, Daily, Refill(s) 0 Start Date: 07/13/19 Status: Ordered Results Laboratory List Name Date Urinalysis POC - Interface 04/21/20 Most recent to oldest [Reference Range]: 1 POC GLU [norm] norm *NA* (04/21/20 9:02 AM) POC ELOISE [Negative] Negative *NA* (04/21/20 9:02 AM) POC KET [Negative] Negative *NA* (04/21/20 9:02 AM) POC SG 1.015 *NA* (04/21/20 9:02 AM) POC BLD [Negative] Negative *NA* (04/21/20 9:02 AM) POC pH 5.0 1 *NA* (04/21/20 9:02 AM) POC PRO [Negative] TR *ABN* (04/21/20 9:02 AM) POC URO [norm] norm *NA* (04/21/20 9:02 AM) POC NIT [Negative] Negative *NA* (04/21/20 9:02 AM) POC BEBETO [Negative] TR *ABN* (04/21/20 9:02 AM) 1Result Comment: Performed at:[facility], [address], [place], [address] Vital Signs Most recent to oldest [Reference Range]: 1 Blood Pressure 152/68 (04/21/20 8:49 AM) Height (inches) (Clinical) 64 in (04/21/20 8:49 AM) Weight (kg) (Clinical) 102.27 kg (04/21/20 8:49 AM) BMI (Clinical) 38.6 kg/m2 (04/21/20 8:49 AM) Social History Social History Type Response Smoking Status Never smoker; Smokeless [employer] use: Never; Has the patient smoked in the last 365 days, even once? No entered on: 07/13/19 Sex Female
[2022-05-14 15:31] LABS: C Reactive Protein* 1.7 mg/dL (0.5-1.0)
[2022-05-14 15:36] LABS: NT Pro B Type NatriureticPept* 128 PG/mL (0-125)
[2022-05-14 15:58] LABS: Thyroid Stimulating Hormone* 0.894 uIU/mL (0.270-4.20)
[2022-05-14 16:00] VITALS: BP 114/51; PULSE 70; RESP 16; O2SAT 99
[2022-05-14 16:30] VITALS: BP 108/53; PULSE 73; RESP 16; O2SAT 99
[2022-05-14] MEDS: POTASSIUM BICARB 25 MEQ EFFERVESCENT TAB 50 MEQ PO (16:38)
[2022-05-14] MEDS: APIXABAN 5 MG TABLET PO (17:13)
== END 2022-05-14 17:25 | disposition home or self-care (01) ==
PROVIDERS: Emergency Provider Family Medicine
DX: I48.20 Chronic atrial fibrillation, unspecified (principal)
CPT/HCPCS: 36415; 80048; 83735; 83880; 84443; 85025; 86140; 93005; 99284; A9270; J7030